=== PATIENT | female | born 1985 | race Caucasian/White ===

== ENCOUNTER 2022-12-24 07:11 | Outpatient (OUT) | payer OTHER, SELFPAY | END 2022-12-24 07:12 | disposition home or self-care (01) | LOC: NM 07:12 | PROVIDERS: PCP Family Medicine; Visit Provider Nurse Practitioner Family | DX: Z01.818 Encounter for other preprocedural examination (principal) ==

== ENCOUNTER 2023-01-07 10:25 | Outpatient (OUT) | payer OTHER, SELFPAY ==
--- NOTE | 2023-01-07 11:38 | PM.PRESUREVA ---
History of Present Illness History of Present Illness Chief complaint: PAT visit Narrative: Patient presents for preadmission testing. The patient states she has pelvic pain and heavy periods. She is scheduled for sterilization and an ablation. The patient states she had an abnormal EKG for previous preop workup and it was determined that she had a bundle branch block, her PCP ordered a stress test which was also abnormal, and for this reason she was evaluated by cardiology yesterday. She has been cleared for surgery by cardiology. She denies fever, nausea, vomiting, or any other complaints. Review of Systems ROS Narrative REVIEW OF SYSTEMS: Negative except as stated in HPI, ten or more systems reviewed. Constitutional: No fever , chills, weakness ENT: No sore throat or epistaxis Cardiovascular: No edema, chest pain, palpitations, or activity intolerance Respiratory: No shortness of breath, cough, or wheezing Musculoskeletal: No joint pain or swelling Gastrointestinal: No abdominal pain, constipation, diarrhea, or vomiting Genitourinary: No dysuria or hematuria Neurological: No numbness, tingling, weakness, or headache Psychiatric: No mood changes PFSH PFS Medical History (Updated 01/07/23 @ 11:18 by Aurelia Cast NP) Surgical History (Updated 01/07/23 @ 11:18 by Aurelia Cast NP) Family History (Updated 01/07/23 @ 11:18 by Aurelia Cast NP) Other Family history of colon cancer Family history of diabetes mellitus Family history of heart disease Family history of kidney cancer Family history of skin cancer Social History (Updated 01/07/23 @ 11:10 by Aurelia Cast NP) Within the past year, how often did you have a drink containing alcohol: never Score interpretation: A score less than 3 is consistent with normal alcohol consumption. Smoking status: Never smoker Non-prescribed substance use: denies use Highest level of school completed/degree received: some college, no degree Meds Home Medications and Allergies Home Medications Medication Instructions Recorded Confirmed Type cariprazine 1.5 mg capsule 1.5 mg PO DAILY 01/07/23 01/07/23 History (Vraylar) cholecalciferol (vitamin D3) 1,250 50,000 unit PO QWEEK 01/07/23 01/07/23 History mcg (50,000 unit) capsule fremanezumab-vfrm 225 mg/1.5 mL 225 mg subcut .once a month 01/07/23 01/07/23 History subcutaneous auto-injector (Ajovy) furosemide 20 mg tablet 20 mg PO QDAY 01/07/23 01/07/23 History lorazepam 1 mg tablet 1 mg PO Q12H 01/07/23 01/07/23 History pregabalin 100 mg capsule 100 mg PO Q12H 01/07/23 01/07/23 History trazodone 150 mg tablet 150 mg PO QDAY 01/07/23 01/07/23 History Exam Narrative Exam Narrative: Constitutional: Awake, alert, comfortable, well-appearing, nontoxic, interactive, vital signs as charted Head: Normocephalic, atraumatic Neck: Supple, normal appearance, normal range of motion, no meningeal signs, no lymphadenopathy Respiratory: No respiratory distress, breath sounds clear Cardiovascular: Regular rate and rhythm, strong and regular heart tones Abdomen: Nontender, normal bowel sounds, soft, no CVA tenderness Musculoskeletal: Normal gait, no swelling or edema Skin: No rashes or induration, no lesions, only visible skin inspected Neuro: No neurological deficits, normal sensation Psychiatric: Oriented ?3, normal affect Assessment and Plan Assessment and Plan (1) Abnormal uterine bleeding: (2) Dysmenorrhea: (3) Menorrhagia: (4) Pelvic pain: Plan Bilateral laparoscopic salpingectomy, endometrial ablation/Duyen scheduled with Dr. Clark 01/12/2023.
== END 2023-01-07 10:26 ==
PROVIDERS: PCP Nurse Practitioner Family
DX: Z01.818 Encounter for other preprocedural examination (principal); Z30.2 Encounter for sterilization; N92.0 Excessive and frequent menstruation with regular cycle; N93.9 Abnormal uterine and vaginal bleeding, unspecified; R10.2 Pelvic and perineal pain
CPT/HCPCS: G0463

== ENCOUNTER 2023-04-20 10:03 | Outpatient (OUT) | payer OTHER, SELFPAY ==
--- NOTE | 2023-04-20 10:45 | CA_ITS ---
[facility] Test Date: 2023-05-13 Pat Name: RADHA MONTGOMERY Department: Room: - Gender: Female [employer]ocket [employer]ist: : [id number] Requested By: [id number] Order Number: [id number] Reading MD: BUBBA FRAIRE Interpretive Statements Predominant rhythm is sinus with average rate of 78 bpm Tachycardia - max rate of 133 bpm - longest episode of 23min 33sec with rates between 112-133 bpm Bradycardia - min rate of 43 bpm - longest episode of 10min 23sec with rates between 48-58 bpm Ventricular ectopy - 2 PVC Patient triggered events: 13 - associated with symptoms of chest pain, lightheadedness and palpitations - associated with rates of 103 and 101 bpm and remainder NSR Impression: Predominant rhythm is sinus with average rate of 78 bpm Fastest rate of 133 bpm and slowest rate of 43 bpm 2 PVC No blocks or pauses No atrial fibrillation Electronically Signed On 05-16-2023 17:03:05 EDT by BUBBA FRAIRE
== END 2023-04-20 10:04 | disposition home or self-care (01) ==
LOC: CARD 10:04
PROVIDERS: PCP Nurse Practitioner Family; Visit Provider Nurse Practitioner Family
DX: R00.2 Palpitations (principal)
CPT/HCPCS: 93242

== ENCOUNTER 2023-05-18 07:35 | Outpatient (RCR) | payer OTHER, SELFPAY | END 2023-05-19 16:08 | disposition home or self-care (01) | LOC: PT 07:35 | PROVIDERS: PCP Nurse Practitioner Family; Visit Provider Psychiatry & Neurology Neurology | DX: G56.21 Lesion of ulnar nerve, right upper limb (principal); R29.3 Abnormal posture | CPT/HCPCS: 97110; 97161 ==

== ENCOUNTER 2023-10-06 10:41 | Outpatient (OUT) | payer MEDICARE, SELFPAY ==
--- OUTSIDE RECORDS SUMMARY | 2023-10-06 10:44 | XMS_ITS | CCD ---
Author Name Unknown Address [address] [place] [address] Organization [facility] Care Team Providers Care Industrial Insulator Name Role Phone KRISTIE, MARGARET Primary Care Unavailable MARTHA CASTELLANO Consulting Unavailable MARTHA CASTELLANO Attending Unavailable GRAY, MARTHA Admitting Unavailable KRISTIE, MARGARET Attending Unavailable KRISTIE, MARGARET Admitting Unavailable HOY ., DR FAY Primary Care Unavailable HEATHER ., DR OCASIO Consulting Unavailable KRISTIE, MARGARET Consulting Unavailable KRISTIE, MARGARET Attending Unavailable KRISTIE, MRAGARET Admitting Unavailable HOY ., DR FAY Primary Care Unavailable KRISTIE, MARGARET Attending Unavailable KRISTIE, MARGARET Admitting Unavailable KRISTIE, MARGARET Primary Care Unavailable KRISTIE, MARGARET Primary Care Unavailable HEATHER ., DR OCASIO Admitting Unavailable HEATHER ., DR OCASIO Attending Unavailable KRISTIE, MARGARET Primary Care Unavailable HEATHER ., DR OCASIO Attending Unavailable HEATHER ., DR OCASIO Admitting Unavailable HEATHER ., DR OCASIO Consulting Unavailable MORENA OWENS Consulting Unavailable KRISTIE, MARGARET Consulting Unavailable KRISTIE, MARGARET Attending Unavailable KRISTIE, MARGARET Admitting Unavailable HOY ., DR FAY Primary Care Unavailable KRISTIE, MARGARET Consulting Unavailable KRISTIE, MARGARET Attending Unavailable KRISTIE, MARGARET Admitting Unavailable HOY ., DR FAY Primary Care Unavailable ANDREWS ., DR BETO Cote Admitting Unavailable ANDREWS ., DR BETO Cote Attending Unavailable KRISTIE, MARGARET Primary Care Unavailable KRISTIE, MARGARET Attending Unavailable KRISTIE, MARGARET Admitting Unavailable KRISTIE, MARGARET Primary Care Unavailable KRISTIE, MARGARET Primary Care Unavailable MISC, DR LAWLER Admitting Unavailable MISC, DR LAWLER Consulting Unavailable MISC, DR LAWLER Attending Unavailable KRISTIE, MARGARET Attending Unavailable KRISTIE, MARGARET Admitting Unavailable HOY ., DR FAY Primary Care Unavailable KRISTIE, MARGARET Primary Care Unavailable HEATHER ., DR OCASIO Attending Unavailable HEATHER ., DR OCASIO Admitting Unavailable HEATHER ., DR OCASIO Consulting Unavailable LAZARO, DR MICHAEL Carmona Consulting Unavailable MARK DOMINGUEZ Attending Unavailable Maite Kruse Primary Care Provider Kaylee Hutton DO Unavailable DO Kaylee Hutton Attending Provider [phone] KAREN Munguia Primary Care Provider Maite Kruse Primary Care Provider LIZ MEEK Referring Unavailable TIFFANY MCKEON Attending Unavailable KAYLEE HUTTON Referring Unavailab LIZ Cancino Attending Unavailable Kaylee Hutton Admitting Unavailab Margaret Pitt Primary Care Unavailable Kaylee Hutton Attending Unavailab Alejandro Andujar Attending Unavailab Alejandro Andujar Admitting Unavailab le MARTINEZ STAFF Primary Care Unavailable STEPHANIE SEVERINO Attending Unavailable KRISTIE, MARGARET S Referring Unavailable KRISTIE MARGARET S Primary Care Unavailable STEPHANIE SEVERINO Attending Unavailable KRISTIE, MARGARET S Referring Unavailable KRISTIE MARGARET S Primary Care Unavailable Allergies Allergy Classification Reported Allergen(s) Allergy Type Date of Onset Reaction(s) Facility (1 source) Corticosteroids Drug allergy (disorder) [facility] Repository (2 sources) Glucocorticoid preparation; Translations: [CORTICOSTEROIDS (GLUCOCORTICOIDS)] Drug Allergy 3 Other: See Comments [facility] Work Phone: Medications Current Medications Medication Drug Class(es) Dates Sig (Normalized) Sig (Original) nabumetone 500 mg oral tablet (1 source) Nonsteroidal Anti-inflammatory Drug Start: 05-25-2023 End: 06-04-2023 take 1 tablet by mouth twice daily nabumetone (RELAFEN) 500 mg tablet Indications: 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 aura and without status migrainosus , Chronic daily headache Take 1 tablet by mouth two times a day for 10 days. 20 tablet 0 05/25/2023 06/04/2023 Active Comment on above: Take 1 tablet by matthew th two times a day for 10 days. topiramate 100 mg oral tablet (2 sources) Start: 06-15-2023 take 1 tablet by mouth once daily at bedtime topiramate (TOPAMAX) 100 mg tablet Indications: 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 aura and without status migrainosus , Pressure in head , Chronic daily headache Take 1 tablet by mouth daily at bedtime. 30 tablet 3 06/15/2023 Active Start: 05-25-2023 End: 06-15-2023 take 1 tablet by mouth once daily at bedtime, then take 2 tablets by mouth once daily at bedtime, then take 3 tablets by mouth once daily at bedtime topiramate (TOPAMAX) 25 mg tablet Indications: 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 aura and without status migrainosus , Pressure in head , Chronic daily headache Take 1 tablet by mouth daily at bedtime for 7 days, THEN 2 tablets daily at bedtime for 7 days, THEN 3 tablets daily at bedtime for 7 days. 42 tablet 0 05/25/2023 06/15/2023 Active Comment on above: Take 1 tablet by matthew th daily at bedtime for 7 days, THEN 2 tablets daily at bedtime for 7 days, THEN 3 tablets daily at bedtime for 7 days. Take 1 tablet by matthew th daily at bedtime. Completed/Discontinued Medications Medication Drug Class(es) Dates Sig (Normalized) Sig (Original) cariprazine 4.5 mg oral capsule (1 source) Atypical Antipsychotic Start: 05-04-2023 take 1 capsule by mouth once daily cariprazine (VRAYLAR) 4.5 mg capsule Take 4.5 mg by mouth once daily. 0 05/04/2023 Active Comment on above: Take 4.5 mg by mouth once daily. clonazePAM 1 mg oral tablet (1 source) Benzodiazepine Start: 03-02-2023 clonazePAM (KLONOPIN) 1 mg tablet Take 1 mg by mouth as needed. 0 03/02/2023 Active Comment on above: Take 1 mg by mouth a s needed. cyclobenzaprine hydrochloride 10 mg oral tablet (1 source) Muscle Relaxant Start: 04-05-2023 take 2 tablets by mouth once daily at bedtime cyclobenzaprine (FLEXERIL) 10 mg tablet Take 20 mg by mouth daily at bedtime. 0 04/05/2023 Active Comment on above: Take 20 mg by mouth daily at bedtime. FLUoxetine 40 mg oral capsule (1 source) Serotonin Reuptake Inhibitor Start: 02-18-2023 take 1 capsule by mouth once daily FLUoxetine (PROZAC) 40 mg capsule Take 40 mg by mouth once daily. 0 02/18/2023 Active Comment on above: Take 40 mg by mouth once daily. gabapentin 400 mg oral capsule (1 source) Anti-epileptic Agent Start: 03-16-2023 take 1 capsule by mouth three times daily gabapentin (NEURONTIN) 400 mg capsule Take 400 mg by mouth three times a day. 0 03/16/2023 Active Comment on above: Take 400 mg by mouth three times a day. lamoTRIgine 100 mg oral tablet (1 source) Mood Stabilizer, Anti-epileptic Agent Start: 04-23-2023 take 1 tablet by mouth once daily lamoTRIgine (LAMICTAL) 100 mg tablet Take 100 mg by mouth once daily. 0 04/23/2023 Active Comment on above: Take 100 mg by mouth once daily. naproxen 500 mg oral tablet (1 source) Nonsteroidal Anti-inflammatory Drug Start: 04-20-2023 End: 05-25-2023 naproxen (NAPROSYN) 500 mg tablet Take 1 tablet by mouth as needed. 0 04/20/2023 05/25/2023 Discontinued Comment on above: Take 1 tablet by matthew th as needed. Problems Active Problems Problem Classification Problem Date Documented Date Episodic/Chronic Anxiety disorders (2 sources) Panic disorder [episodic paroxysmal anxiety]; Translations: [Mixed obsessional thoughts and acts] Onset: 12-08-2022 Chronic Contraceptive and procreative management (1 source) Encounter for sterilization; Translations: [ENCOUNTER FOR STERILIZATION] Onset: 11-08-2022 Episodic Essential hypertension (1 source) Essential (primary) hypertension; Translations: [ESSENTIAL PRIMARY HYPERTENSION] Onset: 11-08-2022 Chronic Headache; including migraine (1 source) Chronic intractable migraine without aura; Translations: [Chronic migraine without aura, intractable, without status migrainosus] 05-25-2023 Chronic Headache; including migraine (2 sources) Headache; Translations: [Pressure in head] 05-25-2023 Episodic Menstrual disorders (2 sources) Excessive and frequent menstruation with regular cycle; Translations: [Excessive and frequent menstruation with irregular cycle] Onset: 08-18-2022 Chronic Mood disorders (1 source) Major depressive disorder, recurrent, severe with psychotic symptoms; Translations: [Major depressive disorder, recurrent, severe with psychotic symptoms] Onset: 12-08-2022 Chronic Other circulatory disease (2 sources) Elevated blood-pressure reading, without diagnosis of hypertension; Translations: [Elevated blood-pressure reading, without diagnosis of hypertension] Onset: 01-06-2023 Episodic Other female genital disorders (1 source) Abnormal uterine and vaginal bleeding, unspecified; Translations: [ABNORMAL UTERINE VAGINAL BLEED UNS] Onset: 11-08-2022 Chronic Other nervous system disorders (4 sources) Chronic pain syndrome; Translations: [CHRONIC PAIN SYNDROME] Onset: 08-17-2022 Chronic Other nutritional; endocrine; and metabolic disorders (1 source) Obesity, unspecified; Translations: [OBESITY UNSPECIFIED] Onset: 12-10-2022 Chronic Other nutritional; endocrine; and metabolic disorders (1 source) Body mass index (BMI) 50.0-59.9, adult; Translations: [BODY MASS INDEX BMI 50.0-59.9 ADULT] Onset: 12-10-2022 Chronic Other screening for suspected conditions (not mental disorders or infectious disease) (3 sources) Abnormal electrocardiogram [ECG] [EKG]; Translations: [Abnormal result of other cardiovascular function study] Onset: 11-26-2022 Episodic Residual codes; unclassified (4 sources) Obstructive sleep apnea (adult) (pediatric); Translations: [OBSTRUCTIVE SLEEP APNEA] Onset: 12-07-2022 Chronic Spondylosis; intervertebral disc disorders; other back problems (1 source) Radiculopathy, cervical region; Translations: [Radiculopathy, cervical region] Onset: 05-20-2023 Episodic Substance-related disorders (1 source) Nicotine dependence, other tobacco product, uncomplicated; Translations: [NICOTINE DEPEND OTH TOB PROD UNCOMP] Onset: 11-08-2022 Chronic Past or Other Problems Problem Classification Problem Date Documented Da te Episodic/Chronic Other connective tissue disease (4 sources) Fibromyalgia; Translations: [FIBROMYALGIA] Onset: 08-31-2022 Episodic Other non-traumatic joint disorders (4 sources) Pain in left shoulder; Translations: [PAIN IN LEFT SHOULDER] Onset: 05-12-2022 Episodic Results Test Name Value Interpretation Reference Range Facility [facility] 08-04-2023 [facility] Telephone (NI) RADHA GARCÍA ([id number]) 1985 F [place] Date Time Provider Department 08/04/23 NEUROLOGY PROVIDER JEFF During your visit today, we recorded the following information about you: Walters, Marlee 08/04/2023 11:56 AM Signed Received external records from [facility] related to intracranial hypertension. Pt is following with Dr. Liz Meek. Forwarded records to her office at [phone]. Allergies As of Date: 08/04/2023 Noted Allergy Reaction CORTICOSTEROIDS (GLUCOCORTICOIDS) 05/25/2023 14 - Other: See Comments Date Reviewed: 08/03/2023 Reviewed by: Tiffany Mckeon APRN.SENIOR DATA DEVELOPER - Fully Assessed Reason for Visit: Received Outside Medical Records [[id number]] Cmt: Records from local neurologist Prescriptions as of 08/04/2023 - metoprolol succinate ER (TOPROL XL) 25 mg 24 hr tablet Take 1 tablet by mouth once daily. - clonazePAM (KLONOPIN) 1 mg tablet Take 1 mg by mouth as needed. - cyclobenzaprine (FLEXERIL) 10 mg tablet Take 20 mg by mouth daily at bedtime. - FLUoxetine (PROZAC) 40 mg capsule Take 40 mg by mouth once daily. - gabapentin (NEURONTIN) 400 mg capsule Take 400 mg by mouth three times a day. - lamoTRIgine (LAMICTAL) 100 mg tablet Take 100 mg by mouth once daily. - topiramate (TOPAMAX) 100 mg tablet Take 1 tablet by mouth daily at bedtime. Problem List As Of Date: 08/04/2023 (None) Encounter Status:Closed by MARLEE WALTERS on 08/04/23 Normal [facility] MR cervical spine wo obduliaon 1 MR cervical spine wo con [facility] [address] [place] [id number] MRI Report Signed Patient: Radha García MR#: [id number] : 1985 Acct:[id number] Age/Sex: 38 / F ADM Date: 05/20/23 Loc: MR Room: Type: [facility] Attending Dr: Kaylee Hutton DO Copies to: Kaylee Hutton DO Ordering Provider: Kaylee Hutton DO Date of Service: 05/20/23 MR/MR cervical spine wo con: M54.12 EXAMINATION: MRI OF THE CERVICAL SPINE WITHOUT CONTRAST CLINICAL DATA: Chronic neck pain. Bilateral arm twitching. History of Chiari malformation. TECHNIQUE: Multiecho imaging was performed in the sagittal and axial plane without contrast administration. FINDINGS: Vertebral body heights appear maintained. No bone marrow edema is noted. No prevertebral soft tissue swelling is seen. Cervicomedullary junction is normal. No syrinx is seen. No abnormal cord signal is noted. No paraspinal mass is seen. C2-3: Normal. No canal or neural foraminal stenosis. C3-4: Normal. No canal or neural foraminal stenosis. C4-5: Normal. No canal or neural foraminal stenosis. C5-6: Disc osteophyte complex present causing minimal canal and mild bilateral neural foraminal stenosis C6-7: Normal. No canal or neural foraminal stenosis. C7-T1: Normal.. MR/MR cervical spine wo con IMPRESSION: NO MRI EVIDENCE OF CORD ABNORMALITY IS SEEN. DISC OSTEOPHYTE COMPLEX SEEN AT C5-C6 CAUSING MINIMAL CANAL AND MILD BILATERAL NEURAL FORAMINAL STENOSIS. Impression dictated by: Bassem Powell Jr., D.O.05/20/2023 11:29 AM Dictation Location: [place] [address] Transcribed By: [facility] 05/20/23 1129 Dictated By: Bassem Powell Jr, DO 05/20/23 1126 Signed By: 05/20/23 1129 Normal [facility] XR pre/post mri xrayon 05-20 XR pre/post mri xray [facility] Main [place] [id number] XRay Report Signed Patient: Radha García MR#: [id number] : 1985 Acct:[id number] Age/Sex: 38 / F ADM Date: 05/20/23 Loc: MR Room: Type: [facility] Attending Dr: Kaylee Hutton DO Copies to: Kaylee Hutton DO Ordering Provider: Kaylee Hutton DO Date of Service: 05/20/23 XR/XR pre/post mri xray: M54.12 3 views cervical spine for pre-MRI assessment Straightening of cervical lordosis. Mild C5-6 spondylosis. Mild C5-6 bilateral bony neural foraminal narrowing. No fracture. No listhesis. Unremarkable soft tissues. XR/XR pre/post mri xray IMPRESSION: Mild C5-6 and degeneration. Impression dictated by: Melecio Barillas M.D.05/20/2023 1:06 PM Dictation Location: [place] [address] Transcribed By: KASSIDY 05/20/231305 Dictated By: Melecio Barillas DO 05/20/23 1304 Signed By: 05/20/23 130 [facility] 03-17-2023 [facility] Telephone (NIQ) RADHA GARCÍA ([id number]) 1985 F [place] Date Time Provider Department 03/17/23 NEUROLOGY PROVIDER NIQ During your visit today, we recorded the following information about you: Marlee Walters 03/17/2023 9:34 AM Signed Referral source: Dr. Kaylee Hutton ([facility] [place], [place], [place]) Reason: benign intracranial hypertension, chronic tension-type headache, pseudotumor cerebrei External records on file. Allergies As of Date: 03/17/2023 (Not on File) Date Reviewed: Never Reviewed Reason for Visit: Received Outside Medical Records [[id number]] Cmt: External referral to [facility] [place] Problem List As Of Date: 03/17/2023 (None) Encounter Status:Closed by MARLEE WALTERS on 03/17/23 Normal [facility] Office Visiton 01-06-2023 Follow-up visit [id number] RickyJose De JesusRadha G 1985 F Date Provider Department Center 01/06/2023 [id number] DOMINGUEZ CARD [facility] No family history on file Level of Service:626[address] CT OFFICE/OUTPATIENT NEW MODERATE MDM 45-59 MINUTES Reason for Visit and Comments: New Patient [632] - abnormal stress kristie referral saw cardio in [place] not sure of name Normal [facility] PROF CHEM 8 (BAS METB)on Anion gap [Moles/Vol] 12.4 mmol/L Normal [facility] Comment on above: Performed By: #### B MP #### [facility] [address] [place] [address] [address] Maame Núñez Calcium [Mass/Vol] 8.7 mg/dL Normal 8.5-10.1 [facility] Comment on above: Performed By: #### B MP #### [facility] [address] [place] [address] [address] Maame Núñez Chloride [Moles/Vol] 107 mmol/L Normal 98-107 [facility] Comment on above: Performed By: #### B MP #### [facility] [address] [place] [address] [address] Maame Núñez CO2 [Moles/Vol] 26.6 mmol/L Normal 21.0-32.0 [facility] Comment on above: Performed By: #### B MP #### [facility] [address] [place] [address] [address] Maame Núñez Creatinine [Mass/Vol] 0.61 mg/dL Normal 0.55-1.02 [facility] Comment on above: Performed By: #### B MP #### [facility] [address] [place] [address] [address] Maame Núñez EGFR-AF MONGOLIAN >60 Normal >=60 [facility] Comment on above: Performed By: #### B MP #### [facility] [address] [place] [address] [address] Maame Núñez EGFR-NON AF MONGOLIAN >60 Normal >=60 [facility] Comment on above: Performed By: #### B MP #### [facility] [address] [place] [address] [address] Maame Núñez Glucose [Mass/Vol] 94 mg/dL Normal 74-106 [facility] Comment on above: Performed By: #### B MP #### [facility] [address] [place] [address] [address] Maame Núñez Potassium [Moles/Vol] 4.0 mmol/L Normal 3.5-5.1 [facility] Comment on above: Performed By: #### B MP #### [facility] [address] [place] [address] [address] Maame Núñez Sodium [Moles/Vol] 142 mmol/L Normal 136-145 [facility] Comment on above: Performed By: #### B MP #### [facility] [address] [place] [address] [address] Maame Núñez Urea nitrogen [Mass/Vol] 12.0 mg/dL Normal 7.0-18.0 [facility] Comment on above: Performed By: #### B MP #### [facility] [address] [place] [address] Dr. Maame Núñez Urea nitrogen/Creatinine [Mass ratio] 19.7 mg/mg Normal [facility] Comment on above: Performed By: #### B MP #### [facility] [address] [place] [address] Dr. Maame Núñez XR CHEST 2 Von 11-02-2022 XR CHEST 2 V EXAM: XR CHEST 2 V HISTORY: Electronic cigarette user COMPARISON: 11/01/22 TECHNIQUE: PA and lateral views of the chest. FINDINGS: The cardiomediastinal silhouette is normal. No focal consolidation is identified. There is no pneumothorax. No pleural effusion is noted. The osseous structures are intact. IMPRESSION: No acute cardiopulmonary process. Electronically authenticated by: MORENA OWENS Date: 2022-11-02 09:41 Normal [facility] COLLIN EIA W/REFLEX 9 BIOMARKER Son 09-01-2022 COLLIN Direct Negative Normal Negative [facility] Comment on above: Performed By: #### A NARF9 #### [facility] [address] [place], [place] [address] Dr. Maame Núñez CBC AUTO DIFFon 08-17-2022 BASO # 0.0 103/ul Normal 0.0-0.1 [facility] Comment on above: Performed By: #### C BC ####[facility] [address] [place] [address]DrEllen Núñez Basophils/100 WBC (Bld) 0.6 % Normal 0.2-2.0 [facility] Comment on above: Performed By: #### C BC ####[facility] [address] [place] [address]Dr. Maame Núñez EO # 0.1 103/ul Normal 0.0-0.7 [facility] Comment on above: Performed By: #### C BC ####[facility] [address] [place], [place] [address]Dr. Maame Núñez Eosinophils/100 WBC (Bld) 1.5 % Normal 0.9-7.0 [facility] Comment on above: Performed By: #### C BC ####[facility] [address] [place], [place] [address]Dr. Maame Núñez Erythrocyte distribution width (RBC) [Ratio] 13.0 % Normal 11.0-15.0 [facility] Comment on above: Performed By: #### C BC ####[facility] [address] [place], [place] [address]Dr. Maame Núñez Hematocrit (Bld) [Volume fraction] 39.3 % Normal 36.0-48.0 [facility] Comment on above: Performed By: #### C BC ####[facility] [address] [place], [place] [address]DrEllen Núñez Hemoglobin (Bld) [Mass/Vol] 13.6 g/dL Normal 12.0-16.0 [facility] Comment on above: Performed By: #### C BC ####[facility] [address] [place], [place] [address]Dr. Maame Núñez IG # 0.02 10e3/ul Normal 0.00-0.03 [facility] Comment on above: Performed By: #### C BC ####[facility] [address] [place] [address]DrEllen Maame Núñez IG % 0.3 % Normal 0.0-0.5 [facility] Comment on above: Performed By: #### C BC ####[facility] [address] [place] [address]DrEllen Maame Núñez LYMPH # 2.1 103/ul Normal 1.2-3.8 [facility] Comment on above: Performed By: #### C BC ####[facility] [address] [place], [place] [address]DrEllen Maame Wilton Lymphocytes/100 WBC (Bld) 31.5 % Normal 20.5-60.0 [facility] Comment on above: Performed By: #### C BC ####[facility] [address] [place], [place] [address]DrEllen Maame Wilton MANUAL DIFF REQ NO Normal [facility] Comment on above: Performed By: #### C BC ####[facility] [address] [place], [place] [address]Dr. Maame Núñez MCH (RBC) [Entitic mass] 28.4 pg Normal 26.7-34.0 [facility] Comment on above: Performed By: #### C BC ####[facility] [address] [place], [place] [address]Dr. Maame Núñez MCHC (RBC) [Mass/Vol] 34.6 g/dL Normal 29.9-35.2 [facility] Comment on above: Performed By: #### C BC ####[facility] [address] [place], [place] [address]DrEllen Maame Wilton MCV (RBC) [Entitic vol] 82.0 fL Normal 81.0-99.0 [facility] Comment on above: Performed By: #### C BC ####[facility] [address] [place], [place] [address]DrEllen Maame Wilton MONO # 0.5 103/ul Normal 0.3-0.8 [facility] Comment on above: Performed By: #### C BC ####[facility] [address] [place] [address]Dr. Maame Núñez Monocytes/100 WBC (Bld) 7.0 % Normal 1.7-12.0 [facility] Comment on above: Performed By: #### C BC ####[facility] [address] [place] [address]Dr. Maame Núñez NEUT # 3.9 103/ul Normal 1.4-6.5 [facility] Comment on above: Performed By: #### C BC ####[facility] [address] [place] [address]Dr. Maame Núñez Neutrophils/100 WBC (Bld) 59.1 % Normal 43.0-75.0 [facility] Comment on above: Performed By: #### C BC ####[facility] [address] [place] [address]Dr. Maame Núñez Platelet mean volume (Bld) [Entitic vol] 9.9 fL Normal 9.5-13.5 [facility] Comment on above: Performed By: #### C BC ####[facility] [address] [place] [address]Dr. Maame Núñez PLT 242 103/ul Normal 150-450 [facility] Comment on above: Performed By: #### C BC ####[facility] [id number] [place] [address]Dr. Maame Núñez RBC 4.79 106/ul Normal 4.20-5.40 [facility] Comment on above: Performed By: #### C BC ####[facility] [id number] [place] [id number]. Maame Núñez WBC 6.5 103/ul Normal 4.0-11.0 [facility] Comment on above: Performed By: #### C BC ####[facility] [id number] [place] [address]Dr. Maame Núñez CPKon 08-17-2022 CK [Catalytic activity/Vol] 82 U/L Normal 26-192 [facility] Comment on above: Performed By: #### M YO, CK #### [facility] [address] [place] [address] Dr. Maame Núñez FREE T4on 08-17-2022 Free T4 [Mass/Vol] 0.99 ng/dL Normal 0.76-1.46 [facility] Comment on above: Performed By: #### F T4 #### [facility] [address] [place] [address] Dr. Maame Núñez GLYCOHEMOGLOBIN A1Con 2022 ADA RECOMMENDATION SEE BELOW Normal [facility] Comment on above: Result Comment: ADA RECOMMENDED LIMIT 4.0 - 6.0 ADA THERAPEUTIC TARGET < 7.0 ACTION SUGGESTED > 7.0 Performed By: #### A 1C #### [facility] [address] [place] [address] Dr. Maame Núñez Glucose [Mass/Vol] 103 mg/dL Normal [facility] Comment on above: Performed By: #### A 1C #### [facility] [address] [place] [address] Dr. Maame Núñez HbA1c (Bld) [Mass fraction] 5.2 % Normal 4.5-6.2 [facility] Comment on above: Performed By: #### A 1C #### [facility] [address] [place] [address] Dr. Maame Núñez MYOGLOBINon 08-17-2022 LILLIAM 46 ng/mL Normal 9-82 [facility] Comment on above: Performed By: #### M PAOLA, CK #### [facility] [address] [place] [address] Dr. Maame Núñez PREG QUANT HCGon 08-17-2022 HCG QUANT 1 mIU/mL Normal [facility] Comment on above: Performed By: #### T SH, PREGQNT #### [facility] [address] [place] [address] Dr. Maame Núñez HCG RANGE SEE BELOW Normal [facility] Comment on above: Result Comment: 5-50 0.2-1 WEEK 50-500 1-2 WEEKS 100-5,000 2-3 WEEKS 500-10,000 3-4 WEEKS 1,000-50,000 4-5 WEEKS 10,000-100,000 5-6 WEEKS 15,000-200,000 6-8 WEEKS 10,000-100,000 2-3 MONTHS Performed By: #### T NOBLE, PREGQNT #### [facility] [address], [place] [address] Dr. Maame Núñez TSHon 08-17-2022 TSH 1.027 uIU/mL Normal 0.358-3.740 [facility] Comment on above: Performed By: #### T NOBLE, PREGQNT #### [facility] [address], [place] [address] Dr. Maame Núñez US PELVIS AND TRANSVAGon US PELVIS AND TRANSVAG EXAMINATION: US PELVIS AND TRANSVAG HISTORY: Excessive menstruation with irregular cycle ; chronic menorrhagia COMPARISON: No relevant comparison available. TECHNIQUE: Transabdominal and transvaginal sonographic examination. FINDINGS: UTERUS: Normal size and appearance. Incidental 8 mm nabothian cyst within walter of cervix. Uterus size: 9.4 x 5.0 x 6.1 cm ENDOMETRIUM: Normal homogeneous appearance. Endometrial thickness: 10 mm RIGHT OVARY: Normal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 characteristic, never had papilledema, no evidence of increased pressure on MRI) who presents for evaluation of headache. Does not meet modified-Dandy walker criteria for IIH ICHD-3 Diagnosis: Chronic Migraine Headache (CM) PLAN: Preventive: topamax - goal dose 100 mg Rescue: none for now given chronicity Cycle breaker: nabumetone 500 mg BID x 10 days Future considerations: metoprol, botox, qulipta Send insurance information Copy of LP results as well as MRI brain disc sent to office HEADACHE MANAGEMENT: (You are the primary guardian of your health and headache. Keep track of all medications: This includes the reason for use, side effects and benefits.) MEDICATION TREATMENT: Medications to Start Taking topiramate (TOPAMAX) 25 mg tablet Take 1 tablet by mouth daily at bedtime for 7 days, THEN 2 tablets daily at bedtime for 7 days, THEN 3 tablets daily at bedtime for 7 days. topiramate (TOPAMAX) 100 mg tablet Starting on 06/15/2023. Take 1 tablet by mouth daily at bedtime. nabumetone (RELAFEN) 500 mg tablet Take 1 tablet by mouth two times a day for 10 days. Headache education was done. Discussed lifestyle modification including increased oral hydration, decreased caffeine, exercise and stress management. Discussed treatment options including preventive and acute medications, natural supplements, and infusion therapy. Discussed medication overuse headache and to limit use of acute treatments to no more than 2 days/week or 10 days/month. Discussed medication side effects, adverse reactions and drug interactions. Written educational materials and patient instructions outlining all of the above were given. WELLNESS IS PAIN MANAGEMENT. Follow-up: 3 months I spent a total of 45 minutes on the date of the service which included preparing to see the patient, [id number] patient care, completing clinical documentation, obtaining and/or reviewing separately obtained history, performing a medically appropriate examination, counseling and educating the patient/family/caregiver, and ordering medications, tests, or procedures. The above plan discussed with the patient. All questions answered. The patient verbalized understanding. The patient has my contact information and my chart sign up information. I performed this clinical encounter by utilizing a real time telehealth video connection between my location and the patient's location. The patient's location was confirmed during the visit. I obtained verbal consent from the patient to perform this clinical encounter utilizing video and prepared the patient by answering any questions they had about the telehealth. I addressed patient's questions and concerns in detail in regards to the chief complaint today in addition to all other comorbidities. Iesha Meek DO Adult Neurology/ Board Certified Headache Medicine/ Board Certified Staff, [facility] Specialist of Neurology with [facility] [address] [place] [address]/ [place] [address] Office: [phone] documented in this encounter [facility] Note 03-17-2023 Telephone Encounter - Marlee Walters - 03/17/2023 9:32 AM EDT Note Date & Type Note Facility 03-17-2023 Miscellaneous Notes Formattin g of this note might be different from the original. Referral source: Dr. Kaylee Hutton ([facility] [place], [place]) Reason: benign intracranial hypertension, chronic tension-type headache, pseudotumor cerebrei External records on file. documented in this encounter [facility] Progress note 01-06-2023 Note Date & Type Note Facility 01-06-2023 Note Cardiovascular Medic ine [facility] Clinic SUBJECTIVE Chief Complaint Patient presents with New Patient abnormal stress kristie referral saw cardio in [place] not sure of name ABHIJIT Radha García is a 37 y.o. female here as a new patient for evaluation of an abnormal stress test. She had an ECG as part of her preoperative workup for ablation/bilateral salpingectomy which revealed an incomplete bundle branch block with recommendations for a stress test per PCP. She had a stress test which showed moderate anterior and mild inferior wall fixed defects versus anterior soft tissue attenuation artifact without reversible ischemic changes. She reports ongoing dull chest pain occurring randomly twice a day at rest lasting up to 10 minutes at a time. No pain on exertion. Chest pain seem to be worsening over the last six months. She has chronic lightheadedness, she previously saw a market asset protection manager in [place] without findings to explain her lightheadedness. She denies syncope, acute palpitations, or worsening dyspnea on exertion. She has previously smoked marijuana but not tobacco use. No known history of diabetes, hypertension or hyperlipidemia. Her grandfather had an acute GA in his 50s, no other known family history of coronary disease or sudden cardiac . Review of Systems Cardiovascular: Positive for chest pain, dyspnea on exertion, near-syncope and palpitations. Negative for claudication, irregular heartbeat, leg swelling, orthopnea, paroxysmal nocturnal dyspnea and syncope. Neurological: Positive for light-headedness. OBJECTIVE Visit Vitals BP (!) 131/91 Pulse 69 Wt (!) 148 kg (326 lb) SpO2 98% Medications: Current Outpatient Medications: FLUoxetine (PROzac) 20 mg capsule, TAKE 1 CAPSULE (20 MG TOTAL) BY MOUTH IN THE MORNING, Disp: , Rfl: furosemide (Lasix) 20 mg tablet, Take 20 mg by mouth in the morning and at bedtime., Disp: , Rfl: LORazepam (Ativan) 1 mg tablet, TAKE 1 TABLET (1 MG TOTAL) BY MOUTH TWO TIMES A DAY NEEDED FOR ANXIETY., Disp: , Rfl: pregabalin (Lyrica) 100 mg capsule, Take 100 mg by mouth twice a day., Disp: , Rfl: traZODone (Desyrel) 50 mg tablet, TAKE 1-2 TABLETS BY MOUTH NIGHTLY NEEDED FOR SLEEP., Disp: , Rfl: Vraylar 1.5 mg capsule, , Disp: , Rfl: Physical Exam Constitutional: Appearance: She is obese. Cardiovascular: Rate and Rhythm: Normal rate and regular rhythm. Heart sounds: No murmur heard. Musculoskeletal: General: No swelling. Skin: General: Skin is warm and dry. Neurological: General: No focal deficit present. Mental Status: She is alert and oriented to person, place, and time. Labs: 11/02/2022 Sodium 142, potassium 4, chloride 107, BUN 12, serum creatinine 0.61, estimated GFR greater than 60% Testing/Procedures: Stress test: 12/15/2022 No acute or reversible defect Moderate anterior and mild inferior wall fixed defect versus anterior soft tissue attenuation artifact Normal wall motion, ejection fraction, and left ventricular volume ASSESSMENT/PLAN: Diagnosis Plan 1. Cardiovascular stress test abnormal 2. Elevated blood pressure reading 1. Abnormal cardiovascular stress test -We discussed risk factors for cardiovascular disease. She overall has low risk factors with exception of obesity. Stress did not show any ischemic or reversible defects. Additionally, her symptoms are atypical of angina, occurring at rest without reproducible symptoms on exertion. At this time do not recommend further testing for probable irreversible defect detected on stress test which is also possibly related to artifact. Given no reversible defects were noted, she is stable to proceed with planned obstetric surgery without further testing from a cardiac standpoint. Recommend cardiovascular risk factor modification including weight management and blood pressure control. 2. Elevated blood pressure reading -Discussed repeat blood pressure is persistently elevated reading in the 130s over 90s, recommend obtaining a home monitor and monitoring blood pressure at least once daily at home. She should follow-up with PCP for further management if persistently elevated. She can follow-up with cardiology on as-needed basis. This case and plan was discussed with attending market asset protection manager Dr. Johnson. Mark Dominguez APRN-SENIOR DATA DEVELOPER [facility] Cardiovascular Medicine [facility] Evaluation note Note Date & Type Note Facility Evaluation note [facility]: Evaluation note Note Date & Type Note Facility Evaluation note Diagnosis 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 aura and without status migrainosus- Primary Chronic migraine without aura, with intractable migraine, so stated, without mention of status migrainosus Pressure in head Headache Chronic daily headache Headache documented in this encounter [facility] Summary Purpose Family History No Family History Records FoundNo Family History Records FoundNo Family History Records FoundNo Family History Records FoundNo Family History Records Found Advance Directives No Advanced Directives Records Found Advance Directive Response Recorded Date/ Time Advance Directives No May 05, 2023 4:45pm Chief Complaint and Reason for Visit Chief Complaint M54.12 R29.898 Z86.6 9 Reason for Referral Specialty Diagnoses / Procedures Referred By Contac t Referred To Contact Diagnoses 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 aura and without status migrainosus Pressure in head Chronic daily headache Procedures PROVIDER ORDERED FOLLOW UP OFFICE/OUTPATIENT NEW HIGH MDM 60-74 MINUTES Liz Meek DO [address] [place] [address] Referral ID Status Reason Start Date Expiration Date Visits Requested Visits Authorized [id number] Pending Review PCP Requested Referral 08/03/2023 05/24/2024 1 1 Additional Source Comments INFORMATION SOURCE (unrecogn ized section and content) DATE CREATED AUTHOR 01/01/2023 [facility] DATE CREATED AUTHOR AUTHOR'S ORGANIZ ATION 01/06/2023 [facility] DATE CREATED AUTHOR AUTHOR'S ORGANIZ ATION 08/05/2023 [facility] DATE CREATED AUTHOR AUTHOR'S ORGANIZ ATION 08/07/2023 [facility] DATE CREATED AUTHOR AUTHOR'S ORGANIZ ATION 09/14/2023 [facility] Source Comments (unrecognize d section and content) In the event this informatio n is protected by the Federal Confidentiality of Alcohol and Drug Abuse Patient Records regulations: The Federal rules restrict any use of the information to criminally investigate or prosecute any alcohol or drug abuse patient.[facility] the event this information is protected by the Federal Confidentiality of Alcohol and Drug Abuse Patient Records regulations: The Federal rules restrict any use of the information to criminally investigate or prosecute any alcohol or drug abuse patient.[facility] Reason for Visit (unrecogniz ed section and content) Reason Comments Received Outside Medical Records Externa l referral to Neurological [place] Reason Comments Chronic Migraine Care Teams (unrecognized sec tion and content) Industrial Insulator Relationship Specialty Start Date End Date Maite Kruse [address] [place] [address] PCP - General Family Medicine 03/19/21 Kaylee Hutton DO [address] [place] [phone] [place] Referring Team Neurology 03/17/23 Team Status: Active Member Role Status Dates Margaret Munguia NP-Biju Primary Care Provider Active Team Status: Inactive Member Role Status Dates Kaylee Hutton DO Attending Provider Active Margaret Munguia DIESEL LOCOMOTIVE ENGINEER-C Primary Care Provider Active Industrial Insulator Relationship Specialty Start Date End Date Maite Kruse [address] [place] [address] PCP - General Family Medicine 03/19/21 Kaylee Hutton DO [address] [place] [phone] NI Referring Team Neurology 03/17/23 Goals (unrecognized section and content) Goals may be documented in a n alternate section FOR RECORDS PERTAINING TO PATIENTS WHO ARE OR HAVE BEEN ENROLLED IN A CHEMICAL DEPENDENCY/SUBSTANCEABUSE PROGRAM, SOME INFORMATION MAY BE OMITTED. This clinical summary was aggregated from multiple sources. Caution should be exercised in using it in the provision of clinical care. This summary normalizes information from multiple sources, and as a consequence, information in this document may materially change the coding, format and clinical context of patient data. In addition, data may be omitted in some cases. CLINICAL DECISIONS SHOULD BE BASED ON THE PRIMARY CLINICAL RECORDS. [employer] provides no warranty or guarantee of the accuracy or completeness of information in this document.
--- NOTE | 2023-10-06 10:50 | PM.CN ---
Consult Note: HPI Data of Consult Patient: new to practice Consult date: 10/06/23 Requesting Physician: Lisa Luna NP Primary Care Provider: AMAN MUNGUIA Consult Narrative Reason for consult: establish Narrative: Remedios García a pleasant 38 year old female presents for evaluation and management of chronic right shoulder pain. Patient reports chronic pain in neck and right shoulder however 4 months ago she noticed this pain changed. Patient completed PT without benefit. Patient reports stabbing ache and pain in right shoulder and upper arm. Hx of numbness of fingers in the right hand for which she had an EMG on and was negative for cervical radiculopathy. Pain today 5/10, increasing to 10/10 with pushing, pulling, housework, lifting, moving arm, activity, ADLS, and sleep. Mild benefit to motrin, gabapentin, topamax, medical marijauna. DEMAR 87%. Patient following with [facility] orthopedics for finger pains. cc:: CC: Lisa Luna NP Review of Systems ROS Status of ROS 10 or more systems reviewed and unremarkable except as noted in history and below Musculoskeletal Reports: neck pain and joint pain PFSH PFSH Medical History Abnormal uterine bleeding ?N93.9 - Abnormal uterine and vaginal bleeding, unspecified (ICD-10) Menorrhagia ?N92.0 - Excessive and frequent menstruation with regular cycle (ICD-10) Dysmenorrhea ?N94.6 - Dysmenorrhea, unspecified (ICD-10) Pelvic pain ?R10.2 - Pelvic and perineal pain (ICD-10) Fibromyalgia ?M79.7 - Fibromyalgia (ICD-10) Neck pain ?M54.2 - Cervicalgia (ICD-10) DDD (degenerative disc disease) Back pain ?M54.9 - Dorsalgia, unspecified (ICD-10) Insomnia ?G47.00 - Insomnia, unspecified (ICD-10) OCD (obsessive compulsive disorder) ?F42.9 - Obsessive-compulsive disorder, unspecified (ICD-10) PTSD (post-traumatic stress disorder) ?F43.10 - Post-traumatic stress disorder, unspecified (ICD-10) Panic attacks ?F41.0 - Panic disorder [episodic paroxysmal anxiety] (ICD-10) Depression ?F32.A - Depression, unspecified (ICD-10) Anxiety ?F41.9 - Anxiety disorder, unspecified (ICD-10) COVID-19 ?U07.1 - COVID-19 (ICD-10) Migraine ?G43.909 - Migraine, unspecified, not intractable, without status migrainosus (ICD-10) Seizures ?R56.9 - Unspecified convulsions (ICD-10) Pseudotumor cerebri ?G93.2 - Benign intracranial hypertension (ICD-10) Chiari malformation Morphea ?L94.0 - Localized scleroderma [morphea] (ICD-10) Heartburn ?R12 - Heartburn (ICD-10) Abnormal EKG ?R94.31 - Abnormal electrocardiogram [ECG] [EKG] (ICD-10) Adenomyosis ?N80.03 - Adenomyosis of the uterus (ICD-10) Surgical History S/P epidural steroid injection ?Z92.241 - Personal history of systemic steroid therapy (ICD-10) History of wisdom tooth extraction ?K08.409 - Partial loss of teeth, unspecified cause, unspecified class (ICD-10) Family History Other Family history of colon cancer Family history of diabetes mellitus Family history of heart disease Family history of kidney cancer Family history of skin cancer Social History Within the past year, how often did you have a drink containing alcohol: never Score interpretation: A score less than 3 is consistent with normal alcohol consumption. Smoking status: Never smoker Non-prescribed substance use: denies use Highest level of school completed/degree received: some college, no degree Meds Home Medications and Allergies Home Medications Medication Instructions Recorded Confirmed Type cariprazine 1.5 mg capsule 3 mg PO DAILY 01/07/23 10/06/23 History (Vraylar) furosemide 20 mg tablet 20 mg PO QDAY 01/07/23 10/06/23 History fluoxetine 40 mg capsule 80 mg PO DAILY 10/06/23 10/06/23 History gabapentin 400 mg capsule 400 mg PO DAILY 10/06/23 10/06/23 History gabapentin 800 mg tablet 800 mg PO BID 10/06/23 10/06/23 History lamotrigine 200 mg tablet 200 mg PO DAILY 10/06/23 10/06/23 History metoprolol tartrate 25 mg tablet 25 mg PO DAILY 10/06/23 10/06/23 History topiramate 100 mg tablet (Topamax) 100 mg PO DAILY 10/06/23 10/06/23 History Allergies Allergy/AdvReac Type Severity Reaction Status Date / Time No Known Drug Allergies Allergy Verified 10/06/23 11:30 Exam Constitutional Documenting provider has reviewed patient's vital signs: yes Common normals: no apparent distress, oriented x3, healthy appearing, alert and well nourished General appearance: cooperative HENSD Common normals: normocephalic, hearing grossly normal bilaterally and moist oral mucous membranes Head and scalp: normocephalic Eye Common normals: PERRL Pupil: PERRL Neck & C-Spine Common normals: full ROM General: normal visual inspection Cervical spine: pain with cervical ROM Chest Common normals: inspection of chest normal Respiratory Common normals: normal respiratory effort, no retractions and no use of accessory muscles Extremity Right upper extremity: shoulder joint Other: unable to perform empty can test due to pain and limited ROM. unable to raise arm over head, unable to perform abduction testing due to severe pain. pain over right suprascapular and axillary nerve, pain to right biceps positive apleys scratch test weakness in RUE 3/5 compared to LUE 5/5 Extremity image (front): 1. 2. Neuro Common normals: oriented x3, CN's II-XII intact bilaterally, moves all extremities, no focal motor deficits, no sensory deficits noted and deep tendon reflexes 2+ bilaterally Sensorium/orientation: alert Motor exam: no movement abnormalities noted and strength abnormal Psych Common normals: mental status grossly normal, thought process normal, cooperative, affect normal, speech normal and activity/motor behavior normal Speech: normal speech Thought process: normal thought process Results Additional Findings Additional findings: If on a controlled substance or opioids, I have checked an [place] report on this patient today and there are no aberrancies noted in the prescribing history.?? A drug screen was completed and reviewed within the last year, and if there has not been a drug screen completed we ordered one today to monitor higher risk, state monitored pain medication use. As part of providing excellent, safe, comprehensive care, the following was completed at our patient's visit: Reviewed patients? medication reconciliation. An annual review has been completed for the following: screening for depression, screening for tobacco use, and screening for unhealthy alcohol use. For concerning screenings had a discussion with the patient, provided patient education, and recommended follow-up with primary care provider when appropriate. If patient noted with a risk of falling, they received education on strength, gait, and balance training to prevent future risk of falling. Assessment and Plan Assessment and Plan (1) Right shoulder pain: (2) Biceps tendonitis: Plan right shoulder MRI to evaluate rotator cuff tear, biceps tendonitis, or other pathology. Essential to evaluate for injection therapy vs surgical referral continue medications through PCP continue f/u with orthopedics f/u after MRI
== END 2023-10-06 10:42 | disposition home or self-care (01) ==
PROVIDERS: PCP Nurse Practitioner Family; Visit Provider Nurse Practitioner
DX: M25.511 Pain in right shoulder (principal); M77.8 Other enthesopathies, not elsewhere classified
CPT/HCPCS: G0463

== ENCOUNTER 2023-10-14 09:33 | Outpatient (OUT) | payer MEDICARE, SELFPAY ==
--- NOTE | 2023-10-14 10:01 | MR_ITS ---
The [place] [address] Patient Name: RADHA MONTGOMERY MRN: [id number] date: 1985 Sex: F Assigned Patient Location: MRI Current Patient Location: MRI Accession/Order Number: [id number] Exam Date: 10/14/2023 10:10 Report Date: 10/14/2023 11:39 At the request of: BORIS PURCELL Procedure: MR shoulder RT wo con MR shoulder RT wo con, 10/14/2023 10:10 AM EDT INDICATION: Right Shoulder Pain COMPARISON: There is no appropriate prior study for comparison. TECHNIQUE: Multiplanar and multisequential MR images of the right shoulder were obtained without contrast. FINDINGS: This study is limited due to patient's body habitus that increases the noise to signal ratio. There are mild hypertrophic degenerative changes of AC joint. There is no os acromiale. No Hill-Sachs is noted. No acute fracture or dislocation is noted. The quadrilateral space and supraspinous notch are unremarkable. The T2 prolongation within the insertional portions of supraspinatus and infraspinatus may suggest tendinosis. The long head of biceps and subscapularis are unremarkable. The teres minor is unremarkable. No fatty muscle atrophy is noted. The labrum shows mild degenerative changes anterior inferiorly. There is trace intra articular joint effusion. MR/MR shoulder RT wo con IMPRESSION: Mild insertional tendinosis of supraspinatus and infraspinatus. No high grade tear. Electronically authenticated by: MARTA HOOK Date: 10/14/2023 11:39
--- OUTSIDE RECORDS SUMMARY | 2023-10-14 10:01 | XMS_ITS | CCD ---
Author Organization [facility] Care Team Providers Care Roof Foreman Name Role Phone KRISTIE, MARGARET Primary Care [...] Unavailable HEATHER ., DR OCASIO Consulting Unavailable DR MICHAEL WILLIS Consulting Unavailable MARK DOMINGUEZ Attending Unavailable Maite Kruse Primary Care Provider Kaylee Hutton DO Unavailable DO Kaylee Hutton Attending Provider [phone] KAREN Munguia Primary Care Provider Maite Kruse Primary Care Provider LIZ MEEK Referring Unavailable TIFFANY MCKEON Attending Unavailable KAYLEE HUTTON Referring Unavailab LIZ Cancino Attending Unavailable Kaylee Hutton Admitting Unavailab Margaret Pitt Primary Care Unavailable Kaylee Hutton Attending Unavailab Alejandro Andujar Attending Unavailab Alejandro Andujar Admitting Unavailab le MARTINEZ STAFF Primary Care Unavailable STEPHANIE SEVERINO Attending Unavailable KRISTIE, MARGARET S Referring Unavailable KRISTIE, MARGARET S Primary Care Unavailable STEPHANIE SEVERINO Attending Unavailable KRISTIE, MARGARET S Referring Unavailable KRISTIE, MARGARET S Primary Care Unavailable JR. NINO GEORGE C Attending Unavaila ARIANNA Benjamin Attending Unavailable Allergies Allergy Classification Reported Allergen(s) Allergy Type Date of Onset Reaction(s) Facility (1 source) Corticosteroids Drug allergy (disorder) [facility] Repository (2 sources) Glucocorticoid preparation; Translations: [CORTICOSTEROIDS (GLUCOCORTICOIDS)] Drug Allergy 3 Other: See Comments [facility] Work Phone: Medications Current Medications Medication Drug [...] Test Name Value Interpretation Reference Range Facility [facility] 08-04-2023 [facility] Telephone (NIQ) RADHA GARCÍA ([id number]) 1985 F [place] Date Time Provider Department 08/04/23 NEUROLOGY PROVIDER NIQ During your visit today, we recorded the following information about you: Marlee Walters 08/04/2023 11:56 AM Signed Received external records from [facility] related to intracranial hypertension. Pt is following with Dr. Liz Meek. Forwarded records to her office at [phone]. Allergies As of Date: 08/04/2023 Noted Allergy Reaction CORTICOSTEROIDS (GLUCOCORTICOIDS) 05/25/2023 14 - Other: See Comments Date Reviewed: 08/03/2023 Reviewed by: Tiffany Mckeon APRN.PRODUCE DEPARTMENT MANAGER - Fully Assessed Reason for Visit: Received Outside Medical Records [[id number]] Cmt: Records from local neurologist Prescriptions as [...] Status:Closed by MARLEE WALTERS on 08/04/23 Normal [facility] MR cervical spine wo obduliaon 1 MR cervical spine wo con [facility] [place] [address] MRI Report Signed Patient: Radha García MR#: [id number] : 1985 Acct:[id number] Age/Sex: 38 / F ADM Date: 05/20/23 Loc: MR Room: Type: [facility] Attending Dr: Kaylee Hutton DO Copies to: [...] Powell Jr., D.O.05/20/2023 11:29 AM Dictation Location: [place] [address] Transcribed By: [facility] 05/20/23 112 Dictated By: Bassem Powell Jr, DO 05/20/23 1126 Signed By: 05/20/23 1129 Normal [facility] XR pre/post mri xrayon 05-20 XR pre/post mri xray [facility] [place] [address] XRay Report Signed Patient: Radha García MR#: [id number] : 1985 Acct:[id number] Age/Sex: 38 / F ADM Date: 05/20/23 Loc: MR Room: Type: [facility] Attending Dr: Kaylee Hutton DO Copies to: [...] M.D.05/20/2023 1:06 PM Dictation Location: [place] [address] Transcribed By: [facility] 05/20/231305 Dictated By: Melecio Barillas DO 05/20/234 Signed By: 05/20/23 130 [facility] 03-17-2023 [facility] Telephone (NIQ) RADHA GARCÍA ([id number]) 1985 F [place] Date Time Provider Department 03/17/23 NEUROLOGY PROVIDER NIQ During your visit today, we recorded the following information about you: Marlee Walters 03/17/2023 9:34 AM Signed Referral source: Dr. Kaylee Hutton ([facility] [place], [place], [place]) Reason: benign intracranial hypertension, chronic tension-type headache, pseudotumor cerebrei External records on file. Allergies As of Date: 03/17/2023 (Not on File) Date Reviewed: Never Reviewed Reason for Visit: Received Outside Medical Records [[id number]] Cmt: External referral to [facility] [place] Problem List As Of Date: 03/17/2023 (None) Encounter Status:Closed by MARLEE WALTERS on 03/17/23 Normal [facility] Office Visiton 01-06-2023 Follow-up visit [id number] RickyJose De JesusRadha G 1985 F Date Provider Department Center 01/06/2023 [id number] DOMINGUEZ CARD [facility] No family history on file Level of Service:20926 [place] OFFICE/OUTPATIENT NEW MODERATE MDM 45-59 MINUTES Reason for Visit and Comments: New Patient [632] - abnormal stress kristie referral saw cardio in [place] not sure of name Normal [facility] PROF CHEM 8 (BAS METB)on Anion gap [Moles/Vol] 12.4 mmol/L Normal [facility] Comment on above: Performed By: #### B MP #### [facility] [address] [address] [address] Maame Núñez Calcium [Mass/Vol] 8.7 mg/dL Normal 8.5-10.1 [facility] Comment on above: Performed By: #### B MP #### [facility] [address] [address] [address] Maame Núñez Chloride [Moles/Vol] 107 mmol/L Normal 98-107 [facility] Comment on above: Performed By: #### B MP #### [facility] [address] [address] [address] Maame Núñez CO2 [Moles/Vol] 26.6 mmol/L Normal 21.0-32.0 [facility] Comment on above: Performed By: #### B MP #### [facility] [address] [address] [address] Maame Núñez Creatinine [Mass/Vol] 0.61 mg/dL Normal 0.55-1.02 [facility] Comment on above: Performed By: #### B MP #### [facility] [address] [address] [address] Maame Núñez EGFR-AF ZIMBABWEAN >60 Normal >=60 [facility] Comment on above: Performed By: #### B MP #### [facility] [address] [address] [address] Maame Núñez EGFR-NON AF ZIMBABWEAN >60 Normal >=60 [facility] Comment on above: Performed By: #### B MP #### [facility] [address] [address] [address] Maame Núñez Glucose [Mass/Vol] 94 mg/dL Normal 74-106 [facility] Comment on above: Performed By: #### B MP #### [facility] [address] [address] [address] Maame Núñez Potassium [Moles/Vol] 4.0 mmol/L Normal 3.5-5.1 [facility] Comment on above: Performed By: #### B MP #### [facility] [address] [address] [address] Maame Núñez Sodium [Moles/Vol] 142 mmol/L Normal 136-145 [facility] Comment on above: Performed By: #### B MP #### [facility] [address] [address] [address] Maame Núñez Urea nitrogen [Mass/Vol] 12.0 mg/dL Normal 7.0-18.0 [facility] Comment on above: Performed By: #### B MP #### [facility] [address] [address] [address] Maame Núñez Urea nitrogen/Creatinine [Mass ratio] 19.7 mg/mg Normal [facility] Comment on above: Performed By: #### B MP #### [facility] [address] [address] [address] Maame Núñez XR CHEST 2 Von [...] MORENA OWENS Date: 2022-11-02 09:41 Normal [facility] COLLIN EIA W/REFLEX 9 BIOMARKER Son 02-07-2023 COLLIN Direct Negative Normal Negative [facility] Comment on above: Performed By: #### A NARF9 #### [facility] [address] [address] [address] Maame Núñez CBC AUTO DIFFon 08-17-2022 BASO # 0.0 103/ul Normal 0.0-0.1 [facility] Comment on above: Performed By: #### C BC ####[facility] [address] [place] [address]Dr. Maame Núñez Basophils/100 WBC (Bld) 0.6 % Normal 0.2-2.0 [facility] Comment on above: Performed By: #### C BC ####[facility] [address] [place], [place] [address]Dr. Maame Núñez EO # 0.1 103/ul Normal 0.0-0.7 [facility] Comment on above: Performed By: #### C BC ####[facility] [address] [place], [place] [address]Dr. Maame Núñez Eosinophils/100 WBC (Bld) 1.5 % Normal 0.9-7.0 [facility] Comment on above: Performed By: #### C BC ####[facility] [address] [place], [place] [address]Dr. Maame Núñez Erythrocyte distribution width (RBC) [Ratio] 13.0 % Normal 11.0-15.0 [facility] Comment on above: Performed By: #### C BC ####[facility] [address] [place], [place] [address]Dr. Maame Núñez Hematocrit (Bld) [Volume fraction] 39.3 % Normal 36.0-48.0 [facility] Comment on above: Performed By: #### C BC ####[facility] [address] [place], [place] [address]Dr. Maame Núñez Hemoglobin (Bld) [Mass/Vol] 13.6 g/dL Normal 12.0-16.0 [facility] Comment on above: Performed By: #### C BC ####[facility] [address] [place], [place] [address]Dr. Maame úNñez IG # 0.02 10e3/ul Normal 0.00-0.03 [facility] Comment on above: Performed By: #### C BC ####[facility] [address] [place] [address]DrlElen Maame Wilton IG % 0.3 % Normal 0.0-0.5 [facility] Comment on above: Performed By: #### C BC ####[facility] [address] [place] [address]DrEllen Maame Wilton LYMPH # 2.1 103/ul Normal 1.2-3.8 [facility] Comment on above: Performed By: #### C BC ####[facility] [address] [place] [address]DrEllen Maame Wilton Lymphocytes/100 WBC (Bld) 31.5 % Normal 20.5-60.0 [facility] Comment on above: Performed By: #### C BC ####[facility] [address] [place], [place] [address]DrEllen Maame Wilton MANUAL DIFF REQ NO Normal [facility] Comment on above: Performed By: #### C BC ####[facility] [address] [place] [address]DrEllen Maame Wilton MCH (RBC) [Entitic mass] 28.4 pg Normal 26.7-34.0 [facility] Comment on above: Performed By: #### C BC ####[facility] [address] [place] [address]DrEllen Maame Wilton MCHC (RBC) [Mass/Vol] 34.6 g/dL Normal 29.9-35.2 [facility] Comment on above: Performed By: #### C BC ####[facility] [address] [place] [address]DrEllen Núñez MCV (RBC) [Entitic vol] 82.0 fL Normal 81.0-99.0 [facility] Comment on above: Performed By: #### C BC ####[facility] [address] [place], [place] [address]DrEllen Núñez MONO # 0.5 103/ul Normal 0.3-0.8 [facility] Comment on above: Performed By: #### C BC ####[facility] [address] [place] [address]Dr. Maame Núñez Monocytes/100 WBC (Bld) 7.0 % Normal 1.7-12.0 [facility] Comment on above: Performed By: #### C BC ####[facility] [address] [place] [address]Dr. Maame Núñez NEUT # 3.9 103/ul Normal 1.4-6.5 [facility] Comment on above: Performed By: #### C BC ####[facility] [address] [place] [address]Dr. Maame Núñez Neutrophils/100 WBC (Bld) 59.1 % Normal 43.0-75.0 [facility] Comment on above: Performed By: #### C BC ####[facility] [address] [place], [place] [address]Dr. Maame Núñez Platelet mean volume (Bld) [Entitic vol] 9.9 fL Normal 9.5-13.5 [facility] Comment on above: Performed By: #### C BC ####[facility] [address] [place], [place] [address]Dr. Maame Núñez PLT 242 103/ul Normal 150-450 [facility] Comment on above: Performed By: #### C BC ####[facility] [address] [place] [address]Dr. Maame Núñez RBC 4.79 106/ul Normal 4.20-5.40 [facility] Comment on above: Performed By: #### C BC ####[facility] [address] [place] [id number]. Maame Núñez WBC 6.5 103/ul Normal 4.0-11.0 [facility] Comment on above: Performed By: #### C BC ####[facility] [address] [place], [place] [address]Dr. Maame Núñez CPKon 08-17-2022 CK [Catalytic activity/Vol] 82 U/L Normal 26-192 [facility] Comment on above: Performed By: #### M YO, CK #### [facility] [address] [place] [address] Dr. Maame Núñez FREE T4on 08-17-2022 Free T4 [Mass/Vol] 0.99 ng/dL Normal 0.76-1.46 [facility] Comment on above: Performed By: #### F T4 #### [facility] [address] [place] [address] Dr. Maame Núñez GLYCOHEMOGLOBIN A1Con 2022 ADA RECOMMENDATION SEE BELOW Normal [facility] Comment on above: Result Comment: ADA RECOMMENDED LIMIT 4.0 - 6.0 ADA THERAPEUTIC TARGET < 7.0 ACTION SUGGESTED > 7.0 Performed By: #### A 1C #### [facility] [address] [place] [address] Dr. Maame Núñez Glucose [Mass/Vol] 103 mg/dL Normal [facility] Comment on above: Performed By: #### A 1C #### [facility] [address] [place] [address] Dr. Maame Núñez HbA1c (Bld) [Mass fraction] 5.2 % Normal 4.5-6.2 [facility] Comment on above: Performed By: #### A 1C #### [facility] [address] [place] [address] Dr. Maame Núñez MYOGLOBINon 08-17-2022 LILLIAM 46 ng/mL Normal 9-82 [facility] Comment on above: Performed By: #### M PAOLA, CK #### [facility] [address] [place] [address] Dr. Maame Núñez PREG QUANT HCGon 08-17-2022 HCG QUANT 1 mIU/mL Normal [facility] Comment on above: Performed By: #### T SH, PREGQNT #### [facility] [address] [place] [address] Dr. Maame Núñez HCG RANGE SEE BELOW Normal [facility] Comment on above: Result Comment: 5-50 0.2-1 WEEK 50-500 1-2 WEEKS 100-5,000 2-3 WEEKS 500-10,000 3-4 WEEKS 1,000-50,000 4-5 WEEKS 10,000-100,000 5-6 WEEKS 15,000-200,000 6-8 WEEKS 10,000-100,000 2-3 MONTHS Performed By: #### T SH, PREGQNT #### [facility] [address] [place], [place] [address] Dr. Maame Núñez TSHon 08-17-2022 TSH 1.027 uIU/mL Normal 0.358-3.740 [facility] Comment on above: Performed By: #### T SH, PREGQNT #### [facility] [address] [place], [place] [address] Dr. Maame Núñez US PELVIS AND TRANSVAGon [...] by: MICHAEL WILLIS Date: 2022-08-17 14:30 Normal [facility] Vital Signs Date Time Vital Sign Value Performing Clinician Autumn alan 05-25-2023 09:19-0400 Body height 160 cm Liz Meek DO Work Phone: [facility] 05-25-2023 09:19040 Body weight 145.15 kg Liz Meek DO Work Phone: [facility] Encounters Encounter Date Encounter Type Care Provider Facility Start: 10-11-2023 End: 10-11-2023 ambulatory HAYDEN HERNDON Not Available Start: 09-13-2023 End: 09-13-[address] [facility] Start: 08-16-2023 End: 08-16-[address] [facility] Start: 08-03-2023 End: 08-03-2023 ambulatory LIZ MEEK Facility:[facility] Start: 07-12-2023 End: 07-12-2023 ambulatory ARIANNA Carmona JOSÉDAMIAN Not Available Start: 05-25-2023 End: 05-25-2023 ambulatory Liz Meek DO Work Phone: NEUROLOGY Comment on above: 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 aura and without status migrainosus (Primary Dx); Pressure in head; Chronic daily headache Start: 05-25-2023 End: 05-25-2023 Telemedicine consultation with patient Liz Meek DO Work Phone: [facility] Start: 05-21-2023 ambulatory Alejandro Varner acility:[facility] Start: 05-20-2023 End: 05-20-2023 ambulatory Kaylee Hutton Facility:[facility] Start: 05-20-2023 End: 05-20-2023 ambulatory ASSOCIATE SALES REPRESENTATIVE-C Margaret Munguia Work Phone: [facility] Work Phone: Start: 05-20-2023 End: 05-20-2023 Patient encounter procedure ASSOCIATE SALES REPRESENTATIVE-C Margaret Munguia Work Phone: [facility] [place] Work Phone: Start: 03-17-2023 Telephone encounter Neurology Provid er Neurology Comment on above: Received Outside Med ical Records (External referral to [facility] [place]) Start: 01-06-2023 End: 01-06-2023 ambulatory [facility] Start: 12-24-2022 ambulatory MARGARET MUNGUIA Facility: [facility] Start: 12-16-2022 Encounter for preprocedural cardiovascular examination MARGARET MUNGUIA [facility] Start: 12-15-2022 End: 12-16-2022 ambulatory MARGRAET MUNGUIA Facility:[facility] Start: 12-15-2022 End: 12-16-2022 Encounter for preprocedural cardiovascular examination MARGARET MUNGUIA Facility:[facility] Start: 12-07-2022 End: 12-08-2022 ambulatory MARGARET MUNGUIA Facility:[facility] Start: 12-01-2022 End: 12-02-2022 ambulatory MARGARET KRISTIE Facility:[facility] Start: 11-26-2022 Encounter for other preprocedural examination MARGARET MUNGUIA [facility] Start: 11-23-2022 End: 11-24-2022 ambulatory MARGARET MUNGUIA Facility:[facility] Start: 11-23-2022 End: 11-24-2022 Encounter for other preprocedural examination MARGARET MUNGUIA Facility:[facility] Start: 11-11-2022 ambulatory MARGARET MUNGUIA Facility: [facility] Start: 11-08-2022 Encounter for preprocedural cardiovascular examination DR NINFA ROMERO . [facility] Start: 11-08-2022 Encounter for preprocedural laboratory examination DR NINFA ROMERO . [facility] Start: 11-08-2022 Encounter for preprocedural respiratory examination DR NINFA ROMERO . [facility] Start: 11-02-2022 End: 11-03-2022 ambulatory MARGARET MUNGUIA Facility:[facility] Start: 11-02-2022 End: 11-03-2022 Encounter for preprocedural laboratory examination MARGARET MUNGUIA Facility:[facility] Start: 08-31-2022 End: 09-01-2022 ambulatory MARGARET MUNGUIA Facility:[facility] Start: 08-17-2022 End: 08-18-2022 ambulatory MARGARET MUNGUIA Facility:[facility] Start: 05-12-2022 End: 05-13-2022 ambulatory MARGARET MUNGUIA Facility:[facility] Start: 04-30-2022 ambulatory MARGARET MUNGUIA Facility: [facility] Start: 03-31-[address] BETO ANDREWS . Faci lity:[facility] Procedures Date Procedure Procedure Detail Performing Clinician Start: 05-20-2023 XR pre/post mri xray ASSOCIATE SALES REPRESENTATIVE -C Margaret Munguia Work Phone: Start: 05-20-2023 MRI of cervical spin e without contrast ASSOCIATE SALES REPRESENTATIVEEsmer Munguia Work Phone: Plan of Treatment Date Care Activity Detail Author Start: 03-26-2023 Covid-19 Vaccine ( season) Covid-19 Vaccine ( season) [facility] Start: 03-26-2023 Influenza vaccination Influenza Vacc ine (#1) [facility] Start: 07-26-2022 Depression Assessment Depression Ass essment [facility] Start: 2016 HPV Testing HPV Testing [facility] Start: 2007 Pap Testing Pap Testing [facility] Start: 2005 Urine microalbumin profile DTa P,Tdap,Td Vaccine (1 - Tdap) [facility] Start: 2004 Hepatitis C Screening Hepatitis C Sc reening [facility] Start: 2004 HIV Screening HIV Screening [facility] Start: 1985 Hepatitis B Vaccine (1 of 3 - 3-dose series) Hepatitis B Vaccine (1 of 3 - 3-dose series) [facility] Immunizations Immunization Date Immunization Notes Care Provider Bjorn rayo 05-06-2022 influenza virus vacc ine, unspecified formulation Liz Meek DO Work Phone: [facility] Payers Date Payer Category Payer Medicare [id number] 2022 Medicaid [employer] [id number] 2022-Present [phone] [address] [place] [address] Medicaid [id number] 2022 Unknown [id number] 1985 Unknown [id number] 2.16.840.1.574733.3.579.2.593 1986 Unknown [id number] 2.16.840.1.769034.3.579.2.593 1986 Unknown [id number] 2.16.840.1.970397.3.579.2.593 1986 Unknown [id number] 2.16.840.1.040471.3.579.2.593 1986 Unknown [id number] 2.16.840.1.697182.3.579.2.593 1986 Unknown [id number] 2.16.840.1.232815.3.579.2.593 1986 Unknown [id number] 2.16.840.1.261810.3.579.2.593 1986 Unknown [id number] 2.16.840.1.686774.3.579.2.593 1986 Unknown [id number] 2.16.840.1.004255.3.579.2.593 1986 Unknown [id number] 2.16.840.1.398825.3.579.2.593 1986 Unknown [id number] 2.16.840.1.131248.3.579.2.593 1986 Unknown [id number] 2.16.840.1.101926.3.579.2.593 1986 Unknown [id number] 2.16.840.1.617315.3.579.2.593 1986 Unknown [id number] 2.16.840.1.274335.3.579.2.1286 1986 Unknown [id number] 2.16.840.1.312054.3.579.2.1286 1986 Unknown [id number] 2.16.840.1.690536.3.579.2.1259 1986 Unknown [id number] 2.16.840.1.785870.3.579.2.1259 1959 Self-pay 1959 Unknown [id number] 1959 Unknown [id number] Unknown [id number] 2.16.840.1.750259.3.579.2.531 Social History Date Type Detail [facility] Start: 1985 Sex Assigned At Not on file [facility] Start: 05-25-2023 Gender identity Not on file [facility] Start: 1985 Sex Assigned At Female [facility] Start: 05-25-2023 Tobacco smoking stat [facility] Never smoked tobacco [facility] Work Phone: Start: 05-25-2023 Tobacco use and exposure Smokeless tobacco non-user [facility] Work Phone: Start: 05-25-2023 Alcohol intake Ex-drinker (finding) [facility] Start: 05-25-2023 History of Social function [facility] Adult Depression Screening Assessment 6 [facility] Progress note 08-03-2023 Note Date & Type Note Facility 08-03-2023 Note HNO ID: [id number] Author: TIFFANY MCKEON APRN.PRODUCE DEPARTMENT MANAGER Service: ? Author Type: Nurse Practitioner Type: [...] visit. Either the patient or their legal school admissions representative has been informed of the risks [...] Take 100 mg (more content not included)... [facility] Progress note 05-25-2023 Note Date & Type Note Facility 05-25-2023 Note HNO ID: [id number] Author: Liz Meek, DO Service: ? Author Type: Physician Type: Progress Notes Filed: 05/25/2023 9:50 AM Note Text: Headache Section [facility] Virtual Visit New Encounter I have communicated my name and active licensure. The patient's identity and physical location were verified at the time of this visit. Either the patient or their legal school admissions representative has been informed of the risks and benefits of -- and alternatives to -- treatment through a remote evaluation and consents to proceed with the evaluation remotely. May 25, 2023 CC: Headache History: Radha García is a 38 year old year old, right-handed woman who is referred in consultation by Dr. Kaylee Hutton DO (neuro in [place], [place]) for an opinion regarding benign intracranial [...] yes History of Syncope (last episode last [place]) Sometimes sees stars in eyes - no [...] Stephanie Severino NP (behavioral health clinic in [place], [place]), on Vraylar, klonopin, lamictal, prozac Tobacco: [...] Migraine Screener: 3 (more content not included)... [facility] History of Present illness Narrative 05-25-2023 Liz Meek DO - 05/25/2023 9:00 AM EDT Note Date & Type Note Facility 05-25-2023 History of Presen t illness Narrative [facility] Virtual Visit New Encounter I have communicated my name and active licensure. The patient's identity and physical location were verified at the time of this visit. Either the patient or their legal school admissions representative has been informed of the risks and benefits of -- and alternatives to -- treatment through a remote evaluation and consents to proceed with the evaluation remotely. May 25, 2023 CC: Headache History: Radha García is a 38 year old year old, right-handed woman who is referred in consultation by Dr. Kaylee Hutton DO (neuro in [place], [place]) for an opinion regarding benign intracranial [...] yes History of Syncope (last episode last ) Sometimes sees stars in eyes - no [...] Stephanie Severino NP (behavioral health clinic in [place], [place]), on Vraylar, klonopin, lamictal, prozac Tobacco: [...] and clear, coherent, and relevant. Short and road manager memory, cognition and general fund of knowledge [...] which included preparing to see the patient, [id number] patient care, completing clinical documentation, obtaining and/or [...] Medicine/ Board Certified Staff, [facility] Patient Transport Orderly of Neurology with [facility]/[place] [address] Office: [phone] documented in this encounter [facility] Note 03-17-2023 Telephone Encounter - Marlee Walters - 03/17/2023 9:32 AM EDT Note Date & Type Note Facility 03-17-2023 Miscellaneous Notes Formattin g of this note might be different from the original. Referral source: Dr. Kaylee Hutton ([facility] [place], [place], [place]) Reason: benign intracranial hypertension, chronic tension-type headache, pseudotumor cerebrei External records on file. documented in this encounter [facility] Progress note 01-06-2023 Note Date & Type Note Facility 01-06-2023 Note Cardiovascular Medic ine [facility] SUBJECTIVE Chief Complaint Patient presents with New Patient abnormal stress kristie referral saw cardio in [place] not sure of name ABHIJIT Radha García [...] has chronic lightheadedness, she previously saw a reading efficiency course director in [place] without findings to explain her lightheadedness. She denies syncope, acute palpitations, or worsening dyspnea on exertion. She has previously smoked marijuana but not tobacco use. No known history of diabetes, hypertension or hyperlipidemia. Her grandfather had an acute MT in his 50s, no other known family [...] case and plan was discussed with attending reading efficiency course director Dr. Johnson. Mark Dominguez APRN-PRODUCE DEPARTMENT MANAGER [facility] Cardiovascular Medicine [facility] Evaluation note Note Date & Type Note Facility Evaluation note No assessment [facility] Work Phone: Evaluation note Note Date & Type Note Facility Evaluation note Diagnosis 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 aura and without status migrainosus- Primary Chronic migraine without aura, with intractable migraine, so stated, without mention of status migrainosus Pressure in head Headache Chronic daily headache Headache documented in this encounter [facility] Summary Purpose Family History No Family History [...] HIGH MDM 60-74 MINUTES Liz Meek DO [address] [place] [address] Referral ID Status Reason Start Date Expiration Date Visits Requested Visits Authorized [id number] Pending Review PCP Requested Referral 08/03/2023 05/24/2024 1 1 Additional Source Comments INFORMATION SOURCE (unrecogn ized section and content) DATE CREATED AUTHOR [facility]01/2023 [facility] DATE CREATED AUTHOR AUTHOR'S ORGANIZ ATION 01/06/2023 [facility] DATE CREATED AUTHOR AUTHOR'S ORGANIZ ATION 08/05/2023 [facility] DATE CREATED AUTHOR AUTHOR'S ORGANIZ ATION 08/07/2023 [facility] DATE CREATED AUTHOR AUTHOR'S ORGANIZ ATION 09/14/2023 [facility] DATE CREATED AUTHOR AUTHOR'S ORGANIZ ATION 10/11/2023 [facility] EPIC Source Comments (unrecognize d section and content) In the event this informatio n is protected by the Federal Confidentiality of Alcohol and Drug Abuse Patient Records regulations: The Federal rules restrict any use of the information to criminally investigate or prosecute any alcohol or drug abuse patient.[facility] the event this information is protected by the Federal Confidentiality of Alcohol and Drug Abuse Patient Records regulations: The Federal rules restrict any use of the information to criminally investigate or prosecute any alcohol or drug abuse patient.[facility] Reason for Visit (unrecogniz ed section and content) Reason Comments Received Outside Medical Records Externa l referral to Neurological [place] Reason Comments Chronic Migraine Care Teams (unrecognized sec tion and content) Roof Foreman Relationship Specialty Start Date End Date Maite Kruse [address] [place] [phone] PCP - General Family Medicine 03/19/21 Kaylee Hutton DO [address] [phone] [place] Referring Team Neurology 03/17/23 Team Status: Active Member Role Status Dates KAREN Egan Primary Care Provider Active Team Status: Inactive Member Role Status Dates Kaylee Hutton DO Attending Provider Active KAREN Egan Primary Care Provider Active Roof Foreman Relationship Specialty Start Date End Date Maite Kruse [address] [place] [phone] PCP - General Family Medicine 03/19/21 Kaylee Hutton DO [address] [phone] [place] Referring Team Neurology 03/17/23 Goals (unrecognized [...] BE BASED ON THE PRIMARY CLINICAL RECORDS. [facility] provides no warranty or guarantee of the accuracy or completeness of information in this document.
== END 2023-10-14 09:34 | disposition home or self-care (01) ==
LOC: MRI 09:34
PROVIDERS: PCP Nurse Practitioner Family; Visit Provider Nurse Practitioner
DX: M25.511 Pain in right shoulder (principal)
CPT/HCPCS: 73221; 73562

== ENCOUNTER 2023-10-14 09:37 | Outpatient (OUT) | payer MEDICARE, SELFPAY ==
[2023-10-14 10:05] LABS: Basophils Absolute Auto 0.1 10^3/uL (0.0-0.1); Eosinophils Absolute Auto 0.1 10^3/uL (0.0-0.7); Eosinophils Percent Auto 1.6 % (0.9-7.0); Hematocrit 38.8 % (36.0-48.0); Hemoglobin 11.6 g/dL (12.0-16.0); Immature Granulocytes Abs Auto 0.01 10^3/uL (0.00-0.03); Immature Granulocytes Pct Auto 0.1 % (0.0-0.5); Lymphocytes Absolute Auto 1.8 10^3/uL (1.2-3.8); Lymphocytes Percent Auto 26.7 % (20.5-60.0); Mean Corpuscular HGB Conc 29.9 g/dL (29.9-35.2); Mean Corpuscular Hemoglobin 26.9 pg (26.7-34.0); Mean Platelet Volume 10.1 fL (9.5-13.5); Monocytes Absolute Auto 0.5 10^3/uL (0.3-0.8); Monocytes Percent Auto 7.6 % (1.7-12.0); Neutrophils Absolute Auto 4.3 10^3/uL (1.4-6.5); Platelet Count 269 10^3/uL (150-450); Red Blood Count 4.31 10^6/uL (4.20-5.40); Red Cell Distribution Width 13.1 % (11.0-15.0); White Blood Count 6.8 10^3/uL (4.0-11.0)
--- NOTE | 2023-10-14 10:12 | XR_ITS ---
The [address] [address] Patient Name: RADHA MONTGOMERY MRN: [id number] date: 1985 Sex: F Assigned Patient Location: LAB Current Patient Location: LAB Accession/Order Number: [id number] Exam Date: 10/14/2023 10:02 Report Date: 10/14/2023 10:40 At the request of: AMAN MUNGUIA Procedure: XR knee RT 3V EXAM: Right knee HISTORY: . Right Knee Pain M25.561 . COMPARISON: None. TECHNIQUE: 2 views FINDINGS: No fracture or dislocation of the right knee is noted. Small spurs are noted involving the knee joint. Patellofemoral joint is unremarkable. Surrounding soft tissues are unremarkable. XR/XR knee RT 3V IMPRESSION: Early osteoarthritic changes of the right knee. Electronically authenticated by: CRISTELA RUIZ Date: 10/14/2023 10:40
[2023-10-14 11:38] LABS: Estimated Average Glucose 103 mg/dL; Glycohemoglobin A1C 5.2 % (4.5-6.2)
[2023-10-14 13:22] LABS: Alanine Aminotransferase 20 U/L (14-59); Albumin Globulin Ratio 0.9; Albumin Level 3.3 g/dL (3.4-5.0); Alkaline Phosphatase 119 U/L (46-116); Anion Gap 13.5; Aspartate Amino Transferase 11 U/L (15-37); Bilirubin Total 0.2 mg/dL (0.2-1.0); Calcium 8.5 mg/dL (8.5-10.1); Carbon Dioxide 27.8 mmol/L (21.0-32.0); Chloride 104 mmol/L (98-107); Chol HDL Ratio 5.2; Cholesterol 213 mg/dL (<=200); Estimated GFR (African America >60 (>=60); Estimated GFR (Non-African Ame >60 (>=60); Free T3 2.25 pg/mL (2.18-3.98); Globulin 3.6 g/dL; Glucose 84 mg/dL (74-106); HDL Cholesterol 41 mg/dL (40-60); Potassium 4.3 mmol/L (3.5-5.1); Sodium 141 mmol/L (136-145); Thyroid Stimulating Hormone 2.191 uIU/mL (0.358-3.740); Total Protein 6.9 g/dL (6.4-8.2); Triglycerides 78 mg/dL (<=150); VLDL CHOLESTEROL 15.6 mg/dL
[2023-10-15 06:09] LABS: Insulin 18.7 uIU/mL (2.6-24.9)
== END 2023-10-14 09:38 | disposition home or self-care (01) ==
LOC: LAB 09:39
PROVIDERS: PCP Nurse Practitioner Family; Visit Provider Nurse Practitioner Family
DX: E66.3 Overweight (principal); M25.561 Pain in right knee
CPT/HCPCS: 36415; 73562; 80053; 80061; 82306; 83036; 83525; 83540; 84436; 84443; 84481; 85025

== ENCOUNTER 2023-10-20 11:07 | Outpatient (OUT) | payer MEDICARE, SELFPAY ==
--- OUTSIDE RECORDS SUMMARY | 2023-10-20 11:15 | XMS_ITS | CCD ---
Author Organization [employer] Care Team Providers Care Classification Counselor Name Role Phone KRISTIE, MARGARET Primary Care [...] Unavailable HEATHER ., DR OCASIO Consulting Unavailable ZIEBER, DR MICHAEL Carmona Consulting Unavailable MARK DOMINGUEZ Attending Unavailable Maite Kruse Primary Care Provider Kaylee Hutton DO Unavailable DO Kaylee Hutton Attending Provider KAREN Munguia Primary Care Provider Maite Kruse Primary Care Provider LIZ MEEK Referring Unavailable TIFFANY MCKEON Attending Unavailable KAYLEE HUTTON Referring Unavailab LIZ Cancino Attending Unavailable Kaylee Hutton Admitting Unavailab le Margaret Munguia Sintia Primary Care Unavailable Kaylee Hutton Attending Unavailab Alejandro Andujar Attending Unavailab Alejandro Andujar Admitting Unavailab le KASANDRA STAFF Primary Care Unavailable JR. NINO GEORGE C Attending Unavaila ARIANNA Benjamin Attending Unavailable STEPHANIE SEVERINO Attending Unavailable KRISTIE, MARGARET S Referring Unavailable KRISTIE, MARGARET S Primary Care Unavailable STEPHANIE SEVERINO Attending Unavailable KRISTIE, MARGARET S Referring Unavailable KRISTIE, MARGARET S Primary Care Unavailable STEPHANIE SEVERINO Attending Unavailable KRISTIE, MARGARET S Referring Unavailable KRISTIE, MARGARET S Primary Care Unavailable Allergies Allergy Classification Reported Allergen(s) Allergy Type Date of Onset Reaction(s) Facility (1 source) Corticosteroids Drug allergy (disorder) [facility] (2 sources) Glucocorticoid preparation; Translations: [CORTICOSTEROIDS (GLUCOCORTICOIDS)] Drug Allergy 3 Other: See Comments [facility] Work Phone: Medications Current Medications Medication Drug [...] Comment on above: Take 1 tablet by mtathew th as needed. Problems Active Problems Problem [...] Test Name Value Interpretation Reference Range [facility] ([id number]) 1985 F [place] Date Time Provider Department 08/04/23 NEUROLOGY PROVIDER NIQ During your visit today, we recorded the following information about you: Marlee Walters 08/04/2023 11:56 AM Signed Received external records from [facility] related to intracranial hypertension. Pt is following with Dr. Liz Meek. Forwarded records to her office at [phone]. Allergies As of Date: 08/04/2023 Noted Allergy Reaction CORTICOSTEROIDS (GLUCOCORTICOIDS) 05/25/2023 14 - Other: See Comments Date Reviewed: 08/03/2023 Reviewed by: Tiffany Mckeon APRN.OFFENDER EMPLOYMENT SPECIALIST - Fully Assessed Reason for Visit: Received Outside Medical Records [8564] Cmt: Records from local neurologist Prescriptions as [...] Status:Closed by MARLEE WALTERS on 08/04/23 Normal [facility] MR cervical spine wo obduliaon 1 MR cervical spine wo con [facility] Main [address] [address] MRI Report Signed Patient: Radha García MR#: [id number] : 1985 Acct:[id number] Age/Sex: 38 / F ADM Date: 05/20/23 Loc: MR Room: Type: [facility] Attending Dr: Kaylee Hutton DO Copies to: [...] BILATERAL NEURAL FORAMINAL STENOSIS. Impression dictated by: aBssem Powell Jr., D.O.05/20/2023 11:29 AM Dictation Location: [place] [address] Transcribed By: [facility] 05/20/231128 Dictated By: Bassem Powell Jr, DO 05/20/231125 Signed By: 05/20/23 1129 Normal [facility] XR pre/post mri xrayon 05-20 XR pre/post mri xray [facility] Main [address] [address] XRay Report Signed Patient: Radha García MR#: [id number] : 1985 Acct:[id number] Age/Sex: 38 / F ADM Date: 05/20/23 Loc: MR Room: Type: [facility] Attending Dr: Kaylee Hutton DO Copies to: [...] Melecio Barillas M.D.05/20/2023 1:06 PM Dictation Location: [place] [address] Transcribed By: [facility] 05/20/23 1306 Dictated By: Melecio Barillas DO 05/20/23 1304 Signed By: 05/20/[address] [facility] CNPKasandra 03-17-2023 CNPN Telephone (NIQ) DEREKRADHA Quintana ([id number]) 1985 F [place] Date Time Provider Department 03/17/23 NEUROLOGY PROVIDER NIQ During your visit today, we recorded the following information about you: Marlee Walters 03/17/2023 9:34 AM Signed Referral source: Dr. Kaylee Hutton ([facility] [address] [facility] [employer], [place], [place]) Reason: benign intracranial hypertension, chronic tension-type headache, pseudotumor cerebrei External records on file. Allergies As of Date: 03/17/2023 (Not on File) Date Reviewed: Never Reviewed Reason for Visit: Received Outside Medical Records [3576] Cmt: External referral to [facility] [employer] Problem List As Of Date: 03/17/2023 (None) Encounter Status:Closed by MARLEE WALTERS on 03/17/23 Normal [facility] Office Visiton 01-06-2023 Follow-up visit [id number] Radha García 1985 F Date Provider Department Center 01/06/2023 50301-PXJRIUYNZMARK DOMINGUEZ CARD [facility] No family history on file Level of Service:09585 MS OFFICE/OUTPATIENT NEW MODERATE MDM 45-59 MINUTES Reason for Visit and Comments: New Patient [632] - abnormal stress kristie referral saw cardio in [place] not sure of name Normal [facility] PROF CHEM 8 (BAS METB)on Anion gap [Moles/Vol] 12.4 mmol/L Normal [facility] Comment on above: Performed By: #### B MP #### [facility] [address] [address] [address] Maame Núñez Calcium [Mass/Vol] 8.7 mg/dL Normal 8.5-10.1 [facility] Comment on above: Performed By: #### B MP #### [facility] [address] [address] [address] Maame Núñez Chloride [Moles/Vol] 107 mmol/L Normal 98-107 [facility] Comment on above: Performed By: #### B MP #### [facility] [address] [address] [address] Maame Núñez CO2 [Moles/Vol] 26.6 mmol/L Normal 21.0-32.0 [facility] Comment on above: Performed By: #### B MP #### [facility] [address] [address] [address] Maame Núñez Creatinine [Mass/Vol] 0.61 mg/dL Normal 0.55-1.02 [facility] Comment on above: Performed By: #### B MP #### [facility] [address] [address] [address] Maame Núñez EGFR-AF SOUTH KOREAN >60 Normal >=60 [facility] Comment on above: Performed By: #### B MP #### [facility] [address] [address] [address] Maame Núñez EGFR-NON AF [place]OU[place]OREAN >60 Normal >=60 [facility] Comment on above: Performed By: #### B MP #### [facility] [address] [address] [address] Maame Núñez Glucose [Mass/Vol] 94 mg/dL Normal 74-106 [facility] Comment on above: Performed By: #### B MP #### [facility] [address] [address] [address] Maame Núñez Potassium [Moles/Vol] 4.0 mmol/L Normal 3.5-5.1 [facility] Comment on above: Performed By: #### B MP #### [facility] [address] [address] [address] Maame Núñez Sodium [Moles/Vol] 142 mmol/L Normal 136-145 [facility] Comment on above: Performed By: #### B MP #### [facility] [address] [address] [address] Maame Núñez Urea nitrogen [Mass/Vol] 12.0 mg/dL Normal 7.0-18.0 [facility] Comment on above: Performed By: #### B MP #### [facility] [address] [address] [address] Maame Núñez Urea nitrogen/Creatinine [Mass ratio] 19.7 mg/mg Normal [facility] Comment on above: Performed By: #### B MP #### [facility] [address] [address] [address] Maame Núñez XR CHEST 2 Von [...] MORENA OWENS Date: 2022-11-02 09:41 Normal [facility] COLLIN EIA W/REFLEX 9 BIOMARKER Son 09-01-2022 COLLIN Direct Negative Normal Negative [facility] Comment on above: Performed By: #### A NARF9 #### [facility] [address] [address] [address] Maame Núñez CBC AUTO DIFFon 08-17-2022 BASO # 0.0 103/ul Normal 0.0-0.1 [facility] Comment on above: Performed By: #### C BC ####[facility] [address] [place] [address]DrEllen Núñez Basophils/100 WBC (Bld) 0.6 % Normal 0.2-2.0 [facility] Comment on above: Performed By: #### C BC ####[facility] [address] [place] [address]DrEllen Núñez EO # 0.1 103/ul Normal 0.0-0.7 [facility] Comment on above: Performed By: #### C BC ####[facility] [address] [place] [address]DrEllen Núñez Eosinophils/100 WBC (Bld) 1.5 % Normal 0.9-7.0 [facility] Comment on above: Performed By: #### C BC ####[facility] [address] [place] [address]DrEllen Núñez Erythrocyte distribution width (RBC) [Ratio] 13.0 % Normal 11.0-15.0 [facility] Comment on above: Performed By: #### C BC ####[facility] [address] [place] [address]DrEllen Núñez Hematocrit (Bld) [Volume fraction] 39.3 % Normal 36.0-48.0 [facility] Comment on above: Performed By: #### C BC ####[facility] [address] [place] [address]DrEllen Núñez Hemoglobin (Bld) [Mass/Vol] 13.6 g/dL Normal 12.0-16.0 [facility] Comment on above: Performed By: #### C BC ####[facility] [address] [place] [id number]. Maame Núñez IG # 0.02 10e3/ul Normal 0.00-0.03 [facility] Comment on above: Performed By: #### C BC ####[facility] [address] [place] [id number]. Maame Wilton IG % 0.3 % Normal 0.0-0.5 [facility] Comment on above: Performed By: #### C BC ####[facility] [address] [place] [id number]. Maame Wilton LYMPH # 2.1 103/ul Normal 1.2-3.8 [facility] Comment on above: Performed By: #### C BC ####[facility] [address] [place] [address]Dr. Maame Núñez Lymphocytes/100 WBC (Bld) 31.5 % Normal 20.5-60.0 [facility] Comment on above: Performed By: #### C BC ####[facility] [address] [place] [address]Dr. Angelineclemente Núñez MANUAL DIFF REQ NO Normal [facility] Comment on above: Performed By: #### C BC ####[facility] [address] [place] [address]Dr. Maame Wilton MCH (RBC) [Entitic mass] 28.4 pg Normal 26.7-34.0 [facility] Comment on above: Performed By: #### C BC ####[facility] [address] [place] [address]Dr. Maame Wilton MCHC (RBC) [Mass/Vol] 34.6 g/dL Normal 29.9-35.2 [facility] Comment on above: Performed By: #### C BC ####[facility] [address] [place] [address]Dr. Maame Wilton MCV (RBC) [Entitic vol] 82.0 fL Normal 81.0-99.0 [facility] Comment on above: Performed By: #### C BC ####[facility] [address] [place] [id number]. Maame Núñez MONO # 0.5 103/ul Normal 0.3-0.8 [facility] Comment on above: Performed By: #### C BC ####[facility] [address] [place] [id number]. Maame Núñez Monocytes/100 WBC (Bld) 7.0 % Normal 1.7-12.0 [facility] Comment on above: Performed By: #### C BC ####[facility] [address] [place] [id number]. Maame Núñez NEUT # 3.9 103/ul Normal 1.4-6.5 [facility] Comment on above: Performed By: #### C BC ####[facility] [address] [place] [id number]. Maame Núñez Neutrophils/100 WBC (Bld) 59.1 % Normal 43.0-75.0 [facility] Comment on above: Performed By: #### C BC ####[facility] [address] [place] [id number]. Maame Núñez Platelet mean volume (Bld) [Entitic vol] 9.9 fL Normal 9.5-13.5 [facility] Comment on above: Performed By: #### C BC ####[facility] [address] [place] [id number]. Maame Núñez PLT 242 103/ul Normal 150-450 [facility] Comment on above: Performed By: #### C BC ####[facility] [address] [place] [id number]. Maame Núñez RBC 4.79 106/ul Normal 4.20-5.40 [facility] Comment on above: Performed By: #### C BC ####[facility] [address] [place] [id number]. Maame Núñez WBC 6.5 103/ul Normal 4.0-11.0 [facility] Comment on above: Performed By: #### C BC ####[facility] [address] [place], [place] [address]Dr. Maame Núñez CPKon 08-17-2022 CK [Catalytic activity/Vol] 82 U/L Normal 26-192 [facility] Comment on above: Performed By: #### Marisabel GUEVARA, CK #### [facility] [address] [place] [address] Dr. Maame Núñez FREE T4on 08-17-2022 Free T4 [Mass/Vol] 0.99 ng/dL Normal 0.76-1.46 [facility] Comment on above: Performed By: #### F T4 #### [facility] [address] [place] [address] Dr. Maame Núñez GLYCOHEMOGLOBIN A1Con 2022 ADA RECOMMENDATION SEE BELOW Normal [facility] Comment on above: Result Comment: ADA RECOMMENDED LIMIT 4.0 - 6.0 ADA THERAPEUTIC TARGET < 7.0 ACTION SUGGESTED > 7.0 Performed By: #### A 1C #### [facility] [address] [place] [address] Dr. Maame Núñez Glucose [Mass/Vol] 103 mg/dL Normal [facility] Comment on above: Performed By: #### A 1C #### [facility] [address] [place] [address] Dr. Maame Núñez HbA1c (Bld) [Mass fraction] 5.2 % Normal 4.5-6.2 [facility] Comment on above: Performed By: #### A 1C #### [facility] [address] [place] [address] Dr. Maame Núñez MYOGLOBINon 08-17-2022 LILLIAM 46 ng/mL Normal 9-82 [facility] Comment on above: Performed By: #### Marisabel GUEVARA CK #### [facility] [address] [place] [address] Dr. Maame Núñez PREG QUANT HCGon 08-17-2022 HCG QUANT 1 mIU/mL Normal [facility] Comment on above: Performed By: #### T SH, PREGQNT #### [facility] [address] [place] [address] Dr. Maame Núñez HCG RANGE SEE BELOW Normal [facility] Comment on above: Result Comment: 5-50 0.2-1 WEEK 50-500 1-2 WEEKS 100-5,000 2-3 WEEKS 500-10,000 3-4 WEEKS 1,000-50,000 4-5 WEEKS 10,000-100,000 5-6 WEEKS 15,000-200,000 6-8 WEEKS 10,000-100,000 2-3 MONTHS Performed By: #### T SH, PREGQNT #### [facility] [address] [address] [address] Maame Núñez TSHon 08-17-2022 TSH 1.027 uIU/mL Normal 0.358-3.740 [facility] Comment on above: Performed By: #### T SH, PREGQNT #### [facility] [address] [place] [address] Dr. Maame Núñez US PELVIS AND TRANSVAGon [...] by: MICHAEL WILLIS Date: 2022-08-17 14:30 Normal [facility] Vital Signs Date Time Vital Sign Value Performing Clinician Autumn alan 05-25-2023 09:190400 Body height 160 cm Liz Gaviota DO Work Phone: [facility] 05-25-2023 09:19-0400 Body weight 145.15 kg Liz Meek DO Work Phone: [facility] Encounters Encounter Date Encounter Type Care Provider Facility Start: 10-13-2023 End: 10-13-2023 ambulatory [facility] Start: 10-11-2023 End: 10-11-2023 ambulatory HAYDEN HERNDON Not Available Start: 09-13-2023 End: 09-13-2023 ambulatory [facility] Start: 08-16-2023 End: 08-16-2023 ambulatory [facility] Start: 08-03-2023 End: 08-03-2023 ambulatory LIZ MEEK Facility:[facility] Start: 07-12-2023 End: 07-12-2023 ambulatory ARIANNA Mathew STEVE Not Available Start: 05-25-2023 End: 05-25-2023 ambulatory Liz Meek DO Work Phone: NEUROLOGY Comment on above: 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 aura and without status migrainosus (Primary Dx); Pressure in head; Chronic daily headache Start: 05-25-2023 End: 05-25-2023 Telemedicine consultation with patient Liz Meek DO Work Phone: [facility] Start: 05-21-2023 ambulatory Alejandro Varner acility:[facility] Start: 05-20-2023 End: 05-20-2023 ambulatory Kaylee Hutton Facility:[facility] Start: 05-20-2023 End: 05-20-2023 ambulatory MARKET RESEARCH INTERVIEWER-C Margaret Munguia Work Phone: [facility] Work Phone: Start: 05-20-2023 End: 05-20-2023 Patient encounter procedure MARKET RESEARCH INTERVIEWER-C Margaret Munguia Work Phone: [facility] [place] Work Phone: Start: 03-17-2023 Telephone encounter Neurology Provid er Neurology Comment on above: Received Outside Med ical Records (External referral to [facility] [employer]) Start: 01-06-2023 End: 01-06-2023 ambulatory [facility] Start: 12-24-2022 ambulatory MARGARET KRISTIE Facility: [facility] Start: 12-16-2022 Encounter for preprocedural cardiovascular examination MARGARET MUNGUIA [facility] Start: 12-15-2022 End: 12-16-2022 ambulatory MARGARETESTRELLA CHAUHANMER Facility:[facility] Start: 12-15-2022 End: 12-16-2022 Encounter for preprocedural cardiovascular examination MARGARET KRISTIE Facility:[facility] Start: 12-07-2022 End: 12-08-2022 ambulatory MARGARET KRISTIE Facility:[facility] Start: 12-01-2022 End: 12-02-2022 ambulatory MARGARET KRISTIE Facility:[facility] Start: 11-26-2022 Encounter for other preprocedural examination MARGARET MUNGUIA [facility] Start: 11-23-2022 End: 11-24-2022 ambulatory MARGARET MUNGUIA Facility:[facility] Start: 11-23-2022 End: 11-24-2022 Encounter for other preprocedural examination MARGARET KRISTIE Facility:[facility] Start: 11-11-2022 ambulatory MARGARET MUNGUIA Facility: [facility] Start: 11-08-2022 Encounter for preprocedural cardiovascular examination DR NINFA ROMERO . [facility] Start: 11-08-2022 Encounter for preprocedural laboratory examination DR NINFA ROMERO . [facility] Start: 11-08-2022 Encounter for preprocedural respiratory examination DR NINFA ROMERO . [facility] Start: 11-02-2022 End: 11-03-2022 ambulatory MARGARET MUNGUIA Facility:[facility] Start: 11-02-2022 End: 11-03-2022 Encounter for preprocedural laboratory examination MARGARET MUNGUIA Facility:[facility] Start: 08-31-2022 End: 09-01-2022 ambulatory MARGARET KRISTIE Facility:[facility] Start: 08-17-2022 End: 08-18-2022 ambulatory MARGARET KRISTIE Facility:[facility] Start: 05-12-2022 End: 05-13-2022 ambulatory MARGARET KRISTIE Facility:[facility] Start: 04-30-2022 ambulatory MARGARETESTRELLA CHAUHANMER Facility: [facility] Start: 03-31-[address] BETO ANDREWS . Faci lity:[facility] Procedures Date Procedure Procedure Detail Performing Clinician Start: 05-20-2023 XR pre/post mri xray MARKET RESEARCH INTERVIEWER Esmer Munguia Work Phone: Start: 05-20-2023 MRI of cervical spin e without contrast KAREN Munguia Work Phone: Plan of Treatment Date Care Activity Detail Author Start: 03-26-2023 Covid-19 Vaccine () Covid-19 Vaccine () [facility] Start: 03-26-2023 Influenza vaccination Influenza Vacc ine (#1) [facility] Start: 07-26-2022 Depression Assessment Depression Ass essment [facility] Start: 2016 HPV Testing HPV Testing [facility] Start: 2007 Pap Testing Pap Testing [facility] Start: 2005 Urine microalbumin profile DTa P,Tdap,Td Vaccine (1 - Tdap) [facility] Start: 2004 Hepatitis C Screening Hepatitis C Sc reening [facility] Start: 2004 HIV Screening HIV Screening [facility] Start: 1985 Hepatitis B Vaccine (1 of 3 - 3-dose series) Hepatitis B Vaccine (1 of 3 - 3-dose series) [facility] Immunizations Immunization Date Immunization Notes Care Provider Bjorn rayo 05-06-2022 influenza virus vacc ine, unspecified formulation Liz Meek DO Work Phone: [facility] Payers Date Payer Category Payer Medicaid [employer] [id number] 2022-Present [phone] [address] [place] [address] Medicaid [id number] 2022 Unknown [id number] 2020 Medicare [id number] 1985 Unknown [id number] 2.16.840.1.439544.3.579.2.593 1985 Unknown [id number] 2.16.840.1.250069.3.579.2.593 1986 Unknown [id number] 2.16.840.1.349983.3.579.2.593 1986 Unknown [id number] 2.16.840.1.804475.3.579.2.593 1986 Unknown [id number] 2.16.840.1.326210.3.579.2.593 1986 Unknown [id number] 2.16.840.1.448297.3.579.2.593 1986 Unknown [id number] 2.16.840.1.098215.3.579.2.593 1986 Unknown [id number] 2.16.840.1.443041.3.579.2.593 1986 Unknown [id number] 2.16.840.1.175509.3.579.2.593 1986 Unknown [id number] 2.16.840.1.739770.3.579.2.593 1986 Unknown [id number] 2.16.840.1.295476.3.579.2.593 1986 Unknown [id number] 2.16.840.1.751551.3.579.2.593 1986 Unknown [id number] 2.16.840.1.717995.3.579.2.593 1986 Unknown [id number] 2.16.840.1.079415.3.579.2.1259 1986 Unknown [id number] 2.16.840.1.762361.3.579.2.1259 1986 Unknown [id number] 2.16.840.1.530980.3.579.2.1286 1986 Unknown [id number] 2.16.840.1.474883.3.579.2.1286 1986 Unknown [id number] 2.16.840.1.288893.3.579.2.1286 1959 Self-pay 1959 Unknown [id number] 1959 Unknown [id number] Unknown [id number] 2.16.840.1.141783.3.579.2.531 Social History Date Type Detail Facility Tobacco smoking stat [facility] Tobacco smoking consumption unknown [facility] Start: 1985 [facility] Start: 05-25-2023 Gender identity Not on file [facility] Start: 1985 Sex Assigned At Female F [facility] Start: 05-25-2023 Tobacco smoking stat [facility] Never smoked tobacco [facility] Work Phone: Start: 05-25-2023 Tobacco use and exposure Smokeless tobacco non-user [facility] Work Phone: Start: 05-25-2023 Alcohol intake Ex-drinker (finding) [facility] Start: 05-25-2023 History of Social function [facility] Adult Depression Screening Assessment 6 [facility] Progress note 08-03-2023 Note Date & Type Note Facility 08-03-2023 Note HNO ID: [id number] Author: TIFFANY MCKEON APRN.OFFENDER EMPLOYMENT SPECIALIST Service: ? Author Type: Nurse Practitioner Type: Progress Notes Filed: 08/03/2023 15:08 Note Text: [facility] - Follow up Virtual Visit This visit was conducted as a virtual visit, with patient's permission, via Zoom. Patient location - [place] García was identified by name and and [...] visit. Either the patient or their legal office machines sales representative has been informed of the risks [...] Take 100 mg (more content not included)... [facility] Progress note 05-25-2023 Note Date & Type Note Facility 05-25-2023 Note HNO ID: [id number] Author: Liz Meek, DO Service: ? Author Type: Physician Type: Progress Notes Filed: 05/25/2023 9:50 AM Note Text: [facility] Virtual Visit New Encounter I have communicated my name and active licensure. The patient's identity and physical location were verified at the time of this visit. Either the patient or their legal office machines sales representative has been informed of the risks and benefits of -- and alternatives to -- treatment through a remote evaluation and consents to proceed with the evaluation remotely. May 25, 2023 CC: Headache History: Radha García is a 38 year old year old, right-handed woman who is referred in consultation by Dr. Kaylee Hutton DO (neuro in [place], [place]) for an opinion regarding benign intracranial [...] Stephanie Severino NP (behavioral health clinic in [place], [place]), on Vraylar, klonopin, lamictal, prozac Tobacco: [...] Migraine Screener: 3 (more content not included)... [facility] History of Present illness Narrative 05-25-2023 Liz Meek DO - 05/25/2023 9:00 AM EDT Note Date & Type Note Facility 05-25-2023 History of Presen t illness Narrative [facility] Virtual Visit New Encounter I have communicated my name and active licensure. The patient's identity and physical location were verified at the time of this visit. Either the patient or their legal office machines sales representative has been informed of the risks and benefits of -- and alternatives to -- treatment through a remote evaluation and consents to proceed with the evaluation remotely. May 25, 2023 CC: Headache History: Radha García is a 38 year old year old, right-handed woman who is referred in consultation by Dr. Kaylee Hutton DO (neuro in [place], [place]) for an opinion regarding benign intracranial [...] Stephanie Severino NP (behavioral health clinic in [place], [place]), on Vraylar, klonopin, lamictal, prozac Tobacco: [...] and clear, coherent, and relevant. Short and terminal carman memory, cognition and general fund of knowledge [...] which included preparing to see the patient, [id number] patient care, completing clinical documentation, obtaining and/or [...] Medicine/ Board Certified Staff, [facility] [employer] [facility] Operator of Neurology with [facility]/[place] [address] Office: [phone] documented in this encounter [facility] Note 03-17-2023 Telephone Encounter - Marlee Walters - 03/17/2023 9:32 AM EDT Note Date & Type Note Facility 03-17-2023 Miscellaneous Notes Formattin g of this note might be different from the original. Referral source: Dr. Kaylee Hutton ([facility] [address] [facility] [employer], [place], [place]) Reason: benign intracranial hypertension, chronic tension-type headache, pseudotumor cerebrei External records on file. documented in this encounter [facility] Progress note 01-06-2023 Note Date & Type Note Facility 01-06-2023 Note Cardiovascular Medic ine [facility] SUBJECTIVE Chief Complaint Patient presents with New Patient abnormal stress kristie referral saw cardio in [place] not sure of name ABHIJIT García is a 37 y.o. female here [...] has chronic lightheadedness, she previously saw a forensic specialist in [place] without findings to explain her lightheadedness. She denies syncope, acute palpitations, or worsening dyspnea on exertion. She has previously smoked marijuana but not tobacco use. No known history of diabetes, hypertension or hyperlipidemia. Her grandfather had an acute ND in his 50s, no other known family [...] case and plan was discussed with attending forensic specialist Dr. Johnson. Mark Dominguez APRN-OFFENDER EMPLOYMENT SPECIALIST [facility] Cardiovascular Medicine [facility] Evaluation note Note Date & Type Note Facility Evaluation note No assessment information availa [facility] Work Phone: Evaluation note Note Date & Type Note Facility Evaluation note Diagnosis 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 aura and without status migrainosus- Primary Chronic migraine without aura, with intractable migraine, so stated, without mention of status migrainosus Pressure in head Headache Chronic daily headache Headache documented in this encounter [facility] Summary Purpose Family History No Family History [...] Referral Specialty Diagnoses / Procedures Referred By Jj t Referred To Contact Diagnoses 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 aura and without status migrainosus Pressure in head Chronic daily headache Procedures PROVIDER ORDERED FOLLOW UP OFFICE/OUTPATIENT [facility] MDM 60-74 MINUTES Liz Meek DO [address] [place] [address] Referral ID Status Reason Start Date Expiration Date Visits Requested Visits Authorized [id number] Pending Review PCP Requested Referral 08/03/2023 05/24/2024 1 1 Additional Source Comments INFORMATION SOURCE (unrecogn ized section and content) DATE CREATED AUTHOR 01/01/2023 [facility] DATE CREATED AUTHOR AUTHOR'S ORGANIZ ATION 01/06/2023 [facility] DATE CREATED AUTHOR AUTHOR'S ORGANIZ ATION 08/05/2023 [facility] DATE CREATED AUTHOR AUTHOR'S ORGANIZ ATION 08/07/2023 [facility] DATE CREATED AUTHOR AUTHOR'S ORGANIZ ATION 10/11/2023 [facility] DATE CREATED AUTHOR AUTHOR'S ORGANIZ ATION 10/14/2023 [facility] Source Comments (unrecognize d section and content) In the event this informatio n is protected by the Federal Confidentiality of Alcohol and Drug Abuse Patient Records regulations: The Federal rules restrict any use of the information to criminally investigate or prosecute any alcohol or drug abuse patient.[facility] event this information is protected by the Federal Confidentiality of Alcohol and Drug Abuse Patient Records regulations: The Federal rules restrict any use of the information to criminally investigate or prosecute any alcohol or drug abuse patient.[facility] Reason for Visit (unrecogniz ed section and content) Reason Comments Received Outside Medical Records Externa l referral to Neurological [employer] Reason Comments Chronic Migraine Care Teams (unrecognized sec tion and content) Classification Counselor Relationship Specialty Start Date End Date Maite Kruse [address] [place] [phone] PCP - General Family Medicine 03/19/21 Kaylee Hutton DO [address] [phone] [place] Referring Team Neurology 03/17/23 Team Status: Active Member Role Status Dates KAREN Egan Primary Care Provider Active Team Status: Inactive Member Role Status Dates Kaylee Hutton DO Attending Provider Active Margaret Munguia NP-Biju Primary Care Provider Active Classification Counselor Relationship Specialty Start Date End Date Maite Kruse [address] [place] [phone] PCP - General Family Medicine 03/19/21 Kaylee Hutton DO [address] [phone] [place] Referring Team Neurology 03/17/23 Goals (unrecognized [...] BE BASED ON THE PRIMARY CLINICAL RECORDS. [facility]. provides no warranty or guarantee of the accuracy or completeness of information in this document.
--- NOTE | 2023-10-20 11:29 | P.CN_ITS ---
Consult Note: HPI Data of Consult Patient: known to practice within the last 3 years Consult date: 10/06/23 Requesting Physician: Lisa Luna NP Primary Care Provider: AMAN MUNGUIA Consult Narrative Reason for consult: establish Narrative: Remedios García a pleasant 38 year old female presents for evaluation and management of chronic right shoulder pain. Patient reports chronic pain in neck and right shoulder however 4 months ago she noticed this pain changed. Patient completed PT without benefit, reports it increased her pain. Patient reports stabbing ache and pain in right shoulder and upper arm. Hx of numbness of fingers in the right hand for which she had an EMG on and was negative for cervical radiculopathy, following orthopedics for ulnar neuropathy. Pain today 5/10, increasing to 10/10 with pushing, pulling, housework, lifting, moving arm, activity, ADLS, and sleep. Mild benefit to motrin, gabapentin, topamax, medical marijauna. DEMAR 87%. Patient recently underwent right shoulder MRI which reveals Mild insertional tendinosis of supraspinatus and infraspinatus. No high grade tear. Patient would like to discuss injection therapy options. cc:: CC: Lisa Luna NP Review of Systems ROS Status of ROS 10 or more systems reviewed and unremark able except as noted in history and below Musculoskeletal Reports: neck pain and joint pain PFSH PFSH Medical History Abnormal uterine bleeding ?N93.9 - Abnormal uterine and vaginal bleeding, unspecified (ICD-10) Menorrhagia ?N92.0 - Excessive and frequent menstruation with regular cycle (ICD-10) Dysmenorrhea ?N94.6 - Dysmenorrhea, unspecified (ICD-10) Pelvic pain ?R10.2 - Pelvic and perineal pain (ICD-10) Fibromyalgia ?M79.7 - Fibromyalgia (ICD-10) Neck pain ?M54.2 - Cervicalgia (ICD-10) DDD (degenerative disc disease) Back pain ?M54.9 - Dorsalgia, unspecified (ICD-10) Insomnia ?G47.00 - Insomnia, unspecified (ICD-10) OCD (obsessive compulsive disorder) ?F42.9 - Obsessive-compulsive disorder, unspecified (ICD-10) PTSD (post-traumatic stress disorder) ?F43.10 - Post-traumatic stress disorder, unspecified (ICD-10) Panic attacks ?F41.0 - Panic disorder [episodic paroxysmal anxiety] (ICD-10) Depression ?F32.A - Depression, unspecified (ICD-10) Anxiety ?F41.9 - Anxiety disorder, unspecified (ICD-10) COVID-19 ?U07.1 - COVID-19 (ICD-10) Migraine ?G43.909 - Migraine, unspecified, not intractable, without status migrainosus (ICD-10) Seizures ?R56.9 - Unspecified convulsions (ICD-10) Pseudotumor cerebri ?G93.2 - Benign intracranial hypertension (ICD-10) Chiari malformation Morphea ?L94.0 - Localized scleroderma [morphea] (ICD-10) Heartburn ?R12 - Heartburn (ICD-10) Abnormal EKG ?R94.31 - Abnormal electrocardiogram [ECG] [EKG] (ICD-10) Adenomyosis ?N80.03 - Adenomyosis of the uterus (ICD-10) Surgical History S/P epidural steroid injection ?Z92.241 - Personal history of systemic steroid therapy (ICD-10) History of wisdom tooth extraction ?K08.409 - Partial loss of teeth, unspecified cause, unspecified class (ICD- 10) Family History Other Family history of colon cancer Family history of diabetes mellitus Family history of heart disease Family history of kidney cancer Family history of skin cancer Social History Within the past year, how often did you have a drink containing alcohol: never Score interpretation: A score less than 3 is consistent with normal alcohol consumption. Smoking status: Never smoker Non-prescribed substance use: denies use Highest level of school completed/degree received: some college, no degree Meds Home Medications and Allergies Home Medications ?Medication ?Instructions ?Recorded ?Confirmed ?Type cariprazine 1.5 mg capsule 3 mg PO DAILY 01/07/23 10/06/23 History (Vraylar) furosemide 20 mg tablet 20 mg PO QDAY 01/07/23 10/06/23 History fluoxetine 40 mg capsule 80 mg PO DAILY 10/06/23 10/06/23 History gabapentin 400 mg capsule 400 mg PO DAILY 10/06/23 10/06/23 History gabapentin 800 mg tablet 800 mg PO BID 10/06/23 10/06/23 History lamotrigine 200 mg tablet 200 mg PO DAILY 10/06/23 10/06/23 History metoprolol tartrate 25 mg tablet 25 mg PO DAILY 10/06/23 10/06/23 History topiramate 100 mg tablet (Topamax) 100 mg PO DAILY 10/06/23 10/06/23 History Allergies Allergy/AdvReac Type Severity Reaction Status Date / Time No Known Drug Allergies Allergy Verified 10/06/23 11:30 Exam Constitutional Documenting provider has reviewed patient's vital signs: yes Common normals: no apparent distress, oriented x3, healthy appearing, alert and well nourished General appearance: cooperative HENMT Common normals: normocephalic, hearing grossly normal bilaterally and moist oral mucous membranes Head and scalp: normocephalic Eye Common normals: PERRL Pupil: PERRL Neck & C-Spine Common normals: full ROM General: normal visual inspection Cervical spine: pain with cervical ROM Chest Common normals: inspection of chest normal Respiratory Common normals: normal respiratory effort, no retractions and no use of accessory muscles Extremity Right upper extremity: shoulder joint Other: unable to perform empty can test due to pain and limited ROM. unable to raise arm over head, unable to perform abduction testing due to severe pain. pain over right suprascapular and axillary nerve, pain to right biceps positive apleys scratch test weakness in RUE 4/5 compared to LUE 5/5 Neuro Common normals: oriented x3, CN's II-XII intact bilaterally, moves all extremities, no focal motor deficits, no sensory deficits noted and deep tendon reflexes 2+ bilaterally Sensorium/orientation: alert Motor exam: no movement abnormalities noted and strength abnormal Psych Common normals: mental status grossly normal, thought process normal, cooperative, affect normal, speech normal and activity/motor behavior normal Speech: normal speech Thought process: normal thought process Assessment and Plan Assessment and Plan (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 MRI of right shoulder reviewed continue medications through PCP continue f/u with orthopedics f/u after injection
== END 2023-10-20 11:08 | disposition home or self-care (01) ==
LOC: PM 11:07
PROVIDERS: PCP Nurse Practitioner Family; Visit Provider Nurse Practitioner
DX: G62.9 Polyneuropathy, unspecified (principal); M25.511 Pain in right shoulder; M47.812 Spondylosis without myelopathy or radiculopathy, cervical region
CPT/HCPCS: G0463

== ENCOUNTER 2023-11-08 09:01 | Day surgery (SDC) | payer MEDICARE, SELFPAY ==
--- OUTSIDE RECORDS SUMMARY | 2023-11-08 09:11 | XMS_ITS | CCD ---
Author Organization [facility] Care Team Providers Care Tram Driver Name Role Phone KRISTIE, MARGARET Primary Care Unavailable MARTHA CASTELLANO Consulting Unavailable MARTHA CASTELLANO Attending Unavailable GRAY, AMRTHA Admitting Unavailable KRISTIE, MARGARET Attending Unavailable KRISTIE, [...] Care Unavailable KRISTIE, MARGARET Attending Unavailable KRISTIE, MAGRARET Admitting Unavailable KRISTIE, MARGARET Primary Care Unavailable [...] (1 source) Corticosteroids Drug allergy (disorder) [facility] Repository (2 sources) Glucocorticoid preparation; Translations: [CORTICOSTEROIDS (GLUCOCORTICOIDS)] Drug Allergy 3 Other: See Comments [facility] Work Phone: Medications Current Medications Medication Drug [...] Value Interpretation Reference Range [facility] RADHA GARCÍA ([id number]) 1985 F [place] Date Time Provider Department 08/04/23 NEUROLOGY PROVIDER NIQ During your visit today, we recorded the following information about you: Marlee Walters 08/04/2023 11:56 AM Signed Received external records from [facility] related to intracranial hypertension. Pt is following with Dr. Liz Meek. Forwarded records to her office at [phone]. Allergies As of Date: 08/04/2023 Noted Allergy Reaction CORTICOSTEROIDS (GLUCOCORTICOIDS) 05/25/2023 14 - Other: See Comments Date Reviewed: 08/03/2023 Reviewed by: Tiffany Mckeon APRN.RN ORTHOPAEDICS - Fully Assessed Reason for Visit: Received Outside Medical Records [[id number]] Cmt: Records from local neurologist Prescriptions as [...] Status:Closed by MARLEE WALTERS on 08/04/23 Normal [facility] MR cervical spine wo obduliaon 1 MR cervical spine wo con [facility] Main [address] [address] MRI Report Signed Patient: Radha García MR#: [id number] : 1985 Acct:[id number] Age/Sex: 38 / F ADM Date: 05/20/23 Loc: MR Room: Type: [facility] Attending Dr: Kaylee Hutton DO Copies to: [...] Powell Jr., D.O.05/20/2023 11:29 AM Dictation Location: [place] [address] Transcribed By: [facility] 05/20/231128 Dictated By: Bassem Powell Jr, DO 05/20/231125 Signed By: 05/20/23 1129 Normal [facility] XR pre/post mri xrayon 05-20 XR pre/post mri xray [facility] Main [address] [address] XRay Report Signed Patient: Radha García MR#: [id number] : 1985 Acct:[id number] Age/Sex: 38 / F ADM Date: 05/20/23 Loc: MR Room: Type: [facility] Attending Dr: Kaylee Hutton DO Copies to: [...] Melecio Barillas M.D.05/20/2023 1:06 PM Dictation Location: [place] [address] Transcribed By: [facility] 05/20/23 1306 Dictated By: Melecio Barillas DO 05/20/23 1304 Signed By: 05/20/23 1306 [facility] CNPKasandra 03-17-2023 CNPN Telephone (NIQ) DEREKRADHA Quintana ([id number]) 1985 F U[place] Date Time Provider Department 03/17/23 NEUROLOGY PROVIDER NIQ During your visit today, we recorded the following information about you: Marlee Walters 03/17/2023 9:34 AM Signed Referral source: Dr. Kaylee Hutton ([facility], [place], [place]) Reason: benign intracranial hypertension, chronic tension-type headache, pseudotumor cerebrei External records on file. Allergies As of Date: 03/17/2023 (Not on File) Date Reviewed: Never Reviewed Reason for Visit: Received Outside Medical Records [[id number]] Cmt: External referral to [facility] Problem List As Of Date: 03/17/2023 (None) Encounter Status:Closed by MARLEE WALTERS on 03/17/23 Normal [facility] Office Visiton 01-06-2023 Follow-up visit [id number] Radha García 1985 F Date Provider Department Center 01/06/2023 [id number] DOMINGUEZ CARD [facility] No family history on file Level of Service:64868 DE OFFICE/OUTPATIENT NEW MODERATE MDM 45-59 MINUTES Reason for Visit and Comments: New Patient [632] - abnormal stress kristie referral saw cardio in OR not sure of name Normal [facility] PROF CHEM 8 (BAS METB)on Anion gap [Moles/Vol] 12.4 mmol/L Normal [facility] Comment on above: Performed By: #### B MP #### [facility] [address] [address] [address] Maame Núñez Calcium [Mass/Vol] 8.7 mg/dL Normal 8.5-10.1 [facility] Comment on above: Performed By: #### B MP #### [facility] [address] [address] [address] Maame Núñez Chloride [Moles/Vol] 107 mmol/L Normal 98-107 [facility] Comment on above: Performed By: #### B MP #### [facility] [address] [address] [address] Maame Núñez CO2 [Moles/Vol] 26.6 mmol/L Normal 21.0-32.0 [facility] Comment on above: Performed By: #### B MP #### [facility] [address] [address] [address] Maame Núñez Creatinine [Mass/Vol] 0.61 mg/dL Normal 0.55-1.02 [facility] Comment on above: Performed By: #### B MP #### [facility] [address] [address] [address] Maame Núñez EGFR-AF MONTENEGRIN >60 Normal >=60 [facility] Comment on above: Performed By: #### B MP #### [facility] [address] [address] [address] Maame Núñez EGFR-NON AF MONTENEGRIN >60 Normal >=60 [facility] Comment on above: Performed By: #### B MP #### [facility] [address] [address] [address] Maame Núñez Glucose [Mass/Vol] 94 mg/dL Normal 74-106 [facility] Comment on above: Performed By: #### B MP #### [facility] [address] [address] [address] Maame Núñez Potassium [Moles/Vol] 4.0 mmol/L Normal 3.5-5.1 [facility] Comment on above: Performed By: #### B MP #### [facility] [address] [address] [address] Maame Núñez Sodium [Moles/Vol] 142 mmol/L Normal 136-145 [facility] Comment on above: Performed By: #### B MP #### [facility] [address] [address] [address] Maame Núñez Urea nitrogen [Mass/Vol] 12.0 mg/dL Normal 7.0-18.0 [facility] Comment on above: Performed By: #### B MP #### [facility] [address] [address] [address] Maame Núñez Urea nitrogen/Creatinine [Mass ratio] 19.7 mg/mg Normal [facility] Comment on above: Performed By: #### B MP #### [facility] [address] [address] [address] Maame Núñez XR CHEST 2 Von [...] MORENA OWENS Date: 2022-11-02 09:41 Normal [facility] COLLIN EIA W/REFLEX 9 BIOMARKER Son 09-01-2022 COLLIN Direct Negative Normal Negative [facility] Comment on above: Performed By: #### A NARF9 #### [facility] [address] [address] [address] Maame Núñez CBC AUTO DIFFon 08-17-2022 BASO # 0.0 103/ul Normal 0.0-0.1 [facility] Comment on above: Performed By: #### C BC ####[facility] [address] [place] [address]DrEllen Núñez Basophils/100 WBC (Bld) 0.6 % Normal 0.2-2.0 [facility] Comment on above: Performed By: #### C BC ####[facility] [address] [place] [address]DrEllen Núñez EO # 0.1 103/ul Normal 0.0-0.7 [facility] Comment on above: Performed By: #### C BC ####[facility] [address] [place] [address]DrEllen Núñez Eosinophils/100 WBC (Bld) 1.5 % Normal 0.9-7.0 [facility] Comment on above: Performed By: #### C BC ####[facility] [address] [place] [address]DrEllen Núñez Erythrocyte distribution width (RBC) [Ratio] 13.0 % Normal 11.0-15.0 [facility] Comment on above: Performed By: #### C BC ####[facility] [address] [place] [address]DrEllen Núñez Hematocrit (Bld) [Volume fraction] 39.3 % Normal 36.0-48.0 [facility] Comment on above: Performed By: #### C BC ####[facility] [address] [place] [address]DrEllen Núñez Hemoglobin (Bld) [Mass/Vol] 13.6 g/dL Normal 12.0-16.0 [facility] Comment on above: Performed By: #### C BC ####[facility] [address] [place] [id number]. Maame Núñez IG # 0.02 10e3/ul Normal 0.00-0.03 [facility] Comment on above: Performed By: #### C BC ####[facility] [address] [place] [id number]. Maame Wilton IG % 0.3 % Normal 0.0-0.5 [facility] Comment on above: Performed By: #### C BC ####[facility] [address] [place] [id number]. Maame Wilton LYMPH # 2.1 103/ul Normal 1.2-3.8 [facility] Comment on above: Performed By: #### C BC ####[facility] [address] [place] [address]Dr. Maame Núñez Lymphocytes/100 WBC (Bld) 31.5 % Normal 20.5-60.0 [facility] Comment on above: Performed By: #### C BC ####[facility] [address] [place] [address]Dr. Angelineclemente Núñez MANUAL DIFF REQ NO Normal [facility] Comment on above: Performed By: #### C BC ####[facility] [address] [place] [address]Dr. Maame Wilton MCH (RBC) [Entitic mass] 28.4 pg Normal 26.7-34.0 [facility] Comment on above: Performed By: #### C BC ####[facility] [address] [place] [address]Dr. Maame Wilton MCHC (RBC) [Mass/Vol] 34.6 g/dL Normal 29.9-35.2 [facility] Comment on above: Performed By: #### C BC ####[facility] [address] [place] [address]Dr. Maame Wilton MCV (RBC) [Entitic vol] 82.0 fL Normal 81.0-99.0 [facility] Comment on above: Performed By: #### C BC ####[facility] [address] [place] [id number]. Maame Núñez MONO # 0.5 103/ul Normal 0.3-0.8 [facility] Comment on above: Performed By: #### C BC ####[facility] [address] [place] [phone]. Maame Núñez Monocytes/100 WBC (Bld) 7.0 % Normal 1.7-12.0 [facility] Comment on above: Performed By: #### C BC ####[facility] [address] [place] [id number]. Maame Núñez NEUT # 3.9 103/ul Normal 1.4-6.5 [facility] Comment on above: Performed By: #### C BC ####[facility] [address] [place] [phone]. Maame Núñez Neutrophils/100 WBC (Bld) 59.1 % Normal 43.0-75.0 [facility] Comment on above: Performed By: #### C BC ####[facility] [address] [place] [id number]. Maame Núñez Platelet mean volume (Bld) [Entitic vol] 9.9 fL Normal 9.5-13.5 [facility] Comment on above: Performed By: #### C BC ####[facility] [address] [place] [id number]. Maame Núñez PLT 242 103/ul Normal 150-450 [facility] Comment on above: Performed By: #### C BC ####[facility] [address] [place] [phone]. Maame Núñez RBC 4.79 106/ul Normal 4.20-5.40 [facility] Comment on above: Performed By: #### C BC ####[facility] [address] [place] [phone]. Maame Núñez WBC 6.5 103/ul Normal 4.0-11.0 [facility] Comment on above: Performed By: #### C BC ####[facility] [address] [place], [place] [address]Dr. Maame Núñez CPKon 08-17-2022 CK [Catalytic activity/Vol] 82 U/L Normal 26-192 [facility] Comment on above: Performed By: #### Marisabel GUEVARA, CK #### [facility] [address] [place] [address] Dr. Maame Núñez FREE T4on 08-17-2022 Free T4 [Mass/Vol] 0.99 ng/dL Normal 0.76-1.46 [facility] Comment on above: Performed By: #### F T4 #### [facility] [address] [place] [address] Dr. Maame Núñez GLYCOHEMOGLOBIN A1Con 2022 ADA RECOMMENDATION SEE BELOW Normal [facility] Comment on above: Result Comment: ADA RECOMMENDED LIMIT 4.0 - 6.0 ADA THERAPEUTIC TARGET < 7.0 ACTION SUGGESTED > 7.0 Performed By: #### A 1C #### [facility] [address] [place] [address] Dr. Maame Núñez Glucose [Mass/Vol] 103 mg/dL Normal [facility] Comment on above: Performed By: #### A 1C #### [facility] [address] [place] [address] Dr. Maame Núñez HbA1c (Bld) [Mass fraction] 5.2 % Normal 4.5-6.2 [facility] Comment on above: Performed By: #### A 1C #### [facility] [address] [place] [address] Dr. Maame Núñez MYOGLOBINon 08-17-2022 LILLIAM 46 ng/mL Normal 9-82 [facility] Comment on above: Performed By: #### Marisabel GUEVARA CK #### [facility] [address] [place] [address] Dr. Maame Núñez PREG QUANT HCGon 08-17-2022 HCG QUANT 1 mIU/mL Normal [facility] Comment on above: Performed By: #### T SH, PREGQNT #### [facility] [address] [place] [address] Dr. Maame Núñez HCG RANGE SEE BELOW Normal [facility] Comment on above: Result Comment: 5-50 0.2-1 WEEK 50-500 1-2 WEEKS 100-5,000 2-3 WEEKS 500-10,000 3-4 WEEKS 1,000-50,000 4-5 WEEKS 10,000-100,000 5-6 WEEKS 15,000-200,000 6-8 WEEKS 10,000-100,000 2-3 MONTHS Performed By: #### T SH, PREGQNT #### [facility] [address] [address] [address] Maame Núñez TSHon 08-17-2022 TSH 1.027 uIU/mL Normal 0.358-3.740 [facility] Comment on above: Performed By: #### T SH, PREGQNT #### [facility] [address] [place] [address] Dr. Maame Núñez US PELVIS AND TRANSVAGon [...] by: MICHAEL WILLIS Date: 2022-08-17 14:30 Normal [facility] Vital Signs Date Time Vital Sign Value Performing Clinician Autumn alan 05-25-2023 09:190400 Body height 160 cm Liz Gaviota DO Work Phone: [facility] 05-25-2023 09:19-0400 Body weight 145.15 kg Liz Meek DO Work Phone: [facility] Encounters Encounter Date Encounter Type Care Provider Facility Start: 10-13-2023 End: 10-13-2023 ambulatory [facility] Start: 10-11-2023 End: 10-11-2023 ambulatory HAYDEN HERNDON Not Available Start: 09-13-2023 End: 09-13-2023 ambulatory [facility] Start: 08-16-2023 End: 08-16-2023 ambulatory [facility] Start: 08-03-2023 End: 08-03-2023 ambulatory LIZ MEEK Facility:[facility] Start: 07-12-2023 End: 07-12-2023 ambulatory ARIANNA Mathew STEVE Not Available Start: 05-25-2023 End: 05-25-2023 ambulatory Liz Meek DO Work Phone: NEUROLOGY Comment on above: 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 aura and without status migrainosus (Primary Dx); Pressure in head; Chronic daily headache Start: 05-25-2023 End: 05-25-2023 Telemedicine consultation with patient Liz Meek DO Work Phone: [facility] Start: 05-21-2023 ambulatory Alejandro Varner acility:[facility] Start: 05-20-2023 End: 05-20-2023 ambulatory Kaylee Hutton Facility:[facility] Start: 05-20-2023 End: 05-20-2023 ambulatory [employer] Margaret Munguia Work Phone: [facility] Work Phone: Start: 05-20-2023 End: 05-20-2023 Patient encounter procedure [employer] Margaret Munguia Work Phone: [facility] [place] Work Phone: Start: 03-17-2023 Telephone encounter Neurology Provid er Neurology Comment on above: Received Outside Med ical Records (External referral to [facility]) Start: 01-06-2023 End: 01-06-2023 ambulatory [facility] Start: 12-24-2022 ambulatory MARGARET KRSITIE Facility: [facility] Start: 12-16-2022 Encounter for preprocedural cardiovascular examination MARGARET MUNGUIA [facility] Start: 12-15-2022 End: 12-16-2022 ambulatory MARGARETESTRELLA CHAUHANMER Facility:[facility] Start: 12-15-2022 End: 12-16-2022 Encounter for preprocedural cardiovascular examination MARGARET KRISTIE Facility:[facility] Start: 12-07-2022 End: 12-08-2022 ambulatory MARGARET KRISTIE Facility:[facility] Start: 12-01-2022 End: 12-02-2022 ambulatory MARGARET KRISTIE Facility:[facility] Start: 11-26-2022 Encounter for other preprocedural examination MARGARET MUNGUIA [facility] Start: 11-23-2022 End: 11-24-2022 ambulatory MARGARET MUNGUIA Facility:[facility] Start: 11-23-2022 End: 11-24-2022 Encounter for other preprocedural examination MARGARET KRISTIE Facility:[facility] Start: 11-11-2022 ambulatory MARGARET MUNGUIA Facility: [facility] Start: 11-08-2022 Encounter for preprocedural cardiovascular examination DR NINFA ROMERO . [facility] Start: 11-08-2022 Encounter for preprocedural laboratory examination DR NINFA ROMERO . [facility] Start: 11-08-2022 Encounter for preprocedural respiratory examination DR NINFA ROMERO . [facility] Start: 11-02-2022 End: 11-03-2022 ambulatory MARGARET MUNGUIA [...] Clinician Start: 05-20-2023 XR pre/post mri xray [employer] Esmer Munguia Work Phone: Start: 05-20-2023 MRI of cervical spin e without contrast KAREN Munguia Work Phone: Plan of Treatment Date Care Activity Detail Author Start: 03-26-2023 Covid-19 Vaccine () Covid-19 Vaccine () [facility] Start: 03-26-2023 Influenza vaccination Influenza Vacc ine (#1) [facility] Start: 07-26-2022 Depression Assessment Depression Ass essment [facility] Start: 2016 HPV Testing HPV Testing [facility] Start: 2007 Pap Testing Pap Testing [facility] Start: 2005 Urine microalbumin profile DTa P,Tdap,Td Vaccine (1 - Tdap) [facility] Start: 2004 Hepatitis C Screening Hepatitis C Sc reening [facility] Start: 2004 HIV Screening HIV Screening [facility] Start: 1985 Hepatitis B Vaccine (1 of 3 - 3-dose series) Hepatitis B Vaccine (1 of 3 - 3-dose series) [facility] Immunizations Immunization Date Immunization Notes Care Provider Bjorn rayo 05-06-2022 influenza virus vacc ine, unspecified formulation Liz Meek DO Work Phone: [facility] Payers Date Payer Category Payer Medicaid [employer] [id number] 2022-Present [phone] [address] [place] [address] Medicaid [id number] 2022 Unknown [id number] 2020 Medicare [id number] 1985 Unknown [id number] 2.16.840.1.348543.3.579.2.593 1985 Unknown [id number] 2.16.840.1.662223.3.579.2.593 1986 Unknown [id number] 2.16.840.1.593217.3.579.2.593 1986 Unknown [id number] 2.16.840.1.356535.3.579.2.593 1986 Unknown [id number] 2.16.840.1.843390.3.579.2.593 1986 Unknown [id number] 2.16.840.1.573993.3.579.2.593 1986 Unknown [id number] 2.16.840.1.102796.3.579.2.593 1986 Unknown [id number] 2.16.840.1.400985.3.579.2.593 1986 Unknown [id number] 2.16.840.1.427150.3.579.2.593 1986 Unknown [id number] 2.16.840.1.449983.3.579.2.593 1986 Unknown [id number] 2.16.840.1.026107.3.579.2.593 1986 Unknown [id number] 2.16.840.1.380853.3.579.2.593 1986 Unknown [id number] 2.16.840.1.746338.3.579.2.593 1986 Unknown [id number] 2.16.840.1.934477.3.579.2.1259 1986 Unknown [id number] 2.16.840.1.652195.3.579.2.1259 1986 Unknown [id number] 2.16.840.1.248472.3.579.2.1286 1986 Unknown [id number] 2.16.840.1.329024.3.579.2.1286 1986 Unknown [id number] 2.16.840.1.091395.3.579.2.1286 1959 Self-pay 1959 Unknown [id number] 1959 Unknown [id number] Unknown [id number] 2.16.840.1.290188.3.579.2.531 Social History Date Type Detail Facility Tobacco smoking stat [facility] Tobacco smoking consumption unknown [facility] Start: 1985 [facility]igned At [facility] on [facility] Start: 05-25-2023 Gender identity Not on file [facility] Start: 1985 Sex Assigned At Female F [facility] Start: 05-25-2023 Tobacco smoking stat [facility] Never smoked tobacco [facility] Work Phone: Start: 05-25-2023 Tobacco use and exposure Smokeless tobacco non-user [facility] Work Phone: Start: 05-25-2023 Alcohol intake Ex-drinker (finding) [facility] Start: 05-25-2023 History of Social function [facility] Adult Depression Screening Assessment 6 [facility] Progress note 08-03-2023 Note Date & Type Note Facility 08-03-2023 Note HNO ID: [id number] Author: TIFFANY MCKEON APRN.RN ORTHOPAEDICS Service: ? Author Type: Nurse Practitioner Type: [...] visit. Either the patient or their legal phone representative has been informed of the risks [...] Take 100 mg (more content not included)... [facility] Progress note 05-25-2023 Note Date & Type Note Facility 05-25-2023 Note HNO ID: [id number] Author: Liz Meek, DO Service: ? Author Type: Physician Type: Progress Notes Filed: 05/25/2023 9:50 AM Note Text: Headache Section [facility] Virtual Visit New Encounter I have communicated my name and active licensure. The patient's identity and physical location were verified at the time of this visit. Either the patient or their legal phone representative has been informed of the risks and benefits of -- and alternatives to -- treatment through a remote evaluation and consents to proceed with the evaluation remotely. May 25, 2023 CC: Headache History: Radha García is a 38 year old year old, right-handed woman who is referred in consultation by Dr. Kaylee Hutton DO (neuro in [place], [place]) for an opinion regarding benign intracranial [...] Stephanie Severino NP (behavioral health clinic in [place], [place]), on Vraylar, klonopin, lamictal, prozac Tobacco: [...] Migraine Screener: 3 (more content not included)... [facility] History of Present illness Narrative 05-25-2023 Liz Meek DO - 05/25/2023 9:00 AM EDT Note Date & Type Note Facility 05-25-2023 History of Presen t illness Narrative Head[facility] Virtual Visit New Encounter I have communicated my name and active licensure. The patient's identity and physical location were verified at the time of this visit. Either the patient or their legal phone representative has been informed of the risks and benefits of -- and alternatives to -- treatment through a remote evaluation and consents to proceed with the evaluation remotely. May 25, 2023 CC: Headache History: Radha García is a 38 year old year old, right-handed woman who is referred in consultation by Dr. Kaylee Hutton DO (neuro in [place], [place]) for an opinion regarding benign intracranial [...] Stephanie Severino NP (behavioral health clinic in [place], [place]), on Vraylar, klonopin, lamictal, prozac Tobacco: [...] and clear, coherent, and relevant. Short and press tender long goods memory, cognition and general fund of knowledge [...] which included preparing to see the patient, [id number] patient care, completing clinical documentation, obtaining and/or [...] Board Certified Staff, [facility] [employer] Helper of Neurology with [facility]/[place] [address] Office: [phone] documented in this encounter [facility] Note 03-17-2023 Telephone Encounter - Marlee Walters - 03/17/2023 9:32 AM EDT Note Date & Type Note Facility 03-17-2023 Miscellaneous Notes Formattin g of this note might be different from the original. Referral source: Dr. Kaylee Hutton ([facility], [place], [place]) Reason: benign intracranial hypertension, chronic tension-type headache, pseudotumor cerebrei External records on file. documented in this encounter [facility] Progress note 01-06-2023 Note Date & Type Note Facility 01-06-2023 Note Cardiovascular Medic ine [facility] SUBJECTIVE Chief Complaint Patient presents with New Patient abnormal stress kristie referral saw cardio [place] not sure of name ABHIJIT García is [...] has chronic lightheadedness, she previously saw a sales center manager in [place] without findings to explain her lightheadedness. She [...] case and plan was discussed with attending sales center manager Dr. Johnson. Mark Dominguez APRN-RN ORTHOPAEDICS [facility] Cardiovascular Medicine [facility] Evaluation note Note Date & Type Note Facility Evaluation note No assessment information availa [facility] Work Phone: Evaluation note Note Date & Type Note Facility Evaluation note Diagnosis 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 aura and without status migrainosus- Primary Chronic migraine without aura, with intractable migraine, so stated, without mention of status migrainosus Pressure in head Headache Chronic daily headache Headache documented in this encounter [facility] Summary Purpose Family History No Family History [...] PROVIDER ORDERED FOLLOW UP OFFICE/OUTPATIENT [facility] MDM 60-74 MINUTES Liz Meek DO [address] [place] [address] Referral ID Status Reason Start Date Expiration Date Visits Requested Visits Authorized [id number] Pending Review PCP Requested Referral 08/03/2023 05/24/2024 1 1 Additional Source Comments INFORMATION SOURCE (unrecogn ized section and content) DATE CREATED AUTHOR 01/01/2023 [facility] DATE CREATED AUTHOR AUTHOR'S ORGANIZ ATION 01/06/2023 [facility] DATE CREATED AUTHOR AUTHOR'S ORGANIZ ATION 08/05/2023 [facility] DATE CREATED AUTHOR AUTHOR'S ORGANIZ ATION 08/07/2023 [facility] DATE CREATED AUTHOR AUTHOR'S ORGANIZ ATION 10/11/2023 [facility] DATE CREATED AUTHOR AUTHOR'S ORGANIZ ATION 10/14/2023 [facility] Source Comments (unrecognize d section and content) In the event this informatio n is protected by the Federal Confidentiality of Alcohol and Drug Abuse Patient Records regulations: The Federal rules restrict any use of the information to criminally investigate or prosecute any alcohol or drug abuse patient[facility] event this information is protected by the Federal Confidentiality of Alcohol and Drug Abuse Patient Records regulations: The Federal rules restrict any use of the information to criminally investigate or prosecute any alcohol or drug abuse patient.[facility] Reason for Visit (unrecogniz ed section and content) Reason Comments Received Outside Medical Records Externa l referral to Neurological [place] Reason Comments Chronic Migraine Care Teams (unrecognized sec tion and content) Tram Driver Relationship Specialty Start Date End Date Maite Kruse [address] [place] [phone] PCP - General Family Medicine 03/19/21 Kaylee Hutton DO [address] [phone] [place] Referring Team Neurology 03/17/23 Team Status: Active Member Role Status Dates KAREN Egan Primary Care Provider Active Team Status: Inactive Member Role Status Dates Kaylee Hutton DO Attending Provider Active Margaret Munguia NP-Biju Primary Care Provider Active Tram Driver Relationship Specialty Start Date End Date Maite Kruse [address] [place] [phone] PCP - General Family Medicine 03/19/21 Kaylee Hutton DO [address] [phone] [place] Referring Team Neurology 03/17/23 Goals (unrecognized [...] BE BASED ON THE PRIMARY CLINICAL RECORDS. [facility]. provides no warranty or guarantee of the accuracy or completeness of information in this document.
[2023-11-08 09:50] VITALS: BP 126/76; PULSE 69; TEMP 36.4; O2SAT 7
[2023-11-08 09:50] LABS: HCG Qualitative NEGATIVE (NEGATIVE)
[2023-11-08 10:42] VITALS: BP 123/80; PULSE 69; O2SAT 96
[2023-11-08 10:43] VITALS: PULSE 59; O2SAT 97
[2023-11-08] MEDS: BUPIVACAINE HCL 0.25% PF 25 MG/10 ML VIAL INJ (10:43)
[2023-11-08] MEDS: IOHEXOL 240 MG/ML - 10 ML VIAL INJ (10:43)
[2023-11-08] MEDS: TRIAMCINOLONE ACETONIDE 40 MG/ML VIAL INJ (10:43)
[2023-11-08] MEDS: LIDOCAINE HCL 2% PF 100 MG/5 ML VIAL INJ (10:43)
[2023-11-08 10:44] VITALS: BP 127/80
--- NOTE | 2023-11-08 10:44 | W.PM.PROCNOT ---
Date of procedure: 11/08/23 Pre-op diagnosis: Right suprascapular and axillary nerve block Post-op diagnosis: same as pre-op Procedure: Procedure: Right suprascapular and axillary nerve block Medications: Bupivacaine 0.25% 3cc, kenalog 40mg The patient was seen and examined in the preoperative holding area. Informed consent was obtained and placed on the chart.? The patient was brought to the medical procedure unit and placed in the prone position. A timeout was completed verifying correct patient, procedure site, positioning, plan, and special equipment.? Using aseptic technique, under direct fluoroscopic visualization, a 25-gauge 3-1/2 inch spinal needle was advanced to the superior portion of the right posterior osseous rim of the glenoid fossa, lateral and superior to the spinal glenoid notch.? 0.5 cc of the above solution was injected.? The needle was then redirected 3 mm inferiorly and another 0.5 cc of the above medication was injected.? This needle was then removed.? Using aseptic technique, under direct fluoroscopic visualization, another 25-gauge 3-1/2 inch spinal needle was advanced toward the most inferior and lateral border of the greater tubercle.? 0.5 cc of the above medication was administered.? The needle was then redirected 3 mm inferiorly.? 0.5 cc was administered in this region.? This needle was removed.? The same procedure, with the same steps, was then repeated on the opposite side.? ? The patient was taken to the postprocedural recovery area and monitored for an appropriate length of time before being found suitable for discharge in the accompaniment of a responsible adult. Anesthesia: Local Surgeon: Frank Hunter Pathology: none sent Condition: stable Disposition: no change
== END 2023-11-08 10:50 | disposition home or self-care (01) ==
PROVIDERS: PCP Nurse Practitioner Family; Visit Provider Anesthesiology
DX: M25.511 Pain in right shoulder (principal); G58.8 Other specified mononeuropathies
CPT/HCPCS: 36415; 64417; 64418; 84703; Q9966

== ENCOUNTER 2023-11-18 10:45 | Outpatient (OUT) | payer MEDICARE, SELFPAY ==
--- NOTE | 2023-11-18 10:59 | P.CN_ITS ---
Consult Note: HPI Data of Consult Patient: known to practice within the last 3 years Consult date: 10/06/23 Requesting Physician: Lisa Luna NP Primary Care Provider: AMAN MUNGUIA Consult Narrative Reason for consult: establish Narrative: Remedios García a pleasant 38 year old female presents for evaluation and management of chronic right shoulder pain and neck pain. Patient completed PT without benefit, reports it increased her pain. Patient reports stabbing ache and pain in right shoulder and upper arm. Hx of numbness of fingers in the right hand for which she had an EMG on and was negative for cervical radiculopathy, following orthopedics for ulnar neuropathy. Pain today 6/10, increasing to 10/10 with pushing, pulling, housework, lifting, moving arm, activity, ADLS, and sleep. Mild benefit to motrin, gabapentin, topamax, medical marijauna. DEMAR 44%. Patient recently underwent right shoulder MRI which reveals Mild insertional tendinosis of supraspinatus and infraspinatus. No high grade tear. Recent right suprascapular nerve block provided greater than 80% improvement in pain and functional ability immediately following and hours after. cc:: CC: Lisa Luna NP Review of Systems ROS Status of ROS 10 or more systems reviewed and unremark able except as noted in history and below Musculoskeletal Reports: extremity pain and joint pain PFSH PFSH Medical History Abnormal uterine bleeding ?N93.9 - Abnormal uterine and vaginal bleeding, unspecified (ICD-10) Menorrhagia ?N92.0 - Excessive and frequent menstruation with regular cycle (ICD-10) Dysmenorrhea ?N94.6 - Dysmenorrhea, unspecified (ICD-10) Pelvic pain ?R10.2 - Pelvic and perineal pain (ICD-10) Fibromyalgia ?M79.7 - Fibromyalgia (ICD-10) Neck pain ?M54.2 - Cervicalgia (ICD-10) DDD (degenerative disc disease) Back pain ?M54.9 - Dorsalgia, unspecified (ICD-10) Insomnia ?G47.00 - Insomnia, unspecified (ICD-10) OCD (obsessive compulsive disorder) ?F42.9 - Obsessive-compulsive disorder, unspecified (ICD-10) PTSD (post-traumatic stress disorder) ?F43.10 - Post-traumatic stress disorder, unspecified (ICD-10) Panic attacks ?F41.0 - Panic disorder [episodic paroxysmal anxiety] (ICD-10) Depression ?F32.A - Depression, unspecified (ICD-10) Anxiety ?F41.9 - Anxiety disorder, unspecified (ICD-10) COVID-19 ?U07.1 - COVID-19 (ICD-10) Migraine ?G43.909 - Migraine, unspecified, not intractable, without status migrainosus (ICD-10) Seizures ?R56.9 - Unspecified convulsions (ICD-10) Pseudotumor cerebri ?G93.2 - Benign intracranial hypertension (ICD-10) Chiari malformation Morphea ?L94.0 - Localized scleroderma [morphea] (ICD-10) Heartburn ?R12 - Heartburn (ICD-10) Abnormal EKG ?R94.31 - Abnormal electrocardiogram [ECG] [EKG] (ICD-10) Adenomyosis ?N80.03 - Adenomyosis of the uterus (ICD-10) Surgical History S/P epidural steroid injection ?Z92.241 - Personal history of systemic steroid therapy (ICD-10) History of wisdom tooth extraction ?K08.409 - Partial loss of teeth, unspecified cause, unspecified class (ICD- 10) Family History Other Family history of colon cancer Family history of diabetes mellitus Family history of heart disease Family history of kidney cancer Family history of skin cancer Social History Within the past year, how often did you have a drink containing alcohol: never Score interpretation: A score less than 3 is consistent with normal alcohol consumption. Smoking status: Never smoker Non-prescribed substance use: denies use Highest level of school completed/degree received: some college, no degree Meds Home Medications and Allergies Home Medications ?Medication ?Instructions ?Recorded ?Confirmed ?Type cariprazine 1.5 mg capsule 3 mg PO DAILY 01/07/23 11/08/23 History (Vraylar) furosemide 20 mg tablet 20 mg PO QDAY 01/07/23 11/08/23 History fluoxetine 40 mg capsule 80 mg PO DAILY 10/06/23 11/08/23 History gabapentin 400 mg capsule 400 mg PO DAILY 10/06/23 11/08/23 History gabapentin 800 mg tablet 800 mg PO BID 10/06/23 11/08/23 History lamotrigine 200 mg tablet 200 mg PO DAILY 10/06/23 11/08/23 History metoprolol tartrate 25 mg tablet 25 mg PO DAILY 10/06/23 11/08/23 History topiramate 100 mg tablet (Topamax) 100 mg PO DAILY 10/06/23 11/08/23 History Allergies Allergy/AdvReac Type Severity Reaction Status Date / Time No Known Drug Allergies Allergy Verified 10/06/23 11:30 Exam Constitutional Documenting provider has reviewed patient's vital signs: yes Common normals: no apparent distress, oriented x3, healthy appearing, alert and well nourished General appearance: cooperative HENMT Common normals: normocephalic, hearing grossly normal bilaterally and moist oral mucous membranes Head and scalp: normocephalic Eye Common normals: PERRL Pupil: PERRL Neck & C-Spine Common normals: full ROM General: normal visual inspection Cervical spine: pain with cervical ROM Chest Common normals: inspection of chest normal Respiratory Common normals: normal respiratory effort, no retractions and no use of accessory muscles Extremity Right upper extremity: shoulder joint Other: positive empty can test, positive scratch test and posterior liftoff, as well as crossbody adduction positive apleys. continued pain over right biceps weakness in RUE 4/5 compared to LUE 5/5 Neuro Common normals: oriented x3, CN's II-XII intact bilaterally, moves all extremities, no focal motor deficits, no sensory deficits noted and deep tendon reflexes 2+ bilaterally Sensorium/orientation: alert Motor exam: strength 5/5 throughout and no movement abnormalities noted Psych Common normals: mental status grossly normal, thought process normal, cooperative, affect normal, speech normal and activity/motor behavior normal Speech: normal speech Thought process: normal thought process Results Additional Findings Additional findings: If on a controlled substance or opioids, I have checked an [place] report on this patient and there are no aberrancies noted in the prescribing history.??If on a controlled substance or opioid a drug screen was completed and reviewed within the last year, and if there has not been a drug screen completed we ordered one today to monitor higher risk, state monitored pain medication use. As part of providing excellent, safe, comprehensive care, the following was completed at our patient's visit: 1. A medication reconciliation and review to ensure accurate knowledge of current/active medications, including asking our patients to inform us about any [id number] medications or herbal remedies/nutritional supplements/alternative remedies. 2. A review to specifically ensure our patients have had annual screening for screening for depression, screening for tobacco use, and screening for unhealthy alcohol use. For concerning screenings had a discussion with the patient, pro vided patient education, and recommended follow-up with primary care provider when appropriate. If patient noted with a risk of falling, they received education on strength, gait, and balance training to prevent future risk of falling. 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
== END 2023-11-18 10:46 | disposition home or self-care (01) ==
LOC: PM 10:46
PROVIDERS: PCP Nurse Practitioner Family; Visit Provider Nurse Practitioner
DX: G56.81 Other specified mononeuropathies of right upper limb (principal); G58.8 Other specified mononeuropathies; M47.812 Spondylosis without myelopathy or radiculopathy, cervical region; M75.21 Bicipital tendinitis, right shoulder; M25.511 Pain in right shoulder
CPT/HCPCS: G0463

== ENCOUNTER 2023-11-24 10:32 | Outpatient (REF) | payer MEDICARE, SELFPAY ==
[2023-11-24 11:38] LABS: Bilirubin Urine NEGATIVE (NEGATIVE); Blood Urine NEGATIVE (NEGATIVE); Clarity Urine CLEAR (CLEAR); Color Urine LT. YELLOW (YELLOW); Glucose Urine UA NEGATIVE (NEGATIVE); Ketones Urine NEGATIVE (NEGATIVE); Leukocyte Esterase Urine NEGATIVE (NEGATIVE); Nitrite Urine NEGATIVE (NEGATIVE); Protein Urine NEGATIVE (NEG/TRACE); Urobilinogen Urine 0.2 EU/dL (0.2-1.0); pH Urine 6.5 (5.0-9.0)
[2023-11-24 11:49] LABS: RBC Urine NONE SEEN #/HPF (0-2); WBC Urine NONE SEEN #/HPF (NONE SEEN)
[2023-11-24 11:50] LABS: Bacteria Urine NONE SEEN #/HPF (NONE SEEN); Cast Seen? NONE SEEN #/LPF (NONE SEEN); Crystals Seen? None Seen #/HPF (None Seen); Mucus Urine NONE SEEN (NONE SEEN); Squamous Epithelial Cell Urine RARE #/LPF (NONE/RARE)
== END 2023-11-24 10:33 | disposition home or self-care (01) ==
LOC: LAB 10:32
PROVIDERS: PCP Nurse Practitioner Family; Visit Provider Nurse Practitioner Family
DX: R39.15 Urgency of urination (principal)
CPT/HCPCS: 81001; 87086

== ENCOUNTER 2023-12-02 10:04 | Outpatient (OUT) | payer OTHER, MEDICARE, SELFPAY ==
--- NOTE | 2023-12-02 10:06 | US_ITS ---
The [address] [address] Patient Name: RADHA MONTGOMERY MRN: [id number] date: 1985 Sex: F Assigned Patient Location: Current Patient Location: [place] Accession/Order Number: [id number] Exam Date: 12/02/2023 10:28 Report Date: 12/02/2023 12:50 At the request of: AMAN MUNGUIA Procedure: US renal bladder EXAM: US renal bladder HISTORY: Urinary tract infection N39.0 COMPARISON: None. TECHNIQUE: Real-time ultrasound imaging of the kidneys and bladder. Findings: Evaluation is limited due to patient's body habitus. The right and left kidneys measure 12.0 and 13.5 cm. There is good corticomedullary differentiation bilaterally. No renal stones or collecting system dilatation. No focal mass or perinephric fluid collection. The bladder is partially distended with a prevoid volume of 53.9 mL. The bilateral ureteral jets are identified. Small postvoid residual volume of 14 mL. US/US renal bladder IMPRESSION: 1. Unremarkable sonographic appearance of the kidneys. 2. Small postvoid residual volume within the bladder. Electronically authenticated by: LIZ ALDRICH Date: 12/02/2023 12:50
== END 2023-12-02 10:05 | disposition home or self-care (01) ==
LOC: US 10:04
PROVIDERS: PCP Nurse Practitioner Family; Visit Provider Nurse Practitioner Family
DX: N39.0 Urinary tract infection, site not specified (principal)
CPT/HCPCS: 76770

== ENCOUNTER 2024-01-03 06:58 | Day surgery (SDC) | payer OTHER, MEDICARE, SELFPAY ==
--- OUTSIDE RECORDS SUMMARY | 2024-01-03 07:02 | XMS_ITS | CCD ---
Author Organization [facility]iniSy[facility] Care Team Providers Care Supply Chain Associate Name Role Phone KRISTIE, MARGARET Primary Care [...] Unavailable ZIEBER, DR MICHAEL Carmona Consulting Unavailable ROMEO DOMINGUEZ Attending Unavailable Maite Kruse Primary Care Provider Kaylee Hutton DO Unavailable DO Kaylee Hutton Attending Provider GIOVANY Munguia-C Margaret Sintia Primary Care Provider Maite Kruse Primary Care Provider USHA MEEK Referring Unavailable SARBJIT MCKEON Attending Unavailable KAYLEE HUTTON Referring Unavailab USHA Cancino Attending Unavailable Kaylee Hutton Admitting Unavailab le Kristie, Margaret Sintia Primary Care Unavailable Kaylee Hutton Attending Unavailab Alejandro Andujar Attending Unavailab Alejandro Andujar Admitting Unavailab le NON STAFF Primary Care Unavailable Elsa HAMMER, Frank Palacios Attending Unavailable Maite Kruse Primary Care Provider MATT LOVE Attending Unavailable ARCADIO SEVERINO Referring Unavailable KRISTIE, MARGARET S Primary Care Unavailable JR. NINO GEORGE C Attending Unavailamarilis NINO JR., GEORGE C Attending Unavaila ARIANNA Benjamin Attending Unavailable KAYLEE HUTTON Attending Unavailable RONALDZAARCADIO Brooks Attending Unavailable KRISTIE, MARGARET S Referring Unavailable KRISTIE, MARGARET S Primary Care Unavailable ARCADIO SEVERINO Attending Unavailable KRISTIE, MARGARET S Referring Unavailable KRISTIE, MARGARET S Primary Care Unavailable ARCADIO SEVERINO Attending Unavailable KRISTIE, MARGARET S Referring Unavailable KRISTIE, MARGARET S Primary Care Unavailable ARCADIO SEVERINO Attending Unavailable KRISTIE, MARGARET S Referring Unavailable KRISTIE, MARGARET S Primary Care Unavailable ARCADIO SEVERINO Attending Unavailable KRISTIE, MARGARET S Referring Unavailable KRISTIE, MARGARET S Primary Care Unavailable Allergies Allergy Classification Reported Allergen(s) Allergy Type Date of Onset Reaction(s) Facility (1 source) Corticosteroids Drug allergy (disorder) [facility] Repository (4 sources) Glucocorticoid preparation; Translations: [CORTICOSTEROIDS (GLUCOCORTICOIDS)] Drug Allergy 3 Other: See Comments [facility] Work Phone: Medications Current Medications Medication Drug Class(es) Dates Sig (Normalized) Sig (Original) clonazePAM 1 mg oral tablet (3 sources) Benzodiazepine Start: 03-02-2023 clonazePAM (KLONOPIN) 1 mg tablet Take 1 mg by mouth as needed. 0 03/02/2023 Active Comment on above: Take 1 mg by mouth a s needed. cyclobenzaprine hydrochloride 10 mg oral tablet (3 sources) Muscle Relaxant Start: 04-05-2023 take 2 tablets by mouth once daily at bedtime cyclobenzaprine (FLEXERIL) 10 mg tablet Take 20 mg by mouth daily at bedtime. 0 04/05/2023 Active Comment on above: Take 20 mg by mouth daily at bedtime. FLUoxetine 40 mg oral capsule (3 sources) Serotonin Reuptake Inhibitor Start: 02-18-2023 take 1 capsule by mouth once daily FLUoxetine (PROZAC) 40 mg capsule Take 40 mg by mouth once daily. 0 02/18/2023 Active Comment on above: Take 40 mg by mouth once daily. gabapentin 400 mg oral capsule (3 sources) Anti-epileptic Agent Start: 03-16-2023 take 1 capsule by mouth three times daily gabapentin (NEURONTIN) 400 mg capsule Take 400 mg by mouth three times a day. 0 03/16/2023 Active Comment on above: Take 400 mg by mouth three times a day. lamoTRIgine 100 mg oral tablet (3 sources) Mood Stabilizer, Anti-epileptic Agent Start: 04-23-2023 take 1 tablet by mouth once daily lamoTRIgine (LAMICTAL) 100 mg tablet Take 100 mg by mouth once daily. 0 04/23/2023 Active Comment on above: Take 100 mg by mouth once daily. 24 hr metoprolol succinate 25 mg extended release oral tablet (3 sources) beta-Adrenergic Geo Start: 08-03-2023 End: 12-15-2023 take 1 tablet by mouth once daily metoprolol succinate ER (TOPROL XL) 25 mg 24 hr tablet take 1 tablet by mouth every day 90 tablet 1 12/15/2023 Active nabumetone 500 mg oral tablet (1 source) [...] 10 days. topiramate 100 mg oral tablet (5 sources) Start: 12-08-2023 take 1 tablet by mouth once daily at bedtime topiramate (TOPAMAX) 100 mg tablet Indications: 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 aura and without status migrainosus , Pressure in head , Chronic daily headache Take 1 tablet by mouth daily at bedtime. 30 tablet 5 12/08/2023 Active Start: 06-15-2023 End: 12-04-2023 take 1 tablet by mouth once daily at bedtime topiramate (TOPAMAX) 100 mg tablet Indications: 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 aura and without status migrainosus , Pressure in head , Chronic daily headache Take 1 tablet by mouth daily at bedtime. 30 tablet 3 06/15/2023 12/04/2023 Discontinued Start: 06-15-2023 take 1 tablet by matthew th once daily at bedtime topiramate (TOPAMAX) 100 [...] for 7 days. Take 1 tablet by amtthew th daily at bedtime. Completed/Discontinued Medications Medication Drug Class(es) Dates Sig (Normalized) Sig (Original) cariprazine 4.5 mg oral capsule (1 source) Atypical Antipsychotic Start: 05-04-2023 take 1 capsule by mouth once daily cariprazine (VRAYLAR) 4.5 mg capsule Take 4.5 mg by mouth once daily. 0 05/04/2023 Active Comment on above: Take 4.5 mg by mouth once daily. naproxen 500 mg oral tablet (1 source) Nonsteroidal Anti-inflammatory Drug Start: 04-20-2023 End: 05-25-2023 naproxen (NAPROSYN) 500 mg tablet Take 1 tablet by mouth as needed. 0 04/20/2023 05/25/2023 Discontinued Comment on above: Take 1 tablet by matthew th as needed. Problems Active Problems Problem Classification Problem Date Documented Date Episodic/Chronic Anxiety disorders (3 sources) Generalized anxiety disorder; Translations: [Panic disorder [episodic paroxysmal anxiety]] Onset: 12-08-2022 Chronic Contraceptive and procreative management (1 source) Encounter for sterilization; Translations: [ENCOUNTER FOR STERILIZATION] Onset: 11-08-2022 Episodic Essential hypertension (1 source) Essential (primary) hypertension; Translations: [ESSENTIAL PRIMARY HYPERTENSION] Onset: 11-08-2022 Chronic Headache; including migraine (2 sources) Chronic intractable migraine without aura; Translations: [Chronic migraine without aura, intractable, without status migrainosus] 05-25-2023 Chronic Headache; including migraine (4 sources) Headache; Translations: [Pressure in head] 05-25-2023 [...] Translations: [OBSTRUCTIVE SLEEP APNEA] Onset: 12-07-2022 Chronic Residual codes; unclassified (2 sources) Sleep apnea, unspecified; Translations: [Sleep apnea, unspecified] Onset: 11-29-2023 Chronic Residual codes; unclassified (1 source) Sleep apnea Onset: 12-08-2023 Chronic Spondylosis; intervertebral disc disorders; other back problems (1 source) Radiculopathy, cervical region; Translations: [Radiculopathy, cervical region] Onset: 05-20-2023 Episodic Substance-related disorders (1 source) Nicotine dependence, other tobacco product, uncomplicated; Translations: [NICOTINE DEPEND OTH TOB PROD UNCOMP] Onset: 11-08-2022 Chronic Unclassified (1 source) New Patient Onset: 12-08-2023 Past or Other Problems Problem Classification Problem Date Documented Da te Episodic/Chronic Other connective tissue disease (4 sources) Fibromyalgia; Translations: [FIBROMYALGIA] Onset: 08-31-2022 Episodic Other non-traumatic joint disorders (4 sources) Pain in left shoulder; Translations: [PAIN IN LEFT SHOULDER] Onset: 05-12-2022 Episodic Results Test Name Value Interpretation Reference Range Facility [facility] 08-04-2023 [facility] Telephone (NIQ) RADHA GARCÍA ([id number]) 1985 F [place] Date Time Provider Department 08/04/23 NEUROLOGY PROVIDER JEFF During your visit today, we recorded the following information about you: Walters, Mary 08/04/2023 11:56 AM Signed Received external records from [facility] related to intracranial hypertension. Pt is following with Dr. Usha Meek. Forwarded records to her office at [phone]. Allergies As of Date: 08/04/2023 Noted Allergy Reaction CORTICOSTEROIDS (GLUCOCORTICOIDS) 05/25/2023 14 - Other: See Comments Date Reviewed: 08/03/2023 Reviewed by: Sarbjit Mckeon APRN.PRIVATE SECTOR EXECUTIVE - Fully Assessed Reason for Visit: Received Outside Medical Records [4005] Cmt: Records from local neurologist Prescriptions as [...] Of Date: 08/04/2023 (None) Encounter Status:Closed by MARY WALTERS on 08/04/23 Normal [facility] MR cervical spine wo conon 1 MR cervical spine wo con [facility] [place] [address] MRI Report Signed Patient: Radha García MR#: [id number] : 1985 Acct:[id number] Age/Sex: 38 / F ADM Date: 05/20/23 Loc: MR Room: Type: [facility] CLI Attending Dr: Kaylee Hutton DO Copies to: [...] STENOSIS. Impression dictated by: Bassem Powell Jr., DEllenOEllen05/20/2023 11:29 AM Dictation Location: [place] [address] Transcribed By: [facility] 05/20/23 1129 Dictated By: Bassem Powell Jr, DO 05/20/23 1126 Signed By: 05/20/23 1129 Normal [facility] XR pre/post mri xrayon 05-20 XR pre/post mri xray [facility] Main [place] [id number] XRay Report Signed Patient: Radha García MR#: [id number] : 1985 Acct:[id number] Age/Sex: 38 / F ADM Date: 05/20/23 Loc: MR Room: Type: REG CLI Attending Dr: Kaylee Hutton DO Copies to: [...] Melecio Barillas M.D.05/20/2023 1:06 PM Dictation Location: [place] [address] Transcribed By: KASSIDY 05/20/231305 Dictated By: Melecio Barillas DO 05/20/231303 Signed By: 05/20/231305 [facility] CNPKasandra 03-17-2023 CNPN Telephone (NIQ) RADHA GARCÍA ([id number]) 1985 F [place] Date Time Provider Department 03/17/23 NEUROLOGY PROVIDER NIQ During your visit today, we recorded the following information about you: Mary Walters 03/17/2023 9:34 AM Signed Referral source: Dr. Kaylee Hutton ([facility] [place], [place], [place]) Reason: benign intracranial hypertension, chronic tension-type headache, pseudotumor cerebrei External records on file. Allergies As of Date: 03/17/2023 (Not on File) Date Reviewed: Never Reviewed Reason for Visit: Received Outside Medical Records [8849] Cmt: External referral to [facility] [place] Problem List As Of Date: 03/17/2023 (None) Encounter Status:Closed by MARY WALTERS on 03/17/23 Normal [facility] Office Visiton 01-06-2023 Follow-up visit [id number] Radha García 1985 F Date Provider Department Center 01/06/2023 [id number] DOMINGUEZ CARD [facility] No family history on file Level of Service:00623 [place] OFFICE/OUTPATIENT NEW MODERATE MDM 45-59 MINUTES Reason for Visit and Comments: New Patient [632] - abnormal stress kristie referral saw cardio in [place] not sure of name Normal [facility] PROF CHEM 8 (BAS METB)on Anion gap [Moles/Vol] 12.4 mmol/L Normal [facility] Comment on above: Performed By: #### B MP #### [facility] [address] [place] [address] [address] Maame Núñez Calcium [Mass/Vol] 8.7 mg/dL Normal 8.5-10.1 [facility] Comment on above: Performed By: #### B MP #### [facility] [address] [place] [address] [address] Maame Núñez Chloride [Moles/Vol] 107 mmol/L Normal 98-107 [facility] Comment on above: Performed By: #### B MP #### [facility] [address] [place] [address] [address] Maame Núñez CO2 [Moles/Vol] 26.6 mmol/L Normal 21.0-32.0 [facility] Comment on above: Performed By: #### B MP #### [facility] [address] [place] [address] [address] Maame Núñez Creatinine [Mass/Vol] 0.61 mg/dL Normal 0.55-1.02 [facility] Comment on above: Performed By: #### B MP #### [facility] [address] [place] [address] [address] Maame Núñez EGFR-AF ANGUILLAN >60 Normal >=60 [facility] Comment on above: Performed By: #### B MP #### [facility] [address] [place] [address] [address] Maame Núñez EGFR-NON AF ANGUILLAN >60 Normal >=60 [facility] Comment on above: Performed By: #### B MP #### [facility] [address] [place] [address] [address] Maame Núñez Glucose [Mass/Vol] 94 mg/dL Normal 74-106 [facility] Comment on above: Performed By: #### B MP #### [facility] [address] [place] [address] [address] Maame Núñez Potassium [Moles/Vol] 4.0 mmol/L Normal 3.5-5.1 [facility] Comment on above: Performed By: #### B MP #### [facility] [address] [place] [address] [address] Maame Núñez Sodium [Moles/Vol] 142 mmol/L Normal 136-145 [facility] Comment on above: Performed By: #### B MP #### [facility] [address] [place] [address] [address] Maame Núñez Urea nitrogen [Mass/Vol] 12.0 mg/dL Normal 7.0-18.0 [facility] Comment on above: Performed By: #### B MP #### [facility] [address] [place] [address] [address] Maame Núñez Urea nitrogen/Creatinine [Mass ratio] 19.7 mg/mg Normal [facility] Comment on above: Performed By: #### B MP #### [facility] [address] [place] [address] [address] Maame Núñez XR CHEST 2 Von [...] MORENA OWENS Date: 2022-11-02 09:[address] [facility] COLLIN EIA W/REFLEX 9 BIOMARKER Son 09-01-2022 COLLIN Direct Negative Normal Negative [facility] Comment on above: Performed By: #### A NARF9 #### [facility] [address] [place], [place] [address] Dr. Maame Núñez CBC AUTO DIFFon 08-17-2022 BASO # 0.0 103/ul Normal 0.0-0.[address] [facility] Comment on above: Performed By: #### C BC ####[facility] [address] [place] [id number]. Maame Núñez Basophils/100 WBC (Bld) 0.6 % Normal 0.2-2.[address] [facility] Comment on above: Performed By: #### C BC ####[facility] [address] [place], [place] [address]DrEllen Núñez EO # 0.1 103/ul Normal 0.0-0.[address] [facility] Comment on above: Performed By: #### C BC ####[facility] [address] [place], [place] [address]Dr. Maame Núñez Eosinophils/100 WBC (Bld) 1.5 % Normal 0.9-7.[address] [facility] Comment on above: Performed By: #### C BC ####[facility] [address] [place], [place] [address]Dr. Maame Núñez Erythrocyte distribution width (RBC) [Ratio] 13.0 % Normal 11.0-15.0 [facility] Comment on above: Performed By: #### C BC ####[facility] [address] [place], [place] [address]Dr. Maame Núñez Hematocrit (Bld) [Volume fraction] 39.3 % Normal 36.0-48.[address] [facility] Comment on above: Performed By: #### C BC ####[facility] [address] [place], [place] [address]Dr. Maame Núñez Hemoglobin (Bld) [Mass/Vol] 13.6 g/dL Normal 12.0-16.[address] [facility] Comment on above: Performed By: #### C BC ####[facility] [address] [place], [place] [address]DrEllen Núñez IG # 0.02 10e3/ul Normal 0.00-0.[address] [facility] Comment on above: Performed By: #### C BC ####[facility] [address] [place] [address]Dr. Maame Núñez IG % 0.3 % Normal 0.0-0.5 [facility] Comment on above: Performed By: #### C BC ####[facility] [address] [place] [address]Dr. Maame Núñez LYMPH # 2.1 103/ul Normal 1.2-3.[address] [facility] Comment on above: Performed By: #### C BC ####[facility] [address] [place] [address]Dr. Maame Núñez Lymphocytes/100 WBC (Bld) 31.5 % Normal 20.5-60.0 [facility] Comment on above: Performed By: #### C BC ####[facility] [address] [place] [id number]. Maame Núñez MANUAL DIFF REQ NO Normal [facility] Comment on above: Performed By: #### C BC ####[facility] [address] [place] [address]Dr. Maame Núñez MCH (RBC) [Entitic mass] 28.4 pg Normal 26.7-34.0 [facility] Comment on above: Performed By: #### C BC ####[facility] [address] [place] [address]Dr. Maame Núñez MCHC (RBC) [Mass/Vol] 34.6 g/dL Normal 29.9-35.[address] [facility] Comment on above: Performed By: #### C BC ####[facility] [address] [place] [address]Dr. Maame Núñez MCV (RBC) [Entitic vol] 82.0 fL Normal 81.0-99.[address] [facility] Comment on above: Performed By: #### C BC ####[facility] [address] [place] [address]Dr. Maame Wilton MONO # 0.5 103/ul Normal 0.3-0.[address] [facility] Comment on above: Performed By: #### C BC ####[facility] [address] [place] [address]Dr. Maame Núñez Monocytes/100 WBC (Bld) 7.0 % Normal 1.7-12.[address] [facility] Comment on above: Performed By: #### C BC ####[facility] [address] [place] [address]Dr. Maame Núñez NEUT # 3.9 103/ul Normal 1.4-6.[address] [facility] Comment on above: Performed By: #### C BC ####[facility] [address] [place] [address]Dr. Maame Núñez Neutrophils/100 WBC (Bld) 59.1 % Normal 43.0-75.[address] [facility] Comment on above: Performed By: #### C BC ####[facility] [address] [place] [address]Dr. Maame Núñez Platelet mean volume (Bld) [Entitic vol] 9.9 fL Normal 9.5-13.[address] [facility] Comment on above: Performed By: #### C BC ####[facility] [address] [place] [address]Dr. Maame Núñez PLT 242 103/ul Normal 150-[address] [facility] Comment on above: Performed By: #### C BC ####[facility] [address] [place] [address]Dr. Maame Núñez RBC 4.79 106/ul Normal 4.20-5.[address] [facility] Comment on above: Performed By: #### C BC ####[facility] [address] [place] [address]Dr. Maame Núñez WBC 6.5 103/ul Normal 4.0-11.[address] [facility] Comment on above: Performed By: #### C BC ####[facility] [address] [place] [address]Dr. Maame Núñez CPKon 08-17-2022 CK [Catalytic activity/Vol] 82 U/L Normal 26-[address] [facility] Comment on above: Performed By: #### M YO, CK #### [facility] [address] [place] [address] Dr. Maame Núñez FREE T4on 08-17-2022 Free T4 [Mass/Vol] 0.99 ng/dL Normal 0.76-1.46 [facility] Comment on above: Performed By: #### F T4 #### [facility] [address] [place] [address] Dr. Maame Núñez GLYCOHEMOGLOBIN A1Con 2022 ADA RECOMMENDATION SEE BELOW Normal [facility] Comment on above: Result Comment: ADA RECOMMENDED LIMIT 4.0 - 6.0 ADA THERAPEUTIC TARGET < 7.0 ACTION SUGGESTED > 7.0 Performed By: #### A 1C #### [facility] [address] [place] [address] Dr. Maame Núñez Glucose [Mass/Vol] 103 mg/dL Normal [facility] Comment on above: Performed By: #### A 1C #### [facility] [address] [place] [address] Dr. Maame Núñez HbA1c (Bld) [Mass fraction] 5.2 % Normal 4.5-6.2 [facility] Comment on above: Performed By: #### A 1C #### [facility] [address] [place] [address] Dr. Maame Núñez MYOGLOBINon 08-17-2022 LILLIAM 46 ng/mL Normal 9-82 [facility] Comment on above: Performed By: #### M YO, CK #### [facility] [address] [place] [address] Dr. Maame Núñez PREG QUANT HCGon 08-17-2022 HCG QUANT 1 mIU/mL Normal [facility] Comment on above: Performed By: #### T SH, PREGQNT #### [facility] [address] [place] [address] Dr. Maame Núñez HCG RANGE SEE BELOW Normal [facility] Comment on above: Result Comment: 5-50 0.2-1 WEEK 50-500 1-2 WEEKS 100-5,000 2-3 WEEKS 500-10,000 3-4 WEEKS 1,000-50,000 4-5 WEEKS 10,000-100,000 5-6 WEEKS 15,000-200,000 6-8 WEEKS 10,000-100,000 2-3 MONTHS Performed By: #### T SH, PREGQNT #### [facility] [address] [place], [place] [address] Dr. Maame Núñez TSHon 08-17-2022 TSH 1.027 uIU/mL Normal 0.358-3.740 [facility] Comment on above: Performed By: #### T NOBLE, PREGQNT #### [facility] [address] [place] [id number] Maame Núñez US PELVIS AND TRANSVAGon [...] by: MICHAEL WILLIS Date: 2022-08-17 14:30 Normal [facility] Vital Signs Date Time Vital Sign Value Performing Clinician Autumn alan 05-25-2023 09:19-0400 Body height 160 cm Usha Meek DO Work Phone: [facility] 05-25-2023 09: Body weight 145.15 kg Usha Meek DO Work Phone: [facility] Encounters Encounter Date Encounter Type Care Provider Facility Start: 12-29-2023 End: 12-29-2023 ambulatory [facility] Start: 12-15-2023 Refill Sarbjit DelgadoPRIVATE SECTOR EXECUTIVE Work Phone: Neurology Headache [facility] Comment on above: Refill Request Start: 12-15-2023 End: 12-15-2023 ambulatory KAYLEE HUTTON Not Available Start: 12-08-2023 End: 12-08-2023 ambulatory MATT L [facility] Start: 12-04-2023 Refill Usha Pepitoclemente DO Work Phone: NEUROLOGY Comment on above: Refill Request Start: 12-03-2023 End: 12-03-2023 ambulatory HAYDEN HERNDON Not Available Start: 11-29-2023 End: 11-29-2023 ambulatory [facility] Start: 11-08-2023 End: 11-09-2023 ambulatory Frank Hunter MD Facility: [facility] Start: 10-13-2023 End: 10-13-2023 ambulatory [facility] Start: 10-11-2023 End: 10-11-2023 ambulatory HAYDEN HERNDON Not Available Start: 09-13-2023 End: 09-13-2023 ambulatory [facility] Start: 08-16-2023 End: 08-16-2023 ambulatory [facility] Start: 08-03-2023 End: 08-03-2023 ambulatory USHA JUAN Facility:[facility] Start: 07-12-2023 End: 07-12-2023 ambulatory ARIANNA WILSON Not Available Start: 05-25-2023 End: 05-25-2023 ambulatory Usha Juan DO Work Phone: NEUROLOGY Comment on above: 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 aura and without status migrainosus (Primary Dx); Pressure in head; Chronic daily headache Start: 05-25-2023 End: 05-25-2023 Telemedicine consultation with patient Usha Meek DO Work Phone: [facility] Start: 05-21-2023 ambulatory Alejandro burnettility:[facility] Start: 05-20-2023 End: 05-20-2023 ambulatory Salazarmedinabhavana Marisabel Brennen Facility:[facility] Start: 05-20-2023 End: 05-20-2023 ambulatory PICKER BOX OPERATOR-C Margaret Munguia Work Phone: [facility] Work Phone: Start: 05-20-2023 End: 05-20-2023 Patient encounter procedure PICKER BOX OPERATOR-C Margaret Munguia Work Phone: [facility] [place] Work Phone: Start: 03-17-2023 Telephone encounter Neurology Provid er Neurology Comment on above: [facility] (External referral to [facility] [place]) Start: 01-06-2023 End: 01-06-[address] [facility] Start: 12-24-2022 ambulatory MARGARET MUNGUIA Facility: [facility] Start: 12-16-2022 Encounter for preprocedural cardiovascular examination MARGARET MUNGUIA [facility] Start: 12-15-2022 End: 12-16-2022 ambulatory MARGARET MUNGUIA Facility:[facility] Start: 12-15-2022 End: 12-16-2022 Encounter for preprocedural cardiovascular examination MARGARET MUNGUIA Facility:[facility] Start: 12-07-2022 End: 12-08-2022 ambulatory MARGARET MUNGUIA Facility:[facility] Start: 12-01-2022 End: 12-02-2022 ambulatory MARGARET MUNGUIA Facility:[facility] Start: 11-26-2022 Encounter for other preprocedural examination MARGARET MUNGUIA [facility] Start: 11-23-2022 End: 11-24-2022 ambulatory MARGARET MUNGUIA Facility:[facility] Start: 11-23-2022 End: 11-24-2022 Encounter for other preprocedural examination MARGARET MUNGUIA Facility:[facility] Start: 11-11-2022 ambulatory MARGARET MUNGUIA Facility: [facility] Start: 11-08-2022 Encounter for preprocedural cardiovascular examination DR NINFA ROMERO . [facility] Start: 11-08-2022 Encounter for preprocedural laboratory examination DR NINFA ROMERO . [facility] Start: 11-08-2022 Encounter for preprocedural respiratory examination DR NINFA ROMERO . [facility] Start: 11-02-2022 End: 11-03-2022 ambulatory MARGARET [...] Clinician Start: 05-20-2023 XR pre/post mri xray PICKER BOX OPERATOR Esmer Munguia Work Phone: Start: 05-20-2023 MRI of cervical spin e without contrast PICKER BOX OPERATOR-C Margaret Munguia Work Phone: Plan of Treatment Date Care Activity Detail Author Start: 03-26-2024 Influenza vaccination Influenz a Vaccine (Season Ended) [facility] Start: 03-26-2023 Covid-19 Vaccine ( season) Covid-19 Vaccine ( season) [facility] Start: 03-26-2023 Influenza vaccination Influenza Vacc ine (#1) [facility] Start: 07-26-2022 Depression Assessment Depression Ass essment [facility] Start: 2016 HPV Testing HPV Testing [facility] Start: 2016 Screening for malign ant neoplasm of cervix HPV Testing [facility] Start: 2007 Pap Testing Pap Testing [facility] Start: 2007 Screening for malign ant neoplasm of cervix Pap Testing [facility] Start: 2005 Hepatitis B Vaccine (1 of - 19+ 3-dose series) Hepatitis B Vaccine (1 of 3 - 19+ 3-dose series) [facility] Start: 2005 Urine microalbumin profile DTa P,Tdap,Td Vaccine (1 - Tdap) [facility] Start: 2004 Hepatitis C Screening Hepatitis C [facility] Start: 2004 Hepatitis C screening Hepatitis C [facility] Start: 2004 HIV Screening HIV Screening [facility] Start: 2004 HIV screening HIV Screening [facility] Start: 1986 Hepatitis B Vaccine (1 of 3 - 3-dose series) Hepatitis B Vaccine (1 of 3 - 3-dose series) [facility] Immunizations Immunization Date Immunization Notes Care Provider Fa girma 05-06-2022 influenza virus vacc ine, unspecified formulation Usha Meek DO Work Phone: [facility] Payers Date Payer Category Payer Medicare 2022 Medicaid [employer] [facility] [id number] 2022-Present [phone] [address] [place] [address] Medicaid [id number] 2022 Unknown MMO MMO [employer] [id number] 2022-Present [phone] [address] [address] [place] [address] PPO [id number] 2022 Unknown [id number] 2020 Medicare [id number] 1985 Unknown [id number] 2.16.840.1.354836.3.579.2.593 1986 Unknown [id number] 2.16.840.1.462993.3.579.2.593 1986 Unknown [id number] 2.16.840.1.625580.3.579.2.593 1986 Unknown [id number] 2.16.840.1.694198.3.579.2.593 1986 Unknown [id number] 2.16.840.1.821575.3.579.2.593 1986 Unknown [id number] 2.16.840.1.180416.3.579.2.593 1986 Unknown [id number] 2.16.840.1.600475.3.579.2.593 1986 Unknown [id number] 2.16.840.1.983259.3.579.2.593 1986 Unknown [id number] 2.16.840.1.930673.3.579.2.593 1986 Unknown [id number] 2.16.840.1.148525.3.579.2.593 1986 Unknown [id number] 2.16.840.1.338297.3.579.2.593 1986 Unknown [id number] 2.16.840.1.564971.3.579.2.593 1986 Unknown [id number] 2.16.840.1.568771.3.579.2.593 1986 Unknown [id number] 2.16.840.1.271676.3.579.2.196 1986 Unknown [id number] 2.16.840.1.598612.3.579.2.1286 1986 Unknown [id number] 2.16.840.1.488396.3.579.2.1259 1986 Unknown [id number] 2.16.840.1.383544.3.579.2.1259 1986 Unknown [id number] 2.16.840.1.648500.3.579.2.1259 1986 Unknown [id number] 2.16.840.1.208855.3.579.2.1259 1986 Unknown [id number] 2.16.840.1.490089.3.579.2.1286 1986 Unknown [id number] 2.16.840.1.693083.3.579.2.1286 1986 Unknown [id number] 2.16.840.1.349434.3.579.2.1286 1986 Unknown [id number] 2.16.840.1.429553.3.579.2.1286 1986 Unknown [id number] 2.16.840.1.469975.3.579.2.1286 1959 Self-pay 1959 Unknown [id number] 1959 Unknown [id number] Unknown [id number] 2.16.840.1.211937.3.579.2.531 Social History Date Type Detail Facility Tobacco smoking stat [facility] Tobacco smoking consumption unknown [facility] Start: 1985 Sex Assigned At Not on file [facility] Start: 05-25-2023 End: 08-02-2023 Gender identity Not on file [facility] Start: 1985 Sex Assigned At Female [facility] Start: 05-25-2023 Tobacco smoking stat [facility] Never smoked tobacco [facility] Work Phone: Start: 05-25-2023 Tobacco use and exposure Smokeless tobacco non-user [facility] Work Phone: Start: 05-25-2023 End: 08-03-2023 Alcohol intake Ex-drinker (finding) [facility] Start: 05-25-2023 End: 08-02-2023 History of Social function [facility] Adult Depression Screening Assessment 6 [facility] Clinical Notes 01-06-2023 to 12-15-2023 Telephone Encounter - Sarbjit Mckeon APRN.CNP - 12/15/2023 12:30 PM EDTTelephone Encounter - Sarbjit Mckeon APRN.CNP - 12/15/2023 12:30 PM Usha Hoffman DO - 05/25/2023 9:00 AM EDT Note Date & Type Note Facility 12-15-2023 Telephone encounter Note The following approved medication requests have been transmitted electronically. Requested Prescriptions Signed Prescriptions Disp Refills metoprolol succinate ER (TOPROL XL) 25 mg 24 hr tablet 90 tablet 1 Sig: take 1 tablet by mouth every day Authorizing Provider: SARBJIT MCKEON APRN.PRIVATE SECTOR EXECUTIVE [facility] 12-15-2023 Miscellaneous Notes The following approved medication requests have been transmitted electronically. Requested Prescriptions Signed Prescriptions Disp Refills metoprolol succinate ER (TOPROL XL) 25 mg 24 hr tablet 90 tablet 1 Sig: take 1 tablet by mouth every day Authorizing Provider: SARBJIT MCKEON APRN.PRIVATE SECTOR EXECUTIVE Images from the original note were not included. Prescription pended to requested pharmacy and forwarded to provider for review. [facility] Refill Checklist [id number]/15/2023 12:48 AM Protocol Details Serum Creatinine within the last 12 months Blood pressure within the last 12 months Visit with provider within the last 12 months VIN: 08/03/23 NOV: not scheduled Last prescribed: 4 months ago (08/03/2023) by Sarbjit Mckeon APRN.PRIVATE SECTOR EXECUTIVE documented in this encounter [facility] 12-15-2023 Telephone encounter Note Images from the original note were not included. Prescription pended to requested pharmacy and forwarded to provider for review. [facility] Refill Checklist [id number]/15/2023 12:48 AM Protocol Details Serum Creatinine within the last 12 months Blood pressure within the last 12 months Visit with provider within the last 12 months VIN: 08/03/23 NOV: not scheduled Last prescribed: 4 months ago (08/03/2023) by Sarbjit Mckeon APRN.PRIVATE SECTOR EXECUTIVE [facility] 12-08-2023 Telephone encounter Note The following approved medication requests have been transmitted electronically. Requested Prescriptions Signed Prescriptions Disp Refills topiramate (TOPAMAX) 100 mg tablet 30 tablet 5 Sig: Take 1 tablet by mouth daily at bedtime. Authorizing Provider: SARBJIT MCKEON APRN.CNP [facility] 12-08-2023 Miscellaneous Notes The following approved medication requests have been transmitted electronically. Requested Prescriptions Signed Prescriptions Disp Refills topiramate (TOPAMAX) 100 mg tablet 30 tablet 5 Sig: Take 1 tablet by mouth daily at bedtime. Authorizing Provider: SARBJIT MCKEON APRN.CNP Physician: Jay Call from patient requesting refill. Please E-Scribe Last office visit 08/03/23 with Jay virtual Next office visit Not scheduled. Requested Prescriptions Pending Prescriptions Disp Refills topiramate (TOPAMAX) 100 mg tablet 30 tablet 3 Sig: Take 1 tablet by mouth daily at bedtime. [facility] documented in this encounter [facility] 12-06-2023 Telephone encounter Note Physician: Jay Call from patient requesting refill. Please E-Scribe Last office visit 08/03/23 with Jay virtual Next office visit Not scheduled. Requested Prescriptions Pending Prescriptions Disp Refills topiramate (TOPAMAX) 100 mg tablet 30 tablet 3 Sig: Take 1 tablet by mouth daily at bedtime. [facility]acy Name: [facility] 08-03-2023 Note HNO ID: [id number] Author: SARBJIT MCKEON APRN.CNP Service: ? Author Type: Nurse Practitioner Type: [...] visit. Either the patient or their legal commercial representative has been informed of the risks and benefits of -- and alternatives to -- treatment through a remote evaluation and consents to proceed with the evaluation remotely. Accompanied by: Self Primary Problem List: There is no problem list on file for this patient. Chief Complaint: headaches Impression and Plan from last visit 05/25/2023, Juan: IMPRESSION: Radha García is a 38 year [...] Take 100 mg (more content not included)... [facility] 05-25-2023 Note HNO ID: [id number] Author: Usha Meek DO Service: ? Author Type: Physician Type: Progress Notes Filed: 05/25/2023 9:50 AM Note Text: Headache Section [facility] Virtual Visit New Encounter I have communicated my name and active licensure. The patient's identity and physical location were verified at the time of this visit. Either the patient or their legal commercial representative has been informed of the risks and benefits of -- and alternatives to -- treatment through a remote evaluation and consents to proceed with the evaluation remotely. May 25, 2023 CC: Headache History: Radha García is a 38 year old year old, right-handed woman who is referred in consultation by Dr. Kaylee Hutton DO (neuro in [place], [place]) for an opinion regarding benign intracranial [...] COVID-19 infection. Mood: MDD - follows with Arcadio Severino NP (behavioral health clinic in [place], [place]), on Vraylar, klonopin, lamictal, prozac Tobacco: [...] Migraine Screener: 3 (more content not included)... [facility] 05-25-2023 History of Presen t illness Narrative Headache Section [facility] Virtual Visit New Encounter I have communicated my name and active licensure. The patient's identity and physical location were verified at the time of this visit. Either the patient or their legal commercial representative has been informed of the risks and benefits of -- and alternatives to -- treatment through a remote evaluation and consents to proceed with the evaluation remotely. May 25, 2023 CC: Headache History: Radha García is a 38 year old year old, right-handed woman who is referred in consultation by Dr. Kaylee Hutton DO (neuro in [place], [place]) for an opinion regarding benign intracranial [...] COVID-19 infection. Mood: MDD - follows with Arcadio Severino NP (behavioral health clinic in [place], [place]), on Vraylar, klonopin, lamictal, prozac Tobacco: [...] and clear, coherent, and relevant. Short and watermelon harvesting supervisor memory, cognition and general fund of knowledge [...] and discussed these with the patient: yes Usha Meek, DO Past Medical/Surgical History reviewed and [...] which included preparing to see the patient, [id number] patient care, completing clinical documentation, obtaining and/or [...] Medicine/ Board Certified Staff, [facility] Live Truck Technician of Neurology with [facility] [address] [place] [address]/ [place] [address] Office: [phone] documented in this encounter [facility] 03-17-2023 Miscellaneous Notes Referral source: Dr. Kaylee Hutton ([facility] [place], [place], [place]) Reason: benign intracranial hypertension, chronic tension-type headache, pseudotumor cerebrei External records on file. documented in this encounter [facility] 01-06-2023 Note Cardiovascular Medic ine [facility] SUBJECTIVE Chief Complaint Patient presents with New Patient abnormal stress kristie referral saw cardio in [place] not sure of name HPI Radha García is a 37 y.o. female [...] has chronic lightheadedness, she previously saw a asset protection manager in [place] without findings to explain her lightheadedness. She [...] case and plan was discussed with attending asset protection manager Dr. Johnson. Romeo Dominguez APRN-PRIVATE SECTOR EXECUTIVE [facility] Evaluation note No assessment inform ation available [facility] Work Phone: Evaluation note Diagnosis 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 aura and without status migrainosus- Primary Chronic migraine without aura, with intractable migraine, so stated, without mention of status migrainosus Pressure in head Headache Chronic daily headache Headache [facility] Diagnosis 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 aura and without status migrainosus Chronic migraine without aura, with intractable migraine, so stated, without mention of status migrainosus Pressure in head Headache Chronic daily headache Headache documented in this encounter [facility] Summary Purpose Family History No [...] headache Procedures PROVIDER ORDERED FOLLOW UP OFFICE/OUTPATIENT [facility] 60-74 MINUTES Usha Meek DO [address] [place] [address] Referral ID Status Reason Start Date Expiration Date Visits Requested Visits Authorized [id number] Pending Review PCP Requested Referral 08/03/2023 05/24/2024 1 1 Additional Source Comments INFORMATION SOURCE (unrecogn ized section and content) DATE CREATED AUTHOR 01/01/2023 [facility] DATE CREATED AUTHOR AUTHOR'S ORGANIZ ATION 01/06/2023 [facility] DATE CREATED AUTHOR AUTHOR'S ORGANIZ ATION 08/05/2023 [facility] DATE CREATED AUTHOR AUTHOR'S ORGANIZ ATION 08/07/2023 [facility] DATE CREATED AUTHOR AUTHOR'S ORGANIZ ATION 11/17/2023 [facility] DATE CREATED AUTHOR AUTHOR'S ORGANIZ ATION 12/10/2023 [facility] DATE CREATED AUTHOR AUTHOR'S ORGANIZ ATION 12/17/2023 [facility] DATE CREATED AUTHOR AUTHOR'S ORGANIZ ATION 12/30/2023 [facility] Source Comments (unrecognize d section and content) In the event this informatio n is protected by the Federal Confidentiality of Alcohol and Drug Abuse Patient Records regulations: The Federal rules restrict any use of the information to criminally investigate or prosecute any alcohol or drug abuse patient.[facility] the event this information is protected by the Federal Confidentiality of Alcohol and Drug Abuse Patient Records regulations: The Federal rules restrict any use of the information to criminally investigate or prosecute any alcohol or drug abuse patient.[facility] the event this information is protected by the Federal Confidentiality of Alcohol and Drug Abuse Patient Records regulations: The Federal rules restrict any use of the information to criminally investigate or prosecute any alcohol or drug abuse patient.[facility] the event this information is protected by the Federal Confidentiality of Alcohol and Drug Abuse Patient Records regulations: The Federal rules restrict any use of the information to criminally investigate or prosecute any alcohol or drug abuse patient.[facility] Reason for Visit (unrecogniz ed section and content) Reason Comments Received Outside Medical Records Externa l referral to [facility] [place] Reason Comments Chronic Migraine Reason Onset Date Comments Refill Request 12/04/2023 Reason Comments Refill Request Care Teams (unrecognized sec tion and content) Supply Chain Associate Relationship Specialty Start Date End Date Maite Kruse [address] [facility] [address] [place] [phone] PCP - General Family Medicine 03/19/21 Kaylee Hutton DO [address] [phone] [place] Referring Team Neurology 03/17/23 Team Status: Active Member Role Status Dates KAREN Egan Primary Care Provider Active Team Status: Inactive Member Role Status Dates Kaylee Hutton DO Attending Provider Active KAREN Egan Primary Care Provider Active Supply Chain Associate Relationship Specialty Start Date End Date Maite Kruse [address] [facility] [address] [place] [phone] PCP - General Family Medicine 03/19/21 Kaylee Hutton DO [address] [phone] [place] Referring Team Neurology 03/17/23 Supply Chain Associate Relationship Specialty Start Date End Date Maite Kruse [address] [facility] [address] [place] [phone] PCP - General Family Medicine 03/19/21 Kaylee Hutton DO [address] [phone] NI Referring Team Neurology 03/17/23 Supply Chain Associate Relationship Specialty Start Date End Date Maite Kruse [address] [place] [address] [place] [phone] PCP - General Family Medicine 03/19/21 Kaylee Hutton DO [address] [place] [phone] [place] Referring Team Neurology 03/17/23 Goals (unrecognized [...] BE BASED ON THE PRIMARY CLINICAL RECORDS. [employer] provides no warranty or guarantee of the accuracy or completeness of information in this document.
[2024-01-03 07:29] LABS: HCG Qualitative NEGATIVE (NEGATIVE)
[2024-01-03 07:30] VITALS: BP 134/92; PULSE 72; TEMP 36.1; O2SAT 100
[2024-01-03 08:09] VITALS: PULSE 64; O2SAT 96
[2024-01-03 08:10] VITALS: BP 98/57
[2024-01-03] MEDS: TRIAMCINOLONE ACETONIDE 40 MG/ML VIAL INJ (08:11)
[2024-01-03] MEDS: BUPIVACAINE HCL 0.25% PF 25 MG/10 ML VIAL INJ (08:11)
[2024-01-03] MEDS: LIDOCAINE HCL 2% 400 MG/20 ML MDV 15 ML INJ (08:11)
[2024-01-03 08:15] VITALS: PULSE 60; O2SAT 97
[2024-01-03 08:17] VITALS: BP 117/58
--- NOTE | 2024-01-03 08:20 | W.PM.PROCNOT ---
Date of procedure: 01/03/24 Pre-op diagnosis: Right shoulder osteoarthritis, right shoulder pain Post-op diagnosis: same as pre-op Procedure: Procedure: Right suprascapular and axillary nerve radiofrequency ablation Medications: Bupivacaine 0.25% 2cc, lidocaine 2% 6cc, kenalog 40mg The patient was seen and examined in the preoperative holding area. Informed consent was obtained and placed on the chart.? The patient was brought to the medical procedure unit and placed in the prone position. A timeout was completed verifying correct patient, procedure site, positioning, plan, and special equipment.? Using aseptic technique, under direct fluoroscopic visualization, a 20-gauge 15 cm with a 10 mm curved active tip radiofrequency cannula was advanced to the superior portion of the right posterior osseous rim of the glenoid fossa, lateral and superior to the spinal glenoid notch. Motor stimulation was carried out at 2 Hz up to 5 volts with the absence of extremity activity. Then radiofrequency lesioning was carried out for 90 seconds at 80 degrees.? The needle was then redirected 3 mm inferiorly and another lesioning was carried out for 90 seconds at 80 degree.? Using aseptic technique, under direct fluoroscopic visualization, another 20-gauge 15 cm with a 10 mm curved active tip radiofrequency cannula was advanced toward the most inferior and lateral border of the greater tubercle. Motor stimulation was carried out at 2 Hz up to 5 volts with the absence of extremity activity. Then radiofrequency lesioning was carried out for 90 seconds at 80 degrees.? The needle was then redirected 3 mm inferiorly and another lesioning was carried out for 90 seconds at 80 degree. Anesthesia: Local Surgeon: Frank Hunter Pathology: none sent Condition: stable Disposition: no change
== END 2024-01-03 08:27 | disposition home or self-care (01) ==
LOC: SURGOUT 06:59
PROVIDERS: PCP Nurse Practitioner Family; Visit Provider Anesthesiology
DX: M19.011 Primary osteoarthritis, right shoulder (principal); M25.511 Pain in right shoulder
CPT/HCPCS: 36415; 64640; 84703

== ENCOUNTER 2024-02-01 12:47 | Emergency (ER) | payer OTHER, MEDICARE, SELFPAY ==
[2024-02-01 12:57] VITALS: BP 117/64; PULSE 67; TEMP 36.9; O2SAT 98; BMI 58.5
--- NOTE | 2024-02-01 13:20 | CT_ITS ---
The [address] [address] Patient Name: RADHA MONTGOMERY MRN: [id number] date: 1985 Sex: F Assigned Patient Location: ER Current Patient Location: ER Accession/Order Number: [id number] Exam Date: 02/01/2024 14:12 Report Date: 02/01/2024 14:49 At the request of: MYNOR OWUSU Procedure: CT abdomen pelvis w con EXAMINATION: CT abdomen pelvis w con HISTORY: Abdominal pain COMPARISON: No relevant comparison available. TECHNIQUE: CT images were created with IV contrast. Axial, Coronal, and Sagittal images. Dose reduction techniques were achieved by using automated exposure control and/or adjustment of mA and/or kV according to patient size and/or use of iterative reconstruction technique. FINDINGS: LUNG BASES: No visible pulmonary or pleural disease. LIVER: No enlargement, atrophy, abnormal density, or significant focal lesion. BILIARY: Contracted gallbladder PANCREAS: No lesion, fluid collection, ductal dilatation, or atrophy. SPLEEN: No enlargement or focal lesion. ADRENALS: No mass or enlargement. KIDNEYS: No mass, obstruction, or calcification. BOWEL/MESENTERY: No visible mass, obstruction, or bowel wall thickening. AORTA/VASCULAR: No aneurysm or dissection. RETROPERITONEUM: No mass or adenopathy. LYMPH NODES: No adenopathy. URINARY BLADDER: No visible focal wall thickening, lesion, or calculus. PELVIC ORGANS: 2.6 cm right adnexal cyst. Pelvic calcifications likely vascular phleboliths ABDOMINAL WALL: No mass or hernia. BONES: No bony lesion or fracture. OTHER: Negative. CT/CT abdomen pelvis w con IMPRESSION: 2.6 cm right ovarian cyst Electronically authenticated by: CRISTELA PUCKETT Date: 02/01/2024 14:49
--- NOTE | 2024-02-01 13:23 | ED.GENADUL1 ---
HPI HPI - General Adult General Chief complaint: Abdominal Pain Stated complaint: ABDOMINAL PAIN/ NAUSEA/ VOMITTING Time Seen by Provider: 02/01/24 13:02 Source: patient Mode of arrival: walk-in Limitations: no limitations History of Present Illness HPI narrative: Patient is a 38-year-old female who presents to the emergency department for 6-month history of pain in the left upper quadrant. She states she came to the emergency department today because her symptoms seemed worse. She has had no fevers or upper respiratory symptoms. She states she does have a feeling of acid in her throat. She has had occasional nausea and vomiting that has been treated by her PCP with Zofrfrancois. She has not been prescribed any GI meds, she has had no testing as an outpatient performed by her PCP in the last 6 months for the symptoms. She states her primary care provider was just waiting to see if it would go away . She states she has occasional burning with urination. No low abdominal pain or diarrhea although she states her stools have been soft. No previous abdominal surgeries. She is not concerned for . Related Data Home Medications ?Medication ?Instructions ?Recorded ?Confirmed cariprazine 1.5 mg capsule 3 mg PO DAILY 01/07/23 02/01/24 (Vraylar) fluoxetine 40 mg capsule 40 mg PO DAILY 10/06/23 02/01/24 gabapentin 400 mg capsule 800 mg PO TID 10/06/23 02/01/24 lamotrigine 200 mg tablet 200 mg PO DAILY 10/06/23 02/01/24 metoprolol tartrate 25 mg tablet 25 mg PO DAILY 10/06/23 02/01/24 topiramate 100 mg tablet (Topamax) 100 mg PO DAILY 10/06/23 02/01/24 fluvoxamine 50 mg tablet 150 mg PO DAILY 02/01/24 02/01/24 Previous Rx's ?Medication ?Instructions ?Recorded ondansetron 4 mg disintegrating 4 mg PO Q6H PRN nausea and 02/01/24 tablet vomiting #12 tabs pantoprazole 40 mg tablet,delayed 40 mg PO DAILY #7 tabs 02/01/24 release (Protonix) sucralfate 1 gram tablet (Carafate) 1 g PO Q6H PRN abdominal pain #12 02/01/24 tabs Allergies Allergy/AdvReac Type Severity Reaction Status Date / Time No Known Drug Allergies Allergy Verified 10/06/23 11:30 Opioid HPI Opioid Management Most Recent Opioid Data: Last Pain Scale 4 01/03/24 07:30 Review of Systems ROS Constitutional Denies: fever or chills Ears, nose, mouth, and throat Denies: throat pain or nasal congestion Respiratory Denies: shortness of breath Gastrointestinal Reports: abdominal pain, nausea and vomiting; Denies: diarrhea Genitourinary Reports: painful urination Musculoskeletal Denies: back pain Integumentary/Breast Denies: rash Neurological Denies: headache Hematologic/Lymphatic Denies: easy bruising or easy bleeding [facility] Medical History Abnormal uterine bleeding ?N93.9 - Abnormal uterine and vaginal bleeding, unspecified (ICD-10) Menorrhagia ?N92.0 - Excessive and frequent menstruation with regular cycle (ICD-10) Dysmenorrhea ?N94.6 - Dysmenorrhea, unspecified (ICD-10) Pelvic pain ?R10.2 - Pelvic and perineal pain (ICD-10) Fibromyalgia ?M79.7 - Fibromyalgia (ICD-10) Neck pain ?M54.2 - Cervicalgia (ICD-10) DDD (degenerative disc disease) Back pain ?M54.9 - Dorsalgia, unspecified (ICD-10) Insomnia ?G47.00 - Insomnia, unspecified (ICD-10) OCD (obsessive compulsive disorder) ?F42.9 - Obsessive-compulsive disorder, unspecified (ICD-10) PTSD (post-traumatic stress disorder) ?F43.10 - Post-traumatic stress disorder, unspecified (ICD-10) Panic attacks ?F41.0 - Panic disorder [episodic paroxysmal anxiety] (ICD-10) Depression ?F32.A - Depression, unspecified (ICD-10) Anxiety ?F41.9 - Anxiety disorder, unspecified (ICD-10) COVID-19 ?U07.1 - COVID-19 (ICD-10) Migraine ?G43.909 - Migraine, unspecified, not intractable, without status migrainosus (ICD-10) Seizures ?R56.9 - Unspecified convulsions (ICD-10) Pseudotumor cerebri ?G93.2 - Benign intracranial hypertension (ICD-10) Chiari malformation Morphea ?L94.0 - Localized scleroderma [morphea] (ICD-10) Heartburn ?R12 - Heartburn (ICD-10) Abnormal EKG ?R94.31 - Abnormal electrocardiogram [ECG] [EKG] (ICD-10) Adenomyosis ?N80.03 - Adenomyosis of the uterus (ICD-10) Surgical History S/P epidural steroid injection ?Z92.241 - Personal history of systemic steroid therapy (ICD-10) History of wisdom tooth extraction ?K08.409 - Partial loss of teeth, unspecified cause, unspecified class (ICD-10) Family History Other Family history of colon cancer Family history of diabetes mellitus Family history of heart disease Family history of kidney cancer Family history of skin cancer Social History Within the past year, how often did you have a drink containing alcohol: never Score interpretation: A score less than 3 is consistent with normal alcohol consumption. Smoking status: Never smoker Non-prescribed substance use: denies use Highest level of school completed/degree received: some college, no degree Exam Narrative Exam Narrative: Gen.: Awake, alert, in no distress Head: Normocephalic, atraumatic ENT: Moist mucous membranes Respiratory: No respiratory distress, lungs clear bilaterally Cardio: Regular rate and rhythm Gastrointestinal: Abdomen is soft, Obese, mildly tender to palpation in the left upper quadrant with no guarding or rebound Extremities: Moves extremities equally, no injuries noted Psych: Normal mood and affect Neuro: No focal neuro deficit Skin: Warm, dry, intact Constitutional Vital Signs, click to edit/add: Last Vital Signs Temp 98.5 F 02/01/24 12:57 Pulse 67 02/01/24 12:57 Resp 18 02/01/24 12:57 BP 117/64 02/01/24 12:57 Pulse Ox 98 02/01/24 12:57 O2 Del Method Room Air 02/01/24 12:57 Course Vital Signs Vital signs: Vital Signs Temperature 98.5 F 02/01/24 12:57 Pulse Rate 67 02/01/24 12:57 Respiratory Rate 18 02/01/24 12:57 Blood Pressure 117/64 02/01/24 12:57 Pulse Oximetry 98 02/01/24 12:57 Oxygen Delivery Method Room Air 02/01/24 12:57 Temperature 98.5 F 02/01/24 12:57 Pulse Rate 67 02/01/24 12:57 Respiratory Rate 18 02/01/24 12:57 Blood Pressure 117/64 02/01/24 12:57 Pulse Oximetry 98 02/01/24 12:57 Oxygen Delivery Method Room Air 02/01/24 12:57 Medical Decision Making MDM Narrative Medical decision making narrative: Patient treated with IV fluids, Zofran, Protonix, GI cocktail. Abdomen is soft and benign. CT is unremarkable, although there is a small right ovarian cyst. I do not believe this contributes to the patient's symptoms. She will be started on GI meds for home and referred back to her PCP for GI follow-up. Return to the emergency department if symptoms change or worsen. SUPERVISED APC VISIT, PHYSICIAN ATTESTATION: Based on the medical record the care appears appropriate. ? Medical Records Medical records reviewed: Yes I reviewed the patient's medical records Lab Data Lab results reviewed: Yes I reviewed the patient's lab results Labs: Lab Results 02/01/24 02/01/24 Range/Units 13:30 13:36 WBC 7.9 (4.0-11.0) 10^3/uL RBC 4.53 (4.20-5.40) 10^6/uL Hgb 12.3 (12.0-16.0) g/dL Hct 39.6 (36.0-48.0) % MCV 87.4 (81.0-99.0) fL MCH 27.2 (26.7-34.0) pg MCHC 31.1 (29.9-35.2) g/dL RDW 13.7 (11.0-15.0) % Plt Count 229 (150-450) 10^3/uL MPV 10.2 (9.5-13.5) fL Neut % (Auto) 65.6 (43.0-75.0) % Lymph % (Auto) 24.4 (20.5-60.0) % [place] % (Auto) 8.1 (1.7-12.0) % Eos % (Auto) 1.0 (0.9-7.0) % Baso % (Auto) 0.6 (0.2-2.0) % Neut # (Auto) 5.2 (1.4-6.5) 10^3/uL Lymph # (Auto) 1.9 (1.2-3.8) 10^3/uL [place] # (Auto) 0.6 (0.3-0.8) 10^3/uL Eos # (Auto) 0.1 (0.0-0.7) 10^3/uL Baso # (Auto) 0.1 (0.0-0.1) 10^3/uL Abs Immat Gran (auto) 0.02 (0.00-0.03) 10^3/uL Imm/Tot Granulo (auto) 0.3 (0.0-0.5) % Sodium 140 (136-145) mmol/L Potassium 3.8 (3.5-5.1) mmol/L Chloride 105 (98-107) mmol/L Carbon Dioxide 25.5 (21.0-32.0) mmol/L Anion Gap 13.3 BUN 10.0 (7.0-18.0) mg/dL Creatinine 0.89 (0.55-1.02) mg/dL Est GFR ( Amer) >60 (>=60) Est GFR (Non-Af Amer) >60 (>=60) BUN/Creatinine Ratio 11.2 Glucose 94 (74-106) mg/dL Lactate 1.0 (0.4-2.0) mmol/L Calcium 8.5 (8.5-10.1) mg/dL Total Bilirubin 0.3 (0.2-1.0) mg/dL AST 13 L (15-37) U/L ALT 19 (14-59) U/L Alkaline Phosphatase 106 (46-116) U/L Total Protein 6.6 (6.4-8.2) g/dL Albumin 3.1 L (3.4-5.0) g/dL Globulin 3.5 g/dL Albumin/Globulin Ratio 0.9 Lipase 33.0 (16.0-77.0) U/L Serum HCG, Qual Negative (NEGATIVE) Urine Color Yellow (YELLOW) Urine Clarity Sl cloudy (CLEAR) Urine pH 7.5 (5.0-9.0) Ur Specific [place] 1.020 (1.005-1.025) Urine Protein Negative (NEG/TRACE) mg/dL Urine Glucose (UA) Negative (NEGATIVE) mg/dL Urine Ketones Negative (NEGATIVE) mg/dL Urine Occult Blood Negative (NEGATIVE) Urine Nitrite Negative (NEGATIVE) Urine Bilirubin Negative (NEGATIVE) Urine Urobilinogen 0.2 (0.2-1.0) EU/dL Ur Leukocyte Esterase Negative (NEGATIVE) Imaging Data CT scan - abdomen: Attestation: I have reviewed the pertinent imaging results. Radiologist's impression: ITS Impressions Abdomen/Pelvis CT 02/01/24 13:20 IMPRESSION: 2.6 cm right ovarian cyst Electronically authenticated by: CRISTELA PUCKETT Date: 02/01/2024 14:49 Discharge Plan Discharge Stand Alone Forms: Portal Instructions Chief Complaint: Abdominal Pain Clinical Impression: Abdominal pain, Esophagitis Patient Disposition: Home, Self-Care Time of Disposition Decision: 15:02 Condition: Good Prescriptions / Home Meds: New sucralfate [Carafate] 1 gram tablet 1 g PO Q6H PRN (Reason: abdominal pain) Qty: 12 0RF pantoprazole [Protonix] 40 mg tablet,delayed release (DR/EC) 40 mg PO DAILY Qty: 7 0RF ondansetron 4 mg tablet,disintegrating 4 mg PO Q6H PRN (Reason: nausea and vomiting) Qty: 12 0RF No Action Vraylar 1.5 mg capsule 3 mg PO DAILY topiramate [Topamax] 100 mg tablet 100 mg PO DAILY gabapentin 400 mg capsule 800 mg PO TID fluoxetine 40 mg capsule 40 mg PO DAILY lamotrigine 200 mg tablet 200 mg PO DAILY metoprolol tartrate 25 mg tablet 25 mg PO DAILY fluvoxamine 50 mg tablet 150 mg PO DAILY Print Language: Bulgarian Instructions: Abdominal Pain (ED), Esophagitis (ED) Referrals: AMAN MUNGUIA [Primary Care Provider] - 1 week
[2024-02-01] MEDS: ONDANSETRON PF 4 MG/2 ML VIAL IV (13:38)
[2024-02-01] MEDS: lidocaine HCL 15 ML, MAG HYDROX/ALUMINUM HYD/SIMETH 30 ML, HYOSCYAMINE SULFATE 0.25 MG PO (13:38)
[2024-02-01] MEDS: 0.9 % SODIUM CHLORIDE 1,000 ML 999 ML IV (13:38)
[2024-02-01] MEDS: PANTOPRAZOLE SODIUM 40 MG VIAL IV (13:38)
[2024-02-01 13:49] LABS: Basophils Absolute Auto 0.1 10^3/uL (0.0-0.1); Basophils Percent Auto 0.6 % (0.2-2.0); Eosinophils Absolute Auto 0.1 10^3/uL (0.0-0.7); Hematocrit 39.6 % (36.0-48.0); Hemoglobin 12.3 g/dL (12.0-16.0); Immature Granulocytes Abs Auto 0.02 10^3/uL (0.00-0.03); Immature Granulocytes Pct Auto 0.3 % (0.0-0.5); Lymphocytes Absolute Auto 1.9 10^3/uL (1.2-3.8); Lymphocytes Percent Auto 24.4 % (20.5-60.0); Mean Corpuscular HGB Conc 31.1 g/dL (29.9-35.2); Mean Corpuscular Hemoglobin 27.2 pg (26.7-34.0); Mean Corpuscular Volume 87.4 fL (81.0-99.0); Mean Platelet Volume 10.2 fL (9.5-13.5); Monocytes Absolute Auto 0.6 10^3/uL (0.3-0.8); Monocytes Percent Auto 8.1 % (1.7-12.0); Neutrophils Absolute Auto 5.2 10^3/uL (1.4-6.5); Neutrophils Percent Auto 65.6 % (43.0-75.0); Platelet Count 229 10^3/uL (150-450); Red Blood Count 4.53 10^6/uL (4.20-5.40); Red Cell Distribution Width 13.7 % (11.0-15.0); White Blood Count 7.9 10^3/uL (4.0-11.0)
[2024-02-01 13:53] LABS: Bilirubin Urine NEGATIVE (NEGATIVE); Blood Urine NEGATIVE (NEGATIVE); Clarity Urine SL CLOUDY (CLEAR); Color Urine YELLOW (YELLOW); Glucose Urine UA NEGATIVE (NEGATIVE); Ketones Urine NEGATIVE (NEGATIVE); Leukocyte Esterase Urine NEGATIVE (NEGATIVE); Nitrite Urine NEGATIVE (NEGATIVE); Protein Urine NEGATIVE (NEG/TRACE); Urobilinogen Urine 0.2 EU/dL (0.2-1.0); pH Urine 7.5 (5.0-9.0)
[2024-02-01 14:01] LABS: Urine Microscopic Indicated NO
[2024-02-01 14:08] LABS: Alanine Aminotransferase 19 U/L (14-59); Albumin Globulin Ratio 0.9; Albumin Level 3.1 g/dL (3.4-5.0); Alkaline Phosphatase 106 U/L (46-116); Anion Gap 13.3; Aspartate Amino Transferase 13 U/L (15-37); BUN Creatinine Ratio 11.2; Bilirubin Total 0.3 mg/dL (0.2-1.0); Calcium 8.5 mg/dL (8.5-10.1); Carbon Dioxide 25.5 mmol/L (21.0-32.0); Chloride 105 mmol/L (98-107); Estimated GFR (African America >60 (>=60); Estimated GFR (Non-African Ame >60 (>=60); Globulin 3.5 g/dL; Glucose 94 mg/dL (74-106); Potassium 3.8 mmol/L (3.5-5.1); Sodium 140 mmol/L (136-145); Total Protein 6.6 g/dL (6.4-8.2)
[2024-02-01 14:09] LABS: HCG Qualitative NEGATIVE (NEGATIVE); Internal Control Within Normal Limits
== END 2024-02-01 15:41 | disposition home or self-care (01) ==
PROVIDERS: Physician Assistant; Emergency Provider Emergency Medicine; PCP Nurse Practitioner Family
DX: R10.12 Left upper quadrant pain (principal); K20.90 Esophagitis, unspecified without bleeding; N83.201 Unspecified ovarian cyst, right side
CPT/HCPCS: 36415; 74177; 80053; 81003; 83605; 83690; 84703; 85025; 96361; 96374; 96375; 99285; J2405; Q9967

== ENCOUNTER 2024-02-02 10:14 | Outpatient (OUT) | payer OTHER, MEDICARE, SELFPAY ==
--- NOTE | 2024-02-02 10:53 | PM.CN ---
Consult Note: HPI Data of Consult Patient: known to practice within the last 3 years Consult date: 10/06/23 Requesting Physician: Lisa Luna NP Primary Care Provider: AMAN MUNGUIA Consult Narrative Reason for consult: establish Narrative: Remedios García a pleasant 38 year old female presents for evaluation and management of chronic right shoulder pain and neck pain. Patient completed PT without benefit, reports it increased her pain. Patient reports stabbing ache and pain in right shoulder and upper arm. Hx of numbness of fingers in the right hand for which she had an EMG on and was negative for cervical radiculopathy, following orthopedics for ulnar neuropathy. Pain today 6/10, increasing to 10/10 with pushing, pulling, housework, lifting, moving arm, activity, ADLS, and sleep. Mild benefit to motrin, gabapentin, topamax, medical marijauna. DEMAR 70%. Right suprascapular and axillary nerve RFA providing mild ongoing relief, 50% improvement, patient pleased with outcome. Continues to have moderate to severe neck pain and left shoulder pain. cc:: CC: Lisa Luna NP Review of Systems ROS Status of ROS 10 or more systems reviewed and unremarkable except as noted in history and below Musculoskeletal Reports: neck pain, extremity pain and joint pain PFSH PFS Medical History Abnormal uterine bleeding ?N93.9 - Abnormal uterine and vaginal bleeding, unspecified (ICD-10) Menorrhagia ?N92.0 - Excessive and frequent menstruation with regular cycle (ICD-10) Dysmenorrhea ?N94.6 - Dysmenorrhea, unspecified (ICD-10) Pelvic pain ?R10.2 - Pelvic and perineal pain (ICD-10) Fibromyalgia ?M79.7 - Fibromyalgia (ICD-10) Neck pain ?M54.2 - Cervicalgia (ICD-10) DDD (degenerative disc disease) Back pain ?M54.9 - Dorsalgia, unspecified (ICD-10) Insomnia ?G47.00 - Insomnia, unspecified (ICD-10) OCD (obsessive compulsive disorder) ?F42.9 - Obsessive-compulsive disorder, unspecified (ICD-10) PTSD (post-traumatic stress disorder) ?F43.10 - Post-traumatic stress disorder, unspecified (ICD-10) Panic attacks ?F41.0 - Panic disorder [episodic paroxysmal anxiety] (ICD-10) Depression ?F32.A - Depression, unspecified (ICD-10) Anxiety ?F41.9 - Anxiety disorder, unspecified (ICD-10) COVID-19 ?U07.1 - COVID-19 (ICD-10) Migraine ?G43.909 - Migraine, unspecified, not intractable, without status migrainosus (ICD-10) Seizures ?R56.9 - Unspecified convulsions (ICD-10) Pseudotumor cerebri ?G93.2 - Benign intracranial hypertension (ICD-10) Chiari malformation Morphea ?L94.0 - Localized scleroderma [morphea] (ICD-10) Heartburn ?R12 - Heartburn (ICD-10) Abnormal EKG ?R94.31 - Abnormal electrocardiogram [ECG] [EKG] (ICD-10) Adenomyosis ?N80.03 - Adenomyosis of the uterus (ICD-10) Surgical History S/P epidural steroid injection ?Z92.241 - Personal history of systemic steroid therapy (ICD-10) History of wisdom tooth extraction ?K08.409 - Partial loss of teeth, unspecified cause, unspecified class (ICD-10) Family History Other Family history of colon cancer Family history of diabetes mellitus Family history of heart disease Family history of kidney cancer Family history of skin cancer Social History Within the past year, how often did you have a drink containing alcohol: never Score interpretation: A score less than 3 is consistent with normal alcohol consumption. Smoking status: Never smoker Non-prescribed substance use: denies use Highest level of school completed/degree received: some college, no degree Meds Home Medications and Allergies Home Medications ?Medication ?Instructions ?Recorded ?Confirmed ?Type cariprazine 1.5 mg capsule 3 mg PO DAILY 01/07/23 02/01/24 History (Vraylar) fluoxetine 40 mg capsule 40 mg PO DAILY 10/06/23 02/01/24 History gabapentin 400 mg capsule 800 mg PO TID 10/06/23 02/01/24 History lamotrigine 200 mg tablet 200 mg PO DAILY 10/06/23 02/01/24 History metoprolol tartrate 25 mg tablet 25 mg PO DAILY 10/06/23 02/01/24 History topiramate 100 mg tablet (Topamax) 100 mg PO DAILY 10/06/23 02/01/24 History fluvoxamine 50 mg tablet 150 mg PO DAILY 02/01/24 02/01/24 History ondansetron 4 mg disintegrating 4 mg PO Q6H PRN nausea and 02/01/24 Rx tablet vomiting #12 tabs pantoprazole 40 mg tablet,delayed 40 mg PO DAILY #7 tabs 02/01/24 Rx release (Protonix) sucralfate 1 gram tablet (Carafate) 1 g PO Q6H PRN abdominal pain #12 02/01/24 Rx tabs Allergies Allergy/AdvReac Type Severity Reaction Status Date / Time No Known Drug Allergies Allergy Verified 10/06/23 11:30 Exam Constitutional Documenting provider has reviewed patient's vital signs: yes Common normals: no apparent distress, oriented x3, healthy appearing, alert and well nourished General appearance: cooperative [facility] Common normals: normocephalic, hearing grossly normal bilaterally and moist oral mucous membranes Head and scalp: normocephalic Eye Common normals: PERRL Pupil: PERRL Neck & C-Spine Common normals: full ROM General: normal visual inspection Cervical spine: pain with cervical ROM and cervical spine tenderness Other: positive spurlings decreased sensation over left C6,7 dermatomes strength 5/5 in BUE Chest Common normals: inspection of chest normal Respiratory Common normals: normal respiratory effort, no retractions and no use of accessory muscles Extremity Right upper extremity: shoulder joint Left upper extremity: shoulder joint Other: left side positive empty can test, positive scratch test and posterior liftoff, as well as crossbody adduction positive apleys. negative exam on right shoulder Neuro Common normals: oriented x3, CN's II-XII intact bilaterally, moves all extremities, no focal motor deficits, no sensory deficits noted and deep tendon reflexes 2+ bilaterally Sensorium/orientation: alert Motor exam: strength 5/5 throughout and no movement abnormalities noted Psych Common normals: mental status grossly normal, thought process normal, cooperative, affect normal, speech normal and activity/motor behavior normal Speech: normal speech Thought process: normal thought process Results Additional Findings Additional findings: If on a controlled substance or opioids, I have checked an [place] report on this patient and there are no aberrancies noted in the prescribing history.??If on a controlled substance or opioid a drug screen was completed and reviewed within the last year, and if there has not been a drug screen completed we ordered one today to monitor higher risk, state monitored pain medication use. As part of providing excellent, safe, comprehensive care, the following was completed at our patient's visit: 1. A medication reconciliation and review to ensure accurate knowledge of current/active medications, including asking our patients to inform us about any [id number] medications or herbal remedies/nutritional supplements/alternative remedies. 2. A review to specifically ensure our patients have had annual screening for screening for depression, screening for tobacco use, and screening for unhealthy alcohol use. For concerning screenings had a discussion with the patient, provided patient education, and recommended follow-up with primary care provider when appropriate. If patient noted with a risk of falling, they received education on strength, gait, and balance training to prevent future risk of falling. 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 pt has concerns of skull shifting and increased pain/pressure f/u after cervical MRI
== END 2024-02-02 10:15 | disposition home or self-care (01) ==
PROVIDERS: PCP Nurse Practitioner Family; Visit Provider Nurse Practitioner
DX: M47.22 Other spondylosis with radiculopathy, cervical region (principal); M25.511 Pain in right shoulder; G56.90 Unspecified mononeuropathy of unspecified upper limb; G58.8 Other specified mononeuropathies
CPT/HCPCS: G0463

== ENCOUNTER 2024-02-16 12:32 | Outpatient (OUT) | payer OTHER, MEDICARE, SELFPAY ==
--- NOTE | 2024-02-16 12:37 | MR_ITS ---
The [address] [address] Patient Name: RADHA MONTGOMERY MRN: [facility]:[id number] date: 1985 Sex: F Assigned Patient Location: MRI Current Patient Location: MRI Accession/Order Number: [id number] Exam Date: 02/16/2024 12:45 Report Date: 02/16/2024 14:58 At the request of: BORIS PURCELL Procedure: MR cervical spine wo con EXAMINATION: MR cervical spine wo con HISTORY: cervical spondylosis, cervical radiculopathy COMPARISON: No relevant comparison available. TECHNIQUE: A variety of imaging planes and parameters were utilized for visualization of suspected pathology. FINDINGS: CRANIOCERVICAL AREA: Normal foramen magnum with no Chiari malformation. PARASPINAL AREA: Normal with no visible mass. BONES: Normal alignment with no acute fracture or spondylolisthesis CORD: Normal caliber, contour, and signal intensity. CERVICAL DISC LEVELS: C2-C3: Early degenerative disc disease is present without focal protrusion or neural impingement. C3-C4: Early degenerative disc disease is present without focal protrusion or neural impingement. C4-C5: Early degenerative disc disease is present without focal protrusion or neural impingement. C5-C6: Disc space narrowing and disc desiccation. Mild posterior disc/osteophyte complex r narrows the central canal to 9 mm in AP dimension. Mild bilateral foraminal stenosis C6-C7: Early degenerative disc disease is present without focal protrusion or neural impingement. C7-T1:. No significant disc/facet abnormality, spinal stenosis, or foraminal stenosis. MR/MR cervical spine wo con IMPRESSION: Degenerative changes at C5-C6 resulting in mild central and mild bilateral foraminal stenosis Electronically authenticated by: CRISTELA PUCKETT Date: 02/16/2024 14:58
--- OUTSIDE RECORDS SUMMARY | 2024-02-16 12:40 | XMS_ITS | CCD ---
Author Organization [facility] CliniSywa Care Team Providers Care Market Research Specialist Name Role Phone KRISTIE, MARGARET Primary Care [...] Unavailable HEATHER ., DR OCASIO Consulting Unavailable ZISHIRA, DR MICHAEL Carmona Consulting Unavailable ROMEO DOMINGUEZ Attending Unavailable [facility] Amna Primary Care Provider Kaylee Hutton DO Unavailable DO Kaylee Hutton Attending Provider KAREN Munguia Margaret Sintia Primary Care Provider [facility] Amna Primary Care Provider [facility] Primary Care Provider MATT LOVE Attending Unavailable ARCADIO SEVERINO Referring Unavailable KRISTIE, MARGARET S Primary Care Unavailable JR. MICA, HAYDEN Ivy Attending Unavaila angeles NINO JR., HAYDEN Ivy Attending Unavaila ARIANNA Benjamin Attending Unavailable KAYLEE HUTTON Attending Unavailable Elsa HAMMER, Frank Palacios Attending Unavailable Elsa HAMMER, Frank Palacios Attending Unavailable ARCADIO SEVERINO Attending Unavailable KRISTIE, MARGARET [...] Unavailable KRISTIE, MARGARET S Primary Care Unavailable RONALDZAARCADIO Brooks Attending Unavailable KRISTIE, MARGARET S Referring Unavailable KRISTIE, MARGARET S Primary Care Unavailable SARBJIT MCKEON Attending Unavailable SARBJIT MCKEON Attending Unavailable USHA MEEK Referring Unavailable KAYLEE HUTTON Referring Unavailab USHA Cancino Attending Unavailable Kristie, Margaret Sintia Primary Care Unavailable Kaylee Hutton Admitting Unavailab Kaylee Perez Attending Unavailab Alejandro Andujar Admitting Unavailab Alejandro Andujar Attending Unavailab owens NON STAFF Primary Care Unavailable Allergies Allergy Classification Reported Allergen(s) Allergy Type Date of Onset Reaction(s) Facility (1 source) Corticosteroids Drug allergy (disorder) [facility] Repository (6 sources) Glucocorticoid preparation; Translations: [CORTICOSTEROIDS (GLUCOCORTICOIDS)] Drug Allergy Other: See Comments [facility] Work Phone: Medications Current Medications Medication Drug Class(es) Dates Sig (Normalized) Sig (Original) FLUoxetine 40 mg oral capsule (5 sources) Serotonin Reuptake Inhibitor Start: 02-18-2023 take 1 capsule by mouth once daily FLUoxetine (PROZAC) 40 mg capsule Take 40 mg by mouth once daily. 0 02/18/2023 Active Comment on above: Take 40 mg by mouth once daily. gabapentin 400 mg oral capsule (5 sources) Anti-epileptic Agent Start: 03-16-2023 take 1 capsule by mouth three times daily gabapentin (NEURONTIN) 400 mg capsule Take 400 mg by mouth three times a day. 0 03/16/2023 Active Comment on above: Take 400 mg by mouth three times a day. lamoTRIgine 100 mg oral tablet (5 sources) Mood Stabilizer, Anti-epileptic Agent Start: 04-23-2023 take 1 tablet by mouth once daily lamoTRIgine (LAMICTAL) 100 mg tablet Take 100 mg by mouth once daily. 0 04/23/2023 Active Comment on above: Take 100 mg by mouth once daily. 24 hr metoprolol succinate 50 mg extended release oral tablet (6 sources) beta-Adrenergic Geo Start: 02-07-2024 take 1 tablet by mouth once daily metoprolol succinate ER (TOPROL XL) 50 mg 24 hr tablet Take 1 tablet by mouth once daily. 30 tablet 5 02/07/2024 Active Start: 08-03-2023 End: 02-07-2024 take 1 tablet by mouth once daily metoprolol succinate ER (TOPROL XL) 25 mg 24 hr tablet take 1 tablet by mouth every day 90 tablet 1 12/15/2023 02/07/2024 Discontinued nabumetone 500 mg oral tablet (1 source) [...] Comment on above: Take 1 tablet by mouth two times a day f or 10 days. topiramate 100 mg oral tablet (7 sources) Start: 12-08-2023 take 1 tablet by [...] once daily. clonazePAM 1 mg oral tablet (4 sources) Benzodiazepine Start: 03-02-2023 End: 02-07-2024 clonazePAM (KLONOPIN) 1 mg tablet Take 1 mg by mouth as needed. 0 03/02/2023 02/07/2024 Discontinued Comment on above: Take 1 mg by mouth a s needed. cyclobenzaprine hydrochloride 10 mg oral tablet (4 sources) Muscle Relaxant Start: 04-05-2023 End: 02-07-2024 take 2 tablets by mouth once daily at bedtime cyclobenzaprine (FLEXERIL) 10 mg tablet Take 20 mg by mouth daily at bedtime. 0 04/05/2023 02/07/2024 Discontinued Comment on above: Take 20 mg by mouth daily at bedtime. naproxen 500 mg oral tablet (1 source) [...] HYPERTENSION] Onset: 11-08-2022 Chronic Headache; including migraine (3 sources) Chronic intractable migraine without aura; Translations: [Chronic migraine without aura, intractable, without status migrainosus] 05-25-2023 Chronic Headache; including migraine (6 sources) Headache; Translations: [Pressure in head] 05-25-2023 [...] (1 source) Sleep apnea Onset: 12-08-2023 Chronic Substance-related disorders (1 source) Nicotine dependence, other [...] [PAIN IN LEFT SHOULDER] Onset: 05-12-2022 Episodic Spondylosis; intervertebral disc disorders; other back problems (1 source) Radiculopathy, cervical region; Translations: [Radiculopathy, cervical region] Onset: 05-20-2023 Episodic Results Test Name Value Interpretation Reference Range Facility [facility] 02-07-2024 [facility] Telephone (NHMNS2) RADHA GARCÍA ([id number]) 1985 F [place] Date Time Provider Department 02/07/24 SARBJIT MCKEON [facility] During your visit today, we recorded the following information about you: Melecio Martinez RN 02/07/2024 2:10 PM Signed Botox referral sent to pharmacy Tyron HANCOCK, RN Clinical Screening Representative [facility] Allergies As of Date: 02/07/2024 Noted Allergy Reaction CORTICOSTEROIDS (GLUCOCORTICOIDS) 05/25/2023 14 - Other: See Comments Date Reviewed: 02/07/2024 Reviewed by: Sarbjit Mckeon APRN.[facility] - Fully Assessed Reason for Visit: Referral Request [124] Prescriptions as of 02/07/2024 - metoprolol succinate ER (TOPROL XL) 50 mg 24 hr tablet Take 1 tablet by mouth once daily. - topiramate (TOPAMAX) 100 mg tablet Take 1 tablet by mouth daily at bedtime. - FLUoxetine (PROZAC) 40 mg capsule Take 40 mg by mouth once daily. - gabapentin (NEURONTIN) 400 mg capsule Take 400 mg by mouth three times a day. - lamoTRIgine (LAMICTAL) 100 mg tablet Take 100 mg by mouth once daily. Problem List As Of Date: 02/07/2024 (None) Encounter Status:Closed by MELECIO MARTINEZ on 02/07/24 [facility] 08-04-2023 CNPN Telephone (NIQ) VALENTINARADHA Alis ([id number]) 1985 F [place] Date Time Provider Department 08/04/23 NEUROLOGY PROVIDER NIQ During your visit today, we recorded the following information about you: Mary Walters 08/04/2023 11:56 AM Signed Received external records from [facility] related to intracranial hypertension. Pt is following with Dr. Usha Meek. Forwarded records to her office at [phone]. Allergies As of Date: 08/04/2023 Noted Allergy Reaction CORTICOSTEROIDS (GLUCOCORTICOIDS) 05/25/2023 14 - Other: See Comments Date Reviewed: 08/03/2023 Reviewed by: Sarbjit Mckeon APRN.PHOTO EQUIPMENT TECHNICIAN - Fully Assessed Reason for Visit: Received Outside Medical Records [6346] Cmt: Records from local neurologist Prescriptions as [...] Encounter Status:Closed by MARY WALTERS on 08/04/23 [facility] MR cervical spine wo conon 1 MR cervical spine wo con [facility] [place] [address] MRI Report Signed Patient: Radha García MR#: [id number] : 1985 Acct:[id number] Age/Sex: 38 / F ADM Date: 05/20/23 Loc: MR Room: Type: [facility] Attending Dr: Kaylee Hutton DO Copies [...] STENOSIS. Impression dictated by: Bassem Powell Jr., D.OEllen05/20/2023 11:29 AM Dictation Location: [place] [address] Transcribed By: [facility] 05/20/23 112 Dictated By: Bassem Powell Jr, DO 05/20/231125 Signed By: 05/20/231128 Normal [facility] XR pre/post mri xrayon 05-20 XR pre/post mri xray [facility] Main [place] [address] [place] [address] XRay Report Signed Patient: Radha García MR#: [id number] : 1985 Acct:[id number] Age/Sex: 38 / F ADM Date: 05/20/23 Loc: MR Room: Type: [facility] Attending Dr: Kaylee Hutton DO Copies [...] Melecio Barillas M.D.05/20/2023 1:06 PM Dictation Location: [place] [address] Transcribed By: [facility] 05/20/23 1306 Dictated By: Melecio Barillas DO 05/20/23 1304 Signed By: 05/20/23 1306 Normal [facility] 03-17-2023 CNPN Telephone (NIQ) RADHA GARCÍA ([id number]) 1985 F [place] Date Time Provider Department 03/17/23 NEUROLOGY PROVIDER NIQ During your visit today, we recorded the following information about you: Mary Walters 03/17/2023 9:34 AM Signed Referral source: Dr. Kaylee Hutton ([facility] [place], [place], [place]) Reason: benign intracranial hypertension, chronic tension-type headache, pseudotumor cerebrei External records on file. Allergies As of Date: 03/17/2023 (Not on File) Date Reviewed: Never Reviewed Reason for Visit: Received Outside Medical Records [[id number]] Cmt: External referral to [facility] Problem List As Of Date: 03/17/2023 (None) Encounter Status:Closed by MARY WALTERS on 03/17/23 Normal [facility] Office Visiton 01-06-2023 Follow-up visit [id number] Radha García 1985 F Date Provider Department Center 01/06/2023 [id number] DOMINGUEZ CARD [facility] No family history on file Level of Service:90607 CT OFFICE/OUTPATIENT NEW MODERATE MDM 45-59 MINUTES Reason for Visit and Comments: New Patient [632] - abnormal stress kristie referral saw cardio in [place] not sure of name Normal [facility] PROF CHEM 8 (BAS METB)on Anion gap [Moles/Vol] 12.4 mmol/L Normal [facility] Comment on above: Performed By: #### B MP #### [facility] [address] [place] [address] [address] Maame Núñez Calcium [Mass/Vol] 8.7 mg/dL Normal 8.5-10.1 [facility] Comment on above: Performed By: #### B MP #### [facility] [address] [place] [address] [address] Maame Núñez Chloride [Moles/Vol] 107 mmol/L Normal 98-107 [facility] Comment on above: Performed By: #### B MP #### [facility] [address] [place] [address] [address] Maame Núñez CO2 [Moles/Vol] 26.6 mmol/L Normal 21.0-32.0 [facility] Comment on above: Performed By: #### B MP #### [facility] [address] [place] [address] [address] Maame Núñez Creatinine [Mass/Vol] 0.61 mg/dL Normal 0.55-1.02 [facility] Comment on above: Performed By: #### B MP #### [facility] [address] [place] [address] [address] Maame Núñez EGFR-AF HONDURAN >60 Normal >=60 [facility] Comment on above: Performed By: #### B MP #### [facility] [address] [place], [place] [address] Dr. Maame Núñez EGFR-NON AF HONDURAN >60 Normal >=60 [facility] Comment on above: Performed By: #### B MP #### [facility] [address] [place], [place] [address] Dr. Maame Núñez Glucose [Mass/Vol] 94 mg/dL Normal 74-106 [facility] Comment on above: Performed By: #### B MP #### [facility] [address] [place] [address] [address] Maame Núñez Potassium [Moles/Vol] 4.0 mmol/L Normal 3.5-5.1 [facility] Comment on above: Performed By: #### B MP #### [facility] [address] [place] [address] [address] Maame Núñez Sodium [Moles/Vol] 142 mmol/L Normal 136-145 [facility] Comment on above: Performed By: #### B MP #### [facility] [address] [place] [address] [address] Maame Núñez Urea nitrogen [Mass/Vol] 12.0 mg/dL Normal 7.0-18.0 [facility] Comment on above: Performed By: #### B MP #### [facility] [address] [place] [address] [address] Maame Núñez Urea nitrogen/Creatinine [Mass ratio] 19.7 mg/mg Normal [facility] Comment on above: Performed By: #### B MP #### [facility] [address] [place] [address] [address] Maame Núñez XR CHEST 2 Von [...] MORENA OWENS Date: 2022-11-02 09:41 Normal [facility] COLLIN EIA W/REFLEX 9 BIOMARKER Son 09-01-2022 COLLIN Direct Negative Normal Negative [facility] Comment on above: Performed By: #### A NARF9 #### [facility] [address] [place] [address] [address] Maame Núñez CBC AUTO DIFFon 08-17-2022 BASO # 0.0 103/ul Normal 0.0-0.1 [facility] Comment on above: Performed By: #### C BC ####[facility] [address] [place] [address]Dr. Maame Núñez Basophils/100 WBC (Bld) 0.6 % Normal 0.2-2.0 [facility] Comment on above: Performed By: #### C BC ####[facility] [address] [place] [address]DrEllen Núñez EO # 0.1 103/ul Normal 0.0-0.7 [facility] Comment on above: Performed By: #### C BC ####[facility] [address] [place], [place] [address]DrEllen Núñez Eosinophils/100 WBC (Bld) 1.5 % Normal 0.9-7.0 [facility] Comment on above: Performed By: #### C BC ####[facility] [address] [place] [address]DrEllen Núñez Erythrocyte distribution width (RBC) [Ratio] 13.0 % Normal 11.0-15.0 [facility] Comment on above: Performed By: #### C BC ####[facility] [address] [place] [address]DrEllen Núñez Hematocrit (Bld) [Volume fraction] 39.3 % Normal 36.0-48.0 [facility] Comment on above: Performed By: #### C BC ####[facility] [address] [place], [place] [address]DrEllen Núñez Hemoglobin (Bld) [Mass/Vol] 13.6 g/dL Normal 12.0-16.0 [facility] Comment on above: Performed By: #### C BC ####[facility] [address] [place] [address]Dr. Maame Núñez IG # 0.02 10e3/ul Normal 0.00-0.03 [facility] Comment on above: Performed By: #### C BC ####[facility] [address] [place] [address]Dr. Maame Wilton IG % 0.3 % Normal 0.0-0.5 [facility] Comment on above: Performed By: #### C BC ####[facility] [address] [place] [address]Dr. Maame Wilton LYMPH # 2.1 103/ul Normal 1.2-3.8 [facility] Comment on above: Performed By: #### C BC ####[facility] [address] [place] [address]Dr. Maame Núñez Lymphocytes/100 WBC (Bld) 31.5 % Normal 20.5-60.0 [facility] Comment on above: Performed By: #### C BC ####[facility] [address] [place] [address]Dr. Angelineclemente Núñez MANUAL DIFF REQ NO Normal [facility] Comment on above: Performed By: #### C BC ####[facility] [address] [place] [address]Dr. Maame Núñez MCH (RBC) [Entitic mass] 28.4 pg Normal 26.7-34.0 [facility] Comment on above: Performed By: #### C BC ####[facility] [address] [place] [address]Dr. Maame Wilton MCHC (RBC) [Mass/Vol] 34.6 g/dL Normal 29.9-35.2 [facility] Comment on above: Performed By: #### C BC ####[facility] [address] [place], [place] [address]Dr. Maame Wilton MCV (RBC) [Entitic vol] 82.0 fL Normal 81.0-99.0 [facility] Comment on above: Performed By: #### C BC ####[facility] [address] [place], [place] [address]Dr. Maame Núñez MONO # 0.5 103/ul Normal 0.3-0.8 [facility] Comment on above: Performed By: #### C BC ####[facility] [address] [place] [address]Dr. Maame Núñez Monocytes/100 WBC (Bld) 7.0 % Normal 1.7-12.0 [facility] Comment on above: Performed By: #### C BC ####[facility] [address] [place] [address]Dr. Maame Núñez NEUT # 3.9 103/ul Normal 1.4-6.5 [facility] Comment on above: Performed By: #### C BC ####[facility] [address] [place] [address]Dr. Maame Núñez Neutrophils/100 WBC (Bld) 59.1 % Normal 43.0-75.0 [facility] Comment on above: Performed By: #### C BC ####[facility] [address] [place], [place] [address]Dr. Maame Núñez Platelet mean volume (Bld) [Entitic vol] 9.9 fL Normal 9.5-13.5 [facility] Comment on above: Performed By: #### C BC ####[facility] [address] [place] [address]Dr. Maame Núñez PLT 242 103/ul Normal 150-450 [facility] Comment on above: Performed By: #### C BC ####[facility] [address] [place], [place] [address]Dr. Maame Núñez RBC 4.79 106/ul Normal 4.20-5.40 [facility] Comment on above: Performed By: #### C BC ####[facility] [address] [place], [place] [address]Dr. Maame Núñez WBC 6.5 103/ul Normal 4.0-11.0 [facility] Comment on above: Performed By: #### C BC ####[facility] [address] [place], [place] [address]Dr. Maame Núñez CPKon 08-17-2022 CK [Catalytic activity/Vol] 82 U/L Normal 26-192 [facility] Comment on above: Performed By: #### Marisabel GUEVARA, CK #### [facility] [address] [place] [address] Dr. Maame Núñez FREE T4on 08-17-2022 Free T4 [Mass/Vol] 0.99 ng/dL Normal 0.76-1.46 [facility] Comment on above: Performed By: #### F T4 #### [facility] [address] [place] [address] Dr. Maame Núñez GLYCOHEMOGLOBIN A1Con 2022 ADA RECOMMENDATION SEE BELOW Normal [facility] Comment on above: Result Comment: ADA RECOMMENDED LIMIT 4.0 - 6.0 ADA THERAPEUTIC TARGET < 7.0 ACTION SUGGESTED > 7.0 Performed By: #### A 1C #### [facility] [address] [place] [address] Dr. Maame Núñez Glucose [Mass/Vol] 103 mg/dL Normal [facility] Comment on above: Performed By: #### A 1C #### [facility] [address] [place] [address] Dr. Maame Núñez HbA1c (Bld) [Mass fraction] 5.2 % Normal 4.5-6.2 [facility] Comment on above: Performed By: #### A 1C #### [facility] [address] [place] [address] Dr. Maame Núñez MYOGLOBINon 08-17-2022 LILLIAM 46 ng/mL Normal 9-82 [facility] Comment on above: Performed By: #### Marisabel GUEVARA, CK #### [facility] [address] [place] [address] Dr. Maame Núñez PREG QUANT HCGon 08-17-2022 HCG QUANT 1 mIU/mL Normal [facility] Comment on above: Performed By: #### T SH, PREGQNT #### [facility] [address] [place] [address] Dr. Maame Núñez HCG RANGE SEE BELOW Normal [facility] Comment on above: Result Comment: 5-50 0.2-1 WEEK 50-500 1-2 WEEKS 100-5,000 2-3 WEEKS 500-10,000 3-4 WEEKS 1,000-50,000 4-5 WEEKS 10,000-100,000 5-6 WEEKS 15,000-200,000 6-8 WEEKS 10,000-100,000 2-3 MONTHS Performed By: #### T SH, PREGQNT #### [facility] [address] [place] [address] [address] Maame Núñez TSHon 08-17-2022 TSH 1.027 uIU/mL Normal 0.358-3.740 [facility] Comment on above: Performed By: #### T SH, PREGQNT #### [facility] [address] [place] [id number] Maame Núñez US PELVIS AND TRANSVAGon [...] by: MICHAEL WILLIS Date: 2022-08-17 14:30 Normal [facility] Vital Signs Date Time Vital Sign Value Performing Clinician Autumn alan 05-25-2023 09:190400 Body height 160 cm Usha Meek DO Work Phone: [facility] 05-25-2023 09:19040 Body weight 145.15 kg Usha Meek DO Work Phone: [facility] Encounters Encounter Date Encounter Type Care Provider Facility Start: 02-07-2024 Telephone encounter Sarbjit Mckeon [place] Work Phone: Neurology Comment on above: Referral Request Start: 02-07-2024 End: 02-07-2024 ambulatory Sarbjit Mckeon OCCUPATIONAL THERAPY AIDE.MACIE Work Phone: Neurology [facility] Comment on above: 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 aura and without status migrainosus (Primary Dx); Chronic daily headache; Pressure in head Start: 02-07-2024 End: 02-07-2024 Telemedicine consultation with patient Sarbjit Mckeon [place] Work Phone: Neurology [facility] Start: 01-24-2024 End: 01-24-2024 ambulatory [facility] Start: 01-03-2024 End: 01-03-2024 ambulatory Frank Hunter MD Facility:[facility] Start: 12-29-2023 End: 12-29-2023 ambulatory [facility] Start: 12-15-2023 Refill Sarbjit Jay Adkins.PHOTO EQUIPMENT TECHNICIAN Work Phone: Neurology [facility] Comment on above: Refill Request Start: 12-15-2023 End: 12-15-2023 ambulatory KAYLEE HUTTON Not Available Start: 12-08-2023 End: 12-08-2023 ambulatory [facility] Start: 12-04-2023 Refill Usha Gaviota DO Work Phone: NEUROLOGY Comment on above: Refill Request Start: 12-03-2023 End: 12-03-2023 ambulatory HAYDEN HERNDON Not Available Start: 11-29-2023 End: 11-29-2023 ambulatory [facility] Start: 11-08-2023 End: 11-08-2023 ambulatory Frank Hunter MD Facility:[facility] Start: 10-13-2023 End: 10-13-2023 ambulatory [facility] Start: 10-11-2023 End: 10-11-2023 ambulatory HAYDEN HERNDON Not Available Start: 09-13-2023 End: 09-13-2023 ambulatory [facility] Start: 08-16-2023 End: 08-16-2023 ambulatory [facility] Start: 08-03-2023 End: 08-03-2023 ambulatory SARBJIT MCKEON Facility:[facility] Start: 07-12-2023 End: 07-12-2023 ambulatory ARIANNA WILSON Not Available Start: 05-25-2023 End: 05-25-2023 ambulatory Usha Meek DO Work Phone: NEUROLOGY Comment on above: 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 aura and without status migrainosus (Primary Dx); Pressure in head; Chronic daily headache Start: 05-25-2023 End: 05-25-2023 Telemedicine consultation with patient Usha Meek DO Work Phone: [facility] Start: 05-21-2023 ambulatory Alejandro Varner acility:[facility] Start: 05-20-2023 End: 05-20-2023 Patient encounter procedure FRUIT DISTRIBUTOR-C Margaret Munguia Work Phone: [facility] [address] [place] Work Phone: Start: 05-20-2023 End: 05-20-2023 ambulatory FRUIT DISTRIBUTOR-C Margaret Munguia Work Phone: [facility] Work Phone: Start: 03-17-2023 Telephone encounter Neurology Provid er Neurology Comment on above: Received Outside Med ical Records (External referral to [facility] [place]) Start: 01-06-2023 End: 01-06-2023 ambulatory [facility] Start: 12-24-2022 ambulatory MARGARET MUNGUIA Facility: Start: 12-16-2022 Encounter for preprocedural cardiovascular examination MARGARET KRISTIE [facility] Start: 12-15-2022 End: 12-16-2022 ambulatory MARGARET MUNGUIA Facility:[facility] Start: 12-15-2022 End: 12-16-2022 Encounter for preprocedural cardiovascular examination MARGARET MUNGUIA Facility:[facility] Start: 12-07-2022 End: 12-08-2022 ambulatory MARGRAET MUNGUIA Facility:[facility] Start: 12-01-2022 End: 12-02-2022 ambulatory MARGARET KRISTIE Facility:[facility] Start: 11-26-2022 Encounter for other preprocedural examination MARGARET CHAUHANMER [facility] Start: 11-23-2022 End: 11-24-2022 ambulatory MARGARET MUNGUIA Facility:[facility] Start: 11-23-2022 End: 11-24-2022 Encounter for other preprocedural examination MARGARET MUNGUIA Facility:[facility] Start: 11-11-2022 ambulatory MARGARET MUNGUIA Facility: [facility] Start: 11-08-2022 Encounter for preprocedural cardiovascular examination DR NINFA ROMERO . [facility] Start: 11-08-2022 Encounter for preprocedural laboratory examination DR NINFA ROMERO . [facility] [facility] Start: 11-08-2022 Encounter for preprocedural respiratory examination DR NINFA ROMERO . [facility] Start: 11-02-2022 End: 11-03-2022 ambulatory MARGARET [...] Clinician Start: 05-20-2023 XR pre/post mri xray [employer] DIST[employer]OR -C Margaret Munguia Work Phone: Start: 05-20-2023 MRI of cervical spin e without contrast FRUIT DISTRIBUTOR-C Margaret Kristie Work Phone: Plan of Treatment Date Care Activity Detail Author Start: 03-26-2024 Influenza vaccination [facility] Start: 03-09-2024 End: 03-09-2024 Patient encounter procedure 03/09/2024 8:00 AM EDT Office Visit Neurology Pain [address] [place] [address] Johan Addison DO [address] [id number] Fibromyalgia Neurology Pain Comment on above: Fibromyalgia Start: 03-26-2023 Covid-19 Vaccine ( season) Covid-19 Vaccine ( season) [facility] Start: 03-26-2023 Influenza vaccination Influenza Vacc ine (#1) [facility] Start: 07-26-2022 Depression Assessment Depression Ass essment [facility] Start: 2016 HPV Testing HPV Testing [facility] Start: 2016 Screening for malign ant neoplasm of cervix HPV Testing [facility] Start: 2007 Pap Testing Pap Testing [facility] Start: 2007 Screening for malign ant neoplasm of cervix [facility] Start: 2005 Hepatitis B Vaccine (1 of 3 - 19+ 3-dose series) Hepatitis B Vaccine (1 of 3 - 19+ 3-dose series) [facility] Start: 2005 Urine microalbumin profile DTaP,Tdap,Td Vaccine (1 - Tdap) [facility] Start: 2004 Hepatitis C Screening Hepatitis C [facility] Start: 2004 Hepatitis C screening Hepatitis C [facility] Start: 2004 HIV Screening HIV Screening [facility] Start: 2004 HIV screening HIV Screening [facility] Start: 1986 Hepatitis B Vaccine (1 of 3 - 3-dose series) Hepatitis B Vaccine (1 of 3 - 3-dose series) [facility] Immunizations Immunization Date Immunization Notes Care Provider Fa cility 05-06-2022 influenza virus vacc ine, unspecified formulation Usha Bucklan DO Work Phone: [facility] Payers Date Payer Category Payer Medicare 2022 Medicaid [employer] [id number] 2022-Present [phone] [address] [place] [address] Medicaid [id number] 2022 Unknown MMO MMO CHRIS [id number] 2022-Present [phone] [address] [address] [place] [address] PPO [id number] 2022 Unknown [id number] 2020 Medicare [id number] 1986 Unknown [id number] 2.16.840.1.470779.3.579.2.593 1986 Unknown [id number] 2.16.840.1.167272.3.579.2.593 1986 Unknown [id number] 2.16.840.1.980335.3.579.2.593 1986 Unknown [id number] 2.16.840.1.782627.3.579.2.593 1986 Unknown [id number] 2.16.840.1.111759.3.579.2.593 1986 Unknown [id number] 2.16.840.1.410354.3.579.2.593 1986 Unknown [id number] 2.16.840.1.775324.3.579.2.593 1986 Unknown [id number] 2.16.840.1.574630.3.579.2.593 1986 Unknown [id number] 2.16.840.1.424842.3.579.2.593 1986 Unknown [id number] 2.16.840.1.398389.3.579.2.593 1986 Unknown [id number] 2.16.840.1.303705.3.579.2.593 1986 Unknown [id number] 2.16.840.1.415270.3.579.2.593 1986 Unknown [id number] 2.16.840.1.475859.3.579.2.593 1986 Unknown [id number] 2.16.840.1.962333.3.579.2.1286 1986 Unknown [id number] 2.16.840.1.068045.3.579.2.9 1986 Unknown [id number] 2.16.840.1.165117.3.579.2.1259 1986 Unknown [id number] 2.16.840.1.632597.3.579.2.1259 1986 Unknown [id number] 2.16.840.1.390725.3.579.2.1259 1986 Unknown [id number] 2.16.840.1.747871.3.579.2.196 1986 Unknown [id number] 2.16.840.1.172315.3.579.2.196 1986 Unknown [id number] 2.16.840.1.745548.3.579.2.128 1986 Unknown [id number] 2.16.840.1.091223.3.579.2.128 1986 Unknown [id number] 2.16.840.1.244003.3.579.2.128 1986 Unknown [id number] 2.16.840.1.842822.3.579.2.128 1986 Unknown [id number] 2.16.840.1.540276.3.579.2.1286 1986 Unknown [id number] 2.16.840.1.698080.3.579.2.1286 1959 Self-pay 1959 Unknown [id number] 1959 Unknown [id number] Unknown [id number] 2.16.840.1.553193.3.579.2.531 Social History Date Type Detail Facility Tobacco smoking stat [facility] Tobacco smoking consumption unknown [facility] Start: 1986 Sex Assigned At Not on file [facility] Start: 05-25-2023 End: 02-07-2024 Gender identity Not on file [facility] Start: 1985 Sex Assigned At Female F [facility] Start: 05-25-2023 Tobacco smoking stat [facility] Never smoked tobacco [facility] Work Phone: Start: 05-25-2023 Tobacco use and exposure Smokeless tobacco non-user [facility] Work Phone: Start: 05-25-2023 End: 02-07-2024 Alcohol intake Ex-drinker (finding) [facility] Start: 05-25-2023 End: 02-07-2024 History of Social function [facility] Adult Depression Screening Assessment 6 [facility] Clinical Notes 01-06-2023 to 02-07-2024 Telephone Encounter - Melecio Martinez RN - 02/07/2024 2:10 PM EDTTelephone Encounter - Melecio Martinez RN - 02/07/2024 2:10 PM Sarbjit Hagan APRN.MACIE - 02/07/2024 1:04 PM EDT Note Date & Type Note Facility 02-07-2024 Telephone encounter Note Botox referral sent to pharmacy Tyron HANCOCK RN Clinical Screening Representative [facility] Headache [facility] 02-07-2024 Miscellaneous Notes Botox referral sent to pharmacy Tyron HANCOCK RN Clinical Screening Representative [facility] Headache [facility] documented in this encounter [facility] 02-07-2024 Note HNO ID: [id number] Author: SARBJIT MCKEON APRN.MACIE Service: ? Author Type: Nurse Practitioner Type: Progress Notes Filed: 02/07/2024 13:33 Note Text: Headache Center - Follow up Virtual Visit This visit was conducted as a virtual visit, with patient's permission, via Zoom. Patient location - [place] Radha García was identified by name and [...] visit. Either the patient or their legal career services representative has been informed of the risks and benefits of -- and alternatives to -- treatment through a remote evaluation and consents to proceed with the evaluation remotely. Accompanied by: Self Primary Problem List: There is no problem list on file for this patient. Chief Complaint: headaches Impression and Plan from last visit 08/03/2023, me: IMPRESSION: 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 aura and without status migrainosus (primary encounter diagnosis) Chronic daily headache Pressure in head Radha García is a 38 year old year old female, with a history of MDD, anxiety, ADHD, AISHA (not compliant with CPAP), morbid obesity, fibromyalgia, morphea, and headaches most c/w chronic migraine. She had increased opening pressure on LP (28) which raised concern for IIH, however headaches not characteristic, never had papilledema, no evidence of increased pressure on MRI. Minimal improvement with Topamax 100 qhs but tolerating well. Their neurological examination is essentially normal at this visit although this is limited due to nature of telehealth. Interval Headache History: Radha García is a 38 year old year old female, with a history of MDD, anxiety, ADHD, AISHA (not compliant with CPAP), morbid obesity, fibromyalgia, morphea, and headaches most consistent with chronic migraine following up today virtually for headaches. Since the last visit, the patient states that their headaches have improved slightly. Still really bad, but feels that metoprolol has helped a little. Stopped meds for a few weeks to a month when she was having trouble getting refills, and didn't notice much difference with stopping topamax. But did notice a difference when she stopped metoprolol, and feels it has helped her BP too. She has tried botox with her local neuro, two treatment and injections were only in the back of her head. Headache 1 Onset: - pressure in eyes [...] activity: yes Number of migraine headache days/month: 30 Number of NON-migraine headache days/month: 15 Total Number of headache days/month: 45 Number of headache free days/month: 0 Current preventive treatment: topamax 100 mg qhs, lamictal 200, gabapentin 400 tid Current abortive treatment: naproxen Positional changes: no Most common time of day for headache to begin: anytime Prodrome: none Aura: none Allodynia: no Days missed from work or school in the last month: 30 days Lifestyle: Sleep: AISHA not compliant with [...] Corticosteroids (Gl* Other: See Comments Current Medications: metoprolol succinate ER (TOPROL XL) 50 mg 24 hr tablet Take 1 tablet by mouth once daily. topiramate (TOPAMAX) 100 mg tablet Take 1 tablet by mouth daily at bedtime. FLUoxetine (PROZAC) 40 mg capsule Take 40 mg by mouth once daily. gabapentin (NEURONTIN) 400 mg capsule Take 400 mg by mouth three times a day. lamoTRIgine (LAMIC (more content not included)... [facility] 02-07-2024 History of Presen t illness Narrative Images from the original note were not included. Headache Center - Follow up Virtual Visit This visit was conducted as a virtual visit, with patient's permission, via Zoom. Patient location - [place] García was identified by name and and [...] visit. Either the patient or their legal career services representative has been informed of the risks and benefits of -- and alternatives to -- treatment through a remote evaluation and consents to proceed with the evaluation remotely. Accompanied by: Self Primary Problem List: There is no problem list on file for this patient. Chief Complaint: headaches Impression and Plan from last visit 08/03/2023, me: IMPRESSION: 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 aura and without status migrainosus (primary encounter diagnosis) Chronic daily headache Pressure in head Radha García is a 38 year old year old female, with a history of MDD, anxiety, ADHD, AISHA (not compliant with CPAP), morbid obesity, fibromyalgia, morphea, and headaches most c/w chronic migraine. She had increased opening pressure on LP (28) which raised concern for IIH, however headaches not characteristic, never had papilledema, no evidence of increased pressure on MRI. Minimal improvement with Topamax 100 qhs but tolerating well. Their neurological examination is essentially normal at this visit although this is limited due to nature of telehealth. Interval Headache History: Radha García is a 38 year old year old female, with a history of MDD, anxiety, ADHD, AISHA (not compliant with CPAP), morbid obesity, fibromyalgia, morphea, and headaches most consistent with chronic migraine following up today virtually for headaches. Since the last visit, the patient states that their headaches have improved slightly. Still really bad, but feels that metoprolol has helped a little. Stopped meds for a few weeks to a month when she was having trouble getting refills, and didn't notice much difference with stopping topamax. But did notice a difference when she stopped metoprolol, and feels it has helped her BP too. She has tried botox with her local neuro, two treatment and injections were only in the back of her head. Headache 1 Onset: - pressure in eyes [...] activity: yes Number of migraine headache days/month: 30 Number of NON-migraine headache days/month: 15 Total Number of headache days/month: 45 Number of headache free days/month: 0 Current preventive treatment: topamax 100 mg qhs, lamictal 200, gabapentin 400 tid Current abortive treatment: naproxen Positional changes: no Most common time of day for headache to begin: anytime Prodrome: none Aura: none Allodynia: no Days missed from work or school in the last month: 30 days Lifestyle: Sleep: AISHA not compliant with [...] Corticosteroids (Gl* Other: See Comments Current Medications: metoprolol succinate ER (TOPROL XL) 50 mg 24 hr tablet Take 1 tablet by mouth once daily. topiramate (TOPAMAX) 100 mg tablet Take 1 tablet by mouth daily at bedtime. FLUoxetine (PROZAC) 40 mg capsule Take 40 mg by mouth once daily. gabapentin (NEURONTIN) 400 mg capsule Take 400 mg by mouth three times a day. lamoTRIgine (LAMICTAL) 100 mg tablet Take 100 mg by mouth once daily. I have reviewed the Health Status Assessment responses and discussed these with the patient: yes Sarbjit Mckeon APRN.PHOTO EQUIPMENT TECHNICIAN HEADACHE SCORES: 05/25/2023 08/02/2023 02/07/2024 Headache Questions ID Migraine Screener: 3 (Positive) ER visits in the last year: 1 ER visits since last office visit: 1 Hospital stays in the last year: 1 Hospital stays since last office visit 1 Limited ADLs in the last month: 3 15 30 Days missed from work or school in the last month: 0 30 Days headache pain free in the last month: 5 0 0 Days per month with ALL of the following symptoms - decreased productivity, light sensitivity and nausea: 5 15 30 Initial improvement of headache after botox injection at last visit: Not applicable, I did not have a botox injection at my last visit Not applicable, I did not have a botox injection at my last visit PRN medication usage in the last month: 25 30 Patient impression of improvement since last visit: Minimally improved Much worse 05/25/2023 08/02/2023 02/07/2024 HIT-6 HIT-6 66 (Severe impact) 66 (Severe impact) 68 (Severe impact) 05/25/2023 08/02/2023 02/07/2024 EULALIA - 2/7 SCORES EULALIA-2 Score 6 4 6 EULALIA-7 Score 21 15 18 05/25/2023 08/02/2023 02/07/2024 Migraine Specific QOL - Higher scores indicate better HRQL Role Function-Restrictive Transformed Score (range: 0-100) 0 37.14 22.86 Role Function-Preventive Transformed Score (range: 0-100) 0 40 20 Emotional Function Transformed Score (range: 0-100) 0 0 20 05/25/2023 08/02/2023 02/07/2024 PHQ-9 Score 22 18 22 Studies to Review: No MRI Head/Brain - Last 2 Impressions No resulted procedures found. MRA Head and/or Neck - Last 2 Impressions No resulted procedures found. MRI Cervical Spine - Last 2 Impressions No resulted procedures found. CT Head/Brain - Last 2 Impressions No resulted procedures found. CTA Head and/or Neck - Last 2 No resulted procedures found. Labs to Review: No - Most recent CMP and CBC below No data to display No data to display Review of Systems: Review of system: unchanged from the previous visit (sleep patterns, mood, energy, appetite, stress, exercising). Physical Examination: Vital Signs: No vital signs taken for this visit due to nature of virtual visit. General: well appearing, in no acute distress, alert Pain Behaviors: no pain behaviors observed Neurological: Mental Status: Alert and oriented to person, place and time. Affect is normal. Speech is spontaneous and fluent without dysarthria. Short and penitentiary memory, cognition and general fund of knowledge are good. Attention span and concentration are excellent. HEENT: Head is normocephalic and features were symmetric. Musculoskeletal: Patient able to sit up right in chair for entirety of visit. Cranial Nerves: III, IV, -EOMI: full. VII-face is symmetric without evidence of weakness. VIII-hearing intact. IMPRESSION: 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 aura and without status migrainosus (primary encounter diagnosis) Chronic daily headache Pressure in head Radha García is a 38 year old year old female, with a history of MDD, anxiety, ADHD, AISHA (not compliant with CPAP), morbid obesity, fibromyalgia, morphea, and chronic migraine. She has tried and failed many po medications. Their neurological examination is essentially normal at this visit although this is limited due to nature of telehealth. PLAN: Stop topamax Increase metoprolol 25 --> 50 daily Start trial botox per PREEMPT protocol Prior Authorization: We will get a precert for Onabotulinum Toxin A using the PREEMPT protocol. This patient meets FDA criteria for Chronic Migraine without aura, with mention of intractable migraine, so stated, without mention of status migrainosus. The migraine lasts for greater than 4 hours and has been chronic for more than three months. Onabotulinum Toxin A is FDA approved for chronic migraine. Her headaches are associated with photophobia, phonophobia, nausea for three or more months. Patient will not use in conjunction with CGRP preventive medications. Medication overuse, alternate diagnosis, confounding psychiatric or social stresses have been ruled out as the cause of headaches. Severity: moderate to severe Quality: throbbing Migraine days a month: 30 Headache days a month: 0 Total Headache days a month: 30 Headache free days a month: 0 The following preventative medications have been tried for at least three months without benefit or discontinued due to side effects: Anti-Convulsant Gabapentin (Neurontin) Anti-Depressant and Antipsychotic Fluoxetine (Prozac) vraylar MABs Fremanezumab (Ajovy) 3 months The following abortive medications have been tried but require high frequency use which can lead to Medication Overuse Headache: Anti-Anxiety Alprazolam (Xanax, Niravam) Clonazepam (Klonopin) Lorazepam (Ativan) Over the Counter Medications Naproxen sodium (Aleve) The patient has been assessed for disorders which could contribute to breathing or swallowing difficulty, and there is no contraindication with PREEMPT Botox. There is no documented allergic reaction/hypersensitivity to any botulinum toxin and there is no active infection at proposed injection site HEADACHE MANAGEMENT: (You are the primary guardian of your health and headache. Keep track of all medications: This includes the reason for use, side effects and benefits.) MEDICATION TREATMENT: Medications to Start Taking metoprolol succinate ER (TOPROL XL) 50 mg 24 hr tablet Take 1 tablet by mouth once daily. Follow-up: for BOTOX Level of Service: Virtual Visit 30 minutes Sarbjit Mckeon APRN.CNP Headache Section [facility] February 07, 2024 documented in this encounter [facility] 12-15-2023 Telephone encounter Note The following approved medication requests have been transmitted electronically. Requested Prescriptions Signed Prescriptions Disp Refills metoprolol succinate ER (TOPROL XL) 25 mg 24 hr tablet 90 tablet 1 Sig: take 1 tablet by mouth every day Authorizing Provider: SARBJIT MCKEON APRN.PHOTO EQUIPMENT TECHNICIAN [facility] 12-15-2023 Miscellaneous Notes The following approved medication requests have been transmitted electronically. Requested Prescriptions Signed Prescriptions Disp Refills metoprolol succinate ER (TOPROL XL) 25 mg 24 hr tablet 90 tablet 1 Sig: take 1 tablet by mouth every day Authorizing Provider: SARBJIT MCKEON APRN.PHOTO EQUIPMENT TECHNICIAN Images from the original note were not included. Prescription pended to requested pharmacy and forwarded to provider for review. [facility] Refill Checklist [id number]/15/2023 12:48 AM Protocol Details Serum Creatinine within the last 12 months Blood pressure within the last 12 months Visit with provider within the last 12 months VIN: 08/03/23 NOV: not scheduled Last prescribed: 4 months ago (08/03/2023) by Sarbjit Mckeon APRN.PHOTO EQUIPMENT TECHNICIAN documented in this encounter [facility] 12-15-2023 Telephone encounter Note Images from the original note were not included. Prescription pended to requested pharmacy and forwarded to provider for review. Beta Geo Refill Checklist [id number]/15/2023 12:48 AM Protocol Details Serum Creatinine within the last 12 months Blood pressure within the last 12 months Visit with provider within the last 12 months VIN: 08/03/23 NOV: not scheduled Last prescribed: 4 months ago (08/03/2023) by Sarbjit Mckeon APRN.PHOTO EQUIPMENT TECHNICIAN [facility] 12-08-2023 Telephone encounter Note The following approved medication requests have been transmitted electronically. Requested Prescriptions Signed Prescriptions Disp Refills topiramate (TOPAMAX) 100 mg tablet 30 tablet 5 Sig: Take 1 tablet by mouth daily at bedtime. Authorizing Provider: SARBJIT MCKEON APRN.CNP [facility] 12-08-2023 Miscellaneous Notes The following approved [...] mouth daily at bedtime. [facility] documented in this encounter [facility] 12-06-2023 Telephone encounter Note Physician: Jay Call from patient requesting refill. Please E-Scribe Last office visit 08/03/23 with Jay virtual Next office visit Not scheduled. Requested Prescriptions Pending Prescriptions Disp Refills topiramate (TOPAMAX) 100 mg tablet 30 tablet 3 Sig: Take 1 tablet by mouth daily at bedtime. [facility]: [facility] 08-03-2023 Note HNO ID: [id number] Author: SARBJIT MCKEON APRN.CNP Service: ? Author [...] visit. Either the patient or their legal career services representative has been informed of the risks [...] Take 100 mg (more content not included)... [facility] 05-25-2023 History of Presen t illness Narrative Headache Section [facility] Virtual Visit New Encounter I have communicated my name and active licensure. The patient's identity and physical location were verified at the time of this visit. Either the patient or their legal career services representative has been informed of the risks and benefits of -- and alternatives to -- treatment through a remote evaluation and consents to proceed with the evaluation remotely. May 25, 2023 CC: Headache History: Radha García is a 38 year old year old, right-handed woman who is referred in consultation by Dr. Kaylee Hutton DO (neuro in [place], [place]) for an opinion regarding benign intracranial [...] Arcadio Severino NP (behavioral health clinic in [place], [place]), on Vraylar, klonopin, lamictal, prozac Tobacco: [...] clear, coherent, and relevant. Short and watermelon inspector memory, cognition and general fund of knowledge [...] rapid alternating movements. I have reviewed the [place] Status Assessment responses and discussed these with [...] which included preparing to see the patient, [id number] patient care, completing clinical documentation, obtaining and/or [...] Board Certified Staff, [facility] [employer]zer Operator of Neurology with [facility] [address] Office: [phone] documented in this encounter [facility] 05-25-2023 Note HNO ID: [id number] Author: Usha Meek DO Service: ? Author Type: Physician Type: Progress Notes Filed: 05/25/2023 9:50 AM Note Text: Headache Section [facility] Virtual Visit New Encounter I have communicated my name and active licensure. The patient's identity and physical location were verified at the time of this visit. Either the patient or their legal career services representative has been informed of the risks and benefits of -- and alternatives to -- treatment through a remote evaluation and consents to proceed with the evaluation remotely. May 25, 2023 CC: Headache History: Radha García is a 38 year old year old, right-handed woman who is referred in consultation by Dr. Kaylee Hutton DO (neuro in [place], [place]) for an opinion regarding benign intracranial [...] Arcadio Severino NP (behavioral health clinic in [place], [place]), on Vraylar, klonopin, lamictal, prozac Tobacco: [...] Migraine Screener: 3 (more content not included)... [facility] 03-17-2023 Miscellaneous Notes Referral source: Dr. Kaylee Hutton ([facility] [place], [place], [place]) Reason: benign intracranial hypertension, chronic tension-type headache, pseudotumor cerebrei External records on file. documented in this encounter [facility] 01-06-2023 Note Cardiovascular Medic ine [facility] SUBJECTIVE Chief Complaint Patient presents with New Patient abnormal stress kristie referral saw cardio in [place] not sure of name ABHIJIT Radha García [...] has chronic lightheadedness, she previously saw a industrial engineering professor in [place] without findings to explain her lightheadedness. She denies syncope, acute palpitations, or worsening dyspnea on exertion. She has previously smoked marijuana but not tobacco use. No known history of diabetes, hypertension or hyperlipidemia. Her grandfather had an acute [place] in his 50s, no other known family [...] case and plan was discussed with attending industrial engineering professor Dr. Johnson. Romeo Dominguez APRN-PHOTO EQUIPMENT TECHNICIAN [facility] Evaluation note No assessment inform ation available [facility] Work Phone: Evaluation note Diagnosis 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 aura and without status migrainosus- Primary Chronic migraine without aura, with intractable migraine, so stated, without mention of status migrainosus Pressure in head Headache Chronic daily headache [facility] 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 aura and without status migrainosus Chronic migraine without aura, with intractable migraine, so stated, without mention of status migrainosus Pressure in head Headache Chronic daily headache Headache [facility] Diagnosis 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 aura and without status migrainosus- Primary Chronic migraine without aura, with intractable migraine, so stated, without mention of status migrainosus Chronic daily headache Headache Pressure in head Headache documented in this encounter [facility] Summary Purpose Family History No Family [...] headache Procedures PROVIDER ORDERED FOLLOW UP OFFICE/OUTPATIENT [facility] 60-74 MINUTES Usha Meek DO [address] [place] [address] Referral ID Status Reason Start Date Expiration Date Visits Requested Visits Authorized [id number] Pending Review PCP Requested Referral 08/03/2023 05/24/2024 1 1 Additional Source Comments INFORMATION SOURCE (unrecogn ized section and content) DATE CREATED AUTHOR 01/01/2023 [facility] DATE CREATED AUTHOR AUTHOR'S ORGANIZ ATION 01/06/2023 [facility] DATE CREATED AUTHOR AUTHOR'S ORGANIZ ATION 12/10/2023 [facility] DATE CREATED AUTHOR AUTHOR'S ORGANIZ ATION 12/17/2023 [facility] DATE CREATED AUTHOR AUTHOR'S ORGANIZ ATION 01/12/2024 [facility] DATE CREATED AUTHOR AUTHOR'S ORGANIZ ATION 01/25/2024 [facility] DATE CREATED AUTHOR AUTHOR'S ORGANIZ ATION 02/11/2024 [facility] DATE CREATED AUTHOR AUTHOR'S ORGANIZ ATION 02/11/2024 [facility] Source Comments (unrecognize d section and content) In the event this informatio n is protected by the Federal Confidentiality of Alcohol and Drug Abuse Patient Records regulations: The Federal rules restrict any use of the information to criminally investigate or prosecute any alcohol or drug abuse patient.[facility] the event this information is protected by the Federal Confidentiality of Alcohol and Drug Abuse Patient Records regulations: The Federal rules restrict any use of the information to criminally investigate or prosecute any alcohol or drug abuse patient.[facility] the event this information is protected by the Federal Confidentiality of Alcohol and Drug Abuse Patient Records regulations: The Federal rules restrict any use of the information to criminally investigate or prosecute any alcohol or drug abuse patient.[facility] the event this information is protected by the Federal Confidentiality of Alcohol and Drug Abuse Patient Records regulations: The Federal rules restrict any use of the information to criminally investigate or prosecute any alcohol or drug abuse patient.[facility] the event this information is protected by the Federal Confidentiality of Alcohol and Drug Abuse Patient Records regulations: The Federal rules restrict any use of the information to criminally investigate or prosecute any alcohol or drug abuse patient.[facility] the event this information is protected by the Federal Confidentiality of Alcohol and Drug Abuse Patient Records regulations: The Federal rules restrict any use of the information to criminally investigate or prosecute any alcohol or drug abuse patient.[facility] Reason for Visit (unrecogniz ed section and content) Reason Comments Received Outside Medical Records Externa l referral to Neurological [place] [place] Reason Comments Chronic Migraine Reason Onset Date Comments Refill Request 12/04/2023 Reason Comments Refill Request Reason Comments Migraine Reason Comments Referral Request Care Teams (unrecognized sec tion and content) Market Research Specialist Relationship Specialty Start Date End Date Maite Kruse [address] [place] [phone] PCP - General Family Medicine 03/19/21 Kaylee Hutton DO [address] [phone] [place] Referring Team Neurology 03/17/23 Team Status: Active Member Role Status Dates Margaret Munguia NP-C Primary Care Provider Active Team Status: Inactive Member Role Status Dates Kaylee Hutton , Attending Provider Active Margaret Munguia , FRUIT DISTRIBUTOR-C Primary Care Provider Active Market Research Specialist Relationship Specialty Start Date End Date Maite Kruse [address] [facility] [address] [place] [phone] PCP - General Family Medicine 03/19/21 Kaylee Hutton, DO [address] [phone] [place] Referring Team Neurology 03/17/23 Market Research Specialist Relationship Specialty Start Date End Date Maite Kruse [address] [facility] [address] [place] [phone] PCP - General Family Medicine 03/19/21 Kaylee Hutton, DO [address] [phone] [place] Referring Team Neurology 03/17/23 Market Research Specialist Relationship Specialty Start Date End Date RodrickMaite rankin [address] [facility] [address] [place] [phone] PCP - General Family Medicine 03/19/21 Kaylee Hutton, DO [address] [phone] [place] Referring Team Neurology 03/17/23 Market Research Specialist Relationship Specialty Start Date End Date Maite Kruse [address] [facility] [address] [place] [phone] PCP - General Family Medicine 03/19/21 Kaylee Hutton, DO [address] [phone] [place] Referring Team Neurology 03/17/23 Market Research Specialist Relationship Specialty Start Date End Date Maite Kruse [address] [facility] [address] [place] [phone] PCP - General Family Medicine 03/19/21 Kaylee Hutton DO [address] [place] [phone] [place] Referring Team Neurology 03/17/23 Goals (unrecognized [...] BE BASED ON THE PRIMARY CLINICAL RECORDS. [employer] provides no warranty or guarantee of the accuracy or completeness of information in this document.
--- NOTE | 2024-02-16 13:08 | XR_ITS ---
[facility] [place] [id number] Patient Name: RADHA MONTGOMERY MRN: [id number] date: 1985 Sex: F Assigned Patient Location: MRI Current Patient Location: MRI Accession/Order Number: [id number] Exam Date: 02/16/2024 13:30 Report Date: 02/16/2024 14:59 At the request of: BORIS PURCELL Procedure: XR cervical spine 5V EXAMINATION: XR cervical spine 5V HISTORY: cervical spondylosis COMPARISON: No relevant comparison available. FINDINGS: BONES: Normal alignment with no acute fracture or spondylolisthesis. DISC SPACES: Normal. No significant disc height narrowing, subluxation, or endplate abnormality. PARASPINOUS: Negative. No paraspinous abnormality is seen. OTHER: C6 and C7 are not seen on the lateral projection XR/XR cervical spine 5V IMPRESSION: Limited exam, no acute abnormality Electronically authenticated by: CRISTELA PUCKETT Date: 02/16/2024 14:59
== END 2024-02-16 12:33 | disposition home or self-care (01) ==
LOC: MRI 12:33
PROVIDERS: PCP Nurse Practitioner Family; Visit Provider Nurse Practitioner
DX: M47.812 Spondylosis without myelopathy or radiculopathy, cervical region (principal); M54.12 Radiculopathy, cervical region
CPT/HCPCS: 72050; 72141

== ENCOUNTER 2024-02-21 14:54 | Outpatient (REF) | payer OTHER, MEDICARE, SELFPAY ==
[2024-02-21 15:40] LABS: Internal Control Within Normal Limits; SARS-CoV-2 Ag NEGATIVE (NEGATIVE)
== END 2024-02-21 14:55 | disposition home or self-care (01) ==
LOC: LAB 14:54
PROVIDERS: PCP Nurse Practitioner Family; Visit Provider Nurse Practitioner Family
DX: B34.9 Viral infection, unspecified (principal)
CPT/HCPCS: 87811

== ENCOUNTER 2024-03-15 10:58 | Outpatient (OUT) | payer OTHER, MEDICARE, SELFPAY ==
--- OUTSIDE RECORDS SUMMARY | 2024-03-15 11:03 | XMS_ITS | CCD ---
Author Organization [facility] Care Team Providers Care Lion Trainer Name Role Phone KRISTIE, MARGARET Primary Care Unavailable MARTHA CASTELLANO Consulting Unavailable MARTHA CASTELLANO Attending Unavailable GRAY, MARTHA Admitting Unavailable KRISTIE, MARGARET Attending Unavailable KRISTIE, MARGARET Admitting Unavailable HOY ., DR FAY Primary Care Unavailable HEATHER ., DR OCASOI Consulting Unavailable KRISTIE, MARGARET Consulting Unavailable KRISTIE, [...] Unavailable LAZARO, DR MICHAEL Carmona Consulting Unavailable ROMEO DOMINGUEZ Attending Unavailable [facility] Primary Care Provider Kaylee Hutton DO Unavailable DO Kaylee Hutton Attending Provider KAREN Munguia Margaret Sintia Primary Care Provider [facility] Primary [facility] Provider [facility] Primary Care Provider MATT LOVE Attending Unavailable ARCADIO SEVERINO Referring Unavailable KRISTIE, MARGARET S Primary Care Unavailable Elsa HAMMER, Frank Palacios Attending Unavailable Elsa HAMMER, Frank Palacios Attending Unavailable Kristie, Margaret Sintia Primary Care Unavailable Kaylee Hutton Admitting Unavailab Kaylee Perez Attending Unavailab Alejandro Andujar Admitting Unavailab Alejandro Andujar Attending Unavailab le NON STAFF Primary Care Unavailable JR. MICA, HAYDEN Ivy Attending Unavaila angeles NINO JR., HAYDEN Ivy Attending Unavaila KAYLEE Grady Attending Unavailable JR. MICA, HAYDEN Ivy Attending Unavaila ARIANNA Benjamin Attending Unavailable ARCADIO SEVERINO Attending Unavailable KRISTIE, [...] Primary Care Unavailable ARCADIO SEVERINO Attending Unavailable MARGARET MUNGUIA Referring Unavailable MARGARET MUNGUIA S Primary Care Unavailable SARI ADDISON Attending Unavailable KAYLEE HUTTON Referring Unavailab SARBJIT Fiore Attending Unavailable SARBJIT MCKEON Attending Unavailable USHA MEEK Referring Unavailable USHA MEEK Attending Unavailable KAYLEE HUTTON Referring Unavailab le Allergies Allergy Classification Reported Allergen(s) Allergy Type Date of Onset Reaction(s) Facility (1 source) Corticosteroids Drug allergy (disorder) [facility] Repository (7 sources) Glucocorticoid preparation; Translations: [CORTICOSTEROIDS (GLUCOCORTICOIDS)] Drug Allergy 3 Other: See Comments [facility] Work Phone: Medications Current Medications Medication Drug Class(es) Dates Sig (Normalized) Sig (Original) FLUoxetine 40 mg oral capsule (6 sources) Serotonin Reuptake Inhibitor Start: 02-18-2023 End: 03-09-2024 take 1 capsule by mouth once daily FLUoxetine (PROZAC) 40 mg capsule Take 40 mg by mouth once daily. 0 02/18/2023 03/09/2024 Discontinued Comment on above: Take 40 mg by mouth once daily. gabapentin 400 mg oral capsule (6 sources) Anti-epileptic Agent Start: 03-16-2023 take 1 capsule by mouth three times daily gabapentin (NEURONTIN) 400 mg capsule Take 400 mg by mouth three times a day. 0 03/16/2023 Active Comment on above: Take 400 mg by mouth three times a day. lamoTRIgine 100 mg oral tablet (6 sources) Mood Stabilizer, Anti-epileptic Agent Start: 04-23-2023 End: 03-09-2024 take 1 tablet by mouth once daily lamoTRIgine (LAMICTAL) 100 mg tablet Take 100 mg by mouth once daily. 0 04/23/2023 03/09/2024 Discontinued Comment on above: Take 100 mg by mouth once daily. 24 hr metoprolol succinate 50 mg extended release oral tablet (7 sources) beta-Adrenergic Geo Start: 02-07-2024 take 1 [...] 10 days. topiramate 100 mg oral tablet (8 sources) Start: 12-08-2023 End: 03-09-2024 take 1 tablet by mouth once daily at bedtime topiramate (TOPAMAX) 100 mg tablet Indications: 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 aura and without status migrainosus , Pressure in head , Chronic daily headache Take 1 tablet by mouth daily at bedtime. 30 tablet 5 12/08/2023 03/09/2024 Discontinued Start: 06-15-2023 End: 12-04-2023 take 1 tablet by mouth once daily at bedtime topiramate (TOPAMAX) 100 mg tablet Indications: 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 aura and without status migrainosus , Pressure in head , Chronic daily headache Take 1 tablet by mouth daily at bedtime. 30 tablet 3 06/15/2023 12/04/2023 Discontinued Start: 06-15-2023 take 1 tablet by matthew once daily at bedtime topiramate (TOPAMAX) 100 [...] Documented Date Episodic/Chronic Anxiety disorders (3 sources) Panic disorder [episodic paroxysmal anxiety]; Translations: [Mixed obsessional thoughts and acts] Onset: 12-08-2022 Chronic Cardiac dysrhythmias (1 source) Postural orthostatic tachycardia syndrome ; Translations: [POTS (postural orthostatic tachycardia syndrome)] 03-09-2024 Chronic Contraceptive and procreative management (1 source) [...] diagnosis of hypertension] Onset: 01-06-2023 Episodic Other connective tissue disease (1 source) Fibromyalgia; Translations: [Fibromyalgia] 03-09-2024 Episodic Other female genital disorders (1 source) Abnormal uterine and vaginal bleeding, unspecified; Translations: [ABNORMAL UTERINE VAGINAL BLEED UNS] Onset: 11-08-2022 Chronic Other nervous system disorders (4 sources) Chronic pain syndrome; Translations: [CHRONIC PAIN SYNDROME] Onset: 08-17-2022 Chronic Other nervous system disorders (1 source) Chronic pain syndrome; Translations: [Chronic pain syndrome] 03-09-2024 Chronic Other nervous system disorders (1 source) Tremor; Translations: [Tremor, unspecified] 03-09-2024 Episodic Other nutritional; endocrine; and metabolic disorders (1 [...] Name Value Interpretation Reference Range Facility [facility] 03-09-2024 OV Office Visit (NPRC21 ) RADHA GARCÍA ([id number]) 1985 F [facility] Date Time Provider Department 03/09/24 8:00 AM SARI ADDISON [id number] During your visit today, we recorded the following information about you: Pulse Blood pressure Weight Height 58/minute 102/63 145.2 kg 1.626 m Sari Addison DO 03/09/2024 9:07 AM Signed [facility] March 09, 2024 Radha García is a 38 year old disabled who lives with and a son. She was referred by Kaylee Hutton DO [address] [place] [phone]. Chief complaint: chronic pain SUBJECTIVE: Patient is a 38 year old female with a PMHx of depression, anxiety, OCD, PTSD, AISHA, and fibromyalgia presenting with chronic pain. Was diagnosed with fibromyalgia 5 years ago. IIH diagnosed 3 years ago. - endorses constant chronic migraines without auras for the past 3 years. Describes a band of pressure-like pain around head. Feels pressure behind eyes. Pain radiates down neck. Currently takes diclofenac with minimal relief. Has failed topamax. - bilateral hand tremors that are intermittent and sporadically come and go - reports diffuse pain, often in the bilateral lower extremities, left arm, upper back. Notes it is a burning and achy pain. Takes gabapentin with no relief. Used to take pregabalin, with better relief than gabapentin. Pain is worse when she is laying down and staying still. -numbness in 4th and 5th digit on right hand, radiates up to right elbow. Was diagnosed with ulnar nerve lesion, cubital tunnel syndrome. - increased heart rate when she stands up from a sitting position and feels like she wants to pass out - endorses chronic fatigue Spine Red Flag Radha García has no red flag symptoms. Anesthesia: no Schizophrenia: No : No CHF: no Uncontrolled HTN: No Recent [place]: No Arrythmias: No Afib: No Hyperthyroid: No Aortic Stenosis: No Liver Failure: No Increased ICP: Yes Average pain over the last 7 days: 02/01 Previous pain treatments: physical therapy, medications, massage, injections Functional Limitations: The patient has had to reduce work hours Time spent reclining is 6 hours/day (includes time in bed, recliner, sofa, ottoman, etc.). Wellness: How would you describe your diet: Fair How many days a week do you exercise: 7 How many hours do you sleep a night: 4 Emotional Symptoms: include sadness and depression The patient has loss of interest, energy, appetite, and sleep The patient denies suicidal ideation. Non-medical stresses: None Family involvement: is supportive Allergies: Reviewed in the EMR Current Medications: Reviewed in the EMR Medical History: Reviewed in the EMR Surgical History: Reviewed in the EMR Psychiatric History: Depression, Anxiety, PTSD, Social History Tobacco Use Smoking status: Never Smokeless tobacco: Never Substance Use Topics Alcohol use: Not Currently Drug use: Not Currently Types: Marijuana Substance use: Tobacco: Reviewed in the EMR @caphe@ denies current and past significant alcohol use Drug use: Current drug use includes marijuana. Family History: Reviewed in the EMR ROS was positive for: Fatigue Headaches more than once or twice a week Back pain All of the other systems reviewed were negative. OBJECTIVE: PHYSICAL EXAM: GENERAL APPEARANCE: Well appearing, well-hydrated, well nourished and alert SKIN: Head, neck, trunk, and extremities dry, intact and without lesions NECK: negative findings: no asymmetry or scars BACK: no tenderness to percussion or palpation LUNGS: even and non-labored breathing, normal chest excursion HEART: Edema: No NEURO/PSYCH: cranial nerves 2-12 intact, speech normal, mental status intact IMAGING: Imaging reviewed ASSESSMENT: Depression Anxiety PTSD Fibromyalgia Chronic Pain Syndrome PLAN: Further evaluation: Tilt table test and Neurology re: POTS. Movement disorder re: tremors/FND? Nutrition: yes, nutrition counseling Therapies: increase daily activity Sleep: No Worklessness: No Medications: Wean gabapentin by 1 tablet every week. When on 1 tablet will contact us and we will restart Lyrica. Interventions: No Infusions: Yes, enroll in ketamine waitlist 9. Pain Psychology: Yes Review, Ask, Review: Yes Follow-up: Yes Thomas Bennett DO Attending Note I evaluated the patient and personally participated in the miranda components. I agree with the fellow/resident's findings and plan as documented and have discussed the case and management of the patient's care with the resident. Sari Addison DO I spent a total of 45 minutes on the date of the service which included preparing to see the patient, [id number] patient care, completing clinical documentation, obtaining and/or r (more content not included)... Normal [facility] Ambar 02-07-2024 [facility] Telephone (NHMNS2) RADHA GARCÍA ([id number]) 1985 F [facility] Date Time Provider Department 02/07/24 SARBJIT MCKEON NHMNS2 During your visit today, we recorded the following information about you: Melecio Martinez RN 02/07/2024 2:10 PM Signed Botox referral sent to pharmacy Tyron HANCOCK, RN Clinical Plant Associate [facility] Terry Davis 02/16/2024 10:44 AM Signed Patient has been scheduled - EC Allergies As of Date: 02/07/2024 Noted Allergy Reaction CORTICOSTEROIDS (GLUCOCORTICOIDS) 05/25/2023 14 - Other: See Comments Date Reviewed: 02/07/2024 Reviewed by: Sarbjit Mckeon APRN.SECURITY INFRASTRUCTURE ENGINEER - Fully Assessed Reason for Visit: Referral Request [124] Prescriptions as of 02/16/2024 - metoprolol succinate ER (TOPROL XL) 50 [...] [facility] Telephone (NIQ) RADHA GARCÍA ([id number]) 1985 F [facility] Date Time Provider Department 08/04/23 NEUROLOGY PROVIDER NIQ During your visit today, we recorded the following information about you: Mary Walters 08/04/2023 11:56 AM Signed Received external records from [facility] related to intracranial hypertension. Pt is following with Dr. Usha Meek. Forwarded records to her office at [phone]. Allergies As of Date: 08/04/2023 Noted Allergy Reaction CORTICOSTEROIDS (GLUCOCORTICOIDS) 05/25/2023 14 - Other: See Comments Date Reviewed: 08/03/2023 Reviewed by: Sarbjit Mckeon APRN.SECURITY INFRASTRUCTURE ENGINEER - Fully Assessed Reason for Visit: Received Outside Medical Records [3574] Cmt: Records from local neurologist Prescriptions as [...] Status:Closed by MARY WALTERS on 08/04/[address] [facility] MR cervical spine wo conon 1 MR cervical spine wo con [facility] [place] [address] MRI Report Signed Patient: Radha García MR#: [id number] : 1985 Acct:[id number] Age/Sex: 38 / F ADM Date: 05/20/23 Loc: MR Room: Type: [facility] Attending Dr: Kaylee Hutton DO Copies [...] Powell Jr., D.OEllen05/20/2023 11:29 AM Dictation Location: [place] [address] Transcribed By: [facility] 05/20/23 1129 Dictated By: Bassem Powell Jr, DO 05/20/23 1126 Signed By: 05/20/23 1129 Normal [facility] XR pre/post mri xrayon 05-20 XR pre/post mri xray [facility] [place] [address] XRay Report Signed Patient: Radha García MR#: [id number] : 1985 Acct:[id number] Age/Sex: 38 / F ADM Date: 05/20/23 Loc: MR Room: Type: [facility] Attending Dr: Kaylee Hutton DO Copies [...] Melecio Barillas M.D.05/20/2023 1:06 PM Dictation Location: [place] [address] Transcribed By: [facility] 05/20/231305 Dictated By: Melecio Barillas DO 05/20/231303 Signed By: 05/20/231305 Normal [facility] 03-17-2023 CNP Telephone (NIQ) RADHA GARCÍA ([id number]) 1985 F [facility] Date Time Provider Department 03/17/23 NEUROLOGY PROVIDER [facility] During your visit today, we recorded the following information about you: Mary Walters 03/17/2023 9:34 AM Signed Referral source: Dr. Kaylee Hutton ([facility], [place], [place]) Reason: benign intracranial hypertension, chronic tension-type headache, pseudotumor cerebrei External records on file. Allergies As of Date: 03/17/2023 (Not on File) Date Reviewed: Never Reviewed Reason for Visit: Received Outside Medical Records [0496] Cmt: External referral to [facility] Problem List As Of Date: 03/17/2023 (None) Encounter Status:Closed by MARY WALTERS on 03/17/[address] [facility] Office Visiton 01-06-2023 Follow-up visit [id number] Radha García 1985 F Date Provider Department Center 01/06/2023 [id number] DOMINGUEZ CARD [facility] No family history on file Level of Service:02881 [facility] OFFICE/OUTPATIENT NEW MODERATE MDM 45-59 MINUTES Reason for Visit and Comments: New Patient [632] - abnormal stress kristie referral saw cardio in [place] not sure of name vm Normal [facility] PROF CHEM 8 (BAS METB)on Anion gap [Moles/Vol] 12.4 mmol/L Normal [facility] Comment on above: Performed By: #### B MP #### [facility] [address] [place] [address] [address] Maame Núñez Calcium [Mass/Vol] 8.7 mg/dL Normal 8.5-10.1 [facility] Comment on above: Performed By: #### B MP #### [facility] [address] [place] [address] [address] Maame Núñez Chloride [Moles/Vol] 107 mmol/L Normal 98-107 [facility] Comment on above: Performed By: #### B MP #### [facility] [address] [place] [address] [address] Maame Núñez CO2 [Moles/Vol] 26.6 mmol/L Normal 21.0-32.0 [facility] Comment on above: Performed By: #### B MP #### [facility] [address] [place] [address] [address] Maame Núñez Creatinine [Mass/Vol] 0.61 mg/dL Normal 0.55-1.02 [facility] Comment on above: Performed By: #### B MP #### [facility] [address] [place] [address] Dr. Maame Núñez EGFR-AF KOSOVAN >60 Normal >=60 [facility] Comment on above: Performed By: #### B MP #### [facility] [address] [place] [address] [address] Maame Núñez EGFR-NON AF KOSOVAN >60 Normal >=60 [facility] Comment on above: Performed By: #### B MP #### [facility] [address] [place] [address] [address] Maame Núñez Glucose [Mass/Vol] 94 mg/dL Normal 74-106 [facility] Comment on above: Performed By: #### B MP #### [facility] [address] [place] [address] [address] Maame Núñez Potassium [Moles/Vol] 4.0 mmol/L Normal 3.5-5.1 [facility] Comment on above: Performed By: #### B MP #### [facility] [address] [place] [address] [address] Maame Núñez Sodium [Moles/Vol] 142 mmol/L Normal 136-145 [facility] Comment on above: Performed By: #### B MP #### [facility] [address] [place] [address] [address] Maame Núñez Urea nitrogen [Mass/Vol] 12.0 mg/dL Normal 7.0-18.0 [facility] Comment on above: Performed By: #### B MP #### [facility] [address] [place] [address] [address] Maame Núñez Urea nitrogen/Creatinine [Mass ratio] 19.7 mg/mg Normal [facility] Comment on above: Performed By: #### B MP #### [facility] [address] [place] [address] [address] Maame Núñez XR CHEST 2 Von [...] MORENA OWENS Date: 2022-11-02 09:41 Normal [facility] COLLIN EIA W/REFLEX 9 BIOMARKE RSon 09-01-2022 COLLIN Direct Negative Normal Negative [facility] Comment on above: Performed By: #### A NARF9 #### [facility] [id number] Maame Núñez CBC AUTO DIFFon 08-17-2022 BASO # 0.0 103/ul Normal 0.0-0.1 [facility] Comment on above: Performed By: #### C BC ####[facility] [address] [place] [address]Dr. Maame Núñez Basophils/100 WBC (Bld) 0.6 % Normal 0.2-2.0 [facility] Comment on above: Performed By: #### C BC ####[facility] [address] [place], [place] [address]Dr. Maame Núñez EO # 0.1 103/ul Normal 0.0-0.7 [facility] Comment on above: Performed By: #### C BC ####[facility] [address] [place], [place] [address]Dr. Angelineclemente Núñez Eosinophils/100 WBC (Bld) 1.5 % Normal 0.9-7.0 [facility] Comment on above: Performed By: #### C BC ####[facility] [address] [place], [place] [address]Dr. Maame Núñez Erythrocyte distribution width (RBC) [Ratio] 13.0 % Normal 11.0-15.0 [facility] Comment on above: Performed By: #### C BC ####[facility] [address] [place], [place] [address]Dr. Angelineclemente Núñez Hematocrit (Bld) [Volume fraction] 39.3 % Normal 36.0-48.0 [facility] Comment on above: Performed By: #### C BC ####[facility] [address] [place], [place] [address]Dr. Maame Núñez Hemoglobin (Bld) [Mass/Vol] 13.6 g/dL Normal 12.0-16.0 [facility] Comment on above: Performed By: #### C BC ####[facility] [address] [place], [place] [address]Dr. Maame Núñez IG # 0.02 10e3/ul Normal 0.00-0.03 [facility] Comment on above: Performed By: #### C BC ####[facility] [address] [place], [place] [address]Dr. Maame Núñez IG % 0.3 % Normal 0.0-0.5 [facility] Comment on above: Performed By: #### C BC ####[facility] [address] [place], [place] [address]DrEllen Núñez LYMPH # 2.1 103/ul Normal 1.2-3.8 [facility] Comment on above: Performed By: #### C BC ####[facility] [address] [place] [id number] Núñez Lymphocytes/100 WBC (Bld) 31.5 % Normal 20.5-60.0 [facility] Comment on above: Performed By: #### C BC ####[facility] [address] [place], [place] [address]DrEllen Núñez MANUAL DIFF REQ NO Normal [facility] Comment on above: Performed By: #### C BC ####[facility] [address] [place] [address]DrEllen Núñez MCH (RBC) [Entitic mass] 28.4 pg Normal 26.7-34.0 [facility] Comment on above: Performed By: #### C BC ####[facility] [address] [place], [place] [address]DrEllen Núñez MCHC (RBC) [Mass/Vol] 34.6 g/dL Normal 29.9-35.2 [facility] Comment on above: Performed By: #### C BC ####[facility] [address] [place], [place] [address]DrEllen Núñez MCV (RBC) [Entitic vol] 82.0 fL Normal 81.0-99.0 [facility] Comment on above: Performed By: #### C BC ####[facility] [address] [place], [place] [address]DrEllen Núñez MONO # 0.5 103/ul Normal 0.3-0.8 [facility] Comment on above: Performed By: #### C BC ####[facility] [address] [place], [place] [address]DrEllen Núñez Monocytes/100 WBC (Bld) 7.0 % Normal 1.7-12.0 [facility] Comment on above: Performed By: #### C BC ####[facility] [address] [place], [place] [address]DrEllen Núñez NEUT # 3.9 103/ul Normal 1.4-6.5 [facility] Comment on above: Performed By: #### C BC ####[facility] [address] [place] [address]Dr. Maame Núñez Neutrophils/100 WBC (Bld) 59.1 % Normal 43.0-75.0 [facility] Comment on above: Performed By: #### C BC ####[facility] [address] [place] [address]Dr. Angelineclemente Wilton Platelet mean volume (Bld) [Entitic vol] 9.9 fL Normal 9.5-13.5 [facility] Comment on above: Performed By: #### C BC ####[facility] [address] [place] [address]Dr. Maame Núñez PLT 242 103/ul Normal 150-450 [facility] Comment on above: Performed By: #### C BC ####[facility] [address] [place] [address]Dr. Maame Wilton RBC 4.79 106/ul Normal 4.20-5.40 [facility] Comment on above: Performed By: #### C BC ####[facility] [address] [place] [address]Dr. Maame Wilton WBC 6.5 103/ul Normal 4.0-11.0 [facility] Comment on above: Performed By: #### C BC ####[facility] [address] [place] [address]Dr. Maame Núñez CPKon 08-17-2022 CK [Catalytic activity/Vol] 82 U/L Normal 26-192 [facility] Comment on above: Performed By: #### M YO, CK #### [facility] [address] [place] [address] Dr. Maame Núñez FREE T4on 08-17-2022 Free T4 [Mass/Vol] 0.99 ng/dL Normal 0.76-1.46 [facility] Comment on above: Performed By: #### F T4 #### [facility] [address] [place] [address] Dr. Maame Núñez GLYCOHEMOGLOBIN A1Con 2022 ADA RECOMMENDATION SEE BELOW Normal [facility] Comment on above: Result Comment: ADA RECOMMENDED LIMIT 4.0 - 6.0 ADA THERAPEUTIC TARGET < 7.0 ACTION SUGGESTED > 7.0 Performed By: #### A 1C #### [facility] [address] [place] [address] [address] Maame Núñez Glucose [Mass/Vol] 103 mg/dL Normal [facility] Comment on above: Performed By: #### A 1C #### [facility] [address] [place] [address] [address] Maame Núñez HbA1c (Bld) [Mass fraction] 5.2 % Normal 4.5-6.2 [facility] Comment on above: Performed By: #### A 1C #### [facility] [address] [place] [address] Dr. Maame Núñez MYOGLOBINon 08-17-2022 LILLIAM 46 ng/mL Normal 9-82 [facility] Comment on above: Performed By: #### M YO, CK #### [facility] [address] [place] [address] Dr. Maame Núñez PREG QUANT HCGon 08-17-2022 HCG QUANT 1 mIU/mL Normal [facility] Comment on above: Performed By: #### T SH, PREGQNT #### [facility] [address] [place] [address] Dr. Maame Núñez HCG RANGE SEE BELOW Normal [facility] Comment on above: Result Comment: 5-50 0.2-1 WEEK 50-500 1-2 WEEKS 100-5,000 2-3 WEEKS 500-10,000 3-4 WEEKS 1,000-50,000 4-5 WEEKS 10,000-100,000 5-6 WEEKS 15,000-200,000 6-8 WEEKS 10,000-100,000 2-3 MONTHS Performed By: #### T SH, PREGQNT #### [facility] [address] [place] [address] Dr. Maame Núñez TSHon 08-17-2022 TSH 1.027 uIU/mL Normal 0.358-3.740 [facility] Comment on above: Performed By: #### T SH, PREGQNT #### [facility] [address] [address] [address] Maame Núñez US PELVIS AND TRANSVAGon [...] by: MICHAEL WILLIS Date: 2022-08-17 14:30 Normal [facility] Vital Signs Date Time Vital Sign Value Performing Clinician Autumn alan 03-09-2024 07:44-0400 Body height 162.6 cm [facility] Work Phone: [facility] 03-09-2024 07:44-0400 Body mass index (BMI) [Ratio] 54.93 kg/m2 [employer] DO Work Phone: [facility] 03-09-2024 07:44-0400 Body weight 145.15 kg [employer] DO Work Phone: [facility] 03-09-2024 07:44-0400 Diastolic blood pressure 63 mm[Hg] [employer] DO Work Phone: [facility] 03-09-2024 07:44-0400 Heart rate 58 /min [facility] Work Phone: [facility] 03-09-2024 07:44-0400 SaO2% (BldA) [Mass fraction] 96 % Sari Addison DO Work Phone: [facility] 03-09-2024 07:44-0400 Systolic blood pressure 102 mm[Hg] Sari Addison DO Work Phone: [facility] 05-25-2023 09:19-0400 Body height 160 cm Usha Meek DO Work Phone: [facility] 05-25-2023 09:19040 Body weight 145.15 kg Usha Meek DO Work Phone: [facility] Encounters Encounter Date Encounter Type Care Provider Facility Start: 03-09-2024 End: 03-09-2024 ambulatory SARI ADDISON Facility:[facility] Start: 03-09-2024 End: 03-09-2024 Patient encounter procedure Sari Addison DO Work Phone: Neurology Pain Comment on above: Chronic pain syndrom e (Primary Dx); Fibromyalgia; POTS (postural orthostatic tachycardia syndrome); Tremors of nervous system Start: 03-02-2024 End: 03-02-2024 [facility] Start: 03-01-2024 End: 03-01-2024 ambulatory HAYDEN HERNDON Not Available Start: 02-07-2024 Telephone encounter Sarbjit Mckeon APRN.CNP Work Phone: Neurology Comment on above: Referral Request Start: 02-07-2024 End: 02-07-2024 ambulatory Sarbjit Mckeon APRN.SECURITY INFRASTRUCTURE ENGINEER Work Phone: Neurology Headache [facility] Comment on above: 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 aura and without status migrainosus (Primary Dx); Chronic daily headache; Pressure in head Start: 02-07-2024 End: 02-07-2024 Telemedicine consultation with patient Sarbjit Mckeon APRN.SECURITY INFRASTRUCTURE ENGINEER Work Phone: Neurology Headache [facility] Start: 01-24-2024 End: 01-24-2024 ambulatory [facility] Start: 01-03-2024 End: 01-03-2024 ambulatory Frank Hunter MD Facility:[facility]3]ue Start: 12-29-2023 End: 12-29-2023 ambulatory [facility] Start: 12-15-2023 Refill Sarbjit DelgadoSECURITY INFRASTRUCTURE ENGINEER Work Phone: Neurology [facility] Comment on above: Refill Request Start: 12-15-2023 End: 12-15-2023 ambulatory KAYLEE CAMPAETT Not Available Start: 12-08-2023 End: 12-08-2023 ambulatory MATT LOVE [facility] Ambulatory [facility] Start: 12-04-2023 Refill Usha Meek DO Work Phone: NEUROLOGY Comment on above: Refill Request Start: 12-03-2023 End: 12-03-2023 ambulatory HAYDEN HERNDON Not Available Start: 11-29-2023 End: 11-29-2023 ambulatory [facility] Start: 11-08-2023 End: 11-08-2023 ambulatory Frank Hunter MD [facility] Start: 10-13-2023 End: 10-13-2023 ambulatory [facility] Start: 10-11-2023 End: 10-11-2023 ambulatory HAYDEN HERNDON Not Available Start: 09-13-2023 End: 09-13-2023 ambulatory [facility] Start: 08-16-2023 End: 08-16-2023 ambulatory [facility] Start: 08-03-2023 End: 08-03-2023 ambulatory SARBJIT MCKEON Facility:[facility] Start: 07-12-2023 End: 07-12-2023 ambulatory ARIANNA WILSON Not Available Start: 05-25-2023 End: 05-25-2023 ambulatory Usha Gaviota DO Work Phone: NEUROLOGY Comment on above: 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 aura and without status migrainosus (Primary Dx); Pressure in head; Chronic daily headache Start: 05-25-2023 End: 05-25-2023 Telemedicine consultation with patient Usha Meek DO Work Phone: [facility] Start: 05-21-2023 ambulatory Alejandro Varner acility:[facility] Start: 05-20-2023 End: 05-20-2023 Patient encounter procedure AIR COMPRESSOR ENGINEER-C Margaret Munguia Work Phone: [facility] Work Phone: Start: 05-20-2023 End: 05-20-2023 ambulatory AIR COMPRESSOR ENGINEER-C Margaret Munguia Work Phone: [facility] Work Phone: Start: 03-17-2023 Telephone encounter Neurology Provid er Neurology Comment on above: Received Outside Med ical Records (External referral to [facility]) Start: 01-06-2023 End: 01-06-2023 ambulatory [facility] Start: 12-24-2022 ambulatory MARGARET MUNGUIA Facility: [facility] Start: 12-16-2022 Encounter for preprocedural cardiovascular examination MARGARET MUNGUIA [facility] Start: 12-15-2022 End: 12-16-2022 ambulatory MARGARET MUNGUIA Facility:[facility] Start: 12-15-2022 End: 12-16-2022 Encounter for preprocedural cardiovascular examination MARGARET MUNGUIA Facility:[facility] Start: 12-07-2022 End: 12-08-2022 ambulatory MARGARET MUNGUIA Facility:[facility] Start: 12-01-2022 End: 12-02-2022 ambulatory MARGARET MUNGUIA Facility:[facility] Start: 11-26-2022 Encounter for other preprocedural examination MARGARET MUNGUIA [facility] Start: 11-23-2022 End: 11-24-2022 ambulatory MARGARET MUNGUIA Facility:[facility] Start: 11-23-2022 End: 11-24-2022 Encounter for other preprocedural examination MARGARET MUNGUIA Facility:[facility] Start: 11-11-2022 ambulatory MARGARET MUNGUIA Facility: [facility] Start: 11-08-2022 Encounter for preprocedural cardiovascular examination DR NINFA ROMERO . [facility] Start: 11-08-2022 Encounter for preprocedural laboratory examination DR NINFA ROMERO . [facility] Start: 11-08-2022 Encounter for preprocedural respiratory examination DR NINFA ROMERO . [facility] Start: 11-02-2022 End: 11-03-2022 ambulatory MARGARET [...] Clinician Start: 05-20-2023 XR pre/post mri xray AIR COMPRESSOR ENGINEER -Biju Munguia Work Phone: Start: 05-20-2023 MRI of cervical spin e without contrast AIR COMPRESSOR ENGINEER-C Margaret Munguia Work Phone: Plan of Treatment Date Care Activity Detail Author Start: 04-13-2024 End: 04-13-2024 ambulatory 04/13/2024 2:00 PM EDT [facility] [address] [place] [address] Michoacano Avilez, Therapist [address] [place] [address] Chronic pain syndrome Pain Recovery Comment on above: Chronic pain syndrom e Start: 03-26-2024 Influenza vaccination [facility] Start: 03-22-2024 End: 03-22-2024 Patient encounter procedure 03/22/2024 9:00 AM EDT Office Visit Neurology [address] [id number] Tracy Travis PA-C [address] [place] [address] botox pending 03/08 Neurology Comment on above: botox pending 03/08 Start: 03-09-2024 End: 03-09-2024 Patient encounter procedure 03/09/2024 8:00 AM EDT Office Visit Neurology Pain [address] [id number] Sari Addison DO [address] [place] [address] Fibromyalgia Neurology Pain Comment on above: Fibromyalgia Start: 03-26-2023 Covid-19 Vaccine ( season) Covid-19 Vaccine () [facility] Start: 03-26-2023 Influenza vaccination Influenza Vacc ine (#1) [facility] Start: 07-26-2022 Depression Assessment Depression Ass essment [facility] Start: 2016 HPV Testing HPV Testing [facility] Start: 2016 Screening for malign ant neoplasm of cervix HPV Testing [facility] Start: 2007 Pap Testing Pap Testing [facility] Start: 2007 Screening for malign ant neoplasm of cervix [facility] Start: 2005 Hepatitis B Vaccine (1 of 3 - 19+ 3-dose series) Hepatitis B Vaccine (1 of 3 - 19+ 3-dose series) [facility] Start: 2005 Urine microalbumin profile DTaP,Tdap,Td Vaccine (1 - Tdap) [facility] Start: 2004 Anxiety Screening Anxiety Screening [facility] Start: 2004 Depression Screening Depression Scre ening [facility] Start: 2004 Hepatitis C Screening Hepatitis C [facility] Start: 2004 Hepatitis C screening Hepatitis C [facility] Start: 2004 HIV Screening HIV Screening [facility] Start: 2004 HIV screening HIV Screening [facility] Start: 1986 Hepatitis B Vaccine (1 of 3 - 3-dose series) Hepatitis B Vaccine (1 of 3 - 3-dose series) [facility] NEURO CARDIO AUTONOM IC REFLEX W/WO TILT NEURO CARDIO AUTONOMIC REFLEX W/WO TILT Procedures Routine POTS (postural orthostatic tachycardia syndrome) Ordered: 03/09/2024 [facility] Work Phone: Comment on above: Ordered: 03/09/2024 Immunizations Immunization Date Immunization Notes Care Provider Bjorn rayo 05-06-2022 influenza virus vacc ine, unspecified formulation Usha Gaviota DOMINIQUE Work Phone: [facility] Payers Date Payer Category Payer Medicare 2022 Medicaid [employer] [facility] MED[facility] [id number] 2022-Present [phone] [address] [place] [address] Medicaid [id number] 2022 Unknown MMO MMO [employer] [id number] 2022-Present [phone] [address] [address] [place] [address] PPO [id number] 2022 Unknown [id number] 2020 Medicare [id number] 1986 Unknown [id number] 2.16.840.1.610099.3.579.2.593 1986 Unknown [id number] 2.16.840.1.083311.3.579.2.593 1986 Unknown [id number] 2.16.840.1.314249.3.579.2.593 1986 Unknown [id number] 2.16.840.1.171390.3.579.2.593 1986 Unknown [id number] 2.16.840.1.727957.3.579.2.593 1986 Unknown [id number] 2.16.840.1.751420.3.579.2.593 1986 Unknown [id number] 2.16.840.1.029710.3.579.2.593 1986 Unknown [id number] 2.16.840.1.765274.3.579.2.593 1986 Unknown [id number] 2.16.840.1.902517.3.579.2.593 1986 Unknown [id number] 2.16.840.1.891428.3.579.2.593 1986 Unknown [id number] 2.16.840.1.636292.3.579.2.593 1986 Unknown [id number] 2.16.840.1.046107.3.579.2.593 1986 Unknown [id number] 2.16.840.1.544787.3.579.2.593 1986 Unknown [id number] 2.16.840.1.158223.3.579.2.1286 1986 Unknown [id number] 2.16.840.1.672609.3.579.2.196 1986 Unknown [id number] 2.16.840.1.360962.3.579.2.196 1986 Unknown [id number] 2.16.840.1.942468.3.579.2.1259 1986 Unknown [id number] 2.16.840.1.673570.3.579.2.1259 1986 Unknown [id number] 2.16.840.1.578176.3.579.2.1259 1986 Unknown [id number] 2.16.840.1.835247.3.579.2.1259 1986 Unknown [id number] 2.16.840.1.207559.3.579.2.1259 1986 Unknown [id number] 2.16.840.1.316824.3.579.2.1286 1986 Unknown [id number] 2.16.840.1.579198.3.579.2.1286 1986 Unknown [id number] 2.16.840.1.706456.3.579.2.1286 1986 Unknown [id number] 2.16.840.1.531011.3.579.2.1286 1986 Unknown [id number] 2.16.840.1.514855.3.579.2.1286 1986 Unknown [id number] 2.16.840.1.633069.3.579.2.1286 1986 Unknown [id number] 2.16.840.1.018832.3.579.2.1286 1959 Self-pay 1959 Unknown [id number] 1959 Unknown [id number] Unknown [id number] 2.16.840.1.588389.3.579.2.531 Social History Date Type Detail [facility] Start: 1985 Sex Assigned At Not on file [facility] Start: 05-25-2023 End: 03-09-2024 Gender identity Not on file [facility] Start: 1986 Sex Assigned At Female F [facility] Start: 05-25-2023 [facility] Never [facility] tobacco [facility] Work Phone: Start: 05-25-2023 Tobacco use and exposure Smokeless tobacco non-user [facility] Work Phone: Start: 05-25-2023 End: 02-07-2024 Alcohol intake Ex-drinker (finding) [facility] Start: 05-25-2023 End: 03-09-2024 History of Social function [facility] Adult Depression Screening Assessment 6 [facility] Clinical Notes 01-06-2023 to 03-09-2024 Sari Addison DO - 03/09/2024 8:11 AM EDTTelephone Encounter - Melecio Martinez RN - 02/07/2024 2:10 PM EDTTelephone Encounter - Melecio Martinez RN - 02/07/2024 2:10 PM EDT Note Date & Type Note Facility 03-09-2024 Note HNO ID: [id number] Author: SARI ADDISON DO Service: ? Author Type: Anesthesiologist Type: Progress Notes Filed: 03/09/2024 09:07 Note Text: [facility] March 09, 2024 Radha García is a 38 year old disabled who lives with and a son. She was referred by Kaylee Hutton DO [address] [place] [id number]. Chief complaint: chronic pain SUBJECTIVE: Patient is a 38 year old female with a PMHx of depression, anxiety, OCD, PTSD, AISHA, and fibromyalgia presenting with chronic pain. Was diagnosed with fibromyalgia 5 years ago. IIH diagnosed 3 years ago. - endorses constant chronic migraines without auras for the past 3 years. Describes a band of pressure-like pain around head. Feels pressure behind eyes. Pain radiates down neck. Currently takes diclofenac with minimal relief. Has failed topamax. - bilateral hand tremors that are intermittent and sporadically come and go - reports diffuse pain, often in the bilateral lower extremities, left arm, upper back. Notes it is a burning and achy pain. Takes gabapentin with no relief. Used to take pregabalin, with better relief than gabapentin. Pain is worse when she is laying down and staying still. -numbness in 4th and 5th digit on right hand, radiates up to right elbow. Was diagnosed with ulnar nerve lesion, cubital tunnel syndrome. - increased heart rate when she stands up from a sitting position and feels like she wants to pass out - endorses chronic fatigue Spine Red Flag Radha García has no red flag symptoms. Anesthesia: no Schizophrenia: No : No CHF: no Uncontrolled HTN: No Recent [place]: No Arrythmias: No Afib: No Hyperthyroid: No Aortic Stenosis: No Liver Failure: No Increased ICP: Yes Average pain over the last 7 days: 02/01 Previous pain treatments: physical therapy, medications, massage, injections Functional Limitations: The patient has had to reduce work hours Time spent reclining is 6 hours/day (includes time in bed, recliner, sofa, ottoman, etc.). Wellness: How would you describe your diet: Fair How many days a week do you exercise: 7 How many hours do you sleep a night: 4 Emotional Symptoms: include sadness and depression The patient has loss of interest, energy, appetite, and sleep The patient denies suicidal ideation. Non-medical stresses: None Family involvement: is supportive Allergies: Reviewed in the EMR Current Medications: Reviewed in the EMR Medical History: Reviewed in the EMR Surgical History: Reviewed in the EMR Psychiatric History: Depression, Anxiety, PTSD, Social History Tobacco Use Smoking status: Never Smokeless tobacco: Never Substance Use Topics Alcohol use: Not Currently Drug use: Not Currently Types: Marijuana Substance use: Tobacco: Reviewed in the EMR @caphe@ denies current and past significant alcohol use Drug use: Current drug use includes marijuana. Family History: Reviewed in the EMR ROS was positive for: Fatigue Headaches more than once or twice a week Back pain All of the other systems reviewed were negative. OBJECTIVE: PHYSICAL EXAM: GENERAL APPEARANCE: Well appearing, well-hydrated, well nourished and alert SKIN: Head, neck, trunk, and extremities dry, intact and without lesions NECK: negative findings: no asymmetry or scars BACK: no tenderness to percussion or palpation LUNGS: even and non-labored breathing, normal chest excursion HEART: Edema: No NEURO/PSYCH: cranial nerves 2-12 intact, speech normal, mental status intact IMAGING: Imaging reviewed ASSESSMENT: Depression Anxiety PTSD Fibromyalgia Chronic Pain Syndrome PLAN: Further evaluation: Tilt table test and Neurology re: POTS. Movement disorder re: tremors/FND? Nutrition: yes, nutrition counseling Therapies: increase daily activity Sleep: No Worklessness: No Medications: Wean gabapentin by 1 tablet every week. When on 1 tablet will contact us and we will restart Lyrica. Interventions: No Infusions: Yes, enroll in ketamine waitlist 9. Pain Psychology: Yes Review, Ask, Review: Yes Follow-up: Yes Thomas Bennett DO Attending Note I evaluated the patient and personally participated in the miranda components. I agree with the fellow/resident's findings and plan as documented and have discussed the case and management of the patient's care with the resident. Sari Addison DO I spent a total of 45 minutes on the date of the service which included preparing to see the patient, [id number] patient care, completing clinical documentation, obtaining and/or reviewing separately obtained history, performing a medically appropriate examination, counseling and educating the patient/family/caregiver, and ordering medications, tests, or procedures. Important Patient Information: 1. To schedule Pain Recovery kevon (more content not included)... [facility] 03-09-2024 History of Presen t illness Narrative [facility] March 09, 2024 Radha García is a 38 year old disabled who lives with and a son. She was referred by Kaylee Hutton DO [address] [place] [id number]. Chief complaint: chronic pain SUBJECTIVE: Patient is a 38 year old female with a PMHx of depression, anxiety, OCD, PTSD, AISHA, and fibromyalgia presenting with chronic pain. Was diagnosed with fibromyalgia 5 years ago. IIH diagnosed 3 years ago. - endorses constant chronic migraines without auras for the past 3 years. Describes a band of pressure-like pain around head. Feels pressure behind eyes. Pain radiates down neck. Currently takes diclofenac with minimal relief. Has failed topamax. - bilateral hand tremors that are intermittent and sporadically come and go - reports diffuse pain, often in the bilateral lower extremities, left arm, upper back. Notes it is a burning and achy pain. Takes gabapentin with no relief. Used to take pregabalin, with better relief than gabapentin. Pain is worse when she is laying down and staying still. -numbness in 4th and 5th digit on right hand, radiates up to right elbow. Was diagnosed with ulnar nerve lesion, cubital tunnel syndrome. - increased heart rate when she stands up from a sitting position and feels like she wants to pass out - endorses chronic fatigue Spine Red Flag Radha García has no red flag symptoms. Anesthesia: no Schizophrenia: No : No CHF: no Uncontrolled HTN: No Recent [place]: No Arrythmias: No Afib: No Hyperthyroid: No Aortic Stenosis: No Liver Failure: No Increased ICP: Yes Average pain over the last 7 days: 02/01 Previous pain treatments: physical therapy, medications, massage, injections Functional Limitations: The patient has had to reduce work hours Time spent reclining is 6 hours/day (includes time in bed, recliner, sofa, ottoman, etc.). Wellness: How would you describe your diet: Fair How many days a week do you exercise: 7 How many hours do you sleep a night: 4 Emotional Symptoms: include sadness and depression The patient has loss of interest, energy, appetite, and sleep The patient denies suicidal ideation. Non-medical stresses: None Family involvement: is supportive Allergies: Reviewed in the EMR Current Medications: Reviewed in the EMR Medical History: Reviewed in the EMR Surgical History: Reviewed in the EMR Psychiatric History: Depression, Anxiety, PTSD, Social History Tobacco Use Smoking status: Never Smokeless tobacco: Never Substance Use Topics Alcohol use: Not Currently Drug use: Not Currently Types: Marijuana Substance use: Tobacco: Reviewed in the EMR @caphe@ denies current and past significant alcohol use Drug use: Current drug use includes marijuana. Family History: Reviewed in the EMR ROS was positive for: Fatigue Headaches more than once or twice a week Back pain All of the other systems reviewed were negative. OBJECTIVE: PHYSICAL EXAM: GENERAL APPEARANCE: Well appearing, well-hydrated, well nourished and alert SKIN: Head, neck, trunk, and extremities dry, intact and without lesions NECK: negative findings: no asymmetry or scars BACK: no tenderness to percussion or palpation LUNGS: even and non-labored breathing, normal chest excursion HEART: Edema: No NEURO/PSYCH: cranial nerves 2-12 intact, speech normal, mental status intact IMAGING: Imaging reviewed ASSESSMENT: Depression Anxiety PTSD Fibromyalgia Chronic Pain Syndrome PLAN: Further evaluation: Tilt table test and Neurology re: POTS. Movement disorder re: tremors/FND? Nutrition: yes, nutrition counseling Therapies: increase daily activity Sleep: No Worklessness: No Medications: Wean gabapentin by 1 tablet every week. When on 1 tablet will contact us and we will restart Lyrica. Interventions: No Infusions: Yes, enroll in ketamine waitlist 9. Pain Psychology: Yes Review, Ask, Review: Yes Follow-up: Yes Thomas Bennett DO Attending Note I evaluated the patient and personally participated in the miranda components. I agree with the fellow/resident's findings and plan as documented and have discussed the case and management of the patient's care with the resident. Sari Addison DO I spent a total of 45 minutes on the date of the service which included preparing to see the patient, [id number] patient care, completing clinical documentation, obtaining and/or reviewing separately obtained history, performing a medically appropriate examination, counseling and educating the patient/family/caregiver, and ordering medications, tests, or procedures. Important Patient Information: 1. To schedule Pain Recovery appointments or post-injection office visits, please call: [phone] 2. The nursing staff and medical assistants are an integral part of your pain recovery team and will be handling your phone calls and inquiries. 3. Your study results and treatment plan will be discussed during a follow-up appointment. If you do not have a follow-up appointment and wish to discuss any issues directly with me, please call: [phone] to set-up an appointment. 4. MyChart is best used for refill requests or yes or no questions. Anything more complicated will likely require a follow-up appointment that you can schedule by [phone]. 5. It is the practice of the Department to not fill disability or any other insurance-related forms/documentation. All of the office notes, study results, and other documentation as part of your evaluation will be available to you and to your Primary Care Physician (PCP). Use of this material to complete such forms will be at the discretion of your PCP/referring physician. 6. If you are scheduled for a ketamine infusion, you will be contacted regarding specific scheduling instructions in the future by our department. There is no need to contact our department regarding the scheduling process or your estimated wait; you will be contacted once there is an opening. documented in this encounter [facility] 02-07-2024 Telephone encounter Note Botox referral sent to pharmacy Tyron HANCOCK RN Clinical Plant Associate [facility] 02-07-2024 Miscellaneous Notes Botox referral sent to pharmacy Tyron HANCOCK, RN Clinical Plant Associate [facility] documented in this encounter [facility] 02-07-2024 Note HNO ID: [id number] Author: SARBJIT MCKEON APRN.SECURITY INFRASTRUCTURE ENGINEER Service: ? Author Type: Nurse Practitioner Type: [...] visit. Either the patient or their legal aircraft sales representative has been informed of the [...] day. lamoTRIgine (LAMIC (more content not included)... [facility] 02-07-2024 History of Presen t illness [...] visit. Either the patient or their legal aircraft sales representative has been informed of the [...] to nature of telehealth. Interval Headache History: Rahda García is a 38 year old year [...] these with the patient: yes Sarbjit Mckeon APRN.SECURITY INFRASTRUCTURE ENGINEER HEADACHE SCORES: 05/25/2023 08/02/2023 02/07/2024 Headache Questions [...] spontaneous and fluent without dysarthria. Short and care home memory, cognition and general fund of knowledge [...] 30 minutes Sarbjit Mckeon APRN.CNP Headache Section [facility] February 07, 2024 documented in this encounter [facility] 12-15-2023 Telephone encounter Note The following approved medication requests have been transmitted electronically. Requested Prescriptions Signed Prescriptions Disp Refills metoprolol succinate ER (TOPROL XL) 25 mg 24 hr tablet 90 tablet 1 Sig: take 1 tablet by mouth every day Authorizing Provider: SARBJIT MCKEON APRN.CNP [facility] 12-15-2023 Miscellaneous Notes The following approved medication requests have been transmitted electronically. Requested Prescriptions Signed Prescriptions Disp Refills metoprolol succinate ER (TOPROL XL) 25 mg 24 hr tablet 90 tablet 1 Sig: take 1 tablet by mouth every day Authorizing Provider: SARBJIT MCKEON APRN.SECURITY INFRASTRUCTURE ENGINEER Images from the original note were not included. Prescription pended to requested pharmacy and forwarded to provider for review. Beta Geo Refill Checklist [id number]/15/2023 12:48 AM Protocol Details Serum Creatinine within the last 12 months Blood pressure within the last 12 months Visit with provider within the last 12 months VIN: 08/03/23 NOV: not scheduled Last prescribed: 4 months ago (08/03/2023) by Sarbjit Mckeon APRN.SECURITY INFRASTRUCTURE ENGINEER documented in this encounter [facility] 12-15-2023 Telephone encounter Note Images from the original note were not included. Prescription pended to requested pharmacy and forwarded to provider for review. Beta Geo Refill Checklist [id number]/15/2023 12:48 AM Protocol Details Serum Creatinine within the last 12 months Blood pressure within the last 12 months Visit with provider within the last 12 months VIN: 08/03/23 NOV: not scheduled Last prescribed: 4 months ago (08/03/2023) by Sarbjit Mckeon APRN.SECURITY INFRASTRUCTURE ENGINEER [facility] 12-08-2023 Telephone encounter Note The following approved medication requests have been transmitted electronically. Requested Prescriptions Signed Prescriptions Disp Refills topiramate (TOPAMAX) 100 mg tablet 30 tablet 5 Sig: Take 1 tablet by mouth daily at bedtime. Authorizing Provider: SARBJIT MCKEON APRN.CNP [facility] 12-08-2023 Miscellaneous Notes The following approved medication [...] LEILA Tiffany Espinal documented in this encounter [facility] 12-06-2023 Telephone encounter Note Physician: Jay Call from patient requesting refill. Please E-Scribe Last office visit 08/03/23 with Jay virtual Next office visit Not scheduled. Requested Prescriptions Pending Prescriptions Disp Refills topiramate (TOPAMAX) 100 mg tablet 30 tablet 3 Sig: Take 1 tablet by mouth daily at bedtime. Pharmacy Name: LEILA Tiffany Espinal [facility] 08-03-2023 Note HNO ID: [id number] Author: SARBJIT MCKEON APRN.CNP Service: ? Author [...] visit. Either the patient or their legal aircraft sales representative has been informed of the [...] Take 100 mg (more content not included)... [facility] 05-25-2023 History of Presen t illness Narrative Headache Section [facility] Virtual Visit New Encounter I have communicated my name and active licensure. The patient's identity and physical location were verified at the time of this visit. Either the patient or their legal aircraft sales representative has been informed of the risks and benefits of -- and alternatives to -- treatment through a remote evaluation and consents to proceed with the evaluation remotely. May 25, 2023 CC: Headache History: Radha García is a 38 year old year old, right-handed woman who is referred in consultation by Dr. Kaylee Hutton DO (neuro in [place], [place]) for an opinion regarding benign intracranial [...] yes History of Syncope (last episode last [place]) Sometimes sees stars in eyes - no [...] Arcadio Severino NP (behavioral health clinic in [place], [place]), on Vraylar, klonopin, lamictal, prozac Tobacco: [...] and clear, coherent, and relevant. Short and care home memory, cognition and general fund of knowledge [...] rapid alternating movements. I have reviewed the [place] Status Assessment responses and discussed these with [...] which included preparing to see the patient, [id number] patient care, completing clinical documentation, obtaining and/or [...] Medicine/ Board Certified Staff, [facility] Neurology with [facility]/[place] [address] Office: [phone] documented in this encounter [facility] 05-25-2023 Note HNO ID: [id number] Author: Usha Meek DO Service: ? Author Type: Physician Type: Progress Notes Filed: 05/25/2023 9:50 AM Note Text: Headache Section [facility] Virtual Visit New Encounter I have communicated my name and active licensure. The patient's identity and physical location were verified at the time of this visit. Either the patient or their legal aircraft sales representative has been informed of the risks and benefits of -- and alternatives to -- treatment through a remote evaluation and consents to proceed with the evaluation remotely. May 25, 2023 CC: Headache History: Radha García is a 38 year old year old, right-handed woman who is referred in consultation by Dr. Kaylee Hutton DO (neuro in [place], [place]) for an opinion regarding benign intracranial [...] yes History of Syncope (last episode last [place]) Sometimes sees stars in eyes - no [...] Arcadio Severino NP (behavioral health clinic in [place], [place]), on Vraylar, klonopin, lamictal, prozac Tobacco: [...] Migraine Screener: 3 (more content not included)... [facility] 03-17-2023 Miscellaneous Notes Referral source: Dr. Kaylee Hutton ([facility], [place], [place]) Reason: benign intracranial hypertension, chronic tension-type headache, pseudotumor cerebrei External records on file. documented in this encounter [facility] 01-06-2023 Note Cardiovascular Medic ine [facility] Clinic SUBJECTIVE Chief Complaint Patient presents with New Patient abnormal stress kristie referral saw cardio in [place] not sure of name ABHIJIT Radha Gracía is a 37 y.o. female here as [...] has chronic lightheadedness, she previously saw a vermin exterminator in [place] without findings to explain her lightheadedness. She [...] case and plan was discussed with attending vermin exterminator Dr. Johnson. Romeo Dominguez APRN-SECURITY INFRASTRUCTURE ENGINEER [facility] Cardiovascular Medicine [facility] Evaluation note No assessment inform ation available [facility] Work Phone: Evaluation note Diagnosis 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 aura and without status migrainosus- Primary Chronic migraine without aura, with intractable migraine, so stated, without mention of status migrainosus Pressure in head Headache Chronic daily headache Headache [facility] Diagnosis 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 aura and without status migrainosus Chronic migraine without aura, with intractable migraine, so stated, without mention of status migrainosus Pressure in head Headache Chronic daily headache Headache [facility] Diagnosis 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 aura and without status migrainosus- Primary Chronic migraine without aura, with intractable migraine, so stated, without mention of status migrainosus Chronic daily headache Headache Pressure in head Headache [facility] Diagnosis Chronic pain syndrome- Primary Fibromyalgia Mylagia and myositis, unspecified POTS (postural orthostatic tachycardia syndrome) Tachycardia, unspecified Tremors of nervous system Abnormal involuntary movements documented in this encounter [facility] Summary Purpose Family History No Family History [...] headache Procedures PROVIDER ORDERED FOLLOW UP OFFICE/OUTPATIENT [facility] 60-74 MINUTES Usha Meek DO [address] [place] [address] Referral ID Status Reason Start Date Expiration Date Visits Requested Visits Authorized [id number] Pending Review PCP Requested Referral 08/03/2023 05/24/2024 1 1 Specialty Diagnoses / Procedures Referred By Contac t Referred To Contact Neurology Diagnoses Tremors of nervous system Procedures CONSULT TO NEUROLOGY OFFICE/OUTPATIENT [facility] 60 MINUTES Sari Addison DO [address] [place] [address] Referral ID Status Reason Start Date Expiration Date Visits Requested Visits Authorized [id number] Authorized PCP Requested Referral 03/09/2024 03/09/2025 1 1 Specialty Diagnoses / Procedures Referred By Contac t Referred To Contact Neurology Diagnoses POTS (postural orthostatic tachycardia syndrome) Procedures CONSULT TO NEUROLOGY OFFICE/OUTPATIENT [facility] 60 MINUTES Sari Addison DO [address] [place] [address] Referral ID Status Reason Start Date Expiration Date Visits Requested Visits Authorized [id number] Authorized PCP Requested Referral 03/09/2024 03/09/2025 1 1 Specialty Diagnoses / Procedures Referred By Contac t Referred To Contact [facility] Diagnoses Chronic pain syndrome Procedures CONSULT TO [facility]) OFFICE/OUTPATIENT [facility] 60 MINUTES Sari Addison DO [address] [place] [address] Referral ID Status Reason Start Date Expiration Date Visits Requested Visits Authorized [id number] Pending Review PCP Requested Referral 03/09/2024 03/09/2025 1 1 Additional Source Comments INFORMATION SOURCE (unrecogn ized section and content) DATE CREATED AUTHOR 01/01/2023 [facility] DATE CREATED AUTHOR AUTHOR'S ORGANIZ ATION 01/06/[address] [facility] DATE CREATED AUTHOR AUTHOR'S ORGANIZ ATION 12/10/2023 [facility] DATE CREATED AUTHOR AUTHOR'S ORGANIZ ATION 01/12/2024 [facility] DATE CREATED AUTHOR AUTHOR'S ORGANIZ ATION 02/11/2024 [facility] DATE CREATED AUTHOR AUTHOR'S ORGANIZ ATION 03/03/2024 [facility] DATE CREATED AUTHOR AUTHOR'S ORGANIZ ATION 03/04/2024 [facility] DATE CREATED AUTHOR AUTHOR'S ORGANIZ ATION 03/10/2024 [facility] Source Comments (unrecognize d section and content) In the event this informatio n is protected by the Federal Confidentiality of Alcohol and Drug Abuse Patient Records regulations: The Federal rules restrict any use of the information to criminally investigate or prosecute any alcohol or drug abuse patient.[facility] the event this information is protected by the Federal Confidentiality of Alcohol and Drug Abuse Patient Records regulations: The Federal rules restrict any use of the information to criminally investigate or prosecute any alcohol or drug abuse patient.[facility] the event this information is protected by the Federal Confidentiality of Alcohol and Drug Abuse Patient Records regulations: The Federal rules restrict any use of the information to criminally investigate or prosecute any alcohol or drug abuse patient.[facility] the event this information is protected by the Federal Confidentiality of Alcohol and Drug Abuse Patient Records regulations: The Federal rules restrict any use of the information to criminally investigate or prosecute any alcohol or drug abuse patient.[facility] the event this information is protected by the Federal Confidentiality of Alcohol and Drug Abuse Patient Records regulations: The Federal rules restrict any use of the information to criminally investigate or prosecute any alcohol or drug abuse patient.[facility] the event this information is protected by the Federal Confidentiality of Alcohol and Drug Abuse Patient Records regulations: The Federal rules restrict any use of the information to criminally investigate or prosecute any alcohol or drug abuse patient.[facility] the event this information is protected by the Federal Confidentiality of Alcohol and Drug Abuse Patient Records regulations: The Federal rules restrict any use of the information to criminally investigate or prosecute any alcohol or drug abuse patient.[facility] Reason for Visit (unrecogniz ed section and content) Reason Comments Received Outside Medical Records Externa l referral to [facility] Reason Comments Chronic Migraine Reason Onset Date Comments Refill Request 12/04/2023 Reason Comments Refill Request Reason Comments Migraine Reason Comments Referral Request Reason Comments New Patient Specialty Diagnoses / Procedures Referred By Contact Referred To Contact [facility] [place] Diagnoses Fibromyalgia Procedures VIDEO SPEC Kaylee Portillo, DO [address] [place] [phone] [facility] [address] [place] [address] Referral ID Status Reason Start Date Expiration Date V isits Requested Visits Authorized [id number] Outside PCP 12/22/2023 03/21/2024 1 1 Care Teams (unrecognized sec tion and content) Lion Trainer Relationship Specialty Start Date End Date Maite Kruse [address] [facility] [address] [place] [phone] PCP - General Family Medicine 03/19/21 Kaylee Hutton DO [address] [phone] [place] Referring Team Neurology 03/17/23 Team Status: Active Member Role Status Dates Margaret Munguia NP-C Primary Care Provider Active Team Status: Inactive Member Role Status Dates Kaylee Hutton DO Attending Provider Active Margaret Munguia AIR COMPRESSOR ENGINEER-C Primary Care Provider Active Lion Trainer Relationship Specialty Start Date End Date Maite Kruse [address] [facility] [address] [place] [phone] PCP - General Family Medicine 03/19/21 Kaylee Hutton, [address] [phone] [place] Referring Team Neurology 03/17/23 Lion Trainer Relationship Specialty Start Date End Date Maite Kruse [address] [phone] PCP - General Family Medicine 03/19/21 Kaylee Hutton, [address] [phone] [place] Referring Team Neurology 03/17/23 Lion Trainer Relationship Specialty Start Date End Date Maite Kruse [address] [facility] [address] [place] [address] PCP - General Family Medicine 03/19/21 Kaylee Hutton, DO [address] [phone] [place] Referring Team Neurology 03/17/23 Lion Trainer Relationship Specialty Start Date End Date Maite Kruse [address] [facility] [address] [place] [phone] PCP - General Family Medicine 03/19/21 Kaylee Hutton DO [address] [phone] [place] Referring Team Neurology 03/17/23 Lion Trainer Relationship Specialty Start Date End Date Aixa Maite Haney [address] [facility] [address] [place] [phone] PCP - General Family Medicine 03/19/21 Kaylee Hutton, DO [address] [place] [phone] [place] Referring Team Neurology 03/17/23 Lion Trainer Relationship Specialty Start Date End Date AixaMaite [address] [facility] [address] [place] [phone] PCP - General Family Medicine 03/19/21 Kaylee Hutton, [address] [phone] [place] Referring Team Neurology 03/17/23 Goals (unrecognized [...] BE BASED ON THE PRIMARY CLINICAL RECORDS. [facility]. provides no warranty or guarantee of the accuracy or completeness of information in this document.
--- NOTE | 2024-03-15 11:59 | P.CN_ITS ---
Consult Note: HPI Data of Consult Patient: known to practice within the last 3 years Consult date: 10/06/23 Requesting Physician: Lisa Luna NP Primary Care Provider: AMAN MUNGUIA Consult Narrative Reason for consult: f/u Narrative: Remedios García a pleasant 38 year old female presents for evaluation and management of chronic right shoulder pain and neck pain. Patient completed PT without benefit, reports it increased her pain. Patient reports stabbing ache and pain in right shoulder and upper arm. Hx of numbness of fingers in the right hand for which she had an EMG on and was negative for cervical radiculopathy, following orthopedics for ulnar neuropathy. Pain today 6/10, increasing to 10/10 with pushing, pulling, housework, lifting, moving arm, activity, ADLS, and sleep. Mild benefit to motrin, gabapentin, topamax, medical marijauna. DEMAR 70%. Right suprascapular and axillary nerve RFA providing mild ongoing relief, 50% improvement, patient pleased with outcome. Continues to have moderate to severe neck pain and left shoulder pain. Recently completed cervical xray and MRI with results below. cc:: CC: Lisa Luna NP Review of Systems ROS Status of ROS 10 or more systems reviewed and unremark able except as noted in history and below Musculoskeletal Reports: back pain, neck pain, extremity pain and joint pain PFSH PFSH Medical History Abnormal uterine bleeding ?N93.9 - Abnormal uterine and vaginal bleeding, unspecified (ICD-10) Menorrhagia ?N92.0 - Excessive and frequent menstruation with regular cycle (ICD-10) Dysmenorrhea ?N94.6 - Dysmenorrhea, unspecified (ICD-10) Pelvic pain ?R10.2 - Pelvic and perineal pain (ICD-10) Fibromyalgia ?M79.7 - Fibromyalgia (ICD-10) Neck pain ?M54.2 - Cervicalgia (ICD-10) DDD (degenerative disc disease) Back pain ?M54.9 - Dorsalgia, unspecified (ICD-10) Insomnia ?G47.00 - Insomnia, unspecified (ICD-10) OCD (obsessive compulsive disorder) ?F42.9 - Obsessive-compulsive disorder, unspecified (ICD-10) PTSD (post-traumatic stress disorder) ?F43.10 - Post-traumatic stress disorder, unspecified (ICD-10) Panic attacks ?F41.0 - Panic disorder [episodic paroxysmal anxiety] (ICD-10) Depression ?F32.A - Depression, unspecified (ICD-10) Anxiety ?F41.9 - Anxiety disorder, unspecified (ICD-10) COVID-19 ?U07.1 - COVID-19 (ICD-10) Migraine ?G43.909 - Migraine, unspecified, not intractable, without status migrainosus (ICD-10) Seizures ?R56.9 - Unspecified convulsions (ICD-10) Pseudotumor cerebri ?G93.2 - Benign intracranial hypertension (ICD-10) Chiari malformation Morphea ?L94.0 - Localized scleroderma [morphea] (ICD-10) Heartburn ?R12 - Heartburn (ICD-10) Abnormal EKG ?R94.31 - Abnormal electrocardiogram [ECG] [EKG] (ICD-10) Adenomyosis ?N80.03 - Adenomyosis of the uterus (ICD-10) Surgical History S/P epidural steroid injection ?Z92.241 - Personal history of systemic steroid therapy (ICD-10) History of wisdom tooth extraction ?K08.409 - Partial loss of teeth, unspecified cause, unspecified class (ICD- 10) Family History Other Family history of colon cancer Family history of diabetes mellitus Family history of heart disease Family history of kidney cancer Family history of skin cancer Social History Within the past year, how often did you have a drink containing alcohol: never Score interpretation: A score less than 3 is consistent with normal alcohol consumption. Smoking status: Never smoker Non-prescribed substance use: denies use Highest level of school completed/degree received: some college, no degree Meds Home Medications and Allergies Home Medications ?Medication ?Instructions ?Recorded ?Confirmed ?Type cariprazine 1.5 mg capsule 3 mg PO DAILY 01/07/23 02/01/24 History (Vraylar) fluoxetine 40 mg capsule 40 mg PO DAILY 10/06/23 02/01/24 History gabapentin 400 mg capsule 800 mg PO TID 10/06/23 02/01/24 History lamotrigine 200 mg tablet 200 mg PO DAILY 10/06/23 02/01/24 History metoprolol tartrate 25 mg tablet 25 mg PO DAILY 10/06/23 02/01/24 History topiramate 100 mg tablet (Topamax) 100 mg PO DAILY 10/06/23 02/01/24 History fluvoxamine 50 mg tablet 150 mg PO DAILY 02/01/24 02/01/24 History ondansetron 4 mg disintegrating 4 mg PO Q6H PRN nausea and 02/01/24 Rx tablet vomiting #12 tabs pantoprazole 40 mg tablet,delayed 40 mg PO DAILY #7 tabs 02/01/24 Rx release (Protonix) sucralfate 1 gram tablet (Carafate) 1 g PO Q6H PRN abdominal pain #12 02/01/24 Rx tabs Allergies Allergy/AdvReac Type Severity Reaction Status Date / Time No Known Drug Allergies Allergy Verified 10/06/23 11:30 Exam Constitutional Documenting provider has reviewed patient's vital signs: yes Common normals: no apparent distress, oriented x3, healthy appearing, alert and well nourished General appearance: cooperative [facility] Common normals: normocephalic, hearing grossly normal bilaterally and moist oral mucous membranes Head and scalp: normocephalic Eye Common normals: PERRL Pupil: PERRL Neck & C-Spine Common normals: full ROM General: normal visual inspection Cervical spine: pain with cervical ROM and cervical spine tenderness Other: positive spurlings decreased sensation over bilateral C5,6,7 dermatomes strength 5/5 in BUE Chest Common normals: inspection of chest normal Respiratory Common normals: normal respiratory effort, no retractions and no use of accessory muscles Extremity Right upper extremity: shoulder joint Left upper extremity: shoulder joint Other: left side positive empty can test, positive scratch test and posterior liftoff, as well as crossbody adduction positive apleys. negative exam on right shoulder Neuro Common normals: oriented x3, CN's II-XII intact bilaterally, moves all extremities, no focal motor deficits, no sensory deficits noted and deep tendon reflexes 2+ bilaterally Sensorium/orientation: alert Motor exam: strength 5/5 throughout and no movement abnormalities noted Psych Common normals: mental status grossly normal, thought process normal, cooperative, affect normal, speech normal and activity/motor behavior normal Speech: normal speech Thought process: normal thought process Results Imaging Cervical MRI: Attestation: I have reviewed the pertinent imaging results. Radiologist's impression: C2-C3: Early degenerative disc disease is present without focal protrusion or neural impingement. C3-C4: Early degenerative disc disease is present without focal protrusion or neural impingement. C4-C5: Early degenerative disc disease is present without focal protrusion or neural impingement. C5-C6: Disc space narrowing and disc desiccation. Mild posterior disc/osteophyte complex r narrows the central canal to 9 mm in AP dimension. Mild bilateral foraminal stenosis C6-C7: Early degenerative disc disease is present without focal protrusion or neural impingement. C7-T1:. No significant disc/facet abnormality, spinal stenosis, or foraminal stenosis. 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
== END 2024-03-15 10:59 | disposition home or self-care (01) ==
LOC: PM 10:59
PROVIDERS: PCP Nurse Practitioner Family; Visit Provider Nurse Practitioner
DX: M54.12 Radiculopathy, cervical region (principal); M48.02 Spinal stenosis, cervical region; M47.812 Spondylosis without myelopathy or radiculopathy, cervical region; G62.9 Polyneuropathy, unspecified; M25.511 Pain in right shoulder
CPT/HCPCS: G0463

== ENCOUNTER 2024-04-03 09:08 | Day surgery (SDC) | payer OTHER, MEDICARE, SELFPAY ==
--- OUTSIDE RECORDS SUMMARY | 2024-04-03 09:32 | XMS_ITS | CCD ---
Author Organization [facility]ini[facility] Care Team Providers Care Airport Maintenance Laborer Name Role Phone KRISTIE, MARGARET Primary Care [...] ZIEBER, DR MICHAEL Carmona Consulting Unavailable ROMEO MATTSON Attending Unavailable Maite Kruse Primary Care Provider Kaylee Hutton DO Unavailable DO Kaylee Hutton Attending Provider KAREN Munguia Margaret Sintia Primary Care Provider Maite Kruse Primary Care Provider [facility] Primary [facility] Provider MATT LOVE Attending Unavailable ARCADIO PEREZ Referring Unavailable KRISTIE, MARGARET S Primary Care [...] Attending Unavaila ARIANNA Benjamin Attending Unavailable ARCADIO PEREZ Attending Unavailable KRISTIE, MARGARET S Referring Unavailable KRISTIE, MARGARET S Primary Care Unavailable ARCADIO PEREZ Attending Unavailable KRISTIE, MARGARET S Referring Unavailable KRISTIE, MARGARET S Primary Care Unavailable ARCADIO PEREZ Attending Unavailable KRISTIE, MARGARET S Referring Unavailable KRISTIE, MARGARET S Primary Care Unavailable ARCADIO PEREZ Attending Unavailable KRISTIE, MARGARET S Referring Unavailable KRISTIE, MARGARET S Primary Care Unavailable ARCADIO PEREZ Attending Unavailable KRISTIE, MARGARET S Referring Unavailable KRISTIE, MARGARET S Primary Care Unavailable ARCADIO PEREZ Attending Unavailable KRISTIE, MARGARET S Referring Unavailable KRISTIE, MARGARET S Primary Care Unavailable ARCADIO PEREZ Attending Unavailable KRISTIE, MARGARET S Referring Unavailable MARGARET MUNGUIA Primary Care Unavailable USHA MARTINEZ Attending Unavailable KAYLEE HUTTON Referring Unavailab TRACY Adams Attending Unavailable SARBJIT THOMPSON Referring Unavailable SARI FORREST Attending Unavailable KAYLEE HUTTON Referring Unavailab SARBJIT Fiore Attending Unavailable SARBJIT THOMPSON Attending Unavailable USHA MARTINEZ Referring Unavailable Allergies Allergy Classification Reported Allergen(s) Allergy Type Date of Onset Reaction(s) Facility (1 source) Corticosteroids Drug allergy (disorder) [facility] Repository (8 sources) Glucocorticoid preparation; Translations: [CORTICOSTEROIDS (GLUCOCORTICOIDS)] Drug Allergy 3 Other: See Comments [facility] Work Phone: Medications Current Medications Medication Drug Class(es) Dates Sig (Normalized) Sig (Original) cariprazine 3 mg oral capsule (2 sources) Atypical Antipsychotic Start: 10-01-2023 take 1 capsule by mouth once daily cariprazine (VRAYLAR) 3 mg capsule Take 3 mg by mouth once daily. 10/01/2023 Active Start: 05-04-2023 [facility] 1 capsule by [facility] once daily cariprazine (VRAYLAR) 4.5 mg capsule Take 4.5 mg by mouth once daily. 0 05/04/2023 Active Comment on above: Take 4.5 mg by mouth once daily. FLUoxetine 40 mg oral capsule (6 sources) Serotonin Reuptake Inhibitor Start: 3 End: 4 take 1 capsule by mouth once daily FLUoxetine (PROZAC) 40 mg capsule Take 40 mg by mouth once daily. 0 02/18/2023 03/09/2024 Discontinued Comment on above: Take 40 mg by mouth once daily. gabapentin 400 mg oral capsule (7 sources) Anti-epileptic Agent Start: 3 take 1 capsule by mouth three times daily gabapentin (NEURONTIN) 400 mg capsule Take 400 mg by mouth three times a day. 03/16/2023 Active Comment on above: Take 400 mg by mouth three times a day. lamoTRIgine 100 mg oral tablet (6 sources) Mood Stabilizer, Anti-epileptic Agent Start: 3 End: 4 take 1 tablet by mouth once daily lamoTRIgine (LAMICTAL) 100 mg tablet Take 100 mg by mouth once daily. 0 04/23/2023 03/09/2024 Discontinued Comment on above: Take 100 mg by mouth once daily. 24 hr metoprolol succinate 50 mg extended release oral tablet (8 sources) beta-Adrenergic Geo Start: take 1 tablet by mouth once daily [...] Drug Class(es) Dates Sig (Normalized) Sig (Original) onabotulinumtoxina 200 unt injection (2 sources) Acetylcholine Release Inhibitor Start: 03-22-2024 End: 03-22-2024 onabotulinum toxin type A 200 Units injection (BOTOX) Start: 03-22-2024 End: 03-22-2024 inject 1 dose by intramuscular injection once 200 Units, INTRAMUSCULAR, ONCE, 1 dose, On Wed03/22/24 at 0900, This record documents the total dose provided to patient. See progress note for specific locations and amounts administered. clonazePAM 1 mg oral tablet (4 sources) [...] HYPERTENSION] Onset: 11-08-2022 Chronic Headache; including migraine (5 sources) Chronic intractable migraine without aura; Translations: [Chronic migraine without aura, intractable, without status migrainosus] Onset: 03-22-2024 05-25-2023 Chronic Headache; including migraine (6 sources) [...] Test Name Value Interpretation Reference Range Facility [facility] 03-22-2024 CNOV Office Visit (NHMNS2 ) VALENTINARADHA ([id number]) 1985 F [facility] Date Time Provider Department 03/22/24 9:00 AM TRACY HENDRIX NHMNS2 During your visit today, we recorded the following information about you: Pulse Blood pressure 58/minute 117/60 Tracy Hendrix PA-C 03/22/2024 9:21 AM Signed New Onabotulinum Toxin A (BotoxTM) for Migraine Indication: Chronic Intractable Migraine Treatment #: 1 Referral Expiration: 07/25/2024 Number of moderate-severe migraine days/month: 30 (daily) Number of mild migraine days/month: 0 Number of headache free days/month: 0 (0 headache-free hours) The patient has been assessed for disorders which could contribute to breathing or swallowing difficulty, and there is no contraindication with PREEMPT Botox. There is no documented allergic reaction/hypersensitiv ity to any botulinum toxin and there is no active infection at proposed injection site. HEADACHE SCORES: 05/25/2023 08/02/2023 02/07/2024 Headache Questions [...] Transformed Score (range: 0-100) 0 0 20 02/07/2024 08/02/2023 05/25/2023 PHQ-9 Score 22 18 22 There were no vitals taken for this visit. Patient name: Radha García : 1985 ALLERGIES Allergen Reactions - Corticosteroids (Gl* Other: See Comments UNIVERSAL PROTOCOL / SAFETY CHECKLIST Procedure: Onabotulinum toxin A for migraine Informed Consent Consent Obtained: Written [place] Protocol A moment to CARE was completed SIGN IN Personnel directly involved with the procedure wore the appropriate PPE Special Equipment: N/A Patient/Surrogate Stated/Verified: Patient name, Date of , Relevant allergies and Intended procedure TIME OUT Intended patient and procedure match the source document(s) Consent documented and matches the intended procedure No relevant labs, photos, and/or imaging studies were applicable for review. Correct side/site marked and visible. Medications required for procedure verified. No fire risk assessment and interventions applicable. No implant(s) inserted. SIGN OUT No specimen collected. No instruments, equipment or retained foreign bodies applicable. Post-procedure follow-up management communicated and Plan of Care Visit completed when applicable Written Consent Obtained: Written LOT #: [id number] Expiration Date: Month: 12 Year: 2025 Injection Sites Left (Units) Left (Sites) Right (Units) Right (Sites) TOTAL (Units) Jewelry Cutter 5 1 5 1 10 Procerus Units: 5 Sites: 1 5 Frontalis 10 2 10 2 20 Temporalis 20 4 20 4 40 Occipitalis 15 3 15 3 30 Cervical PSP 10 2 10 2 20 Trapezius 15 3 15 3 30 Total Units used: 155 Total Units wasted: 45 Prior Therapies Duration of Use Dose Side effect Anti-Anxiety Alprazolam (Xanax, Niravam) Clonazepam (Klonopin) Lorazepam (Ativan) Anti-Convulsant Gabapentin (Neurontin) Anti-Depressant and Antipsychotic Fluoxetine (Prozac) vraylar MABs Fremanezumab (Ajovy) 3 months Muscle Relaxer Cyclobenzaprine (Flexeril) Sleep Aids Trazodone (Desyrel) Over the Counter Medications Naproxen sodium (Aleve) Tracy Hendrix PA-C Headache Section [facility] March 22, 2024 Tracy Hendrix PA-C 03/22/2024 9:00 AM Signed AFTER VISIT CARE BOTOX INJECTION While these procedures can be extremely helpful as part of your headache treatment plan, they can irritate the muscles and tissues in your head, neck and shoulders. Proper follow-up care is important to avoid muscle spasms and temporary pain increase within the following 3-5 days after your clinic visit. Here are some tips to help decrease side-effects that may occur and maximiz (more content not included)... Normal [facility] CNOVon 03-09-2024 CNOV Office Visit (NPRC21 ) RADHA GARCÍA ([id number]) 1985 F [facility] Date Time Provider Department 03/09/24 8:00 AM SARI FORREST NPRC21 During your visit today, we recorded the following information about you: Pulse Blood pressure Weight Height 58/minute 102/63 145.2 kg 1.626 m Sari Forrest DO 03/09/2024 9:07 AM Signed [facility] [place] March 09, 2024 Radha García is a 38 year old disabled who lives with and a son. She was referred by Kaylee Hutton DO [address] [place] [phone]. Chief complaint: chronic pain SUBJECTIVE: Patient is [...] Substance use: Tobacco: Reviewed in the EMR @lara@ denies current and past significant alcohol use [...] the patient's care with the resident. Sari Forrest DO I spent a total of 45 minutes on the date of the service which included preparing to see the patient, viui-ey-pidt patient care, completing clinical documentation, obtaining and/or r (more content not included)... Normal [facility] Ambar 02-07-2024 [facility] Telephone (NHMNS2) RADHA GARCÍA ([id number]) 1985 F [facility] Date Time Provider Department 02/07/24 SARBJIT THOMPSON [facility] During your visit today, we recorded the following information about you: Melecio Martinez RN 02/07/2024 2:10 PM Signed Botox referral sent to pharmacy Tyron Martinez BSN, RN Clinical Quality Review Trainer [facility] Terry Davis 02/16/2024 10:44 AM Signed Patient has been scheduled - EC Allergies As of Date: 02/07/2024 Noted Allergy Reaction CORTICOSTEROIDS (GLUCOCORTICOIDS) 05/25/2023 14 - Other: See Comments Date Reviewed: 02/07/2024 Reviewed by: Sarbjit Thompson APRN.MOBILE HOME SET UP PERSON - Fully Assessed Reason for Visit: Referral [...] Encounter Status:Closed by MELECIO MARTINEZ on 02/07/24 [facility] 08-04-2023 [facility] Telephone (NIQ) RADHA GARCÍA ([id number]) 1985 F [facility] Date Time Provider Department 08/04/23 NEUROLOGY PROVIDER NIQ During your visit today, we recorded the following information about you: Mary Rodas 08/04/2023 11:56 AM Signed Received external records from [facility] related to intracranial hypertension. Pt is following with Dr. Usha Martinez. Forwarded records to her office at [phone]. Allergies As of Date: 08/04/2023 Noted Allergy Reaction CORTICOSTEROIDS (GLUCOCORTICOIDS) 05/25/2023 14 - Other: See Comments Date Reviewed: 08/03/2023 Reviewed by: Sarbjit Thompson APRN.MOBILE HOME SET UP PERSON - Fully Assessed Reason for Visit: Received Outside Medical Records [3576] Cmt: Records from local neurologist Prescriptions as [...] Date: 08/04/2023 (None) Encounter Status:Closed by MARY RODAS on 08/04/23 Normal [facility] MR cervical spine wo conon 1 MR cervical spine wo con [place] [address] MRI Report Signed Patient: Radha García MR#: [id number] : 1985 Acct:[id number] Age/Sex: 38 / F ADM Date: 05/20/23 Loc: Room: Type: [facility] Attending Dr: Kaylee Hutton DO Copies to: [...] Powell Jr., D.OEllen05/20/2023 11:29 AM Dictation Location: [facility] Transcribed By: [facility] 05/20/23 1129 Dictated By: Bassem Powell Jr, DO 05/20/23 1126 Signed By: 05/20/23 1129 Normal [facility] XR pre/post mri xrayon 05-20 XR pre/post mri xray [place] [address] XRay Report Signed Patient: Radha García MR#: [id number] : 1985 Acct:[id number] Age/Sex: 38 / F ADM Date: 05/20/23 Loc: Room: Type: [facility] Attending Dr: Kaylee Hutton DO Copies to: [...] Melecio Barillas M.D.05/20/2023 1:06 PM Dictation Location: [place] [address] Transcribed By: [facility] 05/20/23 1306 Dictated By: Melecio Barillas DO 05/20/23 1304 Signed By: 05/20/23 1306 Normal [facility] Office Visiton 01-06-2023 Follow-up visit [id number] JulianamadisonRadha Alis 1985 F Date Provider Department Center 01/06/2023 [id number] MATTSON CARD [facility] No family history on file Level of Service:56470 [place] OFFICE/OUTPATIENT NEW MODERATE MDM 45-59 MINUTES Reason for Visit and Comments: New Patient [632] - abnormal stress kristie referral saw cardio in [place] not sure of name Normal [facility] PROF CHEM 8 (BAS METB)on Anion gap [Moles/Vol] 12.4 mmol/L Normal [facility] Comment on above: Performed By: #### B MP #### [facility] [address] [place] [address] [address] Maame Núñez Calcium [Mass/Vol] 8.7 mg/dL Normal 8.5-10.1 [facility] Comment on above: Performed By: #### B MP #### [facility] [address] [address] [address] Maame Núñez Chloride [Moles/Vol] 107 mmol/L Normal 98-107 [facility] Comment on above: Performed By: #### B MP #### [facility] [address] [place] [address] [address] Maame Núñez CO2 [Moles/Vol] 26.6 mmol/L Normal 21.0-32.0 [facility] Comment on above: Performed By: #### B MP #### [facility] [address] [address] [address] Maame Núñez Creatinine [Mass/Vol] 0.61 mg/dL Normal 0.55-1.02 [facility] Comment on above: Performed By: #### B MP #### [facility] [address] [place] [address] [address] Maame Núñez EGFR-AF LAO >60 Normal >=60 [facility] Comment on above: Performed By: #### B MP #### [facility] [address] [place] [address] [address] Maame Núñez EGFR-NON AF LAO >60 Normal >=60 [facility] Comment on above: Performed By: #### B MP #### [facility] [address] [address] [address] Maame Núñez Glucose [Mass/Vol] 94 mg/dL Normal 74-106 [facility] Comment on above: Performed By: #### B MP #### [facility] [address] [address] [address] Maame Núñez Potassium [Moles/Vol] 4.0 mmol/L Normal 3.5-5.1 [facility] Comment on above: Performed By: #### B MP #### [facility] [address] [address] [address] Maame Núñez Sodium [Moles/Vol] 142 mmol/L Normal 136-145 [facility] Comment on above: Performed By: #### B MP #### [facility] [address] [address] [address] Maame Núñez Urea nitrogen [Mass/Vol] 12.0 mg/dL Normal 7.0-18.0 [facility] Comment on above: Performed By: #### B MP #### [facility] [address] [place] [address] Dr. Maame Núñez Urea nitrogen/Creatinine [Mass ratio] 19.7 mg/mg Normal [facility] Comment on above: Performed By: #### B MP #### [facility] [address] [place] [address] Dr. Maame Núñez XR CHEST 2 Von [...] MORENA OWENS Date: 2022-11-02 09:41 Normal [facility] COLLIN EIA W/REFLEX 9 BIOMARKER Son 09-01-2022 COLLIN Direct Negative Normal Negative [facility] Comment on above: Performed By: #### A NARF9 #### [facility] [address] [place], [place] [address] Dr. Maame Núñez CBC AUTO DIFFon 08-17-2022 BASO # 0.0 103/ul Normal 0.0-0.1 [facility] Comment on above: Performed By: #### C BC ####[facility] [address] [place] [address]DrEllen Núñez Basophils/100 WBC (Bld) 0.6 % Normal 0.2-2.0 [facility] Comment on above: Performed By: #### C BC ####[facility] [address] [place] [address]Dr. Maame Núñez EO # 0.1 103/ul Normal 0.0-0.7 [facility] Comment on above: Performed By: #### C BC ####[facility] [address] [place], [place] [address]Dr. Maame Núñez Eosinophils/100 WBC (Bld) 1.5 % Normal 0.9-7.0 [facility] Comment on above: Performed By: #### C BC ####[facility] [address] [place], [place] [address]Dr. Maame Núñez Erythrocyte distribution width (RBC) [Ratio] 13.0 % Normal 11.0-15.0 [facility] Comment on above: Performed By: #### C BC ####[facility] [address] [place], [place] [address]Dr. Maame Núñez Hematocrit (Bld) [Volume fraction] 39.3 % Normal 36.0-48.0 [facility] Comment on above: Performed By: #### C BC ####[facility] [address] [place], [place] [address]DrEllen Núñez Hemoglobin (Bld) [Mass/Vol] 13.6 g/dL Normal 12.0-16.0 [facility] Comment on above: Performed By: #### C BC ####[facility] [address] [place], [place] [address]Dr. Maame Núñez IG # 0.02 10e3/ul Normal 0.00-0.03 [facility] Comment on above: Performed By: #### C BC ####[facility] [address] [place] [address]DrEllen Maame Núñez IG % 0.3 % Normal 0.0-0.5 [facility] Comment on above: Performed By: #### C BC ####[facility] [address] [place] [address]DrEllen Maame Núñez LYMPH # 2.1 103/ul Normal 1.2-3.8 [facility] Comment on above: Performed By: #### C BC ####[facility] [address] [place], [place] [address]DrEllen Maame Wilton Lymphocytes/100 WBC (Bld) 31.5 % Normal 20.5-60.0 [facility] Comment on above: Performed By: #### C BC ####[facility] [address] [place], [place] [address]DrEllen Maame [place] MANUAL DIFF REQ NO Normal [facility] Comment on above: Performed By: #### C BC ####[facility] [address] [place], [place] [address]Dr. Maame Núñez MCH (RBC) [Entitic mass] 28.4 pg Normal 26.7-34.0 [facility] Comment on above: Performed By: #### C BC ####[facility] [address] [place], [place] [address]Dr. Maame Núñez MCHC (RBC) [Mass/Vol] 34.6 g/dL Normal 29.9-35.2 [facility] Comment on above: Performed By: #### C BC ####[facility] [address] [place], [place] [address]DrEllen Maame Wilton MCV (RBC) [Entitic vol] 82.0 fL Normal 81.0-99.0 [facility] Comment on above: Performed By: #### C BC ####[facility] [address] [place], [place] [address]DrEllen Maame Witlon MONO # 0.5 103/ul Normal 0.3-0.8 [facility] Comment on above: Performed By: #### C BC ####[facility] [address] [place] [address]Dr. Maame Núñez Monocytes/100 WBC (Bld) 7.0 % Normal 1.7-12.0 [facility] Comment on above: Performed By: #### C BC ####[facility] [address] [place] [id number]. Maame Núñez NEUT # 3.9 103/ul Normal 1.4-6.5 [facility] Comment on above: Performed By: #### C BC ####[facility] [address] [place] [address]Dr. Maame Núñez Neutrophils/100 WBC (Bld) 59.1 % Normal 43.0-75.0 [facility] Comment on above: Performed By: #### C BC ####[facility] [address] [place] [address]Dr. Maame Núñez Platelet mean volume (Bld) [Entitic vol] 9.9 fL Normal 9.5-13.5 [facility] Comment on above: Performed By: #### C BC ####[facility] [address] [place] [address]Dr. Maame Núñez PLT 242 103/ul Normal 150-450 [facility] Comment on above: Performed By: #### C BC ####[facility] [address] [place] [address]Dr. Maame Núñez RBC 4.79 106/ul Normal 4.20-5.40 [facility] Comment on above: Performed By: #### C BC ####[facility] [address] [place] [address]Dr. Maame Núñez WBC 6.5 103/ul Normal 4.0-11.0 [facility] Comment on above: Performed By: #### C BC ####[facility] [address] [place] [address]Dr. Maame Núñez CPKon 08-17-2022 CK [Catalytic activity/Vol] 82 U/L Normal 26-192 [facility] Comment on above: Performed By: #### M YO, CK #### [facility] [address] [place] [address] Dr. Maame Núñez FREE T4on 08-17-2022 Free T4 [Mass/Vol] 0.99 ng/dL Normal 0.76-1.46 [facility] Comment on above: Performed By: #### F T4 #### [facility] [address] [place] [address] Dr. Maame Núñez GLYCOHEMOGLOBIN A1Con 2022 ADA RECOMMENDATION SEE BELOW Normal [facility] Comment on above: Result Comment: ADA RECOMMENDED LIMIT 4.0 - 6.0 ADA THERAPEUTIC TARGET < 7.0 ACTION SUGGESTED > 7.0 Performed By: #### A 1C #### [facility] [address] [place] [address] Dr. Maame Núñez Glucose [Mass/Vol] 103 mg/dL Normal [facility] Comment on above: Performed By: #### A 1C #### [facility] [address] [place] [address] Dr. Maame Núñez HbA1c (Bld) [Mass fraction] 5.2 % Normal 4.5-6.2 [facility] Comment on above: Performed By: #### A 1C #### [facility] [address] [place] [address] Dr. Maame Núñez MYOGLOBINon 08-17-2022 LILLIAM 46 ng/mL Normal 9-82 [facility] Comment on above: Performed By: #### M PAOLA, CK #### [facility] [address] [place] [address] Dr. Maame Núñez PREG QUANT HCGon 08-17-2022 HCG QUANT 1 mIU/mL Normal [facility] Comment on above: Performed By: #### T SH, PREGQNT #### [facility] [address] [place] [address] Dr. Maame Núñez HCG RANGE SEE BELOW Normal [facility] Comment on above: Result Comment: 5-50 0.2-1 WEEK 50-500 1-2 WEEKS 100-5,000 2-3 WEEKS 500-10,000 3-4 WEEKS 1,000-50,000 4-5 WEEKS 10,000-100,000 5-6 WEEKS 15,000-200,000 6-8 WEEKS 10,000-100,000 2-3 MONTHS Performed By: #### T NOBLE, PREGQNT #### [facility] [address], [place] [address] Dr. Maame Núñez TSHon 08-17-2022 TSH 1.027 uIU/mL Normal 0.358-3.740 [facility] Comment on above: Performed By: #### T SH, PREGQNT #### [facility] [address] [place], [place] [address] Dr. Maame Núñez US PELVIS AND TRANSVAGon [...] by: MICHAEL WILLIS Date: 2022-08-17 14:30 Normal [facility] Vital Signs Date Time Vital Sign Value Performing Clinician Autumn alan 03-22-2024 09:02-0400 Diastolic blood pressure 60 mm[Hg] Tracy Hendrix PA-C Work Phone: [facility] 03-22-2024 09:02-0400 Heart rate 58 /min Tracy Ivy Work Phone: [facility] 03-22-2024 09:02-0400 SaO2% (BldA) [Mass fraction] 96 % Tracy Hendrix PA-C Work Phone: [facility] 03-22-2024 09:02-0400 Systolic blood pressure 117 mm[Hg] Tracy Hendrix PA-C Work Phone: [facility] 03-09-2024 07:44-0400 Body height 162.6 cm Sari Tankha DO Work Phone: [facility] 03-09-2024 07:44-0400 Body mass index (BMI) [Ratio] 54.93 kg/m2 Sari Tankha DO Work Phone: [facility] 03-09-2024 07:44-0400 Body weight 145.15 kg Sari Tankha DO Work Phone: [facility] 03-09-2024 07:44-0400 Diastolic blood pressure 63 mm[Hg] Sari Tankha DO Work Phone: [facility] 03-09-2024 07:44-0400 Heart rate 58 /min Sari Tankha DO Work Phone: [facility] 03-09-2024 07:44-0400 SaO2% (BldA) [Mass fraction] 96 % Sari Tankha DO Work Phone: [facility] 03-09-2024 07:44-0400 Systolic blood pressure 102 mm[Hg] Sari Tankha DO Work Phone: [facility] 05-25-2023 09:19-0400 Body height 160 cm Usha Beyerlan DO Work Phone: [facility] 05-25-2023 09:19-0400 Body weight 145.15 kg Usha Beyerlan DO Work Phone: [facility] Encounters Encounter Date Encounter Type Care Provider Facility Start: 03-22-2024 End: 03-22-2024 ambulatory TRACY HENDRIX Facility:[facility] Start: 03-22-2024 End: 03-22-2024 Patient encounter procedure Tracy Hendrix PA-C Work Phone: Neurology Comment on above: 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 aura and without status migrainosus (Primary Dx) Start: 03-09-2024 End: 03-09-2024 ambulatory SARISKINNY LEEHA Facility:[facility] Start: 03-09-2024 End: 03-09-2024 Patient encounter procedure Sari Forrest DO Work Phone: Neurology Pain Comment on above: Chronic pain syndrom e (Primary Dx); Fibromyalgia; POTS (postural orthostatic tachycardia syndrome); Tremors of nervous system Start: 03-02-2024 End: 03-02-2024 ambulatory [facility] Start: 03-01-2024 End: 03-01-2024 ambulatory HAYDEN HERNDON Not Available Start: 02-07-2024 Telephone encounter Sarbjit Thompson APRN.CNP Work Phone: Neurology Comment on above: Referral Request Start: 02-07-2024 End: 02-07-2024 ambulatory Sarbjit Thompson APRN.MOBILE HOME SET UP PERSON Work Phone: Neurology [facility] Comment on above: 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 aura and without status migrainosus (Primary Dx); Chronic daily headache; Pressure in head Start: 02-07-2024 End: 02-07-2024 Telemedicine consultation with patient Sarbjit Thompson APRN.MOBILE HOME SET UP PERSON Work Phone: Neurology [facility] Start: 01-24-2024 End: 01-24-2024 ambulatory [facility] Start: 01-03-2024 End: 01-03-2024 ambulatory Frank Hunter MD Facility: [facility] Start: 12-29-2023 End: 12-29-2023 ambulatory [facility] Start: 12-15-2023 Refill Sarbjit Adkins.MOBILE HOME SET UP PERSON Work Phone: Neurology [facility] Comment on above: Refill Request Start: 12-15-2023 End: 12-15-2023 ambulatory KAYLEE HUTTON Not Available Start: 12-08-2023 End: 12-08-2023 ambulatory MATT LOVE [facility] Start: 12-04-2023 Refill Usha Martinez DO Work Phone: NEUROLOGY Comment on above: Refill Request Start: 12-03-2023 End: 12-03-2023 ambulatory HAYDEN HERNDON Not Available Start: 11-29-2023 End: 11-29-2023 ambulatory [facility] Start: 11-08-2023 End: 11-08-2023 ambulatory Frank Hunter MD Facility:[facility] Start: 10-13-2023 End: 10-13-2023 ambulatory [facility] Start: 10-11-2023 End: 10-11-2023 ambulatory HAYDEN HERNDON Not Available Start: 09-13-2023 End: 09-13-2023 ambulatory [facility] Start: 08-16-2023 End: 08-16-2023 ambulatory [facility] Start: 08-03-2023 End: 08-03-2023 ambulatory SARBJIT THOMPSON Facility:[facility] Start: 07-12-2023 End: 07-12-2023 ambulatory ARIANNA WILSON Not Available Start: 05-25-2023 End: 05-25-2023 ambulatory Usha Martinez DO Work Phone: NEUROLOGY Comment on above: 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 aura and without status migrainosus (Primary Dx); Pressure in head; Chronic daily headache Start: 05-25-2023 End: 05-25-2023 Telemedicine consultation with patient Usha Martinez DO Work Phone: [facility] Start: 05-21-2023 ambulatory Alejandro Varner acility:[facility] Start: 05-20-2023 End: 05-20-2023 Patient encounter procedure CARD CUTTER-C Margaret Munguia Work Phone: [facility] [place] Work Phone: Start: 05-20-2023 End: 05-20-2023 ambulatory CARD CUTTER-C Margaret Munguia Work Phone: [facility] Work Phone: Start: 03-17-2023 Telephone encounter Neurology Provid er Neurology Comment on above: Received Outside Med ical Records (External referral to [facility] [place]) Start: 01-06-2023 End: 01-06-2023 ambulatory [facility] Start: 12-24-2022 ambulatory MARGARET MUNGUIA Facility: [facility] Start: 12-16-2022 Encounter for preprocedural cardiovascular examination MARGARET MUNGUIA [facility] Start: 12-15-2022 End: 12-16-2022 ambulatory MARGARET MUNGUIA Facility:[facility] Start: 12-15-2022 End: 12-16-2022 Encounter for preprocedural cardiovascular examination MARGARET MUNGUIA Facility:[facility] Start: 12-07-2022 End: 12-08-2022 ambulatory MARGARETFIGUEROA MUNGUIA Facility:[facility] Start: 12-01-2022 End: 12-02-2022 ambulatory MARGARETFIGUEROA MUNGUIA Facility:[facility] Start: 11-26-2022 Encounter for other preprocedural examination MARGARET MUNGUIA [facility] Start: 11-23-2022 End: 11-24-2022 ambulatory MARGARET MUNGUIA Facility:[facility] Start: 11-23-2022 End: 11-24-2022 Encounter for other preprocedural examination MARGARET MUNGUIA Facility:[facility] Start: 11-11-2022 ambulatory MARGARET MUNGUIA Facility: [facility] Start: 11-08-2022 Encounter for preprocedural cardiovascular examination DR NINFA ROMERO . [facility] Start: 11-08-2022 Encounter for preprocedural laboratory examination DR NINFA ROMERO . [facility] Start: 11-08-2022 Encounter for preprocedural respiratory examination DR NINFA ROMERO . [facility] Start: 11-02-2022 End: 11-03-2022 ambulatory MARGARET [...] Clinician Start: 05-20-2023 XR pre/post mri xray CARD CUTTER -Biju CartyMargaretfigueroa Horanmer Work Phone: Start: 05-20-2023 MRI of cervical spin e without contrast CARD CUTTER-Biju Munguia Work Phone: Plan of Treatment Date Care Activity Detail Author Start: 06-14-2024 End: 06-14-2024 Patient encounter procedure 06/14/2024 9:30 AM EST Office Visit Neurology [address] [id number] Tracy Hendrix PA-C [address] [id number] Botox Neurology Comment on above: Botox Start: 04-13-2024 End: 04-13-2024 ambulatory 04/13/2024 2:00 PM EDT [facility] Pain Recovery [address] [id number] Michoacano Avilez, Therapist [address] [id number] Chronic pain syndrome Pain Recovery Comment on above: Chronic pain syndrom e Start: 03-26-2024 Influenza [facility] Start: 03-22-2024 End: 03-22-2024 Patient encounter procedure 03/22/2024 9:00 AM EDT Office Visit Neurology [address] [id number] Tracy Hendrix PA-C [address] [place] [address] botox pending 03/08 Neurology Comment on above: botox pending 03/08 Start: 03-09-2024 End: 03-09-2024 Patient encounter procedure 03/09/2024 8:00 AM EDT Office Visit Neurology Pain [address] [id number] Sari Forrest DO [address] [place] [address] Fibromyalgia Neurology Pain Comment on above: Fibromyalgia Start: 03-26-2023 Covid-19 Vaccine () Covid-19 Vaccine () [facility] Start: 03-26-2023 Influenza vaccination Influenza Vacc ine (#1) [facility] Start: 07-26-2022 Depression Assessment Depression Ass essment [facility] Start: 2016 HPV Testing HPV Testing [facility] Start: 2016 Screening for malign ant neoplasm of cervix HPV Testing [facility] Start: 2007 Pap Testing Pap Testing [facility] Start: 2007 Screening for malign ant neoplasm of cervix [facility] Start: 2005 Hepatitis B Vaccine (1 of 3 - 19+ 3-dose series) Hepatitis B Vaccine (1 of 3 - 19+ 3-dose series) [facility] Start: 2005 Urine microalbumin profile DTaP,Tdap,Td Vaccine (1 - Tdap) [facility] Start: 2004 Anxiety Screening Anxiety Screening [facility] Start: 2004 Depression Screening Depression Scre ening [facility] Start: 2004 Hepatitis C Screening Hepatitis C [facility] Start: 2004 Hepatitis C screening Hepatitis C [facility] Start: 2004 HIV Screening HIV Screening [facility] Start: 2004 HIV screening HIV Screening [facility] Start: 1986 Hepatitis B Vaccine (1 of 3 - 3-dose series) Hepatitis B Vaccine (1 of 3 - 3-dose series) [facility] NEURO CARDIO AUTONOM IC REFLEX W/WO TILT NEURO CARDIO AUTONOMIC REFLEX W/WO TILT Procedures Routine POTS (postural orthostatic tachycardia syndrome) Ordered: 03/09/2024 [facility] Work Phone: Comment on above: Ordered: 03/09/2024 Immunizations Immunization Date Immunization Notes Care Provider Bjorn rayo 05-06-2022 influenza virus vacc ine, unspecified formulation Usha Martinez DO Work Phone: [facility] Payers Date Payer Category Payer Medicare 2022 Medicaid [facility] [id number] 2022-Present [phone] [address] [place] [address] Medicaid [id number] 2022 Unknown MMO MMO CHRIS [id number] 2022-Present [phone] [address] [address] [place] [address] PPO [id number] 2022 Unknown [id number] 2020 Medicare [id number] 1986 Unknown [id number] 2.16.840.1.644968.3.579.2.593 1986 Unknown [id number] 2.16.840.1.986289.3.579.2.593 1986 Unknown [id number] 2.16.840.1.945620.3.579.2.593 1986 Unknown [id number] 2.16.840.1.681752.3.579.2.593 1986 Unknown [id number] 2.16.840.1.401122.3.579.2.593 1986 Unknown [id number] 2.16.840.1.088260.3.579.2.593 1986 Unknown [id number] 2.16.840.1.462876.3.579.2.593 1986 Unknown [id number] 2.16.840.1.738977.3.579.2.593 1986 Unknown [id number] 2.16.840.1.050323.3.579.2.593 1986 Unknown [id number] 2.16.840.1.345189.3.579.2.593 1986 Unknown [id number] 2.16.840.1.881337.3.579.2.593 1986 Unknown [id number] 2.16.840.1.060915.3.579.2.593 1986 Unknown [id number] 2.16.840.1.011768.3.579.2.593 1986 Unknown [id number] 2.16.840.1.913549.3.579.2.1286 1986 Unknown [id number] 2.16.840.1.332133.3.579.2.196 1986 Unknown [id number] 2.16.840.1.510887.3.579.2.196 1986 Unknown [id number] 2.16.840.1.702336.3.579.2.1259 1986 Unknown [id number] 2.16.840.1.682018.3.579.2.1259 1986 Unknown [id number] 2.16.840.1.988660.3.579.2.1259 1986 Unknown [id number] 2.16.840.1.613104.3.579.2.1259 1986 Unknown [id number] 2.16.840.1.856019.3.579.2.1259 1986 Unknown [id number] 2.16.840.1.020234.3.579.2.1286 1986 Unknown [id number] 2.16.840.1.274731.3.579.2.1286 1986 Unknown [id number] 2.16.840.1.953218.3.579.2.6 1986 Unknown [id number] 2.16.840.1.066503.3.579.2.1286 1986 Unknown [id number] 2.16.840.1.762234.3.579.2.1286 1986 Unknown [id number] 2.16.840.1.305061.3.579.2.1286 1986 Unknown [id number] 2.16.840.1.357534.3.579.2.1286 1959 Self-pay 1959 Unknown [id number] 1959 Unknown [id number] Unknown [id number] 2.16.840.1.848935.3.579.2.531 Social History Date Type Detail [facility] Start: 1985 Sex Assigned At Not on file [facility] Start: 05-25-2023 End: 03-09-2024 Gender identity Not on file [facility] Start: 1985 Sex Assigned At Female [facility] Start: 05-25-2023 [facility] tobacco [facility] Work Phone: Start: 05-25-2023 Tobacco use and exposure Smokeless tobacco non-user [facility] Work Phone: Start: 05-25-2023 End: 03-22-2024 Alcohol intake Ex-drinker (finding) [facility] Start: 05-25-2023 End: 03-09-2024 History of Social function [facility] Adult Depression Screening Assessment 6 [facility] Clinical Notes 01-06-2023 to 03-22-2024 Tracy Hendrix PA-C - 03/22/2024 9:00 AM EDTPatient Sari Bain, DO - 03/09/2024 8:11 AM EDTTeleMelecio Hubbard RN - 02/07/2024 2:10 PM EDT Note Date & Type Note Facility 03-22-2024 History of Presen t illness Narrative Images from the original note were not included. New Onabotulinum Toxin A (BotoxTM) for Migraine Indication: Chronic Intractable Migraine Treatment #: 1 Referral Expiration: 07/25/2024 Number of moderate-severe migraine days/month: 30 (daily) Number of mild migraine days/month: 0 Number of headache free days/month: 0 (0 headache-free hours) The patient has been assessed for disorders which could contribute to breathing or swallowing difficulty, and there is no contraindication with PREEMPT Botox. There is no documented allergic reaction/hypersensitivity to any botulinum toxin and there is no active infection at proposed injection site. HEADACHE SCORES: 05/25/2023 08/02/2023 02/07/2024 Headache Questions [...] Transformed Score (range: 0-100) 0 0 20 02/07/2024 08/02/2023 05/25/2023 PHQ-9 Score 22 18 22 There were no vitals taken for this visit. Patient name: Radha García : 1985 ALLERGIES Allergen Reactions Corticosteroids (Gl* Other: See Comments UNIVERSAL PROTOCOL / SAFETY CHECKLIST Procedure: Onabotulinum toxin A for migraine Informed Consent Consent Obtained: Written [place] Protocol A moment to CARE was completed SIGN IN Personnel directly involved with the procedure wore the appropriate PPE Special Equipment: N/A Patient/Surrogate Stated/Verified: Patient name, Date of , Relevant allergies and Intended procedure TIME OUT Intended patient and procedure match the source document(s) Consent documented and matches the intended procedure No relevant labs, photos, and/or imaging studies were applicable for review. Correct side/site marked and visible. Medications required for procedure verified. No fire risk assessment and interventions applicable. No implant(s) inserted. SIGN OUT No specimen collected. No instruments, equipment or retained foreign bodies applicable. Post-procedure follow-up management communicated and Plan of Care Visit completed when applicable Written Consent Obtained: Written LOT #: [id number] Expiration Date: Month: 12 Year: 2025 Injection Sites Left (Units) Left (Sites) Right (Units) Right (Sites) TOTAL (Units) Jewelry Cutter 5 1 5 1 10 Procerus Units: 5 Sites: 1 5 Frontalis 10 2 10 2 20 Temporalis 20 4 20 4 40 Occipitalis 15 3 15 3 30 Cervical PSP 10 2 10 2 20 Trapezius 15 3 15 3 30 Total Units used: 155 Total Units wasted: 45 Prior Therapies Duration of Use Dose Side effect Anti-Anxiety Alprazolam (Xanax, Niravam) Clonazepam (Klonopin) Lorazepam (Ativan) Anti-Convulsant Gabapentin (Neurontin) Anti-Depressant and Antipsychotic Fluoxetine (Prozac) vraylar MABs Fremanezumab (Ajovy) 3 months Muscle Relaxer Cyclobenzaprine (Flexeril) Sleep Aids Trazodone (Desyrel) Over the Counter Medications Naproxen sodium (Aleve) Tracy Hendrix PA-C Headache Section [facility] March 22, 2024 documented in this encounter [facility] 03-22-2024 Instructions Tracy Hendrix PA-C - 03/22/2024 9:00 AM EDT AFTER VISIT CARE BOTOX INJECTION While these procedures can be extremely helpful as part of your headache treatment plan, they can irritate the muscles and tissues in your head, neck and shoulders. Proper follow-up care is important to avoid muscle spasms and temporary pain increase within the following 3-5 days after your clinic visit. Here are some tips to help decrease side-effects that may occur and maximize the effectiveness of your pain relief -HYDRATION Hydration is important to help nourish your muscles and tissues. Drink 60-80 oz of non caffeinated fluid at least for 3 days after your visit. -REST Rest will help avoid further irritation of muscle and tissues. Remember that you need to give your body time to adjust. NO strenuous activity for at least the first 24 hours after your visit. Gentle stretching, yoga, meditation or even swimming is OK and encouraged. -ICE/HEAT Since these procedures irritate muscles, there can be some swelling. Alternating ice and heat every 3-5 times per day may help decrease this, while also optimizing pain relief Use cool gel packs for ice for 10 min. Use a warm moist towel covered with a dry towel on neck and shoulders. Alternate stretching each side of the neck. -STRETCHING Slow, gentle stretching of the neck and shoulders once every hour is helpful to avoid muscle spasms. -TREAT MUSCLE SPASMS If you are already prescribed a muscle relaxer such as baclofen, tizanidine or flexeril, use as directed. If you do not have one, talk to your provider to find out if this would be safe for you to use. Do not rub or massage the area for 48-72 hours. If you are paying out of pocket for Botox go online to Botox Savings Program and see if you qualify for reimbursement. documented in this encounter [facility] 03-22-2024 Note HNO ID: [id number] Author: TRACY HENDRIX PA-C Service: ? Author Type: Physician Line Driver Type: Progress Notes Filed: 03/22/2024 09:21 Note Text: New Onabotulinum Toxin A (BotoxTM) for Migraine Indication: Chronic Intractable Migraine Treatment #: 1 Referral Expiration: 07/25/2024 Number of moderate-severe migraine days/month: 30 (daily) Number of mild migraine days/month: 0 Number of headache free days/month: 0 (0 headache-free hours) The patient has been assessed for disorders which could contribute to breathing or swallowing difficulty, and there is no contraindication with PREEMPT Botox. There is no documented allergic reaction/hypersensitivity to any botulinum toxin and there is no active infection at proposed injection site. HEADACHE SCORES: 05/25/2023 08/02/2023 02/07/2024 Headache Questions [...] Transformed Score (range: 0-100) 0 0 20 02/07/2024 08/02/2023 05/25/2023 PHQ-9 Score 22 18 22 There were no vitals taken for this visit. Patient name: Radha García : 1985 ALLERGIES Allergen Reactions - Corticosteroids (Gl* Other: See Comments UNIVERSAL PROTOCOL / SAFETY CHECKLIST Procedure: Onabotulinum toxin A for migraine Informed Consent Consent Obtained: Written [place] Protocol A moment to CARE was completed SIGN IN Personnel directly involved with the procedure wore the appropriate PPE Special Equipment: N/A Patient/Surrogate Stated/Verified: Patient name, Date of , Relevant allergies and Intended procedure TIME OUT Intended patient and procedure match the source document(s) Consent documented and matches the intended procedure No relevant labs, photos, and/or imaging studies were applicable for review. Correct side/site marked and visible. Medications required for procedure verified. No fire risk assessment and interventions applicable. No implant(s) inserted. SIGN OUT No specimen collected. No instruments, equipment or retained foreign bodies applicable. Post-procedure follow-up management communicated and Plan of Care Visit completed when applicable Written Consent Obtained: Written LOT #: [id number] Expiration Date: Month: Year: 2025 Injection Sites Left (Units) Left (Sites) Right (Units) Right (Sites) TOTAL (Units) Jewelry Cutter 5 1 5 1 10 Procerus Units: 5 Sites: 1 5 Frontalis 10 2 10 2 20 Temporalis 20 4 20 4 40 Occipitalis 15 3 15 3 30 Cervical PSP 10 2 10 2 20 Trapezius 15 3 15 3 30 Total Units used: 155 Total Units wasted: 45 Prior Therapies Duration of Use Dose Side effect Anti-Anxiety Alprazolam (Xanax, Niravam) Clonazepam (Klonopin) Lorazepam (Ativan) Anti-Convulsant Gabapentin (Neurontin) Anti-Depressant and Antipsychotic Fluoxetine (Prozac) vraylar MABs Fremanezumab (Ajovy) 3 months Muscle Relaxer Cyclobenzaprine (Flexeril) Sleep Aids Trazodone (Desyrel) Over the Counter Medications Naproxen sodium (Aleve) Tracy Hendrix PA-C Headache Section [facility] March 22, 2024 [facility] 03-09-2024 Note HNO ID: [id number] Author: SARI FORREST DO Service: ? Author Type: Anesthesiologist Type: Progress Notes Filed: 03/09/2024 09:07 Note Text: [facility] for Comprehensive Pain Recovery [facility] March 09, 2024 Radha García is a 38 year old disabled who lives with and a son. She was referred by Kaylee Hutton DO [address] [place] [id number]. Chief complaint: chronic pain SUBJECTIVE: Patient is [...] the patient's care with the resident. Sari Forrest DO I spent a total of 45 minutes on the date of the service which included preparing to see the patient, [id number] patient care, completing clinical documentation, obtaining and/or reviewing separately obtained history, performing a medically appropriate examination, counseling and educating the patient/family/caregiver, and ordering medications, tests, or procedures. Important Patient Information: 1. To schedule Pain Recovery kevon (more content not included)... [facility] 03-09-2024 History of Presen t illness Narrative [facility] for Comprehensive Pain Recovery [facility] [place] March 09, 2024 Radha García is a 38 year old disabled who lives with and a son. She was referred by Kaylee Hutton, [address] [place] [phone]. Chief complaint: chronic pain SUBJECTIVE: Patient is [...] the patient's care with the resident. Sari Forrest DO I spent a total of 45 minutes on the date of the service which included preparing to see the patient, [id number] patient care, completing clinical documentation, obtaining and/or reviewing separately obtained history, performing a medically appropriate examination, counseling and educating the patient/family/caregiver, and ordering medications, tests, or procedures. Important Patient Information: 1. To schedule Pain Recovery appointments or post-injection office visits, please call: [phone] 2. The nursing staff and medical assistants are an integral part of your pain recovery team and will be handling your phone calls and inquiries. 3. Your study results and treatment plan will be discussed during a follow-up appointment. If you do not have a follow-up appointment and wish to discuss any issues directly with me, please call: [phone] to set-up an appointment. 4. MyChart is best used for refill requests or yes or no questions. Anything more complicated will likely require a follow-up appointment that you can schedule by [phone]. 5. It is the practice of the [...] is an opening. documented in this encounter [facility] 02-07-2024 Telephone encounter Note Botox referral sent to pharmacy Tyron HANCOCK, RN Clinical Quality Review Trainer [facility] 02-07-2024 Miscellaneous Notes Botox referral sent to pharmacy Tyron HANCOCK, RN Clinical Quality Review Trainer [facility] documented in this encounter [facility] 02-07-2024 Note HNO ID: [id number] Author: SARBJIT THOMPSON APRN.MACIE Service: ? Author Type: Nurse Practitioner Type: Progress Notes Filed: 02/07/2024 13:33 Note Text: Headache Center - Follow up Virtual Visit This visit was conducted as a virtual visit, with patient's permission, via Zoom. Patient location - [place] Radha García was identified by name and [...] visit. Either the patient or their legal accounts payable representative has been informed of the risks [...] day. lamoTRIgine (LAMIC (more content not included)... [facility] 02-07-2024 History of Presen t illness Narrative Images from the original note were not included. Headache Center - Follow up Virtual Visit This visit was conducted as a virtual visit, with patient's permission, via Zoom. Patient location - [place] Radha García was identified by name and [...] visit. Either the patient or their legal accounts payable representative has been informed of the risks [...] discussed these with the patient: yes Sarbjit Thompson APRN.MOBILE HOME SET UP PERSON HEADACHE SCORES: 05/25/2023 08/02/2023 02/07/2024 Headache Questions [...] spontaneous and fluent without dysarthria. Short and termite technician memory, cognition and general fund of knowledge [...] of Service: Virtual Visit 30 minutes Sarbjit Thompson APRN.CNP Headache Section [facility] February 07, 2024 documented in this encounter [facility] 12-15-2023 Telephone encounter Note The following approved medication requests have been transmitted electronically. Requested Prescriptions Signed Prescriptions Disp Refills metoprolol succinate ER (TOPROL XL) 25 mg 24 hr tablet 90 tablet 1 Sig: take 1 tablet by mouth every day Authorizing Provider: SARBJIT THOMPSON APRN.CNP [facility] 12-15-2023 Miscellaneous Notes The following approved medication requests have been transmitted electronically. Requested Prescriptions Signed Prescriptions Disp Refills metoprolol succinate ER (TOPROL XL) 25 mg 24 hr tablet 90 tablet 1 Sig: take 1 tablet by mouth every day Authorizing Provider: SARBJIT THOMPSON APRN.MOBILE HOME SET UP PERSON Images from the original note were not included. Prescription pended to requested pharmacy and forwarded to provider for review. Beta Geo Refill Checklist [id number]/15/2023 12:48 AM Protocol Details Serum Creatinine within the last 12 months Blood pressure within the last 12 months Visit with provider within the last 12 months VIN: 08/03/23 NOV: not scheduled Last prescribed: 4 months ago (08/03/2023) by Sarbjit Thompson APRN.MOBILE HOME SET UP PERSON documented in this encounter [facility] 12-15-2023 Telephone encounter Note Images from the original note were not included. Prescription pended to requested pharmacy and forwarded to provider for review. Beta Geo Refill Checklist [id number]/15/2023 12:48 AM Protocol Details Serum Creatinine within the last 12 months Blood pressure within the last 12 months Visit with provider within the last 12 months VIN: 08/03/23 NOV: not scheduled Last prescribed: 4 months ago (08/03/2023) by Sarbjit Thompson APRN.MOBILE HOME SET UP PERSON [facility] 12-08-2023 Telephone encounter Note The following approved medication requests have been transmitted electronically. Requested Prescriptions Signed Prescriptions Disp Refills topiramate (TOPAMAX) 100 mg tablet 30 tablet 5 Sig: Take 1 tablet by mouth daily at bedtime. Authorizing Provider: SARBJIT THOMPSON APRN.MOBILE HOME SET UP PERSON [facility] 12-08-2023 Miscellaneous Notes The following approved medication requests have been transmitted electronically. Requested Prescriptions Signed Prescriptions Disp Refills topiramate (TOPAMAX) 100 mg tablet 30 tablet 5 Sig: Take 1 tablet by mouth daily at bedtime. Authorizing Provider: SARBJIT THOMPSNO APRN.CNP Physician: Jay Call from patient requesting refill. Please E-Scribe Last office visit 08/03/23 with Jay virtual Next office visit Not scheduled. Requested Prescriptions Pending Prescriptions Disp Refills topiramate (TOPAMAX) 100 mg tablet 30 tablet 3 Sig: Take 1 tablet by mouth daily at bedtime. Pharmacy Name: [facility] documented in this encounter [facility] 12-06-2023 Telephone encounter Note Physician: Jay Call from patient requesting refill. Please E-Scribe Last office visit 08/03/23 with Jay virtual Next office visit Not scheduled. Requested Prescriptions Pending Prescriptions Disp Refills topiramate (TOPAMAX) 100 mg tablet 30 tablet 3 Sig: Take 1 tablet by mouth daily at bedtime. Pharmacy Name: [facility] 08-03-2023 Note HNO ID: [id number] Author: SARBJIT THOMPSON APRN.CNP Service: ? Author Type: Nurse Practitioner [...] visit. Either the patient or their legal accounts payable representative has been informed of the risks [...] Take 100 mg (more content not included)... [facility] 05-25-2023 History of Presen t illness Narrative Headache Section [facility] Virtual Visit New Encounter I have communicated my name and active licensure. The patient's identity and physical location were verified at the time of this visit. Either the patient or their legal accounts payable representative has been informed of the risks and benefits of -- and alternatives to -- treatment through a remote evaluation and consents to proceed with the evaluation remotely. May 25, 2023 CC: Headache History: Radha García is a 38 year old year old, right-handed woman who is referred in consultation by Dr. Kaylee Hutton DO (neuro in [place], [place]) for an opinion regarding benign intracranial [...] yes History of Syncope (last episode last [place]) Sometimes sees stars in eyes - no [...] infection. Mood: MDD - follows with Arcadio Perez NP (behavioral health clinic in [place], [place]), on Vraylar, klonopin, lamictal, prozac Tobacco: [...] and clear, coherent, and relevant. Short and custodial memory, cognition and general fund of knowledge [...] rapid alternating movements. I have reviewed the [place] Status Assessment responses and discussed these with the patient: yes Usha Martienz, DO Past Medical/Surgical History reviewed and updated. [...] which included preparing to see the patient, [id number] patient care, completing clinical documentation, obtaining and/or [...] in addition to all other comorbidities. Iesha Martinez DO Adult Neurology/ Board Certified Headache Medicine/ Board Certified Staff, [place] [facility] Non Destructive Testing Technician of Neurology with [facility]/[address]/ [place] [address] Office: [phone] documented in this encounter [facility] 05-25-2023 Note HNO ID: [id number] Author: Usha Martinez DO Service: ? Author Type: Physician Type: Progress Notes Filed: 05/25/2023 9:50 AM Note Text: Headache Section [place] [facility] Virtual Visit New Encounter I have communicated my name and active licensure. The patient's identity and physical location were verified at the time of this visit. Either the patient or their legal accounts payable representative has been informed of the risks and benefits of -- and alternatives to -- treatment through a remote evaluation and consents to proceed with the evaluation remotely. May 25, 2023 CC: Headache History: Radha García is a 38 year old year old, right-handed woman who is referred in consultation by Dr. Kaylee Hutton DO (neuro in [place], [place]) for an opinion regarding benign intracranial [...] infection. Mood: MDD - follows with Arcadio Perez NP (behavioral health clinic in [place], [place]), on Vraylar, klonopin, lamictal, prozac Tobacco: [...] Migraine Screener: 3 (more content not included)... [facility] 03-17-2023 Miscellaneous Notes Referral source: Dr. Kaylee Hutton ([facility], [place], [place]) Reason: benign intracranial hypertension, chronic tension-type headache, pseudotumor cerebrei External records on file. documented in this encounter [facility] 01-06-2023 Note Cardiovascular Medic ine [facility] SUBJECTIVE Chief Complaint Patient presents with New Patient abnormal stress kristie referral saw cardio in [place] not sure of name [facility] Radha García is a 37 y.o. female [...] has chronic lightheadedness, she previously saw a shoe shiner in [place] without findings to explain her [...] case and plan was discussed with attending shoe shiner Dr. Johnson. Romeo Mattson APRN-[facility] Cardiovascular Medicine [facility] Evaluation note No assessment inform ation available [facility] Work Phone: Evaluation note Diagnosis 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 aura and without status migrainosus- Primary Chronic migraine without aura, with intractable migraine, so stated, without mention of status migrainosus Pressure in head Headache Chronic daily headache [facility]ache [facility] 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 aura and without status migrainosus Chronic migraine without aura, with intractable migraine, so stated, without mention of status migrainosus Pressure in head Headache Chronic daily headache Headache [facility] Diagnosis 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 aura and without status migrainosus- Primary Chronic migraine without aura, with intractable migraine, so stated, without mention of status migrainosus Chronic daily headache Headache Pressure in head Headache [facility] Diagnosis Chronic pain syndrome- Primary Fibromyalgia Mylagia and myositis, unspecified POTS (postural orthostatic tachycardia syndrome) Tachycardia, unspecified Tremors of nervous system Abnormal involuntary movements [facility] 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 aura and without status migrainosus- Primary Chronic migraine without aura, with intractable migraine, so stated, without mention of status migrainosus documented in this encounter [facility] Summary Purpose Family History No [...] headache Procedures PROVIDER ORDERED FOLLOW UP OFFICE/OUTPATIENT [facility] 60-[place] [address] [place] [address] Referral ID Status Reason Start Date Expiration Date Visits Requested Visits Authorized [id number] Pending Review PCP Requested Referral 08/03/2023 05/24/2024 1 1 Specialty Diagnoses / Procedures Referred By Jj t Referred To Contact Neurology Diagnoses Tremors of nervous system Procedures CONSULT TO NEUROLOGY OFFICE/OUTPATIENT [facility] 60 MINUTES Sari Forrest DO [address] [phone] Referral ID Status Reason Start Date Expiration Date Visits Requested Visits Authorized [id number] Authorized PCP Requested Referral 03/09/2024 03/09/2025 1 1 Specialty Diagnoses / Procedures Referred By Johnnyac t Referred To Contact Neurology Diagnoses POTS (postural orthostatic tachycardia syndrome) Procedures CONSULT TO NEUROLOGY OFFICE/OUTPATIENT [facility] 60 MINUTES Sari Forrest DO [address] [phone] Referral ID Status Reason Start Date Expiration Date Visits Requested Visits Authorized [id number] Authorized PCP Requested Referral 03/09/2024 03/09/2025 1 1 Specialty Diagnoses / Procedures Referred By Jj briones Referred To Contact [facility] Diagnoses Chronic pain syndrome Procedures [facility]SULT TO [facility]) OFFICE/OUTPATIENT NEW HIGH MDM 60 MINUTES Sari Forrest DO [address] [place] [address] Referral ID Status Reason Start Date Expiration Date Visits Requested Visits Authorized [id number] Pending Review PCP Requested Referral 03/09/2024 03/09/2025 1 1 Additional Source Comments INFORMATION SOURCE (unrecogn ized section and content) DATE CREATED AUTHOR 01/01/2023 [facility] DATE CREATED AUTHOR AUTHOR'S ORGANIZ ATION 01/06/2023 [facility] DATE CREATED AUTHOR AUTHOR'S ORGANIZ ATION 12/10/2023 [facility] DATE CREATED AUTHOR AUTHOR'S ORGANIZ ATION 01/12/2024 [facility] DATE CREATED AUTHOR AUTHOR'S ORGANIZ ATION 02/11/2024 [facility] DATE CREATED AUTHOR AUTHOR'S ORGANIZ ATION 03/03/2024 [facility] DATE CREATED AUTHOR AUTHOR'S ORGANIZ ATION 03/04/2024 [facility] DATE CREATED AUTHOR AUTHOR'S ORGANIZ ATION 03/24/2024 [facility] Source Comments (unrecognize d section and content) In the event this informatio n is protected by the Federal Confidentiality of Alcohol and Drug Abuse Patient Records regulations: The Federal rules restrict any use of the information to criminally investigate or prosecute any alcohol or drug abuse patient.[facility] the event this information is protected by the Federal Confidentiality of Alcohol and Drug Abuse Patient Records regulations: The Federal rules restrict any use of the information to criminally investigate or prosecute any alcohol or drug abuse patient.[facility] the event this information is protected by the Federal Confidentiality of Alcohol and Drug Abuse Patient Records regulations: The Federal rules restrict any use of the information to criminally investigate or prosecute any alcohol or drug abuse patient.[facility] the event this information is protected by the Federal Confidentiality of Alcohol and Drug Abuse Patient Records regulations: The Federal rules restrict any use of the information to criminally investigate or prosecute any alcohol or drug abuse patient.[facility] the event this information is protected by the Federal Confidentiality of Alcohol and Drug Abuse Patient Records regulations: The Federal rules restrict any use of the information to criminally investigate or prosecute any alcohol or drug abuse patient.[facility] the event this information is protected by the Federal Confidentiality of Alcohol and Drug Abuse Patient Records regulations: The Federal rules restrict any use of the information to criminally investigate or prosecute any alcohol or drug abuse patient.[facility] the event this information is protected by the Federal Confidentiality of Alcohol and Drug Abuse Patient Records regulations: The Federal rules restrict any use of the information to criminally investigate or prosecute any alcohol or drug abuse patient.[facility] the event this information is protected by the Federal Confidentiality of Alcohol and Drug Abuse Patient Records regulations: The Federal rules restrict any use of the information to criminally investigate or prosecute any alcohol or drug abuse patient.[facility] Reason for Visit (unrecogniz ed section and content) Reason Comments Received Outside Medical Records Externa l referral to [facility] Reason Comments Chronic Migraine Reason Onset Date Comments Refill Request 12/04/2023 Reason Comments Refill Request Reason Comments Migraine Reason Comments Referral Request Reason Comments New Patient Specialty Diagnoses / Procedures Referred By Contact Referred To Contact [facility] Diagnoses Fibromyalgia Procedures VIDEO SPEC Kaylee Portillo, DO [address] [place] [phone] [facility] [address] [place] [address] Referral ID Status Reason Start Date Expiration Date V isits Requested Visits Authorized [id number] Outside PCP 12/22/2023 03/21/2024 1 1 Reason Comments Botox Injection Specialty Diagnoses / Procedures Referred By Contac t Referred To Contact [facility] Diagnoses Chronic migraine without aura, intractable, without status migrainosus Procedures BOTULINUM TOXIN A PER 1 UNIT CHEMODERVATE FACIAL/TRIGEM/CERV MUSC MIGRAINE Initial due 02/07/2024 Botox 200 units every 12 weeks for 1 year through CC buy and bill Preempt protocol [id number] Procedure -[id number] chemodervate facial/trigem/cerv musc migraine Sarbjit Thompson, ELECTRONICS SCALE TESTER.MOBILE HOME SET UP PERSON [address] [place] [address] Neur Headache [address] [place] [address] Referral ID Status Reason Start Date Expiration Date V isits Requested Visits Authorized [id number] Authorized 02/07/2024 07/25/2024 99 99 Care Teams (unrecognized sec tion and content) Airport Maintenance Laborer Relationship Specialty Start Date End Date Maite Kruse [address] [facility] [address] [place] [address] PCP - General Family Medicine 03/19/21 Kaylee Hutton DO [address] [phone] [place] Referring Team Neurology 03/17/23 Team Status: Active Member Role Status Dates KAREN Egan Primary Care Provider Active Team Status: Inactive Member Role Status Dates Kaylee Hutton DO Attending Provider Active KAREN Egan Primary Care Provider Active Airport Maintenance Laborer Relationship Specialty Start Date End Date Maite Kruse [address] [facility] [address] [place] [address] PCP - General Family Medicine 03/19/21 Kaylee Hutton, DO [address] [phone] [place] Referring Team Neurology 03/17/23 Airport Maintenance Laborer Relationship Specialty Start Date End Date RodrickMaite rankin [address] [facility] [address] [place] [phone] PCP - General Family Medicine 03/19/21 Kaylee Hutton, DO [address] [phone] [place] Referring Team Neurology 03/17/23 Airport Maintenance Laborer Relationship Specialty Start Date End Date Maite Kruse [address] [facility] [address] [place] [address] PCP - General Family Medicine 03/19/21 Kaylee Hutton, DO [address] [phone] [place] Referring Team Neurology 03/17/23 Airport Maintenance Laborer Relationship Specialty Start Date End Date Maite Kruse [address] [facility] [address] [place] [phone] PCP - General Family Medicine 03/19/21 Kaylee Hutton, DO [address] [phone] [place] Referring Team Neurology 03/17/23 Airport Maintenance Laborer Relationship Specialty Start Date End Date MarvinMaite maguire [address] [facility] [address] [place] [phone] PCP - General Family Medicine 03/19/21 Kaylee Hutton, DO [address] [phone] [place] Referring Team Neurology 03/17/23 Airport Maintenance Laborer Relationship Specialty Start Date End Date Maite Kruse [address] [facility] [address] [place] [phone] PCP - General Family Medicine 03/19/21 Kaylee Hutton, DO [address] [place] [phone] [place] Referring Team Neurology 03/17/23 Airport Maintenance Laborer Relationship Specialty Start Date End Date Maite Kruse [address] [facility] [address] [place] [phone] PCP - General Family Medicine 03/19/21 Kaylee Hutton, DO [address] [place] [phone] [place] Referring Team Neurology 03/17/23 Goals (unrecognized [...] BE BASED ON THE PRIMARY CLINICAL RECORDS. [facility]. provides no warranty or guarantee of the accuracy or completeness of information in this document.
[2024-04-03 09:37] LABS: HCG Qualitative NEGATIVE (NEGATIVE); Internal Control Within Normal Limits
[2024-04-03 09:39] VITALS: BP 112/68; PULSE 62; TEMP 36; O2SAT 96
[2024-04-03 10:26] VITALS: BP 143/65; BP 147/63; PULSE 69; PULSE 70; O2SAT 93; O2SAT 95
--- NOTE | 2024-04-03 10:28 | W.PM.PROCNOT ---
Date of procedure: 04/03/24 Pre-op diagnosis: M54.12 Post-op diagnosis: same as pre-op Procedure: Procedure: Bilateral C5-6 transforaminal epidural steroid injection Medications: Bupivacaine 0.25% 2cc, lidocaine 2% 1cc, dexamethasone 10mg The patient was seen and examined in the preoperative holding area.? Informed consent was obtained and placed on the chart.? Patient was brought to the medical procedure unit and placed in the prone position where a timeout was completed verifying the correct patient, procedure site, position, and planned special equipment using sterile aseptic technique.? Under direct fluoroscopic visualization a 25-gauge Quincke tipped spinal needle was advanced at level left C5-6 to the designated neural foramen where contrast dye was injected to show adequate spread.? There was no evidence of vascular or adverse uptake.? Epidural spread was appreciated.? The above-mentioned injectate was then placed in a 1.5 mL aliquot preceded by negative aspiration.? The needle was removed. The same procedure, at the same level, was completed on the opposite side. ? Patient was taken to the postprocedural recovery area and monitored for an appropriate length of time before found suitable for discharge in the accompaniment of a responsible adult. Anesthesia: Local Surgeon: Frank Hunter Pathology: none sent Condition: stable Disposition: no change
[2024-04-03] MEDS: LIDOCAINE HCL 2% 400 MG/20 ML MDV INJ (10:30)
[2024-04-03] MEDS: IOHEXOL 240 MG/ML - 10 ML VIAL 12 MG INJ (10:30)
[2024-04-03] MEDS: BUPIVACAINE HCL 0.25% PF 25 MG/10 ML VIAL INJ (10:30)
[2024-04-03] MEDS: DEXAMETHASONE SOD PHOS 10 MG/ML VIAL INJ (10:30)
== END 2024-04-03 10:33 | disposition home or self-care (01) ==
LOC: SURGOUT 09:09
PROVIDERS: PCP Nurse Practitioner Family; Visit Provider Anesthesiology
DX: M54.12 Radiculopathy, cervical region (principal)
CPT/HCPCS: 36415; 64479; 84703; J0665; J1100; Q9966

== ENCOUNTER 2024-04-19 10:44 | Outpatient (OUT) | payer OTHER, MEDICARE, SELFPAY ==
--- OUTSIDE RECORDS SUMMARY | 2024-04-19 11:05 | XMS_ITS | CCD ---
Author Organization [facility] Care Team Providers Care President & [employer] Name Role Phone KRISTIE, MARGARET Primary Care [...] FAY Primary Care Unavailable ANDREWS ., DR BEOT Cote Admitting Unavailable ANDREWS ., DR BETO [...] Unavailable HEATHER ., DR OCASIO Consulting Unavailable ZIRAHELER, DR MICHAEL Carmona Consulting Unavailable RMOEO DOMINGUEZ Attending Unavailable [facility]bertEnder mag[facility]na Primary Care Provider Kaylee Hutton DO Unavailable DO Kaylee Hutton Attending Provider KAREN Munguia Margaret Sintia Primary Care Provider Ender [facility] Primary Care Provider Ender [facility] [place] Primary Care Provider MATT LOVE Attending Unavailable ARCADIO SEVERINO Referring Unavailable KRISTIE, MARGARET S Primary Care Unavailable Kristie, Margaret Sintia Primary Care Unavailable [...] Unavailable ARCADIO SEVERINO Attending Unavailable MARGARET MUNGUIA S Referring Unavailable MARGARET MUNGUIA Primary Care Unavailable Elsa HAMMER, Frank Palacios Attending Unavailable Elsa HAMMER, Frank Palacios Attending Unavailable Elsa HAMMER, Frank Palacios Attending Unavailable SARBJIT MCKEON Attending Unavailable USHA MEEK Referring Unavailable SARBJIT MCKEON Attending Unavailable KAYLEE HUTTON Referring Unavailab USHA Cancino Attending Unavailable CRISTELA AVILEZ Attending Unavailable TANKASYA, SARI Referring Unavailable SARBJIT MCKEON Referring Unavailable TRACY HENDRIX Attending Unavailable KAYLEE HUTTON Referring Unavailab SARI Schreiber Attending Unavailable Allergies Allergy Classification Reported Allergen(s) Allergy Type Date of Onset Reaction(s) Facility (1 source) Corticosteroids Drug allergy (disorder) [facility] Repository (11 sources) Glucocorticoid preparation; Translations: [CORTICOSTEROIDS (GLUCOCORTICOIDS)] Drug Allergy 3 Other: See Comments [facility] Work Phone: Medications Current Medications Medication Drug Class(es) Dates Sig (Normalized) Sig (Original) cariprazine 3 mg oral capsule (5 sources) Atypical Antipsychotic Start: 10-01-2023 take 1 capsule by mouth once daily cariprazine (VRAYLAR) 3 mg capsule Take 3 mg by mouth once daily. 10/01/2023 Active Start: 05-04-2023 take 1 capsule by mo [facility] once daily cariprazine (VRAYLAR) 4.5 mg capsule [...] once daily. gabapentin 400 mg oral capsule (10 sources) Anti-epileptic Agent Start: 3 take 1 capsule by mouth three times daily gabapentin (NEURONTIN) 400 mg capsule Take 400 mg by mouth three times a day. 03/16/2023 Active Comment on above: Take 400 mg by mouth three times a day. lamoTRIgine 100 mg oral tablet (6 sources) Mood Stabilizer, Anti-epileptic Agent Start: End: 4 take 1 tablet by mouth once daily lamoTRIgine (LAMICTAL) 100 mg tablet Take 100 mg by mouth once daily. 0 04/23/2023 03/09/2024 Discontinued Comment on above: Take 100 mg by mouth once daily. 24 hr metoprolol succinate 50 mg extended release oral tablet (11 sources) beta-Adrenergic Geo Start: 4 take 1 tablet by mouth once [...] Problem Classification Problem Date Documented Date Episodic/Chronic Adjustment disorders (2 sources) Adjustment disorder with mixed anxiety and depressed mood; Translations: [Adjustment disorder with mixed anxiety and depressed mood] Onset: 04-13-2024 04-13-2024 Chronic Anxiety disorders (4 sources) Post-traumatic stress disorder, unspecified; Translations: [Panic disorder [episodic paroxysmal anxiety]] Onset: 12-08-2022 Chronic Cardiac dysrhythmias (2 sources) Postural orthostatic tachycardia syndrome ; Translations: [POTS [...] Onset: 01-06-2023 Episodic Other connective tissue disease (5 sources) Fibromyalgia; Translations: [FIBROMYALGIA] Onset: 08-31-2022 Episodic Other connective tissue disease (2 sources) Fibromyalgia; Translations: [Fibromyalgia] 03-09-2024 Episodic Other female genital disorders (1 source) Abnormal uterine and vaginal bleeding, unspecified; Translations: [ABNORMAL UTERINE VAGINAL BLEED UNS] Onset: 11-08-2022 Chronic Other nervous system disorders (5 sources) Chronic pain syndrome; Translations: [CHRONIC PAIN SYNDROME] Onset: 08-17-2022 Chronic Other nervous system disorders (2 sources) Chronic pain syndrome; Translations: [Chronic pain syndrome] 03-09-2024 Chronic Other nervous system disorders (2 sources) Tremor; Translations: [Tremor, unspecified] 03-09-2024 Episodic Other nervous system disorders (1 source) Tremor, unspecified; Translations: [Tremors of nervous system] Onset: 04-13-2024 Episodic Other nutritional; endocrine; and metabolic disorders [...] Unclassified (1 source) New Patient Onset: 12-08-2023 Unclassified (1 source) POTS (postural orthostatic tachycardia syndrome); Translations: [POTS (postural orthostatic tachycardia syndrome)] Onset: 04-13-2024 Past or Other Problems Problem Classification Problem Date Documented Da te Episodic/Chronic Other non-traumatic joint disorders (4 sources) Pain in left shoulder; Translations: [PAIN IN LEFT SHOULDER] Onset: 05-12-2022 Episodic Spondylosis; intervertebral disc disorders; other back problems (1 source) Radiculopathy, cervical region; Translations: [Radiculopathy, cervical region] Onset: 05-20-2023 Episodic Results Test Name Value Interpretation Reference Range Facility [facility] 03-22-2024 CNOV Office Visit (NHMNS2 ) RADHA GARCÍA ([id number]) 1985 F U[place] Date Time Provider Department 03/22/24 9:00 AM TRACY HENDRIX [facility] During your visit today, we recorded the [...] for migraine Informed Consent Consent Obtained: Written Cropsey Protocol A moment to CARE was completed [...] applicable Written Consent Obtained: Written LOT #: [id number] Expiration Date: Month: 12 Year: 2025 Injection Sites Left (Units) Left (Sites) Right (Units) Right (Sites) TOTAL (Units) Foreign Car Mechanic 5 1 5 1 10 Procerus Units: [...] sodium (Aleve) Tracy Hendrix PA-C Headache Section [facility] March 22, 2024 Tracy Hendrix PA-C 03/22/2024 [...] and maximiz (more content not included)... Normal [facility] CNOVon 03-09-2024 CNOV Office Visit (NPRC21 ) RADHA [id number]) 1985 F U[place] Date Time Provider Department 03/09/24 8:00 AM SARI ADDISON NPRC21 During your visit today, we recorded the following information about you: Pulse Blood pressure Weight Height 58/minute 102/63 145.2 kg 1.626 m Sari Addison DO 03/09/2024 9:07 AM Signed [facility] [place] March 09, 2024 Radha García is a 38 year old disabled who lives with and a son. She was referred by Kaylee Hutton DO [address] [place] [phone]. Chief complaint: chronic pain SUBJECTIVE: Patient is [...] No CHF: no Uncontrolled HTN: No Recent NE: No Arrythmias: No Afib: No Hyperthyroid: No [...] which included preparing to see the patient, [id number] patient care, completing clinical documentation, obtaining and/or r (more content not included)... [facility] 02-07-2024 [facility] Telephone (NHMNS2) RADHA GARCÍA ([id number]) 1985 F UPA Date Time Provider Department 02/07/24 SARBJIT MCKEON [facility] During your visit today, we recorded the following information about you: Melecio Martinez RN 02/07/2024 2:10 PM Signed Botox referral sent to pharmacy Tyron HANCOCK, RN Clinical Leather Flesher [facility] Terry Davis 02/16/2024 10:44 AM Signed Patient has been scheduled - EC Allergies As of Date: 02/07/2024 Noted Allergy Reaction CORTICOSTEROIDS (GLUCOCORTICOIDS) 05/25/2023 14 - Other: See Comments Date Reviewed: 02/07/2024 Reviewed by: Sarbjit Mckeon APRN.STAGE PRODUCER - Fully Assessed Reason for Visit: Referral [...] Encounter Status:Closed by MELECIO MARTINEZ on 02/07/24 [facility] 08-04-2023 [facility] Telephone (NIQ) RADHA GARCÍA ([id number]) 1985 F U[place] Date Time Provider Department 08/04/23 NEUROLOGY PROVIDER JEFF During your visit today, we recorded the following information about you: Mary Walters 08/04/2023 11:56 AM Signed Received external records from [facility] related to intracranial hypertension. Pt is following with Dr. Usha Meek. Forwarded records to her office at [phone]. Allergies As of Date: 08/04/2023 Noted Allergy Reaction CORTICOSTEROIDS (GLUCOCORTICOIDS) 05/25/2023 14 - Other: See Comments Date Reviewed: 08/03/2023 Reviewed by: Sarbjit Mckeon APRN.STAGE PRODUCER - Fully Assessed Reason for Visit: Received Outside Medical Records [3172] Cmt: Records from local neurologist Prescriptions as [...] Status:Closed by MARY WALTERS on 08/04/23 Normal [facility] MR cervical spine wo obdulia 1 MR cervical spine wo con [facility] [place] [address] MRI Report Signed Patient: Radha García MR#: [id number] : 1985 Acct:[id number] Age/Sex: 38 / F ADM Date: 05/20/23 [...] Powell Jr., D.O.05/20/2023 11:29 AM Dictation Location: [place] [address] Transcribed By: [facility] 05/20/23 1129 Dictated By: Bassem Powell Jr, DO 05/20/23 1126 Signed By: 05/20/23 1129 Normal [facility] XR pre/post mri xrayon 05-20 XR pre/post mri xray [facility] [place] [address] XRay Report Signed Patient: Radha García MR#: [id number] : 1985 Acct:[id number] Age/Sex: 38 / F ADM Date: 05/20/23 [...] Melecio Barillas M.D.05/20/2023 1:06 PM Dictation Location: [place] [address] Transcribed By: [facility] 05/20/23 1306 Dictated By: Melecio Barillas DO 05/20/23 1304 Signed By: 05/20/23 1306 Normal [facility] Office Visiton 01-06-2023 Follow-up visit [id number] Radha García 1985 F Date Provider Department Center 01/06/2023 [id number] DOMINGUEZ [facility] No family history on file Level of Service:07707 [place] OFFICE/OUTPATIENT NEW MODERATE MDM 45-59 MINUTES Reason for Visit and Comments: New Patient [632] - abnormal stress kristie referral saw cardio in OR not sure of name Normal [facility] PROF CHEM 8 (BAS METB)on Anion gap [Moles/Vol] 12.4 mmol/L Normal [facility] Comment on above: Performed By: #### B MP #### [facility] [address] [place] [address] Dr. Maame Núñez Calcium [Mass/Vol] 8.7 mg/dL Normal 8.5-10.1 [facility] Comment on above: Performed By: #### B MP #### [facility] [address] [place] [address] [address] Maame Núñez Chloride [Moles/Vol] 107 mmol/L Normal 98-107 [facility] Comment on above: Performed By: #### B MP #### [facility] [address] [place] [address] [address] Maame Núñez CO2 [Moles/Vol] 26.6 mmol/L Normal 21.0-32.0 [facility] Comment on above: Performed By: #### B MP #### [facility] [address] [place] [address] Dr. Maame Núñez Creatinine [Mass/Vol] 0.61 mg/dL Normal 0.55-1.02 [facility] Comment on above: Performed By: #### B MP #### [facility] [address] [place] [address] Dr. Maame Núñez EGFR-AF BAHRAINI >60 Normal >=60 [facility] Comment on above: Performed By: #### B MP #### [facility] [address] [place] [address] [address] Maame Núñez EGFR-NON AF BAHRAINI >60 Normal >=60 [facility] Comment on above: Performed By: #### B MP #### [facility] [address] [place] [address] Dr. Maame Núñez Glucose [Mass/Vol] 94 mg/dL Normal 74-106 [facility] Comment on above: Performed By: #### B MP #### [facility] [address] [place] [address] Dr. Maame Núñez Potassium [Moles/Vol] 4.0 mmol/L Normal 3.5-5.1 [facility] Comment on above: Performed By: #### B MP #### [facility] [address] [place] [address] Dr. Maame Núñez Sodium [Moles/Vol] 142 mmol/L Normal 136-145 [facility] Comment on above: Performed By: #### B MP #### [facility] [address] [place] [address] Dr. Maame Núñez Urea nitrogen [Mass/Vol] 12.0 mg/dL Normal 7.0-18.0 [facility] Comment on above: Performed By: #### B MP #### [facility] [address] [place] [address] Dr. Maame Núñez Urea nitrogen/Creatinine [Mass ratio] 19.7 mg/mg Normal [facility] Comment on above: Performed By: #### B MP #### [facility] [address] [place], [place] [address] Dr. Maame Núñez XR CHEST 2 Von [...] MORENA OWENS Date: 2022-11-02 09:41 Normal [facility] COLLIN EIA W/REFLEX 9 BIOMARKER Son 09-01-2022 COLLIN Direct Negative Normal Negative [facility] Comment on above: Performed By: #### A NARF9 #### [facility] [address] [place] [address] [address] Maame Núñez CBC AUTO DIFFon 08-17-2022 BASO # 0.0 103/ul Normal 0.0-0.1 [facility] Comment on above: Performed By: #### C BC ####[facility] [address] [place] [address]DrEllen Núñez Basophils/100 WBC (Bld) 0.6 % Normal 0.2-2.0 [facility] Comment on above: Performed By: #### C BC ####[facility] [address] [place] [id number] Núñez EO # 0.1 103/ul Normal 0.0-0.7 [facility] Comment on above: Performed By: #### C BC ####[facility] [address] [place] [id number] Núñez Eosinophils/100 WBC (Bld) 1.5 % Normal 0.9-7.0 [facility] Comment on above: Performed By: #### C BC ####[facility] [address] [place] [id number] Núñez Erythrocyte distribution width (RBC) [Ratio] 13.0 % Normal 11.0-15.0 [facility] Comment on above: Performed By: #### C BC ####[facility] [address] [place] [address]Dr. Maame Núñez Hematocrit (Bld) [Volume fraction] 39.3 % Normal 36.0-48.0 [facility] Comment on above: Performed By: #### C BC ####[facility] [address] [place] [address]Dr. Angelineclemente Núñez Hemoglobin (Bld) [Mass/Vol] 13.6 g/dL Normal 12.0-16.0 [facility] Comment on above: Performed By: #### C BC ####[facility] [address] [place], [place] [address]Dr. Maame Núñez IG # 0.02 10e3/ul Normal 0.00-0.03 [facility] Comment on above: Performed By: #### C BC ####[facility] [address] [place], [place] [address]Dr. Maame Núñez IG % 0.3 % Normal 0.0-0.5 [facility] Comment on above: Performed By: #### C BC ####[facility] [address] [place], [place] [address]Dr. Angelineclemente Núñez LYMPH # 2.1 103/ul Normal 1.2-3.8 [facility] Comment on above: Performed By: #### C BC ####[facility] [address] [place], [place] [address]Dr. Maame Núñez Lymphocytes/100 WBC (Bld) 31.5 % Normal 20.5-60.0 [facility] Comment on above: Performed By: #### C BC ####[facility] [address] [place], [place] [address]Dr. Maame Núñez MANUAL DIFF REQ NO Normal [facility] Comment on above: Performed By: #### C BC ####[facility] [address] [place] [address]Dr. Maame Núñez MCH (RBC) [Entitic mass] 28.4 pg Normal 26.7-34.0 [facility] Comment on above: Performed By: #### C BC ####[facility] [address] [place] [id number]. Maame Wilton MCHC (RBC) [Mass/Vol] 34.6 g/dL Normal 29.9-35.2 [facility] Comment on above: Performed By: #### C BC ####[facility] [address] [place] [id number]. Maame Núñez MCV (RBC) [Entitic vol] 82.0 fL Normal 81.0-99.0 [facility] Comment on above: Performed By: #### C BC ####[facility] [address] [place], [place] [address]Dr. Maame Núñez MONO # 0.5 103/ul Normal 0.3-0.8 [facility] Comment on above: Performed By: #### C BC ####[facility] [address] [place], [place] [address]Dr. Maame Núñez Monocytes/100 WBC (Bld) 7.0 % Normal 1.7-12.0 [facility] Comment on above: Performed By: #### C BC ####[facility] [address] [place], [place] [address]Dr. Maame Núñez NEUT # 3.9 103/ul Normal 1.4-6.5 [facility] Comment on above: Performed By: #### C BC ####[facility] [address] [place], [place] [address]Dr. Maame Núñez Neutrophils/100 WBC (Bld) 59.1 % Normal 43.0-75.0 [facility] Comment on above: Performed By: #### C BC ####[facility] [address] [place], [place] [address]DrEllen Núñez Platelet mean volume (Bld) [Entitic vol] 9.9 fL Normal 9.5-13.5 [facility] Comment on above: Performed By: #### C BC ####[facility] [address] [place], [place] [address]Dr. Maame Núñez PLT 242 103/ul Normal 150-450 [facility] Comment on above: Performed By: #### C BC ####[facility] [address] [place] [id number] Núñez RBC 4.79 106/ul Normal 4.20-5.40 [facility] Comment on above: Performed By: #### C BC ####[facility] [address] [place] [id number] Núñez WBC 6.5 103/ul Normal 4.0-11.0 [facility] Comment on above: Performed By: #### C BC ####[facility] [address] [place] [id number] Núñez CPKon 08-17-2022 CK [Catalytic activity/Vol] 82 U/L Normal 26-192 [facility] Comment on above: Performed By: #### M YO, CK #### [facility] [address] [place] [address] [address] Maame Núñez FREE T4on 08-17-2022 Free T4 [Mass/Vol] 0.99 ng/dL Normal 0.76-1.46 [facility] Comment on above: Performed By: #### F T4 #### [facility] [address] [place] [address] Dr. Maame Núñez GLYCOHEMOGLOBIN A1Con 2022 ADA RECOMMENDATION SEE BELOW Normal [facility] Comment on above: Result Comment: ADA RECOMMENDED LIMIT 4.0 - 6.0 ADA THERAPEUTIC TARGET < 7.0 ACTION SUGGESTED > 7.0 Performed By: #### A 1C #### [facility] [address] [place] [address] Dr. Maame Núñez Glucose [Mass/Vol] 103 mg/dL Normal [facility] Comment on above: Performed By: #### A 1C #### [facility] [address] [place] [address] Dr. Maame Núñez HbA1c (Bld) [Mass fraction] 5.2 % Normal 4.5-6.2 [facility] Comment on above: Performed By: #### A 1C #### [facility] [address] [place] [address] Dr. Maame Núñez MYOGLOBINon 08-17-2022 LILLIAM 46 ng/mL Normal 9-82 [facility] Comment on above: Performed By: #### M YO, CK #### [facility] [address] [place] [address] Dr. Maame Núñez PREG QUANT HCGon 08-17-2022 HCG QUANT 1 mIU/mL Normal [facility] Comment on above: Performed By: #### T SH, PREGQNT #### [facility] [address] [place] [address] Dr. Maame Núñez HCG RANGE SEE BELOW Normal [facility] Comment on above: Result Comment: 5-50 0.2-1 WEEK 50-500 1-2 WEEKS 100-5,000 2-3 WEEKS 500-10,000 3-4 WEEKS 1,000-50,000 4-5 WEEKS 10,000-100,000 5-6 WEEKS 15,000-200,000 6-8 WEEKS 10,000-100,000 2-3 MONTHS Performed By: #### T SH, PREGQNT #### [facility] [address] [place] [address] Dr. Maame Núñez TSHon 08-17-2022 TSH 1.027 uIU/mL Normal 0.358-3.740 [facility] Comment on above: Performed By: #### T SH, PREGQNT #### [facility] [address] [place] [address] Dr. Maame Núñez US PELVIS AND TRANSVAGon [...] by: MICHAEL WILLIS Date: 2022-08-17 14:30 Normal [facility] Vital Signs Date Time Vital Sign Value Performing Clinician Autumn alan 03-22-2024 09:02-0400 Diastolic blood pressure 60 mm[Hg] Tracy Hernandezell PA-C Work Phone: [facility] 03-22-2024 09:02-0400 Heart rate 58 /min Tracy Hernandezell PA- C Work Phone: [facility] 03-22-2024 09:02-0400 SaO2% (BldA) [Mass fraction] 96 % Tracy Hernandezell PA-C Work Phone: [facility] 03-22-2024 09:02-0400 Systolic blood pressure 117 mm[Hg] Tracymadhuri Hernandezell PA-C Work Phone: [facility] 03-09-2024 07:44-0400 Body height 162.6 cm Sari Tankha DO Work Phone: [facility] 03-09-2024 07:44-0400 Body mass index (BMI) [Ratio] 54.93 kg/m2 Sari Tankha DO Work Phone: [facility] 03-09-2024 07:44-0400 Body weight 145.15 kg Sari Tankha DO Work Phone: [facility] 03-09-2024 07:44-0400 Diastolic blood pressure 63 mm[Hg] Sari Tankha DO Work Phone: [facility] 03-09-2024 07:44-0400 Heart rate 58 /min Sari Tankha DO Work Phone: [facility] 03-09-2024 07:44-0400 SaO2% (BldA) [Mass fraction] 96 % Sarifrancois Addison DO Work Phone: [facility] 03-09-2024 07:44-0400 Systolic blood pressure 102 mm[Hg] Sari Addison DO Work Phone: [facility] 05-25-2023 09:19-0400 Body height 160 cm Usha Meek DO Work Phone: [facility] 05-25-2023 09:190400 Body weight 145.15 kg Usha Meek DO Work Phone: [facility] Encounters Encounter Date Encounter Type Care Provider Facility Start: 04-18-2024 End: 04-18-2024 ambulatory Sari Addison DO Work Phone: [facility] Pain Comment on above: New medication reque st Start: 04-13-2024 End: 04-13-2024 [facility] Cristela Avilez Therapist Work Phone: Pain Recovery Comment on above: Adjustment disorder with mixed anxiety and depressed mood (Primary Dx); Fibromyalgia; POTS (postural orthostatic tachycardia syndrome); Tremors of nervous system; Chronic pain syndrome resources Start: 04-06-2024 End: 04-06-2024 ambulatory ARCADIO SEVERINO [facility] Start: 04-03-2024 End: 04-03-2024 ambulatory Frank Hunter MD Facility: [facility] Start: 03-22-2024 End: 03-22-2024 ambulatory SARBJIT MCKEON Facility:[facility] Start: 03-22-2024 End: 03-22-2024 Patient encounter procedure Tracy Hendrix PA-C Work Phone: Neurology Comment on above: 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 aura and without status migrainosus (Primary Dx) Start: 03-09-2024 End: 03-09-2024 ambulatory KAYLEE HUTTON Facility:[facility] Start: 03-09-2024 End: 03-09-2024 Patient encounter procedure Sari Addison DO Work Phone: Neurology Pain Comment on above: Chronic pain syndrom e (Primary Dx); Fibromyalgia; POTS (postural orthostatic tachycardia syndrome); Tremors of nervous system Start: 03-02-2024 End: 03-02-2024 ambulatory [facility] Start: 03-01-2024 End: 03-01-2024 ambulatory HAYDEN HERNDON Not Available Start: 02-07-2024 Telephone encounter Sarbjit Jay DAVESTAGE PRODUCER Work Phone: Neurology Comment on above: Referral Request Start: 02-07-2024 End: 02-07-2024 ambulatory Sarbjit Mckeon KOHINOOR OPERATOR.STAGE PRODUCER Work Phone: Neurology [facility] Comment on above: 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 aura and without status migrainosus (Primary Dx); Chronic daily headache; Pressure in head Start: 02-07-2024 End: 02-07-2024 Telemedicine consultation with patient Sarbjit Mckeon KOHINOOR OPERATOR.STAGE PRODUCER Work Phone: Neurology [facility] Start: 01-24-2024 End: 01-24-2024 ambulatory [facility] Start: 01-03-2024 End: 01-03-2024 ambulatory Frank Hunter MD Facility:[facility] Start: 12-29-2023 End: 12-29-2023 ambulatory [facility] Start: 12-15-2023 Refill Sarbjit Mckeon APR N.STAGE PRODUCER Work Phone: Neurology [facility] Comment on above: Refill Request Start: 12-15-2023 End: 12-15-2023 ambulatory KAYLEE HUTTON Not Available Start: 12-08-2023 End: 12-08-2023 ambulatory [facility] Start: 12-04-2023 Refill Usha Meek DO Work Phone: NEUROLOGY Comment on above: Refill Request Start: 12-03-2023 End: 12-03-2023 ambulatory HAYDEN HERNDON Not Available Start: 11-29-2023 End: 11-29-2023 ambulatory [facility] Start: 11-08-2023 End: 11-08-2023 ambulatory Frank Hunter MD Facility:[facility] Start: 10-13-2023 End: 10-13-2023 ambulatory [facility] Start: 10-11-2023 End: 10-11-2023 ambulatory HAYDEN HERNDON Not Available Start: 09-13-2023 End: 09-13-2023 ambulatory [facility] Start: 08-16-2023 End: 08-16-2023 ambulatory [facility] Start: 08-03-2023 End: 08-03-2023 ambulatory USHA MEEK Facility:[facility] Start: 07-12-2023 End: 07-12-2023 ambulatory ARIANNA WILSON Not Available Start: 05-25-2023 End: 05-25-2023 ambulatory Usha Meek DO Work Phone: NEUROLOGY Comment on above: 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 aura and without status migrainosus (Primary Dx); Pressure in head; Chronic daily headache Start: 05-25-2023 End: 05-25-2023 Telemedicine consultation with patient Usha Meek DO Work Phone: [facility] Start: 05-21-2023 ambulatory Alejandro Varner acility:[facility] Start: 05-20-2023 End: 05-20-2023 Patient encounter procedure DIRECTOR MARKETING COMMUNICATIONS-C Margaret Munguia Work Phone: [facility] Work Phone: Start: 05-20-2023 End: 05-20-2023 ambulatory DIRECTOR MARKETING COMMUNICATIONS-C Margaret Munguia Work Phone: [facility] Work Phone: Start: 03-17-2023 Telephone encounter Neurology Provid er Neurology Comment on above: Received Outside Med ical Records (External referral to [facility] [place]) Start: 01-06-2023 End: 01-06-2023 ambulatory [facility] Start: 12-24-2022 ambulatory MARGARETESTRELLA CHAUHANMER Facility: [facility] Start: 12-16-2022 Encounter for preprocedural cardiovascular examination MARGARET KRISTIE [facility] Start: 12-15-2022 End: 12-16-2022 ambulatory MARGARETESTRELLA CHAUHANMER Facility:[facility] Start: 12-15-2022 End: 12-16-2022 Encounter for preprocedural cardiovascular examination MARGARET KRISTIE Facility:[facility] Start: 12-07-2022 End: 12-08-2022 ambulatory MARGARET KRISTIE Facility:[facility] Start: 12-01-2022 End: 12-02-2022 ambulatory MARGARET KRISTIE Facility:[facility] Start: 11-26-2022 Encounter for other preprocedural examination MARGARETESTRELLA CHAUHANMER [facility] Start: 11-23-2022 End: 11-24-2022 ambulatory MARGARET MUNGUIA Facility:[facility] Start: 11-23-2022 End: 11-24-2022 Encounter for other preprocedural examination MARGARET MUNGUIA Facility:[facility] Start: 11-11-2022 ambulatory MARGARET KRISTIE Facility: [facility] Start: 11-08-2022 Encounter for preprocedural cardiovascular examination DR NINFA ROMERO . [facility] Start: 11-08-2022 Encounter for preprocedural laboratory examination DR NINFA ROMERO . [facility] Start: 11-08-2022 Encounter for preprocedural respiratory examination DR NINFA ROMERO . [facility] Start: 11-02-2022 End: 11-03-2022 ambulatory MARGARET [...] Clinician Start: 05-20-2023 XR pre/post mri xray DIRECTOR MARKETING COMMUNICATIONS Esmer Munguia Work Phone: Start: 05-20-2023 MRI of cervical spin e without contrast KAREN Munguia Work Phone: Plan of Treatment Date Care Activity Detail Author Start: 06-14-2024 End: 06-14-2024 Patient encounter procedure 06/14/2024 9:30 AM EST Office Visit Neurology [address] [place] [address] Tracy Hendrix PA-C [address], [place] [id number] Botox Neurology Comment on above: Botox Start: 04-13-2024 End: 04-13-2024 ambulatory 04/13/2024 2:00 PM EDT [facility] Recovery [address] [place] [address] Cristela Avilez, Therapist [address] [place] [address] Chronic pain syndrome Pain Recovery Comment on above: Chronic pain syndrom e Start: 03-26-2024 Covid-19 Vaccine ( season) Covid-19 Vaccine ( season) [facility] Start: 03-26-2024 Covid-19 Vaccine ( season) Covid-19 Vaccine ( season) [facility] Start: 03-26-2024 Influenza vaccination [facility] Start: 03-22-2024 End: 03-22-2024 Patient encounter procedure 03/22/2024 9:00 AM EDT Office Visit Neurology [address] [place] [address] Tracy Hendrix PA-C [address], [place] [id number] botox pending 03/08 Neurology Comment on above: botox pending 03/08 Start: 03-09-2024 End: 03-09-2024 Patient encounter procedure 03/09/2024 8:00 AM EDT Office Visit Neurology Pain [address] [place] [address] Sari Addison DO [address] [place] [address] Fibromyalgia Neurology Pain Comment on above: Fibromyalgia Start: 03-26-2023 Covid-19 Vaccine () Covid-19 Vaccine () [facility] Start: 03-26-2023 Influenza vaccination Influenza Vacc ine (#1) [facility] Start: 07-26-2022 Depression Assessment Depression Ass essment [facility] Start: 2016 HPV Testing HPV Testing [facility] Start: 2016 Screening for malign ant neoplasm of cervix HPV Testing [facility] Start: 2007 Pap Testing Pap Testing [facility] Start: 2007 Screening for malign ant neoplasm of cervix [facility] Start: 2005 Hepatitis B Vaccine (1 of 3 - 19+ 3-dose series) Hepatitis B Vaccine (1 of 3 - 19+ 3-dose series) [facility] Start: 2005 Urine microalbumin profile DTaP,Tdap,Td Vaccine (1 - Tdap) [facility] Start: 2004 Anxiety Screening Anxiety Screening [facility] Start: 2004 Depression Screening Depression Scre ening [facility] Start: 2004 Hepatitis C Screening Hepatitis C [facility] Start: 2004 Hepatitis C screening Hepatitis C [facility] Start: 2004 HIV Screening HIV Screening [facility] Start: 2004 HIV screening HIV Screening [facility] Start: 1986 Hepatitis B Vaccine (1 of 3 - 3-dose series) Hepatitis B Vaccine (1 of 3 - 3-dose series) [facility] NEURO CARDIO AUTONOM IC REFLEX W/WO TILT NEURO CARDIO AUTONOMIC REFLEX W/WO TILT Procedures Routine POTS (postural orthostatic tachycardia syndrome) Ordered: 03/09/2024 [facility] Work Phone: Comment on above: Ordered: 03/09/2024 Immunizations Immunization Date Immunization Notes Care Provider Bjorn rayo 05-06-2022 influenza virus vacc ine, unspecified formulation Usha Meek DO Work Phone: [facility] Payers Date Payer Category Payer Medicare [id number] 2022 Medicaid [employer] [facility] [id number] 2022-Present [phone] [address] [place] [address] Medicaid [id number] 2022 Unknown MMO MMO [employer] [id number] 2022-Present [phone] [address] [address] [place] [address] PPO [id number] 2022 Unknown [id number] 2020 Medicare [id number] 1986 Unknown [id number] 2.16.840.1.753016.3.579.2.593 1986 Unknown [id number] 2.16.840.1.941444.3.579.2.593 1986 Unknown [id number] 2.16.840.1.466564.3.579.2.593 1986 Unknown [id number] 2.16.840.1.323354.3.579.2.593 1986 Unknown [id number] 2.16.840.1.659619.3.579.2.593 1986 Unknown [id number] 2.16.840.1.813300.3.579.2.593 1986 Unknown [id number] 2.16.840.1.727951.3.579.2.593 1986 Unknown [id number] 2.16.840.1.308043.3.579.2.593 1986 Unknown [id number] 2.16.840.1.356320.3.579.2.593 1986 Unknown [id number] 2.16.840.1.032187.3.579.2.593 1986 Unknown [id number] 2.16.840.1.718936.3.579.2.593 1986 Unknown [id number] 2.16.840.1.493067.3.579.2.593 1986 Unknown [id number] 2.16.840.1.822340.3.579.2.593 1986 Unknown [id number] 2.16.840.1.501327.3.579.2.1286 1986 Unknown [id number] 2.16.840.1.698718.3.579.2.1259 1986 Unknown [id number] 2.16.840.1.595415.3.579.2.125 1986 Unknown [id number] 2.16.840.1.709895.3.579.2.1259 1986 Unknown [id number] 2.16.840.1.374345.3.579.2.125 1986 Unknown [id number] 2.16.840.1.766518.3.579.2.1259 1986 Unknown [id number] 2.16.840.1.281327.3.579.2.128 1986 Unknown [id number] 2.16.840.1.421872.3.579.2.1285 1986 Unknown [id number] 2.16.840.1.925770.3.579.2.128 1986 Unknown [id number] 2.16.840.1.302954.3.579.2.1286 1986 Unknown [id number] 2.16.840.1.754734.3.579.2.1286 1986 Unknown [id number] 2.16.840.1.947922.3.579.2.1286 1986 Unknown [id number] 2.16.840.1.690573.3.579.2.1286 1986 Unknown [id number] 2.16.840.1.692863.3.579.2.1286 1986 Unknown [id number] 2.16.840.1.682991.3.579.2.196 1986 Unknown [id number] 2.16.840.1.273992.3.579.2.196 1986 Unknown [id number] 2.16.840.1.836898.3.579.2.196 1959 Self-pay 1959 Unknown [id number] 1959 Unknown [id number] Unknown [id number] 2.16.840.1.597076.3.579.2.531 Social History Date Type Detail [facility] Start: 1985 Sex Assigned At Not on file [facility] Start: 05-25-2023 End: 04-13-2024 Gender identity Not on file [facility] Start: 1985 Sex Assigned At Female F [facility] Start: 05-25-2023 [facility] tobacco [facility] Work Phone: Start: 05-25-2023 Tobacco use and exposure Smokeless tobacco non-user [facility] Work Phone: Start: 05-25-2023 End: 03-22-2024 Alcohol intake Ex-drinker (finding) [facility] Start: 05-25-2023 End: 04-13-2024 History of Social function [facility] Adult Depression Screening Assessment 6 [facility] Clinical Notes 01-06-2023 to 04-13-2024 Addendum Note - Cristela Avilez, Therapist - 04/13/2024 4:37 PM EDTAddendum Note - Cristela Avilez, Therapist - 04/13/2024 4:37 PM Tracy Watson PA-C - 03/22/2024 9:00 AM EDT Note Date & Type Note Facility 04-13-2024 Note Addended by: CRISTELA AVILEZ on: 04/13/2024 04:37 PM Modules accepted: Orders [facility] 04-13-2024 Miscellaneous Notes Addended by: CRISTELA AVILEZ on: 04/13/2024 04:37 PM Modules accepted: Orders documented in this encounter [facility] 04-13-2024 Note HNO ID: [id number] Author: CRISTELA AVILEZ Therapist Service: ? Author Type: Therapist Type: Progress Notes Filed: 04/13/2024 16:36 Note Text: [facility] Psychological Evaluation April 13, 2024 Radha García CCF#: [id number] I have communicated my name and active licensure. The patient's identity and physical location were verified at the time of this visit. Either the patient or their legal appliance service representative has been informed of the risks and benefits of -- and alternatives to -- treatment through virtual visit and consents to proceed with the session remotely. The patient e-signed the Informed Consent for Psychological Evaluation AND Care Form, and the behavioral health care insurance benefits, fees for service, emergency procedures, and the limits of confidentiality that may pertain with any given case were discussed with the patient. The patient was given a copy of the consent [facility] The patient consented to a virtual visit and their location was confirmed. Patient location: [place], [place] CPT Code: 6776539 Virtual Psych Diagnotic Eval Appointment Start: 2:00 PM This 38 year old single disabled (she's had short term jobs due to pain over the last 5 years) female lives with her , 4 year old son and their cat in [place], [place]. 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 This consultation was shared with the referral source via the [facility] electronic medical record. She believes the reason for referral is I struggle a lot with anxiety and depression to begin with, and on top of that I have a lot of pain, and to me they're kind-of hand in hand. Limits to confidentiality were discussed and agreed upon. Informed consent was provided verbally. Patient was informed that this evaluation is for consultation and not to be used for legal or forensic purposes. The goal of the following assessment is to identify the psychological, behavioral, cognitive, and social factors important to or directly affecting the patient?s physiological functioning, health and well-being, as it relates to his/her pain condition. Recommendations will be provided to improve the patient?s health and well-being via cognitive, behavioral, social and/or psychophysiological procedures designed to ameliorate pain related problems. Chief complaints: Current Pain and Related Mood Symptoms: Migraine headaches ( I don't know if it's actually migraines), neck and shoulder pain Going down my back pain, aching, throbbing, burning, stiffness Intercranial hypertension, I have a lot of pressure in my head all the time Poor balance and dizziness is one of the worst side effects. I can't bend over without becoming lightheaded.: Most bothersome/worse symptoms: Head, neck and shoulder pain Patient-Entered Data: Pain Recovery Scores 03/09/2024 5:50 AM LBP over last 6 months - Ongoing back pain problem - START back screen total score - START back screen distress score - START back screen risk score - Oswestry disability index score - PCS rumination subscore 12 PCS magnification subscore 6 PCS helplessness subscore 16 PCS total score 34 03/09/2024 02/07/2024 08/02/2023 PHQ-9 Score 22 22 18 03/09/2024 02/07/2024 08/02/2023 EULALIA - 7 SCORES Score 21 18 15 02/07/2024 08/02/2023 05/25/2023 PROMIS Global Health - (T-Scores - the mean of general population = 50. Five points is a clinically meaningful difference.) Physical T-Score 29.6 32.4 29.6 Mental T-Score 33.8 33.8 33.8 No data to display History of Pain Syndrome: The following history is from the patient's report and a review of the EMR independently confirmed with the patient in this visit. Sari Addison DO, 03/09/2024: Chief complaint: chronic pain. SUBJECTIVE: Patient is a 38 year old [...] ulnar nerve lesion, cubital tunnel syndrome. - (more content not included)... [facility] 03-22-2024 History of Presen t illness Narrative [...] for migraine Informed Consent Consent Obtained: Written Cropsey Protocol A moment to CARE was completed [...] applicable Written Consent Obtained: Written LOT #: [id number] Expiration Date: Month: 12 Year: 2025 Injection Sites Left (Units) Left (Sites) Right (Units) Right (Sites) TOTAL (Units) Foreign Car Mechanic 5 1 5 1 10 Procerus Units: [...] sodium (Aleve) Tracy Hendrix PA-C Headache Section [facility] March 22, 2024 documented in this encounter [facility] 03-22-2024 Instructions Tracy Hendrix PA-C - 03/22/2024 [...] qualify for reimbursement. documented in this encounter [facility] 03-22-2024 Note HNO ID: [id number] Author: TRACY HENDRIX PA-C Service: ? Author Type: Physician Battery Charger Tester Type: Progress Notes Filed: 03/22/2024 09:21 Note [...] for migraine Informed Consent Consent Obtained: Written Cropsey Protocol A moment to CARE was completed [...] applicable Written Consent Obtained: Written LOT #: [id number] Expiration Date: Month: 12 Year: 2025 Injection Sites Left (Units) Left (Sites) Right (Units) Right (Sites) TOTAL (Units) Foreign Car Mechanic 5 1 5 1 10 Procerus Units: [...] sodium (Aleve) Tracy Hendrix PA-C Headache Section [facility] March 22, 2024 [facility] 03-09-2024 Note HNO ID: [id number] Author: SARI ADDISON DO Service: ? Author Type: Anesthesiologist Type: Progress Notes Filed: 03/09/2024 09:07 Note Text: THE [facility] [place] March 09, 2024 Radha García is a 38 year old disabled who lives with and a son. She was referred by Kaylee Hutton DO [address] [place] [id number]. Chief complaint: chronic pain SUBJECTIVE: Patient is [...] No CHF: no Uncontrolled HTN: No Recent NE: No Arrythmias: No Afib: No Hyperthyroid: No [...] which included preparing to see the patient, [id number] patient care, completing clinical documentation, obtaining and/or reviewing separately obtained history, performing a medically appropriate examination, counseling and educating the patient/family/caregiver, and ordering medications, tests, or procedures. Important Patient Information: 1. To schedule Pain Recovery kevon (more content not included)... [facility] 03-09-2024 History of Presen t illness Narrative [facility] [place] March 09, 2024 Radha García is a 38 year old disabled who lives with and a son. She was referred by Kaylee Hutton DO [address] [place] [id number]. Chief complaint: chronic pain SUBJECTIVE: Patient is [...] No CHF: no Uncontrolled HTN: No Recent NE: No Arrythmias: No Afib: No Hyperthyroid: No [...] which included preparing to see the patient, [id number] patient care, completing clinical documentation, obtaining and/or reviewing separately obtained history, performing a medically appropriate examination, counseling and educating the patient/family/caregiver, and ordering medications, tests, or procedures. Important Patient Information: 1. To schedule Pain Recovery appointments or post-injection office visits, please call: [phone] 2. The nursing staff and medical assistants are an integral part of your pain recovery team and will be handling your phone calls and inquiries. 3. Your study results and treatment plan will be discussed during a follow-up appointment. If you do not have a follow-up appointment and wish to discuss any issues directly with me, please call: [phone] to set-up an appointment. 4. MyChart is best used for refill requests or yes or no questions. Anything more complicated will likely require a follow-up appointment that you can schedule by [phone]. 5. It is the practice of the [...] is an opening. documented in this encounter [facility] 02-07-2024 Telephone encounter Note Botox referral sent to pharmacy Tyron HANCOCK RN Clinical Leather Flesher [facility] 02-07-2024 Miscellaneous Notes Botox referral sent to pharmacy Tyron HANCOCK RN Clinical Leather Flesher [facility] documented in this encounter [facility] 02-07-2024 Note HNO ID: [id number] Author: SARBJIT MCKEON APRN.STAGE PRODUCER Service: ? Author Type: Nurse Practitioner Type: [...] visit. Either the patient or their legal appliance service representative has been informed of the risks [...] lamoTRIgine (LAMIC (more content not included)... [facility] 02-07-2024 History of Presen t illness [...] visit. Either the patient or their legal appliance service representative has been informed of the risks [...] these with the patient: yes Sarbjit Mckeon APRN.STAGE PRODUCER HEADACHE SCORES: 05/25/2023 08/02/2023 02/07/2024 Headache Questions [...] spontaneous and fluent without dysarthria. Short and fci memory, cognition and general fund of knowledge [...] 30 minutes Sarbjit Mckeon APRN.CNP Headache Section [facility] February 07, 2024 documented in this encounter [facility] 12-15-2023 Telephone encounter Note The following approved medication requests have been transmitted electronically. Requested Prescriptions Signed Prescriptions Disp Refills metoprolol succinate ER (TOPROL XL) 25 mg 24 hr tablet 90 tablet 1 Sig: take 1 tablet by mouth every day Authorizing Provider: SARBJIT MCKEON APRN.CNP [facility] 12-15-2023 Miscellaneous Notes The following approved medication requests have been transmitted electronically. Requested Prescriptions Signed Prescriptions Disp Refills metoprolol succinate ER (TOPROL XL) 25 mg 24 hr tablet 90 tablet 1 Sig: take 1 tablet by mouth every day Authorizing Provider: SARBJIT MCKEON APRN.CNP Images from the original note were not included. Prescription pended to requested pharmacy and forwarded to provider for review. [facility] Refill Checklist Mmcipt5712/15/2023 12:48 AM Protocol Details Serum Creatinine within the last 12 months Blood pressure within the last 12 months Visit with provider within the last 12 months VIN: 08/03/23 NOV: not scheduled Last prescribed: 4 months ago (08/03/2023) by Sarbjit Mckeon APRN.STAGE PRODUCER documented in this encounter [facility] 12-15-2023 Telephone encounter Note Images from the original note were not included. Prescription pended to requested pharmacy and forwarded to provider for review. Beta [facility] Refill Checklist Mlcchu7512/15/2023 12:48 AM Protocol Details Serum Creatinine within the last 12 months Blood pressure within the last 12 months Visit with provider within the last 12 months VIN: 08/03/23 NOV: not scheduled Last prescribed: 4 months ago (08/03/2023) by Sarbjit Mckeon APRN.STAGE PRODUCER [facility] 12-08-2023 Telephone encounter Note The following approved medication requests have been transmitted electronically. Requested Prescriptions Signed Prescriptions Disp Refills topiramate (TOPAMAX) 100 mg tablet 30 tablet 5 Sig: Take 1 tablet by mouth daily at bedtime. Authorizing Provider: SARBJIT MCKEON APRN.STAGE PRODUCER [facility] 12-08-2023 Miscellaneous Notes The following approved medication requests have been transmitted electronically. Requested Prescriptions Signed Prescriptions Disp Refills topiramate (TOPAMAX) 100 mg tablet 30 tablet 5 Sig: Take 1 tablet by mouth daily at bedtime. Authorizing Provider: SARBJIT MCKEON APRN.STAGE PRODUCER Physician: Jay Call from patient requesting refill. Please E-Scribe Last office visit 08/03/23 with Jay virtual Next office visit Not scheduled. Requested Prescriptions Pending Prescriptions Disp Refills topiramate (TOPAMAX) 100 mg tablet 30 tablet 3 Sig: Take 1 tablet by mouth daily at bedtime. [facility]acy Name: [facility] documented in this encounter [facility] 12-06-2023 Telephone encounter Note Physician: Jay Call from patient requesting refill. Please E-Scribe Last office visit 08/03/23 with Jay virtual Next office visit Not scheduled. Requested Prescriptions Pending Prescriptions Disp Refills topiramate (TOPAMAX) 100 mg tablet 30 tablet 3 Sig: Take 1 tablet by mouth daily at bedtime. Pharmacy Name: [facility] 08-03-2023 Note HNO ID: [id number] Author: SARBJIT MCKEON APRN.STAGE PRODUCER Service: ? Author Type: Nurse Practitioner Type: [...] visit. Either the patient or their legal appliance service representative has been informed of the risks and benefits of -- and alternatives to -- treatment through a remote evaluation and consents to proceed with the evaluation remotely. Accompanied by: Self Primary Problem List: There is no problem list on file for this patient. Chief Complaint: headaches Impression and Plan from last visit 05/25/2023[place]: IMPRESSION: Radha García is a 38 year [...] 100 mg (more content not included)... [facility] 05-25-2023 History of Presen t illness Narrative Head[facility] Virtual Visit New Encounter I have communicated my name and active licensure. The patient's identity and physical location were verified at the time of this visit. Either the patient or their legal appliance service representative has been informed of the risks and benefits of -- and alternatives to -- treatment through a remote evaluation and consents to proceed with the evaluation remotely. May 25, 2023 CC: Headache History: Radha García is a 38 year old year old, right-handed woman who is referred in consultation by Dr. Kaylee Hutton DO (neuro in [place], [place]) for an opinion regarding benign intracranial [...] Arcadio Severino NP (behavioral health clinic in [place], [place]), on Vraylar, klonopin, lamictal, prozac Tobacco: [...] and clear, coherent, and relevant. Short and fci memory, cognition and general fund of knowledge [...] which included preparing to see the patient, [id number] patient care, completing clinical documentation, obtaining and/or [...] Medicine/ Board Certified Staff, [facility] Senior Sql Server Database Developer of Neurology with [facility] [address] [place] [address]/ [place] [address] Office: [phone] documented in this encounter [facility] 05-25-2023 Note HNO ID: [id number] Author: Usha Meek DO Service: ? Author Type: Physician Type: Progress Notes Filed: 05/25/2023 9:50 AM Note Text: Headache Section [facility] Virtual Visit New Encounter I have communicated my name and active licensure. The patient's identity and physical location were verified at the time of this visit. Either the patient or their legal appliance service representative has been informed of the risks and benefits of -- and alternatives to -- treatment through a remote evaluation and consents to proceed with the evaluation remotely. May 25, 2023 CC: Headache History: Radha García is a 38 year old year old, right-handed woman who is referred in consultation by Dr. Kaylee Hutton DO (neuro in [place], [place]) for an opinion regarding benign intracranial [...] yes History of Syncope (last episode last [place]) Sometimes sees stars in eyes - no [...] Arcadio Severino NP (behavioral health clinic in [place], [place]), on Vraylar, klonopin, lamictal, prozac Tobacco: [...] Screener: 3 (more content not included)... [facility] 03-17-2023 Miscellaneous Notes Referral source: Dr. Kaylee Hutton ([facility] [address] [facility] [place] Reason: benign intracranial hypertension, chronic tension-type headache, pseudotumor cerebrei External records on file. documented in this encounter [facility] 01-06-2023 Note Cardiovascular Medic ine [facility] SUBJECTIVE Chief Complaint Patient presents with New Patient abnormal stress kristie referral saw cardio in [place] not sure of name [facility] Radha García is a 37 y.o. female [...] has chronic lightheadedness, she previously saw a lpn rn in [place] without findings to explain her lightheadedness. She denies syncope, acute palpitations, or worsening dyspnea on exertion. She has previously smoked marijuana but not tobacco use. No known history of diabetes, hypertension or hyperlipidemia. Her grandfather had an acute NE in his 50s, no other known family [...] case and plan was discussed with attending lpn rn Dr. Johnson. Romeo Dominguez APRN-STAGE PRODUCER [facility] Cardiovascular Medicine [facility] Evaluation note No assessment inform ation available [facility] Work Phone: Evaluation note Diagnosis 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 aura and without status migrainosus- Primary Chronic migraine without aura, with intractable migraine, so stated, without mention of status migrainosus Pressure in head Headache Chronic daily headache Headache [facility] 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 aura and without status migrainosus Chronic migraine without aura, with intractable migraine, so stated, without mention of status migrainosus Pressure in head Headache Chronic daily headache Headache [facility] 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 aura and without status migrainosus- Primary Chronic migraine without aura, with intractable migraine, so stated, without mention of status migrainosus Chronic daily headache Headache Pressure in head Headache [facility] Diagnosis Chronic pain syndrome- Primary Fibromyalgia Mylagia and myositis, unspecified POTS (postural orthostatic tachycardia syndrome) Tachycardia, unspecified Tremors of nervous system Abnormal involuntary movements [facility] Diagnosis 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 aura and without status migrainosus- Primary Chronic migraine without aura, with intractable migraine, so stated, without mention of status migrainosus [facility] Diagnosis Adjustment disorder with mixed anxiety and depressed mood- Primary Fibromyalgia Mylagia and myositis, unspecified POTS (postural orthostatic tachycardia syndrome) Tachycardia, unspecified Tremors of nervous system Abnormal involuntary movements Chronic pain syndrome documented in this encounter [facility] Summary Purpose Family History No Family History Records FoundNo Family History Records FoundNo Family History Records FoundNo Family History Records FoundNo Family History Records FoundNo Family History Records FoundNo Family History Records FoundNo Family History Records Found Advance Directives Advance Directive Response Recorded Date/ Time Advance Directives No May 05, 2023 4:45pm Chief Complaint and Reason for Visit Chief Complaint M54.12 R29.898 Z86.6 9 Reason for Referral Specialty Diagnoses / Procedures Referred By Contac t Referred To Contact Diagnoses 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 aura and without status migrainosus Pressure in head Chronic daily headache Procedures PROVIDER ORDERED FOLLOW UP OFFICE/OUTPATIENT [facility] 60-74 MINUTES PepitoUsha cornejo [address] [place] [address] Referral ID Status Reason Start Date Expiration Date Visits Requested Visits Authorized [id number] Pending Review PCP Requested Referral 08/03/2023 05/24/2024 1 1 Specialty Diagnoses / Procedures Referred By Contac t Referred To Contact Neurology Diagnoses Tremors of nervous system Procedures CONSULT TO NEUROLOGY OFFICE/OUTPATIENT [facility] 60 [address], [place] [address] Referral ID Status Reason Start Date Expiration Date Visits Requested Visits Authorized [id number] Authorized PCP Requested Referral 03/09/2024 03/09/2025 1 1 Specialty Diagnoses / Procedures Referred By Contac t Referred To Contact Neurology Diagnoses POTS (postural orthostatic tachycardia syndrome) Procedures CONSULT TO NEUROLOGY OFFICE/OUTPATIENT [facility] 60 MINUTES Heasya Sari, [address] [place] [address] Referral ID Status Reason Start Date Expiration Date Visits Requested Visits Authorized [id number] Authorized PCP Requested Referral 03/09/2024 03/09/2025 1 1 Specialty Diagnoses / Procedures Referred By Contac t Referred To Contact [facility] [place] Diagnoses Chronic pain syndrome Procedures [facility]SULT TO [facility] OFFICE/OUTPATIENT [facility] 60 MINUTES HeSari sky, [address] [place] [address] Referral ID Status Reason Start Date Expiration Date Visits Requested Visits Authorized [id number] Pending Review PCP Requested Referral 03/09/2024 03/09/2025 1 1 Additional Source Comments INFORMATION SOURCE (unrecogn ized section and content) DATE CREATED AUTHOR 01/01/2023 [facility] DATE CREATED AUTHOR AUTHOR'S ORGANIZ ATION 01/06/2023 [facility] DATE CREATED AUTHOR AUTHOR'S ORGANIZ ATION 12/10/2023 [facility] DATE CREATED AUTHOR AUTHOR'S ORGANIZ ATION 02/11/2024 [facility] DATE CREATED AUTHOR AUTHOR'S ORGANIZ ATION 03/03/2024 [facility] Specialists [facility] DATE CREATED AUTHOR AUTHOR'S ORGANIZ ATION 04/08/2024 [facility] DATE CREATED AUTHOR AUTHOR'S ORGANIZ ATION 04/09/2024 [facility] DATE CREATED AUTHOR AUTHOR'S ORGANIZ ATION 04/16/2024 [facility] Source Comments (unrecognize d section and content) In the event this informatio n is protected by the Federal Confidentiality of Alcohol and Drug Abuse Patient Records regulations: The Federal rules restrict any use of the information to criminally investigate or prosecute any alcohol or drug abuse patient.[facility] the event this information is protected by the Federal Confidentiality of Alcohol and Drug Abuse Patient Records regulations: The Federal rules restrict any use of the information to criminally investigate or prosecute any alcohol or drug abuse patient.[facility] the event this information is protected by the Federal Confidentiality of Alcohol and Drug Abuse Patient Records regulations: The Federal rules restrict any use of the information to criminally investigate or prosecute any alcohol or drug abuse patient.[facility] the event this information is protected by the Federal Confidentiality of Alcohol and Drug Abuse Patient Records regulations: The Federal rules restrict any use of the information to criminally investigate or prosecute any alcohol or drug abuse patient.[facility] the event this information is protected by the Federal Confidentiality of Alcohol and Drug Abuse Patient Records regulations: The Federal rules restrict any use of the information to criminally investigate or prosecute any alcohol or drug abuse patient.[facility] the event this information is protected by the Federal Confidentiality of Alcohol and Drug Abuse Patient Records regulations: The Federal rules restrict any use of the information to criminally investigate or prosecute any alcohol or drug abuse patient.[facility] the event this information is protected by the Federal Confidentiality of Alcohol and Drug Abuse Patient Records regulations: The Federal rules restrict any use of the information to criminally investigate or prosecute any alcohol or drug abuse patient.[facility] the event this information is protected by the Federal Confidentiality of Alcohol and Drug Abuse Patient Records regulations: The Federal rules restrict any use of the information to criminally investigate or prosecute any alcohol or drug abuse patient.[facility] the event this information is protected by the Federal Confidentiality of Alcohol and Drug Abuse Patient Records regulations: The Federal rules restrict any use of the information to criminally investigate or prosecute any alcohol or drug abuse patient.[facility] the event this information is protected by the Federal Confidentiality of Alcohol and Drug Abuse Patient Records regulations: The Federal rules restrict any use of the information to criminally investigate or prosecute any alcohol or drug abuse patient.[facility] Hospital[facility] the event this information is protected by the Federal Confidentiality of Alcohol and Drug Abuse Patient Records regulations: The Federal rules restrict any use of the information to criminally investigate or prosecute any alcohol or drug abuse patient.[facility] Reason for Visit (unrecogniz ed section and content) Reason Comments Received Outside Medical Records Externa l referral to [facility] [place] Reason Comments Chronic Migraine Reason Onset Date Comments Refill Request 12/04/2023 Reason Comments Refill Request Reason Comments Migraine Reason Comments Referral Request Reason Comments New Patient Specialty Diagnoses / Procedures Referred By Contact Referred To Contact [facility] [place] Diagnoses Fibromyalgia Procedures VIDEO SPEC Kaylee Portillo, DO [address] [place] [phone] [facility] [address] [place] [address] Referral ID Status Reason Start Date Expiration Date V isits Requested Visits Authorized [id number] Outside PCP 12/22/2023 03/21/2024 1 1 Reason Comments Botox Injection Specialty Diagnoses / Procedures Referred By Contac t Referred To Contact [facility]ACHE Diagnoses Chronic migraine without aura, intractable, without status migrainosus Procedures BOTULINUM TOXIN A PER 1 UNIT CHEMODERVATE FACIAL/TRIGEM/CERV MUSC MIGRAINE Initial due 02/07/2024 Botox 200 units every 12 weeks for 1 year through [facility] buy and bill Preempt protocol [id number] Procedure -[id number] chemodervate facial/trigem/cerv musc migraine Sarbjit Mckeon, GERTRUDIS.STAGE PRODUCER [address] [place] [address] Neur Headache [address] [place] [address] Referral ID Status Reason Start Date Expiration Date V isits Requested Visits Authorized [id number] Authorized 02/07/2024 07/25/2024 99 99 Reason Comments Consult Specialty Diagnoses / Procedures Referred By Contac t Referred To Contact [facility] [place] Diagnoses Chronic pain syndrome Procedures CONSULT TO [facility] OFFICE/OUTPATIENT [facility] [address] [place] [address] [place] [address] Referral ID Status Reason Start Date Expiration Date Visits Requested Visits Authorized [id number] Pending Review PCP Requested Referral 03/09/2024 03/09/2025 1 1 Care Teams (unrecognized sec tion and content) President [employer] Relationship Specialty Start Date End Date Maite Kruse [address] [facility] [address] [place] [phone] PCP - General Family Medicine 03/19/21 Kaylee Hutton DO [address] [phone] [place] Referring Team Neurology 03/17/23 Team Status: Active Member Role Status Dates KAREN Egan Primary Care Provider Active Team Status: Inactive Member Role Status Dates Kaylee Hutton DO Attending Provider Active KAREN Egan Primary Care Provider Active [employer] Relationship Specialty Start Date End Date Maite Kruse [address] [facility] [address] [place] [address] PCP - General Family Medicine 03/19/21 Kaylee Hutton DO [address] [phone] [place] Referring Team Neurology 03/17/23 President [employer] Relationship Specialty Start Date End Date Maite Kruse [address] [facility] [address] [place] [address] PCP - General Family Medicine 03/19/21 Kaylee Hutton DO [address] [phone] [place] Referring Team Neurology 03/17/23 President [employer] Relationship Specialty Start Date End Date Maite Kruse [address] [facility] [address] [place] [address] PCP - General Family Medicine 03/19/21 Kaylee Hutton, DO [address] [place] [phone] [place] Referring Team Neurology 03/17/23 President [employer] Relationship Specialty Start Date End Date Maite Kruse [address] [facility] [address] [place] [address] PCP - General Family Medicine 03/19/21 Kaylee Hutton, DO [address] [place] [phone] [place] Referring Team Neurology 03/17/23 President [employer] Relationship Specialty Start Date End Date Maite Kruse [address] [phone] PCP - General Family Medicine 03/19/21 Kaylee Hutton, DO [address] [phone] [place] Referring Team Neurology 03/17/23 President [employer] Ceo [employer] Relationship Specialty Start Date End Date Maite Kruse [address] [facility] [address] [place] [address] PCP - General Family Medicine 03/19/21 Kaylee Hutton, DO [address] [phone] [place] Referring Team Neurology 03/17/23 President [employer] Ce[employer] Relationship Specialty Start Date End Date Maite Kruse [address] [facility] [address] [place] [address] PCP - General Family Medicine 03/19/21 Kaylee Hutton, DO [address] [place] [phone] [place] Referring Team Neurology 03/17/23 President [employer] Relationship Specialty Start Date End Date Maite Kruse [address] [place] [address] [place] [phone] PCP - General Family Medicine 03/19/21 Kaylee Hutton DO [address] [place] [phone] [place] Referring Team Neurology 03/17/23 Goals (unrecognized [...] BE BASED ON THE PRIMARY CLINICAL RECORDS. [employer] provides no warranty or guarantee of the accuracy or completeness of information in this document.
--- NOTE | 2024-04-19 11:17 | P.CN_ITS ---
Consult Note: HPI Data of Consult Patient: known to practice within the last 3 years Consult date: 10/06/23 Requesting Physician: Lisa Luna NP Primary Care Provider: AMAN MUNGUIA Consult Narrative Reason for consult: f/u Narrative: Remedios García a pleasant 38 year old female presents for evaluation and management of chronic right shoulder pain and neck pain. Patient completed PT without benefit, reports it increased her pain. Patient reports stabbing ache and pain in right shoulder and upper arm. Hx of numbness of fingers in the right hand for which she had an EMG on and was negative for cervical radiculopathy, following orthopedics for ulnar neuropathy. Pain today 7/10, increasing to 10/10 with pushing, pulling, housework, lifting, moving arm, activity, ADLS, and sleep. Mild benefit to motrin, gabapentin, topamax, medical marijauna. DEMAR 80%. Right suprascapular and axillary nerve RFA providing mild ongoing relief, 50% improvement, patient pleased with outcome. Continues to have moderate to severe neck pain and left shoulder pain. Recently completed cervical xray and MRI with results below. bilateral c5/6 TFESI providing no improvement. patient following with [facility] comprehensive pain management including neurology for chronic pain and FM. has weaned off her gabapentin with significant increase in her pain. she was told they would start her on lyrica but the provider is out of the office for another week. cc:: CC: Lisa Luna NP Review of Systems ROS Status of ROS 10 or more systems reviewed and unremark able except as noted in history and below Musculoskeletal Reports: back pain, neck pain and extremity pain PFSH PFSH Medical History Abnormal uterine bleeding ?N93.9 - Abnormal uterine and vaginal bleeding, unspecified (ICD-10) Menorrhagia ?N92.0 - Excessive and frequent menstruation with regular cycle (ICD-10) Dysmenorrhea ?N94.6 - Dysmenorrhea, unspecified (ICD-10) Pelvic pain ?R10.2 - Pelvic and perineal pain (ICD-10) Fibromyalgia ?M79.7 - Fibromyalgia (ICD-10) Neck pain ?M54.2 - Cervicalgia (ICD-10) DDD (degenerative disc disease) Back pain ?M54.9 - Dorsalgia, unspecified (ICD-10) Insomnia ?G47.00 - Insomnia, unspecified (ICD-10) OCD (obsessive compulsive disorder) ?F42.9 - Obsessive-compulsive disorder, unspecified (ICD-10) PTSD (post-traumatic stress disorder) ?F43.10 - Post-traumatic stress disorder, unspecified (ICD-10) Panic attacks ?F41.0 - Panic disorder [episodic paroxysmal anxiety] (ICD-10) Depression ?F32.A - Depression, unspecified (ICD-10) Anxiety ?F41.9 - Anxiety disorder, unspecified (ICD-10) COVID-19 ?U07.1 - COVID-19 (ICD-10) Migraine ?G43.909 - Migraine, unspecified, not intractable, without status migrainosus (ICD-10) Seizures ?R56.9 - Unspecified convulsions (ICD-10) Pseudotumor cerebri ?G93.2 - Benign intracranial hypertension (ICD-10) Chiari malformation Morphea ?L94.0 - Localized scleroderma [morphea] (ICD-10) Heartburn ?R12 - Heartburn (ICD-10) Abnormal EKG ?R94.31 - Abnormal electrocardiogram [ECG] [EKG] (ICD-10) Adenomyosis ?N80.03 - Adenomyosis of the uterus (ICD-10) Surgical History S/P epidural steroid injection ?Z92.241 - Personal history of systemic steroid therapy (ICD-10) History of wisdom tooth extraction ?K08.409 - Partial loss of teeth, unspecified cause, unspecified class (ICD- 10) Family History Other Family history of colon cancer Family history of diabetes mellitus Family history of heart disease Family history of kidney cancer Family history of skin cancer Social History Within the past year, how often did you have a drink containing alcohol: never Score interpretation: A score less than 3 is consistent with normal alcohol consumption. Smoking status: Never smoker Non-prescribed substance use: denies use Highest level of school completed/degree received: some college, no degree Meds Home Medications and Allergies Home Medications ?Medication ?Instructions ?Recorded ?Confirmed ?Type cariprazine 1.5 mg capsule 3 mg PO DAILY 01/07/23 04/03/24 History (Vraylar) gabapentin 400 mg capsule 800 mg PO TID 10/06/23 04/03/24 History lamotrigine 200 mg tablet 200 mg PO DAILY 10/06/23 04/03/24 History metoprolol tartrate 25 mg tablet 25 mg PO DAILY 10/06/23 04/03/24 History fluvoxamine 50 mg tablet 150 mg PO DAILY 02/01/24 04/03/24 History ondansetron 4 mg disintegrating 4 mg PO Q6H PRN nausea and 02/01/24 04/03/24 Rx tablet vomiting #12 tabs pantoprazole 40 mg tablet,delayed 40 mg PO DAILY #7 tabs 02/01/24 04/03/24 Rx release (Protonix) sucralfate 1 gram tablet (Carafate) 1 g PO Q6H PRN abdominal pain #12 02/01/24 04/03/24 Rx tabs diazepam 10 mg tablet (Valium) 10 mg PO Q1H 04/03/24 04/03/24 History Allergies Allergy/AdvReac Type Severity Reaction Status Date / Time No Known Drug Allergies Allergy Verified 04/03/24 09:36 Exam Narrative Exam Narrative: diffuse myofascial pain and tendnerness Constitutional Documenting provider has reviewed patient's vital signs: yes Common normals: no apparent distress, oriented x3, healthy appearing, alert and well nourished General appearance: cooperative HENDC Common normals: normocephalic, hearing grossly normal bilaterally and moist oral mucous membranes Head and scalp: normocephalic Eye Common normals: PERRL Pupil: PERRL Neck & C-Spine Common normals: full ROM General: normal visual inspection Cervical spine: pain with cervical ROM and cervical spine tenderness Other: positive spurlings decreased sensation over bilateral C5,6,7 dermatomes strength 5/5 in BUE Chest Common normals: inspection of chest normal Respiratory Common normals: normal respiratory effort, no retractions and no use of accessory muscles Extremity Right upper extremity: shoulder joint Left upper extremity: shoulder joint Other: left side positive empty can test, positive scratch test and posterior liftoff, as well as crossbody adduction positive apleys. negative exam on right shoulder Neuro Common normals: oriented x3, CN's II-XII intact bilaterally, moves all extremities, no focal motor deficits, no sensory deficits noted and deep tendon reflexes 2+ bilaterally Sensorium/orientation: alert Motor exam: strength 5/5 throughout and no movement abnormalities noted Psych Common normals: mental status grossly normal, thought process normal, cooperative, affect normal, speech normal and activity/motor behavior normal Speech: normal speech Thought process: normal thought process Results Additional Findings Additional findings: If on a controlled substance or opioids, I have checked an [place]AR[place] report on this patient and there are no aberrancies noted in the prescribing history.??If on a controlled substance or opioid a drug screen was completed and reviewed within the last year, and if there has not been a drug screen completed we ordered one today to monitor higher risk, state monitored pain medication use. As part of providing excellent, safe, comprehensive care, the following was completed at our patient's visit: 1. A medication reconciliation and review to ensure accurate knowledge of current/active medications, including asking our patients to inform us about any hisa-nne-vwozixu medications or herbal remedies/nutritional supplements/alternative remedies. 2. A review to specifically ensure our patients have had annual screening for screening for depression, screening for tobacco use, and screening for unhealthy alcohol use. For concerning screenings had a discussion with the patient, provided patient education, and recommended follow-up with primary care provider when appropriate. If patient noted with a risk of falling, they received education on strength, gait, and balance training to prevent future risk of falling. 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
== END 2024-04-19 10:45 | disposition home or self-care (01) ==
LOC: PM 10:45
PROVIDERS: PCP Nurse Practitioner Family; Visit Provider Nurse Practitioner
DX: M48.02 Spinal stenosis, cervical region (principal); M54.12 Radiculopathy, cervical region; M47.812 Spondylosis without myelopathy or radiculopathy, cervical region; G56.90 Unspecified mononeuropathy of unspecified upper limb; G58.8 Other specified mononeuropathies; M25.511 Pain in right shoulder; M79.7 Fibromyalgia; M54.2 Cervicalgia; M51.36 Other intervertebral disc degeneration, lumbar region; M54.50 Low back pain, unspecified
CPT/HCPCS: G0463

== ENCOUNTER 2025-05-29 09:54 | Outpatient (RCR) | payer OTHER, MEDICARE, SELFPAY | END 2025-05-30 11:48 | disposition home or self-care (01) | LOC: PT 09:54 | PROVIDERS: PCP Nurse Practitioner Family | DX: M54.50 Low back pain, unspecified (principal) | CPT/HCPCS: 97014; 97162 ==

== ENCOUNTER 2025-07-13 10:58 | Outpatient (OUT) | payer OTHER, MEDICARE, SELFPAY ==
--- OUTSIDE RECORDS SUMMARY | 2025-07-09 15:40 | XMS_ITS | Encounter Summary ---
Author Organization [facility] Address [facility] [place] [address] Care Team Providers Care Safety Deposit Boxes Custodian Name Role Phone Maite Kruse Primary Care Provider + Homero Hutton DO Unavailable [phone] Source Comments In the event this information is protected by the Federal Confidentiality of Alcohol and Drug AbusePatient Records regulations: The Federal rules restrict any use of the information to criminally investigate or prosecute any alcohol or drug abuse patient.[facility] Reason for Visit * ReasonCommentsMigraine Encounter Details DateTypeDepartmentCare Team (Latest Contact Info)Qfkrrkavkav81/15/2025 3:40 PM [facility] Neurology [address] [place], [place] [id number] Yokasta Lamb MD [address] [place] [address] Chronic migraine without aura, with intractable migraine, so stated, with status migrainosus (Primary Dx) Social History Tobacco UseTypesPacks/DayYears UsedDateSmoking Tobacco: NeverSmokeless Tobacco: NeverAlcohol UseStandard Drinks/WeekCommentsNot Currently0 (1 standard drink = 0.6 oz pure alcohol)PHQ-2AnswerDate RecordedPHQ-2 ueqdp033/15/2025Area Deprivation IndexAnswerDate RecordedNational Score (1-100), lower number is lower zine647405/25/2023State Score (1-10), lower number is lower odnd442 Data from: https://www.neighborhoodatlas.[facility]/. Last address used [address]CommentsNoSex and Gender InformationValueDate RecordedSex Assigned at BirthNot on fileLegal SexFemale 03/19/2021 10:23 AM EDTGender IdentityNot on fileSexual OrientationNot on file documented as of this encounter Progress Notes * Yokasta Lamb MD - 07/09/2025 3:40 PM EST No Show documented in this encounter Miscellaneous Notes * Addendum Note - Yokasta Lamb MD - 07/09/2025 3:43 PM ESTAddended by: YOKASTA LAMB on: 07/09/2025 03:43 PM Modules accepted: Orders documented in this encounter Plan of Treatment DateTypeDepartmentCare Team (Latest Contact Info)Qgiwlgejibv18/24/2025 1:30 PM ESTOffice Visit Neurology [address] [place], [place] [id number] Anette Olson PA-C [address] [place] [address] botoxdocumented as of this encounter Visit Diagnoses Diagnosis Chronic migraine without aura, with intractable migraine, so stated, with status migrainosus- Primary documented in this encounter Care Teams Team MemberRelationshipSpecialtyStart DateEnd Date Maite Kruse [address] [place], [place] [address] PCP - GeneralFamily Medicine03/19/21 Homero Hutton DO [address] [facility] [address] [place] [phone] [place] Referring TeamNeurology03/17/23documented as of this encounter
--- OUTSIDE RECORDS SUMMARY | 2025-07-13 11:05 | XMS_ITS | Encounter Summary ---
Author Organization [employer] s tem Address [facility] [place] [id number] [place] [address] Care Team Providers Care Stencil Typist Name Role Phone Margaret Karimi COPY ROOM TECHNICIAN-PRODUCT SALES ENGINEER Primary Care Provider Encounter Details DateTypeDepartmentCare Team (Latest Contact Info)Qmvjiwfqitr43/08/2025Travel Social History Tobacco UseTypesPacks/DayYears UsedDateSmoking Tobacco: NeverSmokeless Tobacco: NeverAlcohol UseStandard Drinks/WeekCommentsNot Currently0 (1 standard drink = 0.6 oz pure alcohol)PHQ-2AnswerDate RecordedTotal [id number] ScreeningAnswerDate RecordedWithin the past 12 months we worried whether our food would run out before we got money to buy more.Never True09/07/2024Within the past 12 months the food we bought just didn't last and we didn't have money to get more.Never True09/07/2024EducationAnswerDate RecordedWhat is the highest level of school you have completed or the highest degree you have received?High school reigjssk86/16/2023CommentsNoSex and Gender InformationValueDate RecordedSex Assigned at BirthNot on fileLegal OqrVojgai70/06/2023 11:41 AM EST Gender IdentityNot on fileSexual OrientationNot on filedocumented as of this encounter Plan of Treatment Not on file documented as of this encounter Visit Diagnoses Not on filedocumented in this encounter Additional Health Concerns AssessmentNoted TimePHQ-9 Depression Total Score: 1:33 PM EDT documented as of this encounter Care Teams Team MemberRelationshipSpecialtyStart DateEnd Date Margaret Karimi, COPY ROOM TECHNICIAN-PRODUCT SALES ENGINEER [address] [facility], [place] [phone] PCP - General04/08/23documented as of this encounter
--- OUTSIDE RECORDS SUMMARY | 2025-07-13 11:06 | XMS_ITS | Patient Health Record ---
Author Organization [facility], Address [address] [place] [address] Care Team Providers Care Machine Ii Trimmer Name Role Phone Aixa HAMMER, Maite Primary Care Provider Dmitry Ayers Unavailable [phone] Allergies No Known Allergies Reason For Referral No Information Medications Medication SIG (Take, Route, Frequency, Duration) Notes Start Date End Date Status Concerta Active Social History Tobacco Use: Social History Observation Description Date Details (start date - stop date) Never Smoker NA - NA Sex Assigned At : Social History Observation Description Sex Assigned At Female Tobacco Use/Smoking Question Answer Notes Are you a: never smoker Problems Problem Type SNOMED Code ICD Code Onset Dates Problem Status W/U Status Risk Notes Problem Hypertrophy of nasal turbinates (25339646) Hypertrophy of inferior nasal turbinate (J34.3) ActiveconfirmedProblemPolyp of nasal sinus (disorder) (43396859)Nasal polyp (J33.9)ActiveconfirmedProblemSensorineural hearing loss, bilateral (932570395) Bilateral sensorineural hearing loss (H90.3)ActiveconfirmedProblemBenign intracranial hypertension (38420474)Intracranial hypertension, benign (G93.2) ActiveconfirmedProblemDizziness (257713651)Dizziness (R42)ActiveconfirmedProblem Headache (27357222)Headache, unspecified (R51.9)ActiveconfirmedProblemDeviated nasal septum (863929980)Deviated nasal septum (J34.2)Activeconfirmed Plan Of Treatment No Information Insurance Providers Payer Name Payer Address Payer Phone Subscriber Number Group Number Insured Name Patient Relationship to Insured Coverage Start Date Coverage End Date [facility] [address] [place] [address] [id number] My Garcíaelf - patient is the insured Medical (General) History Medical History History ICD Code Please write in any medical problems you have been diagnosed with.: Vertigo, intracranial hypertension, fibromyalgia, adhd, ocd
--- OUTSIDE RECORDS SUMMARY | 2025-07-13 11:06 | XMS_ITS | Encounter Summary ---
Author Organization [facility] Address [address] [place] [address] Care Team Providers Care Business Enterprise Officer Name Role Phone Maite Kruse Primary Care Provider + Homero Hutton DO Unavailable [phone] Source Comments In the event this information is protected by the Federal Confidentiality of Alcohol and Drug AbusePatient Records regulations: The Federal rules restrict any use of the information to criminally investigate or prosecute any alcohol or drug abuse patient.[facility] Encounter Details DateTypeDepartmentCare Team (Latest Contact Info)Ihgwodujiye85/18/2025 Patient [facility] [place] [address] Gwendolyn Del Valle RPh Convenient, connected care starts with [facility] Social History Tobacco UseTypesPacks/DayYears UsedDateSmoking Tobacco: NeverSmokeless Tobacco: NeverAlcohol UseStandard Drinks/WeekCommentsNot Currently0 (1 standard drink = 0.6 oz pure alcohol)PHQ-2AnswerDate RecordedPHQ-2 ibcel642/15/2025Area Deprivation IndexAnswerDate RecordedNational Score (1-100), lower number is lower cpey734105/25/2023State Score (1-10), lower number is lower inga573 Data from: https://www.neighborhoodatlas.medicine.[facility].edu/. Last address used for b[address]CommentsNoSex and Gender InformationValueDate RecordedSex Assigned at BirthNot on fileLegal SexFemale 03/19/2021 10:23 AM EDTGender IdentityNot on fileSexual OrientationNot on file documented as of this encounter Plan of Treatment DateTypeDepartmentCare Team (Latest Contact Info)Xmjzdtqymxb42/24/2025 1:30 PM ESTOffice Visit Neurology [address] [place], [place] [phone] Anette Olson PA-C [address] [place] [address] botoxdocumented as of this encounter Visit Diagnoses Not on filedocumented in this encounter Care Teams Team MemberRelationshipSpecialtyStart DateEnd Date Maite Kruse [address] [facility] [address] [place] [address] PCP - GeneralFamily Medicine03/19/21 Homero Htuton DO [address] [place] [phone] [place] Referring TeamNeurology03/17/23documented as of this encounter
--- OUTSIDE RECORDS SUMMARY | 2025-07-13 11:06 | XMS_ITS | Patient Health Record ---
Author Organization [facility] [place] Address [address] [place] [address] Care Team Providers Care Care Attendant Name Role Phone Sachi Margaret Primary Care Provider Allergies No Known Allergies Reason For Referral No Information Medications Medication SIG (Take, Route, Frequency, Duration) Notes Start Date End Date Status Diclofenac Sodium 75 MG TAKE 1 TABLET BY MOUTH TWICE A DAY NEEDED; Duration: 30 Not-TakingVraylar 4.5 MG1 capsule Orally Once a dayActiveLasix 20 MG1 tablet Orally Once a day as needed; Duration: 10 days12/13/2024Not-TakingSimvastatin 20 MG1 tablet Orally at bedtime; Duration: 90 daysActivePROzac 40 MG2 capsules Orally Once a dayActiveLaMICtal 200 MG1 tablet Orally Once a dayActiveToprol XL 50 MG1 tablet Orally Once a dayActiveOndansetron HCl 4 MG1 tablet Orally BID prn; Duration: 14 days01/20/2024Not-Taking Social History Tobacco Use: Social History Observation Description Date Details (start date - stop date) Never Smoker NA - NA Tobacco Use/Smoking Question Answer Notes Patient is a nonsmoker Alcohol Screen (Audit-C) Question Answer Notes Did you have a drink containing alcohol in the p ast year? No Wvsmfk2LkgwanmdfpyorrWfmynbifKFREE-I (Standard) Question Answer Notes Did you have a drink containing alcohol in the p ast year? No Oeleot6JmwjcqddkdbsxuHgrcokxn Problems Problem Type SNOMED Code ICD Code Onset Dates Problem Status W/U Status Risk Notes Problem Obstructive sleep ap noe syndrome (disorder) (65218495) Obstructive sleep apnea (adult) (pediatric) (G47.33) ActiveconfirmedProblemNondependent cannabis abuse (160423581)Cannabis use, unspecified, uncomplicated (F12.90)ActiveconfirmedProblemAnxiety disorder (931781522)Other specified anxiety disorders (F41.8)ActiveconfirmedProblem Chronic tension-type headache (719810638)Chronic tension-type headache, intractable (G44.221)ActiveconfirmedProblemBilateral tinnitus (1067664820820) Tinnitus, bilateral (H93.13)ActiveconfirmedProblemCervical radiculopathy (75743225)Radiculopathy, cervical region (M54.12)ActiveconfirmedProblem Fibromyalgia (675258129)Fibromyalgia (M79.7)ActiveconfirmedProblemSnoring (62756774)Snoring (R06.83)ActiveconfirmedProblemParesthesia (finding) (36731807) Paresthesia of skin (R20.2)ActiveconfirmedProblemDisorder of musculoskeletal system (489746)Other symptoms and signs involving the musculoskeletal system (R29.898)ActiveconfirmedProblemAuditory hallucinations (88707978)Auditory hallucinations (R44.0)ActiveconfirmedProblemPseudotumor cerebri (33575455) Pseudotumor cerebri (G93.2)ActiveconfirmedProblemHyperlipidemia (70991954) Hyperlipidemia (E78.5)ActiveconfirmedProblemMorbid obesity (971269678)Morbid obesity (E66.01)ActiveconfirmedProblemAnxiety (34393518)Anxiety (F41.9)Active confirmedProblemSeizure (05646876)Seizures (R56.9)ActiveconfirmedProblem Electrocardiogram abnormal (679447300)Abnormal EKG (R94.31)Activeconfirmed ProblemDepression (847506573)Depression (F32.9)ActiveconfirmedProblemObstructive sleep apnea syndrome (76504710)AISHA (obstructive sleep apnea) (G47.33)Active confirmedProblemAbnormal uterine bleeding (20077886170919)Abnormal bleeding in menstrual cycle (N93.9)ActiveconfirmedProblemVitamin D deficiency (68188924) Vitamin D deficiency (E55.9)ActiveconfirmedProblemSinusitis (87172126)Sinusitis (J32.9)ActiveconfirmedProblemLeft shoulder pain (3755843564)Left shoulder pain (M25.512)ActiveconfirmedProblemMemory loss (05362630)Memory loss (R41.3)Active confirmedProblemChronic migraine (508376217)Chronic migraine (G43.709)Active confirmedProblemIntertrigo (30681613)Intertrigo (L30.4)ActiveconfirmedProblem Overweight (314680581)Over weight (E66.3)ActiveconfirmedProblemLesion of ulnar nerve (978755663)Cubital tunnel syndrome on right (G56.21)ActiveconfirmedProblem Abnormal uterine bleeding (07924146523988)Abnormal uterine bleeding (N93.9) ActiveconfirmedProblemChiari malformation type I (203964162)Chiari malformation type I (G93.5)ActiveconfirmedProblemTemporomandibular joint disc (216738907)TMJ syndrome (M26.69)ActiveconfirmedProblemBody mass index 40+ - severely obese (272091477)BMI 50.0-59.9, adult (Z68.43)ActiveconfirmedProblemMorphea (247179403)Morphea (L94.0)ActiveconfirmedProblemLocalized scleroderma (385530073)Localized scleroderma (L94.0)ActiveconfirmedProblemRight ovarian cyst (26823556495462075)Right ovarian cyst (N83.201)ActiveconfirmedProblemAttention deficit hyperactivity disorder (435712543)ADHD (F90.9)ActiveconfirmedProblem Disease caused by Severe acute respiratory syndrome coronavirus 2 (disorder) (299573861)COVID-19 virus infection (U07.1)ActiveconfirmedProblemAdenomyosis of uterus (disorder) (072846182)Adenomyosis (N80.03)Activeconfirmed Vital Signs Blood pressure diastolic 72 mm Hg 06/05/2025 Ijudlv04 in06/05/2025lood pressure mm Hg06/05/20256098Zrjbhy167.2 lbs 06/05/2025BMI61.5 kg/m206/05/2025 Procedures Procedure Date Ordered Date Performed Result Body Sit e PFT Complete 06/05/2025 N/A Encounters Encounter Location Date Provider Diagnosis [address] [address] 12/13/2024 Margaret Karimi Lower extremity nellie a R60.0 and Anxiety F41.[address] [address] 06/05/2025 Margaret Karimi Wellness examination Z00.00 ; Hyperlipidemia E78.5 ; Shortness of breath R06.02 and Morbid obesity E66.[address] [address] 12/28/2024 Margaret Karimi AISHA (obstructive sle ep apnea) G47.[address] [address] 01/04/2025 Margaret Karimi [address] [address] 07/09/2025Margaret Karimi Assessments Encounter Date Diagnosis (ICD Code) Assessment Notes Treatment Notes Treatment Clinical Notes Section Notes 12/13/2024 Lower extremity edema (ICD-10 - R60.0) try compression sleeves discussed vein clinic referral if needed advised wt loss, walking 06/05/2025Wellness examination (ICD-10 - Z00.00)ROS done exam done06/05/2025 Hyperlipidemia (ICD-10 - E78.5) family hx [place] repeat labs 3m 12/28/2024OSA (obstructive sleep apnea) (ICD-10 - G47.33)06/05/2025Shortness of breath (ICD-10 - R06.02) hx COVID vapes marijuana had stress test 2 yrs ago, was ok 12/13/2024nxiety (ICD-10 - F41.9) sees psych and counseling continue with both and meds per psych ok for int FMLA 06/05/2025Morbid obesity (ICD-10 - E66.01) discussed meds handouts given can not afford GLP 1 discuss adipex with psych Plan Of Treatment Pending Test Test Name Order Date CMP (COMPLETE METABOLIC PANEL) 4 UA (URINALYSIS, COMPLETE) 11/15/2023 CULTURE, URINE w SENSITIVITY 11/15/2023 HEMOGLOBIN A1C (GLYCO) 12/13/2024 HEMOGLOBIN A1C (GLYCO) 09/20/2023 HEMOGLOBIN A1C (GLYCO) 06/05/2025 IRON, TOTAL 06/05/2025 IRON, TOTAL 12/13/2024 IRON, TOTAL 09/20/2023 LIPID PANEL (CHOL/TRIG/HDL/LDL) 12/14/19 25 LIPID PANEL (CHOL/TRIG/HDL/LDL) 09/20/19 24 CBC WITH DIFF (EXP 05/2025) 09/20/2023 VITAMIN D, 25 LEVEL (TOTAL) 09/20/2023 VITAMIN D, 25 LEVEL (TOTAL) 12/13/2024 VITAMIN D, 25 LEVEL (TOTAL) 06/05/2025 XR Knee RT (3 views) * 09/03/2023 CARDIO Stress Test - Treadmill Exercise 11/09/2022 PFT Complete 06/05/2025 Insulin Level 06/05/2025 Insulin Level 09/20/2023 Insulin Level 12/13/2024 Covid-19 PCR (CVDTBH) 02/21/2024 THYROID PANEL (T4/TSH/FREE T3) 4 THYROID PANEL (T4/TSH/FREE T3) 5 THYROID PANEL (T4/TSH/FREE T3) 5 Holter Monitor - 3 days up to 14 days XR chest 2V 06/05/2025 CMP (COMP [facility] [place]) w/eGFR CKD-EPI 2024 CMP (COMP [facility] [place]) w/eGFR CKD-EPI 2024 CBC WITH DIFF 12/13/2024 CBC WITH DIFF 06/05/2025 Insurance Providers Payer Name Payer Address Payer Phone Subscriber Number Group Number Insured Name Patient Relationship to Insured Coverage Start Date Coverage End Date [place] [address] [place] [address] [id number] My Garcíaelf - patient [facility] the [facility] [address] [address] [place] [id number], JamesSpouse - patient is the spouse of the insured Medical (General) History Medical History History ICD Code Snoring R06.83 Intertrigo L30.4 Chronic migraine G43.709 Auditory hallucinations R44.0 Seizures R56.9 TMJ syndrome M26.69 ADHD F90.9 Left shoulder pain M25.512 Adenomyosis N80.03 Over weight E66.3 Anxiety F41.9 Tinnitus, bilateral H93.13 COVID-19 virus infection U07.1 Chronic tension-type headache, intractab le G44.221 BMI 50.0-59.9, adult Z68.43 Cannabis use, unspecified, uncomplicated F12.90 Pseudotumor cerebri G93.2 Chiari malformation type I G93.5 Fibromyalgia M79.7 Morphea L94.0 Surgical History Surgery Date(Month/Year) [place]
--- OUTSIDE RECORDS SUMMARY | 2025-07-13 11:06 | XMS_ITS | Clinical Summary ---
Author Organization [facility] s tem Address [id number] [address] [place] [address] Care Team Providers Care Airport Operations Specialist Name Role Phone Margaret Karimi MEDTRONICS TECHNICIAN-DIRECTOR OF STUDENT FINANCIAL SERVICES Primary Care Provider Allergies No known active allergies Medications * This document contains information received from the source organization and may not represent a complete record from that organization. MedicationSigDispense QuantityRefillsLast FilledStart DateEnd DateStatus metoprolol succinate 50 mg capsule,sprinkle,ER 24hr Take 50 mg by mouth in the morning.4Active ZEPBOUND 2.5 mg/0.5 mL pen injector INJECT 2.5MG SUBCUTANEOUSLY ONCE EVERY WEEK04/11/2024ctive pregabalin (LYRICA) 150 mg capsule Take 1 capsule (150 mg total) by mouth in the morning and 1 capsule (150 mg total) at noon and 1 capsule (150 mg total) before bedtime.Active lamoTRIgine (LaMICtal XR) 300 mg tablet extended release 24hr Indications:Severe episode of recurrent major depressive disorder, with psychotic features (CMS-HCC)Take 1 tablet (300 mg total) by mouth in the morning. 90 tablet 5Active busPIRone (BUSPAR) 30 mg tablet Indications:Panic attacksTake 1 tablet (30 mg total) by mouth 2 (two) times a day as needed (anxiety). 60 tablet 5Active cholecalciferol (VITAMIN D3) 50,000 units capsule Indications:Vitamin D deficiencyTake 1 capsule (50,000 Units total) by mouth once a week. 12 capsule 5Active simvastatin (ZOCOR) 20 mg tablet Take 1 tablet (20 mg total) by mouth nightly.5Active cariprazine 6 mg capsule Indications:Severe episode of recurrent major depressive disorder, with psychotic features (CMS-HCC)Take 6 mg by mouth in the morning. 90 capsule 5Active FLUoxetine (PROzac) 40 mg capsule Indications:Severe episode of recurrent major depressive disorder, with psychotic features (CMS-HCC),Mixed obsessional thoughts and actsTake 2 capsules (80 mg total) by mouth in the morning. 180 capsule 5Active FLUoxetine (PROzac) 40 mg capsule Indications:Severe episode of recurrent major depressive disorder, with psychotic features (CMS-HCC),Mixed obsessional thoughts and actsTake 2 capsules (80 mg total) by mouth in the morning. 180 capsule Discontinued(Reorder) cariprazine 6 mg capsule Indications:Severe episode of recurrent major depressive disorder, with psychotic features (CMS-HCC)Take 6 mg by mouth in the morning. 90 capsule Discontinued(Reorder) Active Problems ProblemNoted DateDiagnosed DateMixed obsessional thoughts and acts3Post traumatic stress disorder (PTSD)12/08/2022Severe episode of recurrent major depressive disorder, with psychotic /16/2023seudotumor cerebri 12/08/2022 Encounters * This document contains information received from the source organization and may not represent a complete record from that organization. DateTypeDepartmentCare TkvvBnuyoitvxhq12/08/2340Bgnajl82/05/7063Jcpvbj67/27/2025 Hiwnyn0304/25/2025Travelfrom Last 3 Months Immunizations ImmunizationAdministration DatesNext DueCOVID-19, mRNA, LNP-S, PF, 100mcg/0.5mL Dose04/26/2022 Family History Medical HistoryRelationNameCommentsAnxiety disorderFatherDepressionFatherBipolar disorderMaternal UncleOCDMaternal UncleSuicide AttemptsMaternal UncleDepression MotherRelationNameStatusCommentsFatherMaternal UncleMother Social History Tobacco UseTypesPacks/DayYears UsedDateSmoking Tobacco: NeverSmokeless Tobacco: Never Tobacco Cessation:Counseling Given: Not Answered Alcohol UseStandard Drinks/WeekCommentsNot Currently0 (1 standard drink = 0.6 oz pure alcohol)PHQ-2AnswerDate RecordedTotal Iceev6130/16/2023Hunger Screening AnswerDate RecordedWithin the past 12 months we worried whether our food would run out before we got money to buy more.Never True09/07/2024Within the past 12 months the food we bought just didn't last and we didn't have money to get more. Never True09/07/2024EducationAnswerDate RecordedWhat is the highest level of school you have completed or the highest degree you have received?High school khqhfful61/16/2023CommentsNoSex and Gender InformationValueDate Recorded Sex Assigned at BirthNot on fileLegal FzlPlvkao33/06/2023 11:41 AM ESTGender IdentityNot on fileSexual OrientationNot on file Last Filed Vital Signs Vital SignReadingTime TakenCommentsBlood Dkgkbuyn873/8409/07/2024 10:33 AM EST Bdkrn423609/07/2024 10:33 AM ESTTemperature--Respiratory Rate--Oxygen Saturation 97%12/08/2023 2:05 PM EDTInhaled Oxygen Concentration--Vboycq655.7 kg (352 lb) 09/07/2024 10:33 AM JWIPrkrkr145 cm (5' 3 )05/31/2024 8:33 PM ESTBody Mass Index 62.35107/31/2023 8:33 PM EST Plan of Treatment Health MaintenanceDue DateLast DoneCommentsDTaP,Tdap and Td Vaccines (1 - Tdap) 2005Depression Ttfbdrovk44/ap Smear07/26//07/2021 COVID-19 Vaccine (2 - season)/06/2022, 04/26/2022Influenza Yjwygoz18/06/2022, 04/26/2022dult BMI Dhjrjsbze03 Tobacco Tfacclycb94 Medical Devices Not on file Procedures Procedure NamePriorityDate/TimeAssociated DiagnosisCommentsHEMOGLOBIN D1NGzgjhiw 05/30/2025 9:46 AM EST Assessment of effects of psychotropic drug in patient at risk for metabolic syndrome LIPID UAGTEZXKvbwfqm45/05/2025 9:46 AM EST Assessment of effects of psychotropic drug in patient at risk for metabolic syndrome VITAMIN D 25 ILFSFERMnammsa46/05/2025 9:46 AM EST Vitamin D deficiency LAMOTRIGINE, ENkbpugy69/05/2025 9:46 AM EST Severe episode of recurrent major depressive disorder, with psychotic features ([facility]) Encounter for drug therapy DRUG SCREEN, BLBJZFascqdt77/05/2025 9:46 AM EST Encounter for drug screening from Last 3 Months Results * Lamotrigine, S (05/30/2025 9:46 AM EST)ComponentValueRef RangeTest Method Analysis TimePerformed AtPathologist SignatureLAMOTRIGINE, S4.03.0 - 15.0 mcg/mL06/01/2025 11:56 AM ESTADVENTHEALTH WINTER GARDEN LABORATORIESComment: ADDITIONAL INFORMATION This test was developed and its performance characteristics determined by [facility] in a manner consistent with CLIA requirements. This test has not been cleared or approved by the U.S. Food and Drug Administration. Test Performed by: [facility] [address] [place] [address] Barge Master: Fredo Briggs Ph.D.; CLIA# [id number] Specimen (Source)Anatomical Location / LateralityCollection Method / Volume Collection TimeReceived TimeBloodVenipuncture / Siymjnu7405/30/2025 9:46 AM EST 05/30/2025 9:46 AM EST Narrative Authorizing ProviderResult TypeResult StatusKevinclyuli Perez MEDTRONICS TECHNICIAN-CNPLAB BLOOD ORDERABLESFinal ResultPerforming OrganizationAddressCity/State/ZIP CodePhone Number [facility] [address] [place] [phone], * (ABNORMAL) Drug Screen, Urine (05/30/2025 9:46 AM EST)ComponentValueRef Range Test MethodAnalysis TimePerformed AtPathologist SignatureAMPHETAMINE/METHAMP NigfdkohUppwwhjk52/05/2025 2:12 PM [facility] Comment:AMPH/METH screening cut off = 1000 ng/mLCOCAINE METABOLITENegative Gxtgwpao94/05/2025 2:12 PM [facility]ORYComment: Cocaine screening cut off value = 300 ng/hGOACKSIPSmmttutiAnlektll59/05/2025 2:12 PM [facility]ORYComment:Ecstasy screening cut off value = 500 ng/yKTZSTNVIYAEwxrintjImmeiven75/05/2025 2:12 PM [facility]ORYComment:Methadone screening cut off value = 300 ng/mL.MwwvmadXvctvsseKpnwyatg50/05/2025 2:12 PM [facility]ORYComment: Opiates screening cut off value = 300 ng/mL This test is used for the detection of codeine, hydrocodone (>1000 ng/mL), morphine and hydromorphone (>900 ng/mL) in urine. OTCPYVTOGDvtekedyPvlbexmj57/05/2025 2:12 PM [facility]ORYComment: Oxycodone screening cut off value = 300 ng/mL This test is used for the detection of oxycodone and oxymorphone in urine. CPJZFITHUGELDXvjroeniZqanahis07/05/2025 2:12 PM [facility]ORYComment:Phencyclidine screening cut off value = 25 ng/mLCANNABINOIDS Positive(A)Rjymhzia93/05/2025 2:12 PM [facility] Comment:Cannabinoids/THC screening cut off value = 50 ng/mLUrine Barbiturates AfqntqskBtqmecic77/05/2025 2:12 PM [facility] Comment:Barbiturates screening cut off value = 200 ng/mLBENZODIAZEPINESNegative Fbooexpk40/05/2025 2:12 PM [facility]ORYComment: Benzodiazepines screening cut off value = 200 ng/mLSpecimen (Source)Anatomical Location / LateralityCollection Method / VolumeCollection TimeReceived TimeUrine Collection / Gvsdwvs0305/30/2025 9:46 AM EST05/30/2025 9:46 AM EST Narrative [facility] - 05/30/2025 2:12 PM EST Confirmation available upon request. Authorizing ProviderResult TypeResult StatusStephanie Nish Eriksami MEDTRONICS TECHNICIAN-CNPURINE ORDERABLESFinal ResultPerforming OrganizationAddressCity/State/ZIP CodePhone Number [facility] [address] [place] [address], * (ABNORMAL) Vitamin D 25 hydroxy (05/30/2025 9:46 AM EST)ComponentValueRef RangeTest MethodAnalysis TimePerformed AtPathologist SignatureVITAMIN D 25 HYD TOT16.2(L)30.0 - 100.0 ng/mL05/30/2025 2:28 PM ESTOHIOHEALTH MARION GENERAL HOS[facility] LABORATORYSpecimen (Source)Anatomical Location / LateralityCollection Method / VolumeCollection TimeReceived TimeBloodVenipuncture / Bgdmfka6805/30/2025 9:46 AM EST05/30/2025 9:46 AM EST Narrative [facility] - 05/30/2025 2:28 PM EST Vitamin D status 25 [place] Vitamin D Deficiency <20 ng/mL Insufficiency ? 20-29 ng/mL Sufficiency ? 30-100 ng/mL Toxicity >100 ng/mL NOTE: A pediatric reference range has not been established by the steam train driver of this kit. The [place] [employer] recommends a Vitamin D level of = or >20ng/mL in infants and children. Authorizing ProviderResult TypeResult StatusStephanie Perez MEDTRONICS TECHNICIAN-CNPLAB BLOOD ORDERABLESFinal ResultPerforming OrganizationAddressCity/State/ZIP CodePhone Number [facility] [address] [place] [address], * Hemoglobin A1c (05/30/2025 9:46 AM EST)ComponentValueRef RangeTest Method Analysis TimePerformed AtPathologist SignatureHEMOGLOBIN A1C5.44.4 - 5.6 % 05/30/2025 1:57 PM [facility]ORYComment: ?ADA Guidelines ?Result ?HgbA1c ? Normal : ? less than 5.7 % ? Prediabetes : ?5.7 % ??to 6.4 % Diabetes : > 6.4 % ?Use with caution in patients with abnormal hemoglobin variants as ??the half-life of red blood cells and in vivo glycation rates are ??affected. EST. AVERAGE HLMUMQT403sa/dL05/30/2025 1:57 PM [facility] LABORATORYSpecimen (Source)Anatomical Location / LateralityCollection Method / VolumeCollection TimeReceived TimeBloodVenipuncture / Adoripq4905/30/2025 9:46 AM EST05/30/2025 9:46 AM EST Narrative Authorizing ProviderResult TypeResult StatusJaclyuli Perez APRN-CNPSALINA REGION[facility] BLOOD ORDERABLESFinal ResultPerforming OrganizationAddressCity/State/ZIP CodePhone Number [facility] [address] [place] [address], * (ABNORMAL) Lipid profile (05/30/2025 9:46 AM EST)ComponentValueRef RangeTest MethodAnalysis TimePerformed AtPathologist ShcfubybaVFFYOQZDLRE457(H)150 - 200 mg/dL05/30/2025 2:23 PM [facility] IRJVFKPWQKAJBUBUTLMRGP820 27 - 150 mg/dL05/30/2025 2:23 PM [facility] LABORATORYHDL EVUJBUFUWOH95>39 mg/dL05/30/2025 2:23 PM [facility]OR[facility]ORYComment: HDL <40 mg/dL - High Risk HDL > or = 40mg/dL- Desirable HDL >60 mg/dL - Negative Risk LDL (CALC)155(H)<130 mg/dL05/30/2025 2:23 PM [facility]ORATORYComment: LDL <100 mg/dL - Desirable LDL >160 mg/dL - High Risk CHOLESTEROL:HDL5.1(H)1.0 - 5.011 2:23 PM [facility] LABORATORYVERY LOW TNNGZMPDMUA462 - 30 mg/dL05/30/2025 2:23 PM [facility] LABORATORYSpecimen (Source)Anatomical Location / Laterality Collection Method / VolumeCollection TimeReceived TimeBloodVenipuncture / Jwfspoq5605/30/2025 9:46 AM EST05/30/2025 9:46 AM EST Narrative Authorizing ProviderResult TypeResult StatusJaclyuli Perez MEDTRONICS TECHNICIAN-CNPLAB BLOOD ORDERABLESFinal ResultPerforming OrganizationAddressCity/State/ZIP CodePhone Number [facility] [address] [place] [address], from Last 3 Months Insurance Care Teams Team MemberRelationshipSpecialtyStart DateEnd Date Margaret Karimi, MEDTRONICS TECHNICIAN-DIRECTOR OF STUDENT FINANCIAL SERVICES [address] [place] [id number] [facility]04/08/23
--- OUTSIDE RECORDS SUMMARY | 2025-07-13 11:06 | XMS_ITS | Patient Health Record ---
Author Organization [facility] Address [address] [place] [address] Care Team Providers Care Nurse Specialist Name Role Phone Maite Kruse Primary Care Provider Unavaila Alize Kelly Unavailable Unavailable Allergies No Known Allergies Reason For Referral No Information Medications Medication SIG (Take, Route, Frequency, Duration) Notes Start Date End Date Status busPIRone HCl 10 MG 1 tablet Orally Twice a day ActiveacetaZOLAMIDE ER 500 MG1 capsule Orally Once a dayNot-TakingacetaZOLAMIDE ER 500 MG1 capsule in the morning and 2 capsules at bedtime Orally twice a day; Duration: 30 day(s)Active Social History Tobacco Use: Social History Observation Description Date Details (start date - stop date) Never Smoker NA - NA Non smoking Question Answer Notes Are you a nonsmoker Alcohol Screen (Audit-C) Question Answer Notes Did you have a drink containing alcohol in the p ast year? No Mtcvsg8PhidudqdbffhpjBshtsmve Problems Problem Type SNOMED Code ICD Code Onset Dates Problem Status W/U Status Risk Notes Problem Benign intracranial hypertension (60488869) Benign intracranial hypertension (G93.2) ActiveconfirmedProblemBenign intracranial hypertension (32180703)IIH (idiopathic intracranial hypertension) (G93.2)Activeconfirmed Plan Of Treatment No Information Insurance Providers Payer Name Payer Address Payer Phone Subscriber Number Group Number Insured Name Patient Relationship to Insured Coverage Start Date Coverage End Date [facility] [address] [place] [address] [id number] My Garcíaelf - patient is the insured Medical (General) History Medical History History ICD Code Anxiety F41.9 IIH (idiopathic intracranial hypertensio n) G93.2 Depression F32.9 Surgical History Surgery Date(Month/Year) denies Hospitalization History Reason Date(Month/Year) denies
--- OUTSIDE RECORDS SUMMARY | 2025-07-13 11:07 | XMS_ITS | Patient Health Record ---
Author Organization [facility] Address [address] [place] [address] Care Team Providers Care Precision Layout Worker Name Role Phone ISRAEL APPLE CAPELLAN Primary Care Provider [phone] Reason For Referral No Information Social History Social History Additional DetailsCategorySocial InfoOptionsDetailsMigrated Social History Migrated Social History Alcohol history:Never drinks alcohol Employment:Currently unemployed Has the patient used marijuana?:Yes ,notes : marijuana card since 2 year ago .Patient smoke everyday Marital status: Tobacco history:Never smoker Problems Problem Type SNOMED Code ICD Code Onset Dates Problem Status W/U Status Risk Notes Problem Constipation (53481185) Constipa tion, unspecified (K59.00) 07/29/2018 Active confirmed ProblemGeneralized anxiety disorder (16666688)Generalized anxiety disorder (F41.1)07/29/2018InactiveconfirmedProblemIntermenstrual bleeding - irregular (41029843)Excessive and frequent menstruation with irregular cycle (N92.1) 07/29/2018InactiveconfirmedProblemObsessive-compulsive disorder (290420274) Obsessive-compulsive disorder, unspecified (F42.9)07/29/2018Inactiveconfirmed ProblemMild recurrent major depression (87053064)Major depressive disorder, recurrent, mild (F33.0)08/09/2018ActiveconfirmedProblemBipolar disorder (61978695)Bipolar disorder, unspecified (F31.9)07/29/2018ActiveconfirmedProblem Hyperprolactinemia (517072893)Hyperprolactinemia (E22.1)08/09/2018Active confirmedProblemBody mass index 40+ - morbidly obese (420329768)Body mass index (BMI) 50-59.9 , adult (Z68.43)07/29/2018InactiveconfirmedProblemAbnormal weight gain (443723293)Abnormal weight gain (R63.5)07/29/2018ActiveconfirmedProblem Fatigue (21303871)Other fatigue (R53.83)08/09/2018ActiveconfirmedProblemNausea and vomiting (84425475)Nausea with vomiting, unspecified (R11.2)07/29/2018Active confirmedProblemIrritable bowel syndrome characterized by constipation (328880164)Irritable bowel syndrome with constipation (K58.1)07/29/2018Active confirmed Plan Of Treatment No Information Insurance Providers Payer Name Payer Address Payer Phone Subscriber Number Group Number Insured Name Patient Relationship to Insured Coverage Start Date Coverage End Date [facility] [employer] [facility] [address] [place], [place] [phone] [id number] My Garcíaelf - patient is the insured
--- OUTSIDE RECORDS SUMMARY | 2025-07-13 11:07 | XMS_ITS | Clinical Summary ---
Author Organization [facility] Address [address] [place] [address] Care Team Providers Care Manufacturers Service Representative Name Role Phone Margaret Karimi MACIE Primary Care Provider [phone] Allergies No known active allergies Medications MedicationSigDispense QuantityRefillsLast FilledStart DateEnd DateStatus traZODone (Desyrel) 50 mg tablet TAKE 1-2 TABLETS BY MOUTH NIGHTLY NEEDED FOR SLEEP.12/23/2022ctive pregabalin (Lyrica) 100 mg capsule Take 100 mg by mouth twice a day.12/07/2022ctive furosemide (Lasix) 20 mg tablet Take 20 mg by mouth in the morning and at bedtime.11/30/2022ctive Vraylar 1.5 mg capsule 01/05/2023ctive FLUoxetine (PROzac) 20 mg capsule TAKE 1 CAPSULE (20 MG TOTAL) BY MOUTH IN THE VZFNOHW0812/23/2022ctive LORazepam (Ativan) 1 mg tablet TAKE 1 TABLET (1 MG TOTAL) BY MOUTH TWO TIMES A DAY NEEDED FOR ANXIETY. 12/23/2022ctive Social History Tobacco UseTypesPacks/DayYears UsedDateSmoking Tobacco: Never AssessedUT Safety & EnvironmentAnswerDate RecordedFear of Current or Ex-PartnerNot on file 09/17/2023Emotionally AbusedNot on file09/17/2023hysically AbusedNot on file 09/17/2023Sexually AbusedNot on file09/17/2023hysically or Sexually AbusedNot on file09/17/2023CommentsUnknownSex and Gender InformationValueDate RecordedSex Assigned at BirthNot on fileLegal QvqCsnihm58/06/2023 11:08 AM EDT Gender IdentityNot on fileSexual OrientationNot on file Last Filed Vital Signs Vital SignReadingTime TakenCommentsBlood Jpsjqclh324/9106 11:07 AM EDT Gzwny045601/06/2023 10:29 AM EDTTemperature--Respiratory Rate--Oxygen Saturation 98%01/06/2023 10:29 AM EDTInhaled Oxygen Concentration--Zybkur666 kg (326 lb) 01/06/2023 10:29 AM EDTHeight--Body Mass Index-- Plan of Treatment Health MaintenanceDue DateLast DoneCommentsDepression Qftgqrqvv79/30/1998 Varicella Vaccines (1 of 2 - 13+ 2-dose series)1999Hepatitis B Vaccines (1 of 3 - 19+ 3-dose series)2005Adult Eivuxyf0404/24/2008HPV Vaccines (1 - 3- dose SCDM series)2013HPV/Yqaqfd7504/24/2016Cervical Cancer Screening 07/26/2024Pap Smear/2COVID-19 Vaccine ( season) /06/2022, 04/26/2022Influenza Vaccine (#1)/06/2022, 04/26/2022Zoster Vaccines (1 of 2)2036HIB VaccinesAged OutNo longer eligible based on patient's age to complete this topicIPV VaccinesAged OutNo longer eligible based on patient's age to complete this topicMeningococcal B VaccineAged OutNo longer eligible based on patient's age to complete this topic Meningococcal VaccineAged OutNo longer eligible based on patient's age to complete this topicPneumococcal Vaccine: Pediatrics (0 to 5 Years) and At-Risk Patients (6 to 64 Years)Aged OutNo longer eligible based on patient's age to complete this topicRotavirus VaccinesAged OutNo longer eligible based on patient's age to complete this topic Insurance Care Teams Team MemberRelationshipSpecialtyStart DateEnd Date Margaret Karimi CNP [address] [place] [address], [facility] [place] [address] PCP - GeneralFamily Medicine01/01/23
--- OUTSIDE RECORDS SUMMARY | 2025-07-13 11:07 | XMS_ITS | Patient Health Record ---
Author Organization [facility] Address [address] [place] [address] Care Team Providers Care Safety Instructor Name Role Phone Maite Kruse Primary Care Provider Michoacano Gregory Unavailable [phone] Reason For Referral No Information Medications Medication SIG (Take, Route, Frequency, Duration) Notes Start Date End Date Status tiZANidine HCl 2 MG Tablet 1 tablet as needed Or ally QHs; Duration: 30 days ActivePregabalin 50 MG Capsule1 capsule Orally Twice a day; Duration: 30 days 1ActiveNitrofurantoin Macrocrystal 100 MG CapsuleOral; Duration: 5 ActiveclonazePAM 1 MG Tablet(Schedule IV Drug) Oral; Duration: 30Active OXcarbazepine 150 MG TabletOral; Duration: 30ActiveApri 0.15-30 MG-MCG Tablet Oral; Duration: 84ActivetraZODone HCl 50 MG TabletOral; Duration: 30Active ARIPiprazole 5 MG TabletOral; Duration: 30ActivePregabalin 50 MG Capsule1 capsule Orally every 12 hours; Duration: 30 days07/09/2020ActiveMethocarbamol 750 MG TabletOral; Duration: 10Not-Taking Social History Tobacco Use: Social History Observation Description Date Details (start date - stop date) Never Smoker NA - NA Social History Drugs/Alcohol:Social InfoQuestionAnswerNotesDrugsHave you used drugs other than those for medical reasons in the past 12 months?NoAlcohol ScreenDid you have a drink containing alcohol in the past year?EvDvqggq8FcrbcejbhtcrxbBantkwyeAxhgeze Use:Social InfoQuestionAnswerNotesTobacco Use/SmokingSmoking Statusnonsmoker Additional DetailsCategorySocial InfoOptionsDetailsMiscellaneous:Marital status: singleOccupation:retiredChildren:yes Problems Problem Type SNOMED Code ICD Code Onset Dates Problem Status W/U Status Risk Notes Problem Lumbosacral spondylo sis without myelopathy (16244891) Spondylosis without myelopathy or radiculopathy, lumbar region (M47.816) ActiveconfirmedProblemThoracic spondylosis without myelopathy (055765888) Spondylosis without myelopathy or radiculopathy, thoracic region (M47.814)Active confirmedProblemCervical spondylosis without myelopathy (840479059)Spondylosis without myelopathy or radiculopathy, cervical region (M47.812)Activeconfirmed ProblemChronic pain (75413310)Chronic pain (G89.29)Activeconfirmed Plan Of Treatment No Information Insurance Providers Payer Name Payer Address Payer Phone Subscriber Number Group Number Insured Name Patient Relationship to Insured Coverage Start Date Coverage End Date [address] [address] [address] [place] [phone] [id number] My Garcíaelf - [facility] Plan [id number] [place] [id number], KaylieSelf - patient is the [id number] 2020 Medical (General) History Medical History History ICD Code fibromyalgia anxietyIBSheadachesGERDconstipationdepressionSurgical History Surgery Date(Month/Year)
--- OUTSIDE RECORDS SUMMARY | 2025-07-13 11:07 | XMS_ITS | Patient Health Record ---
Author Organization [facility] Address [address] [place] [address] Care Team Providers Care Heel Pricker Name Role Phone DR. BJORN RICHARDSON Unavailable [phone] Reason For Referral No Information Medications Medication SIG (Take, Route, Frequency, Duration) Notes Start Date End Date Status Zofran Dievow1207/25/2013ctiveDiclofenac Sodium 75 MG Tablet Delayed ReleaseTake 1 tablet(s) by mouth bid Oral Diclofenac Sodium 75mg Tablets, Enteric Coated Take 1 tablet(s) by mouth bid #60 (Sixty) tablet(s) 08/18/20133381WgtgaqXethutffHjkrliob59/31/2013ctiveFlomax 0.4 MG Capsule1 tab po qAM Oral Flomax (Tamsulosin HCl) 0.4mg Capsules 1 tab po qAM #30 (Thirty) capsule(s) 07/25/2013ctive Social History Social History Additional DetailsCategorySocial InfoOptionsDetailsMigrated Social History Migrated Social HistoryOccupation: Asset Protection Lead Marital Status: Problems Problem Type SNOMED Code ICD Code Onset Dates Problem Status W/U Status Risk Notes Problem Low back pain (079571452) Low back pain (724.2) Active confirmed Cat-9734323-HtpygadFaeic upper respiratory infection (57710772)Acute upper respiratory infection (465.8)06/27/2012Problem resolvedconfirmedMig-6167211- ProblemKidney stone (08122413)kidney stones (592.0)07/25/2013Problem resolved mjkaovwznGxg-6970267-TyhpzusXktqatuiv vaginosis (082244303)Bacterial vaginosis (616.10)07/25/2013Problem [id number]- Plan Of Treatment No Information Insurance Providers Payer Name Payer Address Payer Phone Subscriber Number Group Number Insured Name Patient Relationship to Insured Coverage Start Date Coverage End Date [facility] [address] [place], [place] [phone] [id number], KAYLIESelf - patient is the [id number] 2013 Medical (General) History Surgical History Surgery Date(Month/Year) Surgeries: NONE
--- OUTSIDE RECORDS SUMMARY | 2025-07-13 11:07 | XMS_ITS | Clinical Summary ---
Author Organization [facility] Address [address] [place] [address] Care Team Providers Care Lawn Care Specialist Name Role Phone Maite Kruse Primary Care Provider + Homero Hutton DO Unavailable [phone] Allergies Active AllergyReactionsCriticalityNoted DateCommentsCorticosteroids (Glucocorticoids)Other: See Hudpsfft32/31/2023 Medications MedicationSigDispense QuantityRefillsLast FilledStart DateEnd DateStatus cariprazine (VRAYLAR) 3 mg capsule Take 3 mg by mouth once daily.10/01/2023ctive FLUoxetine (PROZAC) 40 mg capsule Take 40 mg by mouth two times a day.05/23/2024ctive lamoTRIgine ER (LAMICTAL XR) 250 mg 24 hr tablet Take 250 mg by mouth once daily.07/06/2024ctive Cholecalciferol, Vitamin D3, 50 mcg (2,000 unit) cap Take 2,000 Units by mouth once daily.06/08/2024ctive metoprolol succinate ER (TOPROL XL) 50 mg 24 hr tablet Indications: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 aura and without status migrainosusTake 1 tablet by mouth once daily. [address] (CYMBALTA) 30 mg capsule Take 1 capsule by mouth once daily. 30 capsule 5Active cyclobenzaprine (FLEXERIL) 10 mg tablet Take 1 tablet by mouth daily at bedtime for 7 days, THEN 2 tablets daily at bedtime for 21 days. 49 tablet ExpiredHospital, Clinic, or Other Facility Administered MedicationOrdered DoseRouteFrequencyStart DateEnd DateStatus onabotulinum toxin type A 200 Units injection (BOTOX) 200 UnitsIMONCE (UP TO 30 DAYS AMB)Discontinued Active Problems No known active problems Encounters DateTypeDepartmentCare WhzuVkfhugcmqhe29/18/2025 Patient Msg HOSPITAL PHARMACY HB-[address] [place] [address] Gwendolyn Del Valle RPh Convenient, connected care starts with [facility] Bucjucob07/15/2025 3:40 PM [facility] [address] [place] [address] Janet Lamb MD Chronic migraine without aura, with intractable migraine, so stated, with status migrainosus (Primary Dx)06/18/2025 Patient Msg Medical Records [address] [place] [address] Maite Kruse Update for Our Medicare Patients Regarding Virtual Udhnlu3706/18/2025Telephone Neurology Pain [address] [place] [address] Johan Addison DO 06/13/2025 11:00 AM [facility] Pain [address] [place] [address] Johan Addison DO Fibromyalgia (Primary Dx)06/13/20252449Cznpgt12/12/2025 Patient Msg Medical Records [address] [place] [address] Maite Kruse Important Notice for Our Medicare Patients Regarding Appointment Scheduling 05/03/2025 Patient Msg Neurology Pain [address] [place] [address] Provider, [facility] Location change: Dr. Addison05/03/2025 Patient Msg Neurology Pain [address] [place] [address] Provider, [facility] Location change: Dr. Addison05/03/2025 Patient Msg Neurology Pain [address] [place] [address] Provider, [facility] Change in location: Dr. Addison04/27/2025Refill Neurology Pain [address] [place] [address] Johan Addison, DO Refill Request; Wizzyr0904/20/2025 11:30 AM EDTOffice Visit Neurology [address] [place] [address] Janet Lamb MD Chronic migraine without aura, with intractable migraine, so stated, with status migrainosus (Primary Dx)04/20/2025Travelfrom Last 3 Months Family History Medical HistoryRelationCommentsAneurysmMotherMigrainesMotherBrain CancerNo Family HistoryRelationStatusCommentsMother Social History Tobacco UseTypesPacks/DayYears UsedDateSmoking Tobacco: NeverSmokeless Tobacco: Never Tobacco Cessation:Counseling Given: Not Answered Alcohol UseStandard Drinks/WeekCommentsNot Currently0 (1 standard drink = 0.6 oz pure alcohol)PHQ-2AnswerDate RecordedPHQ-2 vxlub873/15/2025Area Deprivation IndexAnswerDate RecordedNational Score (1-100), lower number is lower risk91 05/25/2023State Score (1-10), lower number is lower shqs4663Data from: https://www.neighborhoodatlas.medicine.[facility].edu/. Last address used for owncsncooyf[address]CommentsNoSex and Gender Information ValueDate RecordedSex Assigned at BirthNot on fileLegal GsxNlvadp19/25/2021 10:23 AM EDTGender IdentityNot on fileSexual OrientationNot on file Last Filed Vital Signs Vital SignReadingTime TakenCommentsBlood Hcshbkva512/6609 11:13 AM EDT Uxaia366504/20/2025 11:13 AM XNNHnuktcjxozd23.2 ??C (97.2 ??F)04/20/2025 11:13 AM EDTRespiratory Enqh082711/13/2024 10:03 AM EDTOxygen Wtqbjlxnqq90%04/03/2025 11:30 AM EDTInhaled Oxygen Concentration--Bgkafj589.5 kg (349 lb 6.9 oz)04/20/2025 11:13 AM GGGXaowyh038.6 cm (5' 4 )04/03/2025 11:30 AM EDTBody Mass Index59.98 04/03/2025 11:30 AM EDT Plan of Treatment DateTypeDepartmentCare Team (Latest Contact Info)Uvtorrapurd13/24/2025 1:30 PM ESTOffice Visit Neurology [address] [place], [place] [id number] Anette Olson PA-C [address] [place] [address] botoxHealth MaintenanceDue DateLast DoneCommentsAnxiety Siqjnjfad40/30/2004 Depression Ubpxljnpb92/30/2004HIV Qlcilvgrs99/30/2004Hepatitis C Screening 2004DTaP,Tdap,Td Vaccine (1 - Tdap)2005Hepatitis B Vaccine (1 of 3 - 19+ 3-dose series)2005Cervical Cancer Ayitrycyk81/30/2007HPV Vaccine (1 - 3-dose SCDM series)2013Covid-19 Vaccine ( season)2025 05/06/2022, 04/26/2022Influenza Vaccine (#1), 04/26/2022 Insurance Care Teams Team MemberRelationshipSpecialtyStart DateEnd Date Maite Kruse [address] [place] [address] PCP - GeneralFamily Medicine03/19/21 Homero Hutton DO [address] [place] [address] JULIANA Referring TeamNeurology03/17/23
--- OUTSIDE RECORDS SUMMARY | 2025-07-13 11:07 | XMS_ITS | Clinical Summary ---
Author Organization [facility] Address [address] [place] [address] Care Team Providers Care Post Splitter Name Role Phone Margaret Karimi MD Primary Care Provider [phone] Allergies Active AllergyReactionsCriticalityNoted ZiuyAevvskvwJrxxzajejykowcx91/21/2024 Unsure what steroid Medications MedicationSigDispense QuantityRefillsLast FilledStart DateEnd DateStatus furosemide (Lasix) 20 MG tablet Take 10 mg by mouth in the morning and 10 mg before bedtime.Active lamoTRIgine (LaMICtal) 100 MG tablet Take 100 mg by mouth 1 (one) time each day at the same timeActive FLUoxetine (PROzac) 10 MG capsule Take 10 mg by mouth in the morning.02/18/2023ctive topiramate (Topamax) 100 MG tablet Take 100 mg by mouth at bedtimeActive metoprolol succinate XL (Toprol-XL) 25 MG 24 hr tablet Take by mouth Do not crush or chew.Active Cariprazine HCl (Vraylar) 3 MG capsule Take by mouthActive gabapentin (Neurontin) 400 MG capsule Indications:FibromyalgiaTake 2 capsules (800 mg) by mouth in the morning and 2 capsules (800 mg) in the evening and 2 capsules (800 mg) before bedtime. 180 capsule ctiveHospital, Clinic, or Other Facility Administered Medication Ordered DoseRouteFrequencyStart DateEnd DateStatus Levonorgestrel intrauterine device 52 mg Indications:Encounter for insertion of Mirena IUD52 loXEQxyylqgkct21/25/2023 Active Active Problems ProblemNoted DateDiagnosed DateIntracranial thvusnxxxgzg25/21/2024hronic tension-type headache, ouhahwuxwiq99/21/2024 Overview (12/14/2023): The patient describes daily headaches which sound consistent with tension-type headaches. Also, mayrepresent IIH. Not significantly concerned for MS (though previous brain MRI did reveal nonspecificwhite matter findings and CSF with 3 oligoclonal bands). - PLAN: - May continue cyclobenzaprine 10 mg PO once a day at bedtime as needed (rarely taking) - Continue gabapentin Ewlrzkuzzbh53/21/2024 Overview (12/14/2023): The patient has mild idiopathic intracranial hypertension with opening pressure of 28 cm CSF on LP.She denies vision loss, and ophtho note from 10/2022 mentioned no optic disc edema. She has trialedempiric low-dose acetazolamide and topiramate without subjective benefit. Furosemide has provided some benefit. - PLAN: - Continue furosemide 20 mg PO once a day - Also taking topiramate per [facility] - I discussed the importance of serial ophthalmology evaluation with the patient to help preserve vision. She verbalizes understanding - As apneic episodes can increase CSF pressure, CPAP use and/or follow up with sleep medicine for alternative AISHA treatment was again encouraged - Weight reduction encouraged Demyelinating changes in brain12/14/2023Intracranial DIRECTOR OF CASINO ujzuqtso76/21/2024 Gwgytkv5412/14/2023 Overview (12/14/2023): Can worsen headaches. PLAN: - Follow closely with psychiatry for management Ujenvqghxpuy35/21/2024 Overview (12/14/2023): The patient has been evaluated by multiple specialties including rheumatology. She has been diagnosed with fibromyalgia historically. CK and myoglobin levels were within normal limits. EMGs of the BUE and BLE in 07/2022 were also normal. Lyrica (200 mg PO BID) provided benefit but had decreased effectiveness over time, so the patient was switched to gabapentin. - PLAN: - Increase gabapentin PO to 800 mg three times a day. I informed the patient that this is the maximum dose I will prescribe. Side effects discussed. She verbalizes understanding and wishes to proceed- Continue cyclobenzaprine 10 mg PO once a day at bedtime as needed - Weight reduction encouraged Tinnitus of both ears12/14/2023 Overview (12/14/2023): PLAN: - Follow up with ENT as needed Unspecified hearing loss, wchovupfr78/21/2024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 aura and with status ywunbmuedou61/21/2024 Overview (12/14/2023): It is my impression that the patient has chronic migraine with approximately 8 migraine days per month. She has previously trialed and failed naproxen, Toradol, acetaminophen, Vicodin, Percocet, topiramate, sumatriptan, trigger injections into shoulders, verapamil, and amitriptyline for management.Botox was ineffective. Ajovy provided minimal benefit. As headaches (of all types) have been overall refractory to multiple treatment options, the patient was referred to [facility] for a second opinion. - PLAN: - I will defer current treatment to the [facility] provider at this time. They have reportedly prescribed Topiramate and metoprolol ER for now - May continue Nurtec 75 mg ODT as needed for migraine - Adequate hydration, sleep hygiene, and regular physical activity 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 aura and without status migrainosus 4Chronic pain rwiubzpy44/21/2024Nonepileptic zqqkrwp8312/14/2023 Overview (12/14/2023): The patient has historically experienced episodes preceded by dizziness and lethargy and followed by what she describes as full body shaking. These were suspected to be nonepileptic. MRI brain in 11/2021 was unremarkable for cause. Routine EEG on 11/10/21 and ambulatory EEG from 07/2022 were normal.She reports 1 episode since the prior appointment. The patient does mention uncontrolled anxiety likely contributing to her symptoms. PLAN: - Routine EEG - Follow closely with psychiatry for treatment of psychiatric conditions Fekamugfxyr82/21/2024Memory loss4ADHD (attention deficit hyperactivity disorder)12/14/2023OSA (obstructive sleep apnea)12/14/2023 Overview (12/14/2023): History of severe AISHA. The patient is not compliant with CPAP use and states this actually worsenedher headaches. I believe untreated AISHA is likely playing a significant role in her chronic pain, refractory headaches, cognitive dysfunction, and fatigue. She does tend to have headaches upon waking.PLAN: - I have encouraged CPAP compliance and discussed adverse health effects of untreated AISHA with the patient - I have recommended the patient follow up with sleep medicine for management. 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 The patient has symptoms clinically consistent with this (numbness in the ulnar aspect of the right distalupper extremity). PLAN: - Due to the constant and persistent symptoms, the patient was referred to orthopedic surgery - Follow up with orthopedic surgery per their recommendations Family History Medical HistoryRelationNameCommentsAsthmaFatherCancerFatherDepressionFather DiabetesFatherHyperlipidemiaFatherObesityFatherhearing deficiencyFatherAllergies MotherDepressionMotherIrritable bowel syndromeMotherhearing deficiencyMother RelationNameStatusCommentsFatherMother Social History Tobacco UseTypesPacks/DayYears UsedDateSmoking Tobacco: NeverSmokeless Tobacco: NeverAlcohol UseStandard Drinks/WeekCommentsNever0 (1 standard drink = 0.6 oz pure alcohol)Caffeine: 2-3 cups/dayCommentsNoSex and Gender Information ValueDate RecordedSex Assigned at IgqscZepyla41/23/2023 9:06 AM EDTLegal Sex Ewqtbx2810/07/2022 11:40 PM EDTGender FgwywrpnLaotxm04/23/2023 9:06 AM EDTSexual ClmmwfnrfhbMfszxbpw72/23/2023 9:06 AM EDT Last Filed Vital Signs Vital SignReadingTime TakenCommentsBlood Ipjdildr100/8212/15/2023 9:38 AM EDT Eocem278012/15/2023 9:38 AM SRSZaqoysvymqf29.7 ??C (98 ??F)07/12/2023 12:06 PM EST Respiratory Zakx414812/15/2023 9:38 AM EDTOxygen Nwqdauavbb35%07/12/2023 12:06 PM ESTInhaled Oxygen Concentration--Iyatqi349 kg (330 lb)12/15/2023 9:38 AM EDT Nsdgda860 cm (5' 3 )12/15/2023 9:38 AM EDTBody Mass Index58.46012/15/2023 9:38 AM EDT Plan of Treatment Not on file Insurance Care Teams Team MemberRelationshipSpecialtyStart DateEnd Margaret Karimi MD [address] [id number] [facility]12/15/22
--- NOTE | 2025-07-13 11:18 | XR_ITS ---
[facility] [id number] Patient Name: RADHA MONTGOMERY MRN: [id number] date: 1985 Sex: F Assigned Patient Location: LAB Current Patient Location: LAB Accession/Order Number: [id number] Exam Date: 07/13/2025 11:22 Report Date: 07/13/2025 12:01 At the request of: AMAN MUNGUIA Procedure: XR chest 2V PA AND LATERAL CHEST: CLINICAL HISTORY: Shortness Of Breath for the past couple months COMPARISON: 11/02/2022 There is no focal parenchymal consolidation, effusion or pneumothorax. The cardiac, hilar and mediastinal silhouettes are within normal limits. There is no vascular congestion. The visualized bony thorax is intact. There is slight dextroscoliotic curvature and tiny endplate spurs. XR/XR chest 2V IMPRESSION: NO ACUTE CARDIOPULMONARY ABNORMALITY. Impression dictated by: Rox Pollack M.D. 07/13/2025 12:01 PM Dictation Location: [place] [address] Electronically authenticated by: [id number] Y Date: 07/13/2025 12:01
[2025-07-13 11:25] LABS: Hematocrit 41.4 % (36.0-48.0); Hemoglobin 13.6 g/dL (12.0-16.0); Immature Granulocytes Abs Auto 0.03 10^3/uL (0.00-0.03); Immature Granulocytes Pct Auto 0.5 % (0.0-0.5); Lymphocytes Absolute Auto 1.8 10^3/uL (1.2-3.8); Mean Corpuscular HGB Conc 32.9 g/dL (29.9-35.2); Mean Corpuscular Hemoglobin 28.2 pg (26.7-34.0); Mean Corpuscular Volume 85.7 fL (81.0-99.0); Platelet Count 270 10^3/uL (150-450); Red Blood Count 4.83 10^6/uL (4.20-5.40); White Blood Count 6.5 10^3/uL (4.0-11.0)
[2025-07-13 12:20] LABS: Iron 63.0 ug/dL (50.0-170.0)
[2025-07-13 12:36] LABS: Alanine Aminotransferase 31 U/L (14-59); Albumin Globulin Ratio 1.0; Albumin Level 3.4 g/dL (3.4-5.0); Alkaline Phosphatase 117 U/L (46-116); Anion Gap 9.1; Aspartate Amino Transferase 20 U/L (15-37); Blood Urea Nitrogen 7.0 mg/dL (7.0-18.0); Calcium 8.6 mg/dL (8.5-10.1); Carbon Dioxide 30.2 mmol/L (21.0-32.0); Chloride 104 mmol/L (98-107); Estimated GFR (African America >60 (>=60 mL/min/1.73m^2); Estimated GFR (Non-African Ame >60 (>=60 mL/min/1.73m^2); Free T3 2.75 pg/mL (2.18-3.98); Globulin 3.5 g/dL; Glucose 91 mg/dL (74-106); Potassium 4.3 mmol/L (3.5-5.1); Sodium 139 mmol/L (136-145); Thyroid Stimulating Hormone 2.139 uIU/mL (0.358-3.740); Total Protein 6.9 g/dL (6.4-8.2)
== END 2025-07-13 10:59 | disposition home or self-care (01) ==
LOC: LAB 11:02
PROVIDERS: PCP Nurse Practitioner Family; Visit Provider Nurse Practitioner Family
DX: Z00.00 Encounter for general adult medical examination without abnormal findings (principal); R06.02 Shortness of breath
CPT/HCPCS: 36415; 71046; 80053; 82306; 83036; 83525; 83540; 84436; 84443; 84481; 85025